=== PATIENT | female | born 1945 | race Caucasian/White ===

== ENCOUNTER 2016-06-25 11:58 | Emergency (ER) | payer MEDICARE ==
[2016-06-25] MEDS ORDERED: HYDROcodone/APAP 5-325MG 1 EACH TAB PO STA (12:34)
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
[2016-06-25 14:19] VITALS: BP 145/70; PULSE 82; RESP 20; TEMP 98.2
== END 2016-06-25 14:10 | disposition home or self-care (01) ==
LOC: EC 11:58
DX: M54.5 Low back pain (principal); G89.29 Other chronic pain; J44.9 Chronic obstructive pulmonary disease, unspecified; I10 Essential (primary) hypertension; G40.909 Epilepsy, unspecified, not intractable, without status epilepticus; E78.5 Hyperlipidemia, unspecified; I25.10 Atherosclerotic heart disease of native coronary artery without angina pectoris; Z79.899 Other long term (current) drug therapy; F41.9 Anxiety disorder, unspecified; F32.9 Major depressive disorder, single episode, unspecified
CPT/HCPCS: 99283

== ENCOUNTER 2017-09-02 15:23 | Inpatient (IN) | payer MEDICARE ==
[2017-09-02] MEDS ORDERED: IPRATROPIUM 0.5 MG/2.5 ML NEBU INHALATION STA (16:12)
[2017-09-02] MEDS ORDERED: RX INFO: IV CONTRAST WAS GIVEN 1 EACH MISC MISCELLANE PRN (16:13)
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
[2017-09-02] MEDS ORDERED: ALBUTEROL NEBULIZED 2.5 MG/3 ML INHALATION STA (16:32)
[2017-09-02 16:35] LABS: Basophils % (A) 0 %; Eosinophils # (A) 0.1 k/uL (0-0.7); Eosinophils % (A) 1 %; HCT 33.2 % (34.0-46.0); HGB 10.7 gm/dL (11.4-16.0); Hypochromasia Slight; Lymphocytes # (A) 0.9 k/uL (1.0-4.8); Lymphocytes % (A) 9 %; MCH 29.8 pg (25.0-35.0); MCHC 32.1 g/dL (31.0-37.0); MCV 92.9 fL (80.0-100.0); Mean Platelet Volume 8.5; Monocytes # (A) 0.5 k/uL (0-1.0); Monocytes % (A) 5 %; Neutrophils # (A) 8.1 k/uL (1.3-7.7); Neutrophils % (A) 82 %; Platelet Count 152 k/uL (150-450); RBC 3.58 m/uL (3.80-5.40); RDW 14.1 % (11.5-15.5); WBC 9.9 k/uL (3.8-10.6)
--- NOTE | 2017-09-02 16:41 | XR ---
EXAMINATION TYPE: XR chest 1V portable DATE OF EXAM: 09/02/2017 COMPARISON: 02/15/2016 HISTORY: Pain TECHNIQUE: Single frontal view of the chest is obtained. FINDINGS: Postsurgical changes are seen. Elevated hemidiaphragm and volume loss compatible with the history of previous surgery. Right basilar infiltrate seen. Left lung clear. Arthropathy of the shoul ders. IMPRESSION: Elevated right hemidiaphragm with right basilar atelectasis or infiltrate.
[2017-09-02 16:47] LABS: Partial Thromboplastin Time 24.6 sec (22.0-30.0); Prothrombin Time 9.8 sec (9.0-12.0)
[2017-09-02 16:52] LABS: Albumin 3.6 g/dL (3.5-5.0); Calcium 8.7 mg/dL (8.4-10.2); Magnesium 1.9 mg/dL (1.6-2.3); Potassium 4.2 mmol/L (3.5-5.1); Total Bilirubin 0.3 mg/dL (0.2-1.3); Total Protein 6.2 g/dL (6.3-8.2)
[2017-09-02 17:07] LABS: Creatine Kinase MB 1.8 ng/mL (0.0-2.4); Troponin I 0.02 ng/mL (0.000-0.034)
[2017-09-02] MEDS ORDERED: LORazepam 2 MG/ML INJ IV STA (18:50)
--- NOTE | 2017-09-02 20:20 | NM ---
EXAMINATION TYPE: NM pul vent and perfuse DATE OF EXAM: 09/02/2017 COMPARISON: Chest radiograph of the same date. HISTORY: Patient's arms are at the patient's side during acquisition. Chest radiograph the same date notes right basilar airspace disease. Shortness of breath. Patient also has underlying COPD. TECHNIQUE: Utilizing inhalation of 69.6 mCi Tc 99m DTPA aerosol and intravenous injection of 5.4 mCi of Tc 99m MAA, ventilation and perfusion images are acquired post injection in multiple projections. FINDINGS: Lateral defects on ventilation and perfusion are subsequent to the location of the patient's arms. Ri ght-sided ventilation defect is larger than perfusion defect at the right lung base corresponding to the known airspace disease. Right hemidiaphragm elevation is again noted. Oblique images are grossly suboptimal due to patient's arms positioning. Left upper lobe matched defect is seen without radiogra phic defect at this time. IMPRESSION: Low probability for pulmonary embolus. Triple matched defect in the right lung base represents the pa tient's known airspace disease, possibly pneumonia. Left apical matched defect could represent additi onal site of early airspace disease not yet seen radiographically. Exam is slightly suboptimal as the patient's arms are located at her side.
[2017-09-02] MEDS ORDERED: cefTRIAXone IN SWFI 1,000 MG/10 ML SYRINGE IVP STA (21:06)
[2017-09-02] MEDS ORDERED: AZITHROMYCIN 500 MG in SODIUM CHLORIDE 0.9% 250 ML IVPB STA (21:06)
[2017-09-02] MEDS ORDERED: IPRATROPIUM-ALBUTEROL 3 ML NEB INHALATION PRN (21:07)
[2017-09-02] MEDS ORDERED: IBUPROFEN 600 MG TAB PO PRN (22:18)
[2017-09-02] MEDS ORDERED: ACETAMINOPHEN TAB 325 MG TAB PO PRN (22:19)
[2017-09-02] MEDS: GABAPENTIN 100 MG CAP PO SCH (22:51)
[2017-09-02] MEDS: HYDROcodone/APAP 10-325MG 1 EACH TAB PO PRN (23:56)
[2017-09-02] MEDS: methylPREDNISolone SOD SUCCI 125 MG/2 ML VIAL IV SCH (23:57)
[2017-09-03] MEDS: HYDROcodone/APAP 10-325MG 1 EACH TAB PO PRN ×4 (05:47→22:02)
[2017-09-03] MEDS: LEVOTHYROXINE 125 MCG TAB PO SCH (05:48)
[2017-09-03] MEDS: methylPREDNISolone SOD SUCCI 125 MG/2 ML VIAL IV SCH ×2 (05:48→11:34)
[2017-09-03 07:06] LABS: Glucose,Whole Blood 193 mg/dL (75-99)
[2017-09-03] MEDS: IPRATROPIUM-ALBUTEROL 3 ML NEB INHALATION SCH ×4 (07:38→20:54)
[2017-09-03] MEDS: INSULIN ASPART 100 UNIT/ML 1 ML 10 ML VIAL SQ SCH ×4 (08:06→22:02)
[2017-09-03] MEDS: amLODIPine 5 MG TAB PO SCH (08:07)
[2017-09-03] MEDS: ASPIRIN 81 MG PO SCH (08:08)
[2017-09-03] MEDS: GABAPENTIN 100 MG CAP PO SCH ×3 (08:08→22:01)
[2017-09-03] MEDS ORDERED: AZITHROMYCIN 500 MG in SODIUM CHLORIDE 0.9% 250 ML IVPB SCH (09:00)
[2017-09-03] MEDS ORDERED: FUROSEMIDE 20 MG TAB PO SCH (09:00)
[2017-09-03] MEDS: cefTRIAXone IN SWFI 1,000 MG/10 ML SYRINGE IVP SCH (09:11)
[2017-09-03] MEDS: SODIUM CHLORIDE 0.9% 1,000 ML IV SCH ×2 (12:29→22:08)
[2017-09-03 12:40] LABS: Glucose,Whole Blood 235 mg/dL (75-99)
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
[2017-09-03 17:38] LABS: Glucose,Whole Blood 250 mg/dL (75-99)
[2017-09-03 17:39] LABS: Hemoglobin A1C 5.4 % (4.0-6.0)
[2017-09-03] MEDS ORDERED: ATORVASTATIN 10 MG TAB PO SCH (21:00)
[2017-09-03] MEDS ORDERED: PATIENT'S OWN (Mirabegron [Myrbetriq] 25 MG) PO SCH (21:00)
[2017-09-03 21:27] LABS: Glucose,Whole Blood 243 mg/dL (75-99)
[2017-09-04] MEDS: HYDROcodone/APAP 10-325MG 1 EACH TAB PO PRN ×2 (03:05→13:43)
[2017-09-04 06:26] VITALS: BP 139/79; RESP 20; TEMP 97.1
[2017-09-04] MEDS: LEVOTHYROXINE 125 MCG TAB PO SCH (06:34)
[2017-09-04 07:21] LABS: Glucose,Whole Blood 203 mg/dL (75-99)
[2017-09-04] MEDS ORDERED: PANTOPRAZOLE 40 MG TABLET PO SCH (07:30)
[2017-09-04] MEDS: cefTRIAXone IN SWFI 1,000 MG/10 ML SYRINGE IVP SCH (07:43)
[2017-09-04] MEDS: IPRATROPIUM-ALBUTEROL 3 ML NEB INHALATION SCH ×2 (07:44→11:42)
[2017-09-04] MEDS: SODIUM CHLORIDE 0.9% 1,000 ML IV SCH (07:44)
[2017-09-04] MEDS: INSULIN ASPART 100 UNIT/ML 1 ML 10 ML VIAL SQ SCH ×2 (07:44→13:00)
[2017-09-04] MEDS: amLODIPine 5 MG TAB PO SCH (07:45)
[2017-09-04] MEDS: GABAPENTIN 100 MG CAP PO SCH (07:45)
[2017-09-04] MEDS: ASPIRIN 81 MG PO SCH (07:45)
[2017-09-04] MEDS ORDERED: LORATADINE 10 MG TAB PO SCH (09:00)
[2017-09-04] MEDS ORDERED: AZITHROMYCIN 500 MG TAB PO SCH (09:00)
[2017-09-04] MEDS ORDERED: predniSONE 20 MG TAB PO SCH (09:00)
[2017-09-04] MEDS ORDERED: DULoxetine HCL 60 MG CAPSULE.DR PO SCH (09:00)
[2017-09-04 09:03] LABS: HCT 32.3 % (34.0-46.0); HGB 10.7 gm/dL (11.4-16.0); MCHC 33.2 g/dL (31.0-37.0); MCV 90.4 fL (80.0-100.0); Mean Platelet Volume 7.5; Platelet Count 212 k/uL (150-450); RBC 3.58 m/uL (3.80-5.40); RDW 13.7 % (11.5-15.5); WBC 11.9 k/uL (3.8-10.6)
[2017-09-04 09:19] LABS: Potassium 4.3 mmol/L (3.5-5.1)
[2017-09-04 12:52] VITALS: PULSE 96
[2017-09-04 12:59] LABS: Glucose,Whole Blood 160 mg/dL (75-99)
--- NOTE | 2017-09-04 13:52 | P.DS ---
Providers Date of admission: 09/02/17 21:07 Attending physician: Dora Villanueva [facility] Course: 71-year-old female was admitted secondary to mild pneumonia and possible COPD exacerbation patient is clinically doing well and there is being discharged in stable condition to home patient is not requiring any oxygen. Patient's creatinine returned to her baseline. Patient's Lasix will be discontinued. Assessment and Plan Plan: -Shortness of breath: Secondary to pneumonia, right sided diaphragmatic elevation along with possibility of mild to COPD exacerbation if at all she has any. -Community acquired pneumonia: -Acute renal failure: Unsure about the chronic kidney disease acute renal failure is secondary to prerenal azotemia, improved with IV fluids and this can you of diuretic therapy -Coronary disease -Hyperlipidemia -Hypertension -Hypothyroidism -Chronic low back pain and multiple back surgeries in the past PHYSICAL EXAMINATION: GENERAL: The patient is alert and oriented x3, not in any acute distress. Well developed, well nourished. HEENT: Pupils are round and equally reacting to light. EOMI. No scleral icterus. No conjunctival pallor. Normocephalic, atraumatic. No pharyngeal erythema. No thyromegaly. CARDIOVASCULAR: S1 and S2 present. No murmurs, rubs, or gallops. PULMONARY: Chest is clear to auscultation, no wheezing or crackles. ABDOMEN: Soft, nontender, nondistended, normoactive bowel sounds. No palpable organomegaly. MUSCULOSKELETAL: No joint swelling or deformity. EXTREMITIES: No cyanosis, clubbing, or pedal edema. NEUROLOGICAL: Gross neurological examination did not reveal any focal deficits. SKIN: No rashes. Patient Condition at Discharge: Stable Plan - Discharge Summary Discharge Rx Participant: Yes New Discharge Prescriptions: New Albuterol Inhaler [Ventolin Hfa Inhaler] 1 - 2 puff INHALATION Q6HR PRN #1 inhaler PRN Reason: Shortness Of Breath Or Wheezing Budesonide-Formot 160-4.5 Mcg [Symbicort 160-4.5 Mcg Inhaler] 2 puff INHALATION BID #1 inhaler Cefuroxime Axetil [Ceftin] 500 mg PO BID #14 tab predniSONE 10 mg PO DAILY #30 tab Continue Simvastatin [Zocor] 20 mg PO HS Mirabegron [Myrbetriq] 25 mg PO HS fentaNYL 25MCG/HR PATCH [Duragesic 25MCG/HR] 1 patch TRANSDERM Q72H #10 patch Ipratropium [place] 0.06%Nasal [Atrovent Nasal 0.06%] 2 spray NASAL QID PRN PRN Reason: COUGH/WHEEZING HYDROcodone/APAP 10-325MG [[place] 10-325] 1 tab PO Q6H PRN PRN Reason: Pain DULoxetine HCL [Cymbalta] 60 mg PO DAILY Fexofenadine HCl [Mary Allergy] 180 mg PO DAILY Aspirin EC [Ecotrin Low Dose] 81 mg PO DAILY Levothyroxine Sodium [Synthroid] 125 mcg PO DAILY amLODIPine [Norvasc] 5 mg PO DAILY Gabapentin [Neurontin] 100 mg PO TID Esomeprazole Magnesium [NexIUM 24Hr] 20 mg PO DAILY Discontinued Furosemide [Lasix] 20 mg PO DAILY Discharge Medication List Mirabegron [Myrbetriq] 25 mg PO HS 10/03/15 [History] Simvastatin [Zocor] 20 mg PO HS 10/03/15 [History] fentaNYL 25MCG/HR PATCH [Duragesic 25MCG/HR] 1 patch TRANSDERM Q72H #10 patch [Rx] DULoxetine HCL [Cymbalta] 60 mg PO DAILY 06/25/16 [History] Fexofenadine HCl [Mary Allergy] 180 mg PO DAILY 06/25/16 [History] HYDROcodone/APAP 10-325MG [[place] 10-325] 1 tab PO Q6H PRN 06/25/16 [History] Ipratropium [place] 0.06%Nasal [Atrovent Nasal 0.06%] 2 spray NASAL QID PRN [History] Aspirin EC [Ecotrin Low Dose] 81 mg PO DAILY 09/02/17 [History] Esomeprazole Magnesium [NexIUM 24Hr] 20 mg PO DAILY 09/02/17 [History] Gabapentin [Neurontin] 100 mg PO TID 09/02/17 [History] Levothyroxine Sodium [Synthroid] 125 mcg PO DAILY 09/02/17 [History] amLODIPine [Norvasc] 5 mg PO DAILY 09/02/17 [History] Albuterol Inhaler [Ventolin Hfa Inhaler] 1 - 2 puff INHALATION Q6HR PRN #1 inhaler 09/04/17 [Rx] Budesonide-Formot 160-4.5 Mcg [Symbicort 160-4.5 Mcg Inhaler] 2 puff INHALATION BID #1 inhaler 09/04/17 [Rx] Cefuroxime Axetil [Ceftin] 500 mg PO BID #14 tab 09/04/17 [Rx] predniSONE 10 mg PO DAILY #30 tab 09/04/17 [Rx] Follow up Appointment(s)/Referral(s): Baudilio Roger MD [Primary Care Provider] - 3 Days Discharge Disposition: HOME SELF-CARE
== END 2017-09-04 14:56 | disposition home or self-care (01) | DRG 194 ==
LOC: EC 15:23 → 4MS4W 21:07
PROVIDERS: ADMIT Hospitalist; ATTEND Hospitalist
DX: J18.9 Pneumonia, unspecified organism (principal); J44.0 Chronic obstructive pulmonary disease with (acute) lower respiratory infection; N17.9 Acute kidney failure, unspecified; I50.9 Heart failure, unspecified; I11.0 Hypertensive heart disease with heart failure; J98.6 Disorders of diaphragm; G40.909 Epilepsy, unspecified, not intractable, without status epilepticus; E78.5 Hyperlipidemia, unspecified; E03.9 Hypothyroidism, unspecified; G89.29 Other chronic pain; M54.5 Low back pain; I25.10 Atherosclerotic heart disease of native coronary artery without angina pectoris; G43.909 Migraine, unspecified, not intractable, without status migrainosus; F32.9 Major depressive disorder, single episode, unspecified; F41.9 Anxiety disorder, unspecified; Z77.22 Contact with and (suspected) exposure to environmental tobacco smoke (acute) (chronic); Z86.14 Personal history of Methicillin resistant Staphylococcus aureus infection; Z90.710 Acquired absence of both cervix and uterus; Z90.49 Acquired absence of other specified parts of digestive tract; Z98.1 Arthrodesis status; Z90.2 Acquired absence of lung [part of]; Z79.82 Long term (current) use of aspirin; Z79.890 Hormone replacement therapy; Z79.891 Long term (current) use of opiate analgesic; Z79.899 Other long term (current) drug therapy
CPT/HCPCS: 36415; 71045; 78582; 80048; 80053; 82550; 82553; 83036; 83605; 83735; 83880; 84484; 85025; 85027; 85610; 85730; 87040; 87502; 93005; 94640; 94760; 96365; 96366; 96375; 99285

== ENCOUNTER 2018-04-28 16:23 | Observation (INO) | payer MEDICARE ==
[2018-04-28] MEDS ORDERED: SODIUM CHLORIDE 0.9% 1,000 ML IV STA (17:32)
[2018-04-28] MEDS ORDERED: IPRATROPIUM-ALBUTEROL 3 ML NEB INHALATION STA (17:32)
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
[2018-04-28 18:29] LABS: Albumin 3.9 g/dL (3.5-5.0); Calcium 9.3 mg/dL (8.4-10.2); Magnesium 1.8 mg/dL (1.6-2.3); Potassium 3.6 mmol/L (3.5-5.1); Total Bilirubin 0.3 mg/dL (0.2-1.3); Total Protein 6.7 g/dL (6.3-8.2)
[2018-04-28 18:33] LABS: Basophils % (A) 0 %; Creatine Kinase 113 U/L (30-135); Eosinophils # (A) 0.2 k/uL (0-0.7); Eosinophils % (A) 3 %; HCT 34.6 % (34.0-46.0); HGB 10.8 gm/dL (11.4-16.0); Hypochromasia Slight; Lymphocytes # (A) 1.4 k/uL (1.0-4.8); Lymphocytes % (A) 15 %; MCH 29.4 pg (25.0-35.0); MCHC 31.1 g/dL (31.0-37.0); MCV 94.5 fL (80.0-100.0); Mean Platelet Volume 7.1; Monocytes # (A) 0.5 k/uL (0-1.0); Monocytes % (A) 5 %; Neutrophils # (A) 7.2 k/uL (1.3-7.7); Neutrophils % (A) 76 %; Platelet Count 192 k/uL (150-450); RBC 3.66 m/uL (3.80-5.40); RDW 15.8 % (11.5-15.5); WBC 9.5 k/uL (3.8-10.6)
[2018-04-28 18:37] LABS: INR 0.9 (<1.2); Prothrombin Time 9.5 sec (9.0-12.0)
[2018-04-28 18:40] LABS: Partial Thromboplastin Time 16.8 sec (22.0-30.0)
[2018-04-28 18:46] LABS: Creatine Kinase MB 2.4 ng/mL (0.0-2.4); Troponin I <0.012 ng/mL (0.000-0.034)
--- NOTE | 2018-04-28 19:56 | XR ---
EXAMINATION TYPE: XR chest 2V DATE OF EXAM: 04/28/2018 COMPARISON: 09/02/2017 HISTORY: Difficulty breathing TECHNIQUE: Frontal and lateral views of the chest are obtained. FINDINGS: There is elevated right diaphragm. There is some interstitial infiltrate and atelectasis i n the right lung. Left lung is clear. There is no heart failure. There is multilevel thoracic spine f usion surgery. IMPRESSION: Chronic elevated right diaphragm with right lower lobe atelectasis. No change. No heart failure. Normal heart.
[2018-04-28] MEDS ORDERED: SODIUM CHLORIDE 0.9% 1,000 ML IV SCH (21:45)
[2018-04-28] MEDS ORDERED: HYDROcodone/APAP 10-325MG 1 EACH TAB PO ONE (21:53)
[2018-04-28] MEDS: IPRATROPIUM-ALBUTEROL 3 ML NEB INHALATION SCH (22:54)
[2018-04-29] MEDS ORDERED: MELATONIN 3 MG TABLET PO PRN
[2018-04-29] MEDS: methylPREDNISolone SOD SUCCI 125 MG/2 ML VIAL IV SCH ×3 (00:41→11:11)
[2018-04-29] MEDS: GABAPENTIN 100 MG CAP PO SCH ×2 (00:43→08:13)
[2018-04-29] MEDS: HEPARIN SODIUM,PORCINE 5,000 UNIT/ML 1 ML VIAL SQ SCH ×2 (00:45→08:13)
[2018-04-29] MEDS ORDERED: NALOXONE 0.4 MG/ML 1 ML VIAL IV PRN (02:00)
[2018-04-29] MEDS: HYDROcodone/APAP 10-325MG 1 EACH TAB PO PRN ×2 (02:24→08:13)
[2018-04-29] MEDS: IPRATROPIUM-ALBUTEROL 3 ML NEB INHALATION SCH ×3 (04:52→12:04)
[2018-04-29 06:28] VITALS: TEMP 98.2
[2018-04-29] MEDS ORDERED: LEVOTHYROXINE 125 MCG TAB PO SCH (06:30)
[2018-04-29 06:34] VITALS: BP 164/84
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
[2018-04-29 08:24] VITALS: RESP 18
[2018-04-29] MEDS ORDERED: PANTOPRAZOLE 40 MG TABLET PO SCH (09:00)
[2018-04-29] MEDS ORDERED: ASPIRIN 81 MG PO SCH (09:00)
[2018-04-29] MEDS ORDERED: DULoxetine HCL 60 MG CAPSULE.DR PO SCH (09:00)
[2018-04-29] MEDS ORDERED: FUROSEMIDE 20 MG TAB PO SCH (09:00)
[2018-04-29] MEDS ORDERED: amLODIPine 5 MG TAB PO SCH (09:00)
[2018-04-29] MEDS ORDERED: LORATADINE 10 MG TAB PO SCH (09:00)
[2018-04-29 09:12] VITALS: PULSE 100
--- NOTE | 2018-04-29 11:24 | ECHOF ---
Referral Reason:exertional dyspnea, leg swelling MEASUREMENTS -------- HEIGHT: 152.4 cm WEIGHT: 113.4 kg BP: IVSd: 1.0 cm (0.6 - 1.1) LVIDd: 3.4 cm (3.9 - 5.3) LVPWd: 1.4 cm (0.6 - 1.1) IVSs: 1.7 cm LVIDs: 1.1 cm LVPWs: 2.2 cm Ao Diam: 2.8 cm (2.0 - 3.7) AV Cusp: 1.6 cm (1.5 - 2.6) LA Diam: 2.7 cm (2.7 - 3.8) MV E Bharath: 1.89 m/s MV DecT: 174 ms MV A Bharath: 0.60 m/s MV E/A Ratio: 3.15 RAP: 5.00 mmHg RVSP: 16.55 mmHg FINDINGS -------- Sinus rhythm. This was a technically difficult study with suboptimal views. The left ventricular size is normal. There is mild concentric left ventricular hypertrophy. Overa ll left ventricular systolic function is normal with, an EF between 55 - 60 %. The right ventricle is normal in size and function. The left atrium is normal in size. The right atrium is normal in size. Lumason used The aortic valve was not well visualized. Mild mitral regurgitation is present. Trace tricuspid regurgitation present. The right ventricular systolic pressure, as measured by Dopp ler, is 16.55mmHg. The pulmonic valve was not well visualized. The aortic root size is normal. CONCLUSIONS -------- 1. Sinus rhythm. 2. This was a technically difficult study with suboptimal views. 3. The left ventricular size is normal. 4. There is mild concentric left ventricular hypertrophy. 5. Overall left ventricular systolic function is normal with, an EF between 55 - 60 %. 6. The right ventricle is normal in size and function. 7. The left atrium is normal in size. 8. The right atrium is normal in size. 9. Lumason used 10. The aortic valve was not well visualized. 11. Mild mitral regurgitation is present. 12. Trace tricuspid regurgitation present. 13. The right ventricular systolic pressure, as measured by Doppler, is 16.55mmHg. 14. The pulmonic valve was not well visualized. 15. The aortic root size is normal. LAMP STACK DEVELOPER: Lela Young RDCS
--- NOTE | 2018-04-29 13:00 | CONS ---
CONSULTATION This is a 72-year-old female with a history of "COPD" and history of prior right lower lobectomy for unknown reasons. The patient states that she comes into the hospital with complaints of shortness of breath. It has been going on for many weeks and even months. The patient states that when she is doing nothing sitting, lying, she does not really have shortness of breath. She states that most of the shortness of breath is on exertion. The patient was told once that she had COPD, although she has never smoked cigarettes. She denies a diagnosis of asthma. She has had multiple back surgeries for scoliosis. Apparently, maybe during one of those surgeries, the phrenic nerve was damaged because she has a very elevated right hemidiaphragm. We did order a sniff test to check the function of the diaphragm. The patient does use inhalers. She takes Symbicort and she has got an albuterol inhaler. She really does not come to the doctor. She is pretty much immobile or very inactive and therefore she ends up seeing the visiting physician. She sees one of the physicians at the [facility]. She believes it might be Dr. Roger. Anyway, we are asked to see her for shortness of breath. I told her that she would need a stiff test and when she is feeling well she needs to stop into the office so that we can do pulmonary function test to give her a proper diagnosis and recommend proper medications. She is anxious to go home. CURRENT MEDICATIONS: Her current medications include Myrbetriq, Zocor, Cymbalta, Mary, [place], Atrovent nasal spray, aspirin, Nexium, gabapentin, levothyroxine, amlodipine, and Lasix. She is also on Symbicort and albuterol. Other medications include a fentanyl patch. ALLERGIES: No allergies. PAST MEDICAL HISTORY: Past medical history includes CAD, heart failure, COPD/asthma, hyperlipidemia, hypertension, seizure disorder, and hypothyroidism. She had history of multiple chronic back issues and problems with multiple back surgeries. Some of the hardware in her back actually was infected with methicillin-resistant Staph aureus. SURGICAL HISTORY: Other surgical history includes appendectomy, multiple back procedures, , hysterectomy, and tonsillectomy. SOCIAL HISTORY: Significant that she is a lifelong nonsmoker. Denies any illicit drug use or alcohol use. FAMILY HISTORY: No significant family history had been mentioned. REVIEW OF SYSTEMS: CONSTITUTIONAL: Negative. NEUROLOGIC: Negative. HEENT: Negative. CARDIOVASCULAR: Negative. PULMONARY: Shortness of breath particularly on exertion. Minimal cough. Minimal phlegm production. GI/: Negative. RHEUMATOLOGIC: Negative. HEMATOLOGIC: Negative. ENDOCRINOLOGIC: Negative. DERMATOLOGIC: Negative. PHYSICAL EXAMINATION: Current vital signs are reviewed. Temperature is 98.2, heart rate 96, respiratory rate 22, blood pressure 129/77, mean 94, room air saturation 92%. Appears in no acute distress. HEENT examination is grossly unremarkable. Mucous membranes are moist. No oral lesions. NECK: Supple. Full range of motion. No adenopathy or thyromegaly. Cardiovascular examination reveals regular rhythm and rate. Heart sounds are distant. Heart rate 84. It is regular. Lungs reveal a few scattered mild rhonchi. No wheezes. No crackles. Breath sounds equal bilaterally. Abdomen is obese. Bowel sounds are heard. Extremities are intact. No cyanosis, clubbing, or edema. Skin without rash. Neurologic examination is nonfocal. The patient had a chest x-ray. The chest x-ray shows some right basilar atelectasis and a chronically elevated right hemidiaphragm. Laboratory data includes a white count 9.5, hemoglobin 10.8, hematocrit 34.6, platelet count 192,000. PT/INR normal. PTT 16.8. Sodium, potassium normal. Chloride 113, CO2 of 20. BUN and creatinine were 25 and 1.31. Her troponins were negative x3. Her influenza studies were negative. Her liver function tests were normal. She had an EKG, which showed basically normal sinus rhythm. An echocardiogram was ordered and showed good heart function with an ejection fraction between 55% to 60%. The rest of the echocardiogram was not too remarkable. Medications are reviewed. ASSESSMENT: 1. Shortness of breath, which may be multifactorial in part related to restrictive lung disease from the patient's obesity, underlying intrinsic pulmonary disease such as asthma, although not officially diagnosed and possibly complicated by the patient's previous right lower lobectomy for unknown reasons and chronically elevated right hemidiaphragm, which may or may not work. 2. Hyperlipidemia. 3. Coronary artery disease. 4. History of heart failure. 5. Hypertension. 6. Seizure disorder. 7. Hypothyroidism. 8. Migraine cephalgia. 9. Chronic back problems. 10.Previous right lower lobectomy for unclear reasons. 11.Chronically elevated right hemidiaphragm. 12.Previous methicillin-resistant Staphylococcus aureus infection with infected hardware in the patient's back. PLAN: The patient could be discharged from my perspective. The patient could go home on a short course of antibiotics and a Medrol Dosepak. The patient should get a sniff test before discharge. She should see me in the office for complete pulmonary function test where we can better identify what her lung dysfunction is. Additional recommendations and suggestions are forthcoming. MMODL / IJN: [id number] /
--- NOTE | 2018-04-29 13:13 | P.PN ---
Subjective Progress Note Date: 04/29/18 Principal diagnosis: shortness of breath patient seen and examined. No acute events overnight. Patient reports improvement in her breathing. States she gets winded with exertion. No chest pain or palpitations. Saw Dr. Peña of this morning, scheduled for sniff test. Objective - Vital Signs Vital signs: Vital Signs Temp 98.2 F 04/29/18 06:27 Pulse 100 04/29/18 09:12 Resp 18 04/29/18 08:00 BP 164/84 04/29/18 06:33 Pulse Ox 95 04/29/18 09:02 Intake & Output 04/28/18 04/29/18 04/29/18 18:59 06:59 18:59 Weight 113.398 kg Other: Voiding Method Toilet # Voids 2 - Exam General: [non toxic], [no distress], [appears at stated age] Derm: [warm], [dry] Head: [atraumatic], [normocephalic], [symmetric] Eyes: [EOMI], [no lid lag], [anicteric sclera] Mouth: [no lip lesion], [mucus membranes moist] Cardiovascular: [S1S2 reg], [no murmur], [positive posterior tibial pulse bilateral], Lungs: [decreased breath sounds bilateral], [no rhonchi, no rales] , [no accessory muscle use] Abdominal: [soft], [ nontender to palpation], [no guarding], [no appreciable organomegaly] Ext: [no gross muscle atrophy], [1+ edema], [no contractures] Neuro: [no focal neuro deficits] Psych: [Alert], [oriented], [appropriate affect] - Labs CBC & Chem 7: 04/28/18 18:00 04/28/18 18:00 Labs: Abnormal Lab Results - Last 24 Hours (Table) 04/28/18 04/28/18 04/28/18 Range/Units 18:00 18:00 18:00 RBC 3.66 L (3.80-5.40) m/uL Hgb 10.8 L (11.4-16.0) gm/dL RDW 15.8 H (11.5-15.5) % APTT 16.8 L (22.0-30.0) sec Chloride 113 H (98-107) mmol/L Carbon Dioxide 20 L (22-30) mmol/L BUN 25 H (7-17) mg/dL Creatinine 1.31 H (0.52-1.04) mg/dL Glucose 117 H (74-99) mg/dL Assessment and Plan Assessment: Assessment 1. Exertional dyspnea 2. Acute kidney injury 3. Anemia 4. Hypothyroidism 5. Hypertension 6. Chronic lower back pain 7. DVT and GI prophylaxis Plan 1. History of secondhand smoking. Chest x-ray showed elevated right diaphragm. Influenza negative. Echocardiogram shows EF of 55-60% with mild LVH, less likely heart failure (BNP is within normal limits). Continue DuoNeb treatments scheduled and Solu-Medrol 60 g IV 4 times a day. We'll follow pulmonology recommendations. Oxygen per nasal cannula to maintain an oxygen saturation greater than 92%. 2. Baseline creatinine greater than 1, around 1.2 during previous admissions likely on CKD. Continue normal saline at 20 mL an hour. Encourage by mouth hydration. Avoid nephrotoxins. 3. Chronic in nature. Follow-up FOBT due to NSAID use. Daily CBC. 4. Resume Synthroid. 5. Resume Amlodipine. Monitor vitals. 6. Resume Cymbalta, fentanyl patch, gabapentin, [place]. 7. Protonix due to IV steroid use. Heparin subcutaneously 3 times a day for DVT prophylaxis.
--- NOTE | 2018-04-29 13:30 | FL ---
EXAMINATION TYPE: FL sniff test without CXR DATE OF EXAM: 04/29/2018 COMPARISON: Chest x-ray April 28, 2018 and older x-rays. HISTORY: History of partial right-sided pneumonectomy years ago with abnormal x-ray, difficulty breat bud, and hypoxia. TECHNIQUE: Fluoroscopic assisted sniff test. A total of 14 seconds of fluoroscopic time was utilized. 23 spot images are saved.. FINDINGS: Elevated right hemidiaphragm is redemonstrated. Extensive surgical change throughout the mi d to thoracic spine is again seen. Dynamic inspiration expiration fluoroscopic images show satisfacto ry motion to the left hemidiaphragm. There is absent motion to the right hemidiaphragm. 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
[2018-04-29] MEDS ORDERED: ATORVASTATIN 10 MG TAB PO SCH (21:00)
[2018-04-29] MEDS ORDERED: NON-FORMULARY DRUG (Mirabegron [Myrbetriq] 25 MG) PO SCH (21:00)
== END 2018-04-29 15:18 | disposition home or self-care (01) ==
LOC: EC 16:23 → SUPCPDRO 16:23 → 4MS4W 21:43
PROVIDERS: ADMIT Family Medicine; ATTEND Family Medicine
DX: J44.1 Chronic obstructive pulmonary disease with (acute) exacerbation (principal); D64.9 Anemia, unspecified; E03.9 Hypothyroidism, unspecified; N17.9 Acute kidney failure, unspecified; E66.9 Obesity, unspecified; Z68.24 Body mass index [BMI] 24.0-24.9, adult; E78.5 Hyperlipidemia, unspecified; F32.9 Major depressive disorder, single episode, unspecified; F41.9 Anxiety disorder, unspecified; G40.909 Epilepsy, unspecified, not intractable, without status epilepticus; G43.909 Migraine, unspecified, not intractable, without status migrainosus; G89.29 Other chronic pain; I13.0 Hypertensive heart and chronic kidney disease with heart failure and stage 1 through stage 4 chronic kidney disease, or unspecified chronic kidney disease; I25.10 Atherosclerotic heart disease of native coronary artery without angina pectoris; I50.9 Heart failure, unspecified; M41.9 Scoliosis, unspecified; N18.9 Chronic kidney disease, unspecified; Z79.1 Long term (current) use of non-steroidal anti-inflammatories (NSAID); Z79.890 Hormone replacement therapy; Z79.899 Other long term (current) drug therapy; Z86.14 Personal history of Methicillin resistant Staphylococcus aureus infection; Z90.2 Acquired absence of lung [part of]; Z90.710 Acquired absence of both cervix and uterus; Z99.81 Dependence on supplemental oxygen; Z90.49 Acquired absence of other specified parts of digestive tract
CPT/HCPCS: 96372; 96374; 96375; 99285; 36415; 94640 ×2; 94760; 93005; 83880; 80053; 82550; 82553; 83735; 84484 ×2; 85025; 85610; 85730; 87040; 87502; 76000; 71046; G0378 ×2; C8929; J1644; J2930; Q9950; 93306

== ENCOUNTER 2018-08-05 13:08 | Inpatient (IN) | payer MEDICARE ==
[2018-08-05] MEDS ORDERED: IPRATROPIUM-ALBUTEROL 3 ML NEB INHALATION STA (13:43)
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
[2018-08-05 14:47] LABS: Anisocytosis Slight; Basophils % (A) 0 %; Eosinophils # (A) 0.4 k/uL (0-0.7); Eosinophils % (A) 2 %; HCT 31.7 % (34.0-46.0); HGB 10.1 gm/dL (11.4-16.0); Hypochromasia Moderate; Lymphocytes % (A) 6 %; MCH 29.3 pg (25.0-35.0); MCV 91.8 fL (80.0-100.0); Mean Platelet Volume 9.2; Monocytes # (A) 0.5 k/uL (0-1.0); Monocytes % (A) 3 %; Neutrophils # (A) 14.1 k/uL (1.3-7.7); Neutrophils % (A) 88 %; Platelet Count 253 k/uL (150-450); RBC 3.46 m/uL (3.80-5.40); RDW 16.1 % (11.5-15.5); WBC 16.1 k/uL (3.8-10.6)
[2018-08-05] MEDS: FUROSEMIDE 10 MG/ML 4 ML VIAL IV STA ×2 (14:55→16:05)
[2018-08-05 15:00] LABS: Albumin 3.6 g/dL (3.5-5.0); Calcium 8.7 mg/dL (8.4-10.2); Magnesium 1.9 mg/dL (1.6-2.3); Potassium 4.1 mmol/L (3.5-5.1); Total Bilirubin 0.4 mg/dL (0.2-1.3)
[2018-08-05 15:02] LABS: INR 0.9 (<1.2); Prothrombin Time 9.7 sec (9.0-12.0)
[2018-08-05 15:18] LABS: Partial Thromboplastin Time 18.3 sec (22.0-30.0)
[2018-08-05] MEDS ORDERED: methylPREDNISolone SOD SUCCI 125 MG/2 ML VIAL IV STA (15:32)
--- NOTE | 2018-08-05 15:53 | XR ---
EXAMINATION TYPE: XR chest 2V DATE OF EXAM: 08/05/2018 COMPARISON: 07/23/2018 TECHNIQUE: PA and lateral views submitted. HISTORY: Difficulty breathing FINDINGS: Postsurgical change involving the vertebral column. There is persistent elevation the right hemidiaph ragm with subsegmental infiltrate. No pneumothorax. Heart size stable. Arthropathy of the shoulders. IMPRESSION: Persistent right hemidiaphragm elevation the right perihilar and lower lobe atelectasis o r infiltrate.
[2018-08-05] MEDS ORDERED: LEVOFLOXACIN 750MG-D5W PMX 750 MG in DEXTROSE/WATER 1 150ML.BAG IVPB STA (15:59)
[2018-08-05] MEDS ORDERED: IPRATROPIUM-ALBUTEROL 3 ML NEB INHALATION PRN (16:16)
[2018-08-05] MEDS ORDERED: ACETAMINOPHEN TAB 325 MG TAB PO PRN (16:44)
[2018-08-05] MEDS ORDERED: HYDROmorphone 0.5 MG/0.5 ML SYRINGE IVP STA (16:44)
[2018-08-05] MEDS ORDERED: NALOXONE 0.4 MG/ML 1 ML VIAL IV PRN (16:44)
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
[2018-08-05 20:33] VITALS: BMI 45.7
[2018-08-05] MEDS: HYDROcodone/APAP 5-325MG 1 EACH TAB PO PRN (20:45)
[2018-08-05] MEDS: IPRATROPIUM-ALBUTEROL 3 ML NEB INHALATION SCH ×2 (20:45→22:55)
[2018-08-05] MEDS: METOPROLOL TARTRATE 50 MG TAB PO SCH (21:02)
[2018-08-05] MEDS: TOPIRAMATE 100 MG TAB PO SCH (21:03)
[2018-08-05] MEDS: GABAPENTIN 400 MG CAP PO SCH (21:03)
[2018-08-05] MEDS: guaiFENesin 600 MG TABLET.ER PO SCH (21:03)
[2018-08-05] MEDS: ATORVASTATIN 40 MG TAB PO SCH (21:03)
[2018-08-05] MEDS: MYBETRIQ 50MG PO SCH (21:05)
[2018-08-05] MEDS: SODIUM CHLORIDE 0.9% 1,000 ML IV SCH (22:20)
[2018-08-06] MEDS ORDERED: HYDROmorphone 0.5 MG/0.5 ML SYRINGE IVP STA (00:02)
[2018-08-06] MEDS: methylPREDNISolone SOD SUCCI 125 MG/2 ML VIAL IV SCH ×3 (00:09→12:29)
[2018-08-06 02:37] LABS: Appearance,Urine Clear (Clear); Bacteria,Urine Occasional /hpf; Bilirubin,Urine Negative (Negative); Blood,Urine Negative (Negative); Color,Urine Yellow; Glucose,Urine (UA) Negative (Negative); Ketones,Urine Negative (Negative); Leukocyte Esterase,Urine Negative (Negative); Nitrite,Urine Negative (Negative); PH, Urine 5.5 (5.0-8.0); Protein,Urine 1+ (Negative); RBC,Urine <1 /hpf (0-5); Specific Gravity,Urine 1.017 (1.001-1.035); Urobilinogen,Urine <2.0 mg/dL (<2.0); WBC,Urine 2 /hpf (0-5)
[2018-08-06] MEDS: IPRATROPIUM-ALBUTEROL 3 ML NEB INHALATION SCH ×6 (03:28→23:41)
[2018-08-06] MEDS: HYDROcodone/APAP 5-325MG 1 EACH TAB PO PRN ×5 (03:43→23:48)
[2018-08-06] MEDS: LEVOTHYROXINE 75 MCG TAB PO SCH (05:59)
[2018-08-06] MEDS: GABAPENTIN 400 MG CAP PO SCH ×3 (08:52→20:25)
[2018-08-06] MEDS: guaiFENesin 600 MG TABLET.ER PO SCH ×2 (08:52→20:26)
[2018-08-06] MEDS: LOSARTAN 50 MG TAB PO SCH (08:53)
[2018-08-06] MEDS: DULoxetine HCL 60 MG CAPSULE.DR PO SCH (08:53)
[2018-08-06] MEDS: amLODIPine 10 MG TAB PO SCH (08:53)
[2018-08-06] MEDS: ASPIRIN 81 MG PO SCH (08:53)
[2018-08-06] MEDS: FUROSEMIDE 20 MG TAB PO SCH (08:53)
[2018-08-06] MEDS: METOPROLOL TARTRATE 50 MG TAB PO SCH ×2 (08:53→20:26)
[2018-08-06] MEDS: TOPIRAMATE 100 MG TAB PO SCH ×3 (08:53→20:26)
[2018-08-06 11:59] LABS: Basophils % (A) 0 %; Eosinophils # (A) 0.1 k/uL (0-0.7); Eosinophils % (A) 0 %; HCT 29.7 % (34.0-46.0); HGB 9.7 gm/dL (11.4-16.0); Hypochromasia Slight; Lymphocytes # (A) 0.5 k/uL (1.0-4.8); Lymphocytes % (A) 4 %; MCHC 32.7 g/dL (31.0-37.0); MCV 91.9 fL (80.0-100.0); Mean Platelet Volume 7.5; Monocytes # (A) 0.2 k/uL (0-1.0); Monocytes % (A) 2 %; Neutrophils # (A) 11.1 k/uL (1.3-7.7); Neutrophils % (A) 94 %; Platelet Count 262 k/uL (150-450); RBC 3.24 m/uL (3.80-5.40); RDW 15.8 % (11.5-15.5); WBC 11.8 k/uL (3.8-10.6)
[2018-08-06 12:10] LABS: Albumin 3.7 g/dL (3.5-5.0); Calcium 9.3 mg/dL (8.4-10.2); Potassium 3.8 mmol/L (3.5-5.1); Total Bilirubin 0.3 mg/dL (0.2-1.3); Total Protein 6.2 g/dL (6.3-8.2)
[2018-08-06 12:23] LABS: Glucose,Whole Blood 218 mg/dL (75-99)
[2018-08-06] MEDS: INSULIN ASPART (NovoLOG) 100 UNIT/ML VIAL SQ SCH ×3 (12:29→20:26)
[2018-08-06] MEDS: SODIUM CHLORIDE 0.9% 1,000 ML IV SCH (14:35)
--- NOTE | 2018-08-06 15:34 | P.PN ---
Subjective Progress Note Date: 08/06/18 Principal diagnosis: COPD exacerbation Patient was seen and examined. No acute events overnight. Patient reports slight improvement in her breathing but continues to complain of dyspnea on exertion. Patient is requesting stronger medication for her chronic lower back pain. She denies any bladder or bowel incontinence, no saddle anesthesia. She denies any chest pain or palpitations. No nausea or vomiting. No fever or chills. Saturating 90s on 2 L nasal cannula. Objective - Vital Signs Vital signs: Vital Signs Temp 97.9 F 08/06/18 04:59 Pulse 80 08/06/18 11:39 Resp 18 08/06/18 04:59 BP 115/69 08/06/18 04:59 Pulse Ox 98 08/06/18 04:59 Intake & Output 08/05/18 08/06/18 08/06/18 18:59 06:59 18:59 Weight 113.398 kg Other: Voiding Method Toilet # Voids 2 # Bowel Movements 0 - Exam General: [non toxic], [no distress], [appears at stated age] Derm: [warm], [dry] Head: [atraumatic], [normocephalic], [symmetric] Eyes: [EOMI], [no lid lag], [anicteric sclera] Mouth: [no lip lesion], [mucus membranes moist] Cardiovascular: [S1S2 reg], [no murmur], [positive DP pulse bilateral] Lungs: [Decreased breath sounds bilateral with and expiratory wheezing], [no rhonchi, no rales] , [no accessory muscle use] Abdominal: [soft], [ nontender to palpation], [no guarding], [no appreciable organomegaly] Ext: [no gross muscle atrophy], [no edema], [no contractures] Neuro: [no focal neuro deficits] Psych: [Alert], [oriented], [appropriate affect] - Labs CBC & Chem 7: 08/06/18 11:28 08/06/18 11:28 Labs: Abnormal Lab Results - Last 24 Hours (Table) 08/06/18 08/06/18 08/06/18 Range/Units 01:47 11:28 11:28 WBC 11.8 H (3.8-10.6) k/uL RBC 3.24 L (3.80-5.40) m/uL Hgb 9.7 L (11.4-16.0) gm/dL Hct 29.7 L (34.0-46.0) % RDW 15.8 H (11.5-15.5) % Neutrophils # 11.1 H (1.3-7.7) k/uL Lymphocytes # 0.5 L (1.0-4.8) k/uL Chloride 113 H (98-107) mmol/L Carbon Dioxide 17 L (22-30) mmol/L BUN 31 H (7-17) mg/dL Creatinine 1.31 H (0.52-1.04) mg/dL Glucose 222 H (74-99) mg/dL POC Glucose (mg/dL) (75-99) mg/dL AST 11 L (14-36) U/L Total Protein 6.2 L (6.3-8.2) g/dL Urine Protein 1+ H (Negative) Urine Bacteria Occasional H (None) /hpf 08/06/18 Range/Units 12:19 WBC (3.8-10.6) k/uL RBC (3.80-5.40) m/uL Hgb (11.4-16.0) gm/dL Hct (34.0-46.0) % RDW (11.5-15.5) % Neutrophils # (1.3-7.7) k/uL Lymphocytes # (1.0-4.8) k/uL Chloride (98-107) mmol/L Carbon Dioxide (22-30) mmol/L BUN (7-17) mg/dL Creatinine (0.52-1.04) mg/dL Glucose (74-99) mg/dL POC Glucose (mg/dL) 218 H (75-99) mg/dL AST (14-36) U/L Total Protein (6.3-8.2) g/dL Urine Protein (Negative) Urine Bacteria (None) /hpf Assessment and Plan Assessment: Assessment and Plan 1. COPD exacerbation 2. Community acquired pneumonia 3. History of CHF 4. Anemia 5. Hyperchloremic metabolic acidosis 6. Acute kidney injury 1. Likely secondary to pneumonia. Chest x-ray shows persistent right hemidiaphragm elevation and right and lower lobe atelectasis or infiltrate. Start DuoNeb 4 times a day scheduled and as needed for shortness of breath and wheezing. Continues on Solu-Medrol 60 mg IV every 6 hours. Start Symbicort. Follow influenza screen. Follow pulmonology consultation. 2. Patient has a leukocytosis of 16.1-11.8. Chest x-ray showing concerns for pneumonia. Lactic acid negative. Continue levofloxacin IV. Start Robitussin. O2 per nasal cannula to maintain an O2 saturation greater than 92%. Follow pulmonology consultation. 3. Most recent echocardiogram from July 2018 shows EF 60-65% with moderate concentric LVH. Continue ARB. Continue beta umair. Continue Lasix. 4. Hemoglobin 10.1-9.7, MCV 91.8. Unknown etiology but stable. Daily CBC. 5. Chloride 116-113, bicarbonate 13-17, improved greatly. Likely secondary to Lasix use. Hydrate with normal saline at 50 mL per hour. Repeat BMP in the AM. 6. BUN 34, creatinine 1.55. Likely secondary to dehydration. Continue normal saline. Daily BMP. Avoid nephrotoxins. Patient admitted for COPD exacerbation likely secondary to pneumonia/acute bronchitis. Patient is pending clinical improvement. Likely DC in 1-2 days.
--- NOTE | 2018-08-06 15:38 | CONS ---
CONSULTATION PULMONARY CRITICAL CARE CONSULTATION: DATE OF SERVICE: 08/06/2018 REASON FOR CONSULTATION: Shortness of breath. This is a 72-year-old female who apparently presented to the emergency room on August 05 with complaints of shortness of breath. She also noticed some swelling to her legs. The patient does have a history of both CHF and COPD as well as a nonfunctioning right hemidiaphragm. The patient is on oxygen 23/11. I have seen this patient before in the hospital and evaluated her before and she was supposed to come to the office for further evaluation there, but has never made it. She denies any chest pain or chest discomfort. She denies any fever or chills. She was coughing but not producing any phlegm. She denies any other complaints. She is feeling a bit better today. She is wearing some O2 at 2 L. . HOME MEDICATIONS: Include Cymbalta, [place], aspirin, Lasix, Symbicort, vitamin B12, vitamin D2, Flonase, Neurontin, Synthroid, Cozaar, Lopressor, Myrbetriq, Zofran, potassium chloride, Crestor, Topamax, vitamin B, and amlodipine. Other medications include fentanyl patch, albuterol inhaler, Ceftin, and Mucinex. ALLERGIES: DOXYCYCLINE. PAST MEDICAL HISTORY: Positive for asthma/COPD. She has actually never been evaluated in the office for either and that is why we want her in there for pulmonary function testing. She is a lifelong nonsmoker, but apparently was exposed to smoke for many years. 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 SURGICAL HISTORY: Includes among other things appendectomy, multiple back surgeries, , hysterectomy, tonsillectomy, apparently a right lower lobe lung resection for unclear reasons, cervical fusion, sinus surgery x2, colonoscopy and abdominoplasty. SOCIAL HISTORY: Significant that she is a lifelong nonsmoker. Denies any alcohol or illicit drug use. She is concerned she might have COPD from the standpoint that she was around a lot of smoke when she was young. She has never been to the office for PFTs. FAMILY HISTORY: Apparently positive for COPD. REVIEW OF SYSTEMS: CONSTITUTIONAL: Negative. NEUROLOGIC: Negative. HEENT: Negative. CARDIOVASCULAR: Negative. PULMONARY: Shortness of breath, nonproductive cough, wheezing. GI: Negative. : Negative. RHEUMATOLOGIC: Negative. IMMUNOLOGIC: Negative. DERMATOLOGIC: Negative. PHYSICAL EXAMINATION: Current vital signs are reviewed. Her temperature is 97.9, heart rate 80, respiratory rate 18, blood pressure 115/69 mean 84 and her saturations are 98% on 2 L. She appears in no acute distress. When we first entered the room, she was lying on her left side. It did not appear to be any distress. No audible wheezing. No use of accessory muscles. No conversational dyspnea. HEENT examination is grossly unremarkable. Mucous membranes are moist. Neck is supple. Full range of motion. No adenopathy, thyromegaly or neck vein distention. Cardiovascular examination reveals regular rhythm and rate. Heart sounds are distant. Heart rate in mid 80s. S1, S2 normal. Lungs reveal mostly clear breath sounds. A few scattered rhonchi. No wheezes or crackles. Breath sounds are slightly diminished on the right side. Abdomen is soft, bowel sounds heard. Extremities are intact. No cyanosis, clubbing, or edema. Skin without rash. Neurologic examination is brief but nonfocal. LAB: Data reviewed. White count 11.8, hemoglobin 9.7, hematocrit 29.7, platelet count 262,000. Sodium 142, potassium 3.8, chloride 113, CO2 is 17, anion gap is 12, BUN and creatinine were 31 and 1.31. Glucose 222. AST is 11. Urine is negative. A chest x-ray from August 05 shows elevated right diaphragm with some minimal right perihilar and right lower lobe atelectasis or infiltrate. ASSESSMENT: 1. Mild asthma exacerbation complicated by tracheobronchitis and/or possible minimal right lower lobe infiltrate/pneumonia. 2. 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 3. History of congestive heart failure. 4. Obesity. 5. Hypothyroidism. 6. Hypertension. 7. Hyperlipidemia. 8. Osteoarthritis. 9. History of pneumonia. 10.History of seizure disorder. 11.Multiple other medical problems as delineated. PLAN: The patient seems to be relatively stable. Will review her medications to make sure she is on appropriate medications. We will make sure she is on short-acting beta agonist, a long-acting beta agonist, inhaled corticosteroids. Additional recommendations and suggestions are forthcoming. Will continue to follow. Post discharge, the patient will follow up in the office for PFTs. No additional recommendations are made. Likely discharge within 24-48 hours if she remains stable. MMODL / HOLLYN: [id number] /
[2018-08-06] MEDS: HYDROmorphone 0.5 MG/0.5 ML SYRINGE IVP PRN ×2 (16:20→20:26)
[2018-08-06 17:28] LABS: Glucose,Whole Blood 186 mg/dL (75-99)
[2018-08-06] MEDS: methylPREDNISolone SOD SUCCI 40 MG/ML 1 ML VIAL IV SCH ×2 (17:43→23:37)
[2018-08-06] MEDS: MYBETRIQ 50MG PO SCH (20:15)
[2018-08-06] MEDS: ATORVASTATIN 40 MG TAB PO SCH (20:25)
[2018-08-06 20:29] LABS: Glucose,Whole Blood 261 mg/dL (75-99)
[2018-08-06] MEDS: SYMBICORT 160-4.5 MCG INHALER INHALATION SCH (20:46)
[2018-08-07] MEDS: HYDROmorphone 0.5 MG/0.5 ML SYRINGE IVP PRN ×4 (01:26→20:37)
[2018-08-07] MEDS: IPRATROPIUM-ALBUTEROL 3 ML NEB INHALATION SCH ×5 (04:14→19:47)
[2018-08-07] MEDS: methylPREDNISolone SOD SUCCI 40 MG/ML 1 ML VIAL IV SCH ×3 (05:06→17:08)
[2018-08-07] MEDS: LEVOTHYROXINE 75 MCG TAB PO SCH (05:07)
[2018-08-07] MEDS: HYDROcodone/APAP 5-325MG 1 EACH TAB PO PRN ×3 (05:15→17:04)
[2018-08-07 07:16] LABS: Glucose,Whole Blood 168 mg/dL (75-99)
[2018-08-07] MEDS: INSULIN ASPART (NovoLOG) 100 UNIT/ML VIAL SQ SCH ×4 (07:54→20:38)
[2018-08-07] MEDS: guaiFENesin 600 MG TABLET.ER PO SCH ×2 (07:54→20:38)
[2018-08-07] MEDS: GABAPENTIN 400 MG CAP PO SCH ×3 (07:55→20:38)
[2018-08-07] MEDS: amLODIPine 10 MG TAB PO SCH (07:55)
[2018-08-07] MEDS: ASPIRIN 81 MG PO SCH (07:56)
[2018-08-07] MEDS: METOPROLOL TARTRATE 50 MG TAB PO SCH ×2 (07:56→20:38)
[2018-08-07] MEDS: LOSARTAN 50 MG TAB PO SCH (07:56)
[2018-08-07] MEDS: TOPIRAMATE 100 MG TAB PO SCH ×3 (07:56→20:38)
[2018-08-07] MEDS: DULoxetine HCL 60 MG CAPSULE.DR PO SCH (07:56)
[2018-08-07] MEDS: FUROSEMIDE 20 MG TAB PO SCH (07:56)
[2018-08-07] MEDS: SYMBICORT 160-4.5 MCG INHALER INHALATION SCH ×2 (08:25→19:47)
[2018-08-07] MEDS ORDERED: LEVOFLOXACIN 750MG-D5W PMX 750 MG in DEXTROSE/WATER 1 150ML.BAG IVPB SCH (09:00)
[2018-08-07] MEDS ORDERED: IPRATROPIUM-ALBUTEROL 3 ML NEB INHALATION PRN (11:11)
[2018-08-07 11:26] LABS: Glucose,Whole Blood 175 mg/dL (75-99)
--- NOTE | 2018-08-07 11:40 | P.PN ---
Subjective Progress Note Date: 08/07/18 Principal diagnosis: Shortness of breath, mild exacerbation of chronic bronchial asthma, but given by tracheobronchitis and possible minimal right lower lobe infiltrate/pneumonia On 08/07/2017 patient seen in follow-up. Patient is awake and alert, she is breathing easier, less oxygen is 97% on 2 L of oxygen, no fever or chills, respirations are nonlabored, patient does have some exertional dyspnea, but overall she is improving. Urine and blood cultures show no growth so far. No labs today, no chest x-ray. Antibiotic coverage in the form of Levaquin IV steroids at 40 mg every 6 hours, nebulized bronchodilators. Patient is receiving oral Lasix Objective - Vital Signs Vital signs: Vital Signs Temp 97.6 F 08/07/18 05:00 Pulse 90 08/07/18 08:37 Resp 20 08/07/18 05:00 BP 143/79 08/07/18 05:00 Pulse Ox 97 08/07/18 08:25 Intake & Output 08/06/18 08/07/18 08/07/18 18:59 06:59 18:59 Intake Total 800 Balance 800 Intake: Oral 800 Other: Voiding Method Toilet # Voids 1 2 # Bowel Movements 0 - Exam GENERAL EXAM: Alert, 72-year-old white female comfortable in no apparent distress. HEAD: Normocephalic/atraumatic. EYES: Normal reaction of pupils, equal size. Conjunctiva pink, sclera white. NOSE: Clear with pink turbinates. THROAT: No erythema or exudates. NECK: No masses, no JVD, no thyroid enlargement, no adenopathy. CHEST: No chest wall deformity. Symmetrical expansion. LUNGS: Equal air entry with scattered rhonchi, and a few wheezes CVS: Regular rate and rhythm, normal S1 and S2, no gallops, no murmurs, no rubs ABDOMEN: Soft, nontender. No hepatosplenomegaly, normal bowel sounds, no guarding or rigidity. EXTREMITIES: No clubbing, no edema, no cyanosis, 2+ pulses and upper and lower extremities. MUSCULOSKELETAL: Muscle strength and tone normal. SPINE: No scoliosis or deformity SKIN: No rashes CENTRAL NERVOUS SYSTEM: Alert and oriented -3. No focal deficits, tone is normal in all 4 extremities. PSYCHIATRIC: Alert and oriented -3. Appropriate affect. Intact judgment and i nsight. - Labs CBC & Chem 7: 08/06/18 11:28 08/06/18 11:28 Labs: Abnormal Lab Results - Last 24 Hours (Table) 08/06/18 08/06/18 08/06/18 Range/Units 11:28 11:28 12:19 WBC 11.8 H (3.8-10.6) k/uL RBC 3.24 L (3.80-5.40) m/uL Hgb 9.7 L (11.4-16.0) gm/dL Hct 29.7 L (34.0-46.0) % RDW 15.8 H (11.5-15.5) % Neutrophils # 11.1 H (1.3-7.7) k/uL Lymphocytes # 0.5 L (1.0-4.8) k/uL Chloride 113 H (98-107) mmol/L Carbon Dioxide 17 L (22-30) mmol/L BUN 31 H (7-17) mg/dL Creatinine 1.31 H (0.52-1.04) mg/dL Glucose 222 H (74-99) mg/dL POC Glucose (mg/dL) 218 H (75-99) mg/dL AST 11 L (14-36) U/L Total Protein 6.2 L (6.3-8.2) g/dL 08/06/18 08/06/18 08/07/18 Range/Units 17:25 20:16 07:14 WBC (3.8-10.6) k/uL RBC (3.80-5.40) m/uL Hgb (11.4-16.0) gm/dL Hct (34.0-46.0) % RDW (11.5-15.5) % Neutrophils # (1.3-7.7) k/uL Lymphocytes # (1.0-4.8) k/uL Chloride (98-107) mmol/L Carbon Dioxide (22-30) mmol/L BUN (7-17) mg/dL Creatinine (0.52-1.04) mg/dL Glucose (74-99) mg/dL POC Glucose (mg/dL) 186 H 261 H 168 H (75-99) mg/dL AST (14-36) U/L Total Protein (6.3-8.2) g/dL 08/07/18 Range/Units 11:24 WBC (3.8-10.6) k/uL RBC (3.80-5.40) m/uL Hgb (11.4-16.0) gm/dL Hct (34.0-46.0) % RDW (11.5-15.5) % Neutrophils # (1.3-7.7) k/uL Lymphocytes # (1.0-4.8) k/uL Chloride (98-107) mmol/L Carbon Dioxide (22-30) mmol/L BUN (7-17) mg/dL Creatinine (0.52-1.04) mg/dL Glucose (74-99) mg/dL POC Glucose (mg/dL) 175 H (75-99) mg/dL AST (14-36) U/L Total Protein (6.3-8.2) g/dL Microbiology - Last 24 Hours (Table) 08/05/18 16:33 Blood Culture - Preliminary Blood No Growth after 24 hours 08/06/18 01:47 Urine Culture - Preliminary Urine,Voided Assessment and Plan Plan: Assessment: #1. Mild exacerbation of chronic bronchial asthma, comfortable getting by tracheobronchitis and possible minimal right lower lobe infiltrate/pneumonia #2. 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 History of congestive heart failure, unspecified #4. Obesity #5. Hypothyroidism #6. Hypertension, hyperlipidemia #7. Osteoarthritis #8. Previous episode of pneumonia #9. History of seizure disorder Plan: Continue current medical treatment, patient is improving, breathing easier, no fever or chills, past signs are stable, continue IV steroids, current antibiotics, nebulized bronchodilators, will need another 24 hours of inpatient treatment, continue to follow I performed a history & physical examination of the patient and discussed their management with my nurse practitioner, Bridget Heard. I reviewed the nurse practitioner's note and agree with the documented findings and plan of care. Lung sounds are positive for scattered rhonchi and a few wheezes The findings and the impression was discussed with the patient. I attest to the documentation by the nurse practitioner. Time with Patient: Less than 30
--- NOTE | 2018-08-07 12:55 | P.PN ---
Subjective Progress Note Date: 08/07/18 Principal diagnosis: shortness of breath, lower back. Patient was seen and examined. No acute events overnight. Patient reports significant improvement in her breathing. She continues to complain of a wet cough. Patient reports chronic lower back pain, well controlled with current IV Dilaudid. She denies any chest pain, palpitations. No nausea or vomiting. No fever or chills. Seen by Dr. Peña, recommends 1 more day. Objective - Vital Signs Vital signs: Vital Signs Temp 97.6 F 08/07/18 05:00 Pulse 90 08/07/18 11:48 Resp 20 08/07/18 05:00 BP 143/79 08/07/18 05:00 Pulse Ox 97 08/07/18 08:25 Intake & Output 08/06/18 08/07/18 08/07/18 18:59 06:59 18:59 Intake Total 800 Balance 800 Intake: Oral 800 Other: Voiding Method Toilet # Voids 1 2 # Bowel Movements 0 - Exam General: [non toxic], [no distress], [appears at stated age] Derm: [warm], [dry] Head: [atraumatic], [normocephalic], [symmetric] Eyes: [EOMI], [no lid lag], [anicteric sclera] Mouth: [no lip lesion], [mucus membranes moist] Cardiovascular: [S1S2 reg], [no murmur], [positive DP pulse bilateral] Lungs: [Decreased breath sounds bilateral with and expiratory wheezing], [no rhonchi, no rales] , [no accessory muscle use] Abdominal: [soft], [ nontender to palpation], [no guarding], [no appreciable organomegaly] Ext: [no gross muscle atrophy], [no edema], [no contractures] Neuro: [no focal neuro deficits] Psych: [Alert], [oriented], [appropriate affect] - Labs CBC & Chem 7: 08/06/18 11:28 08/06/18 11:28 Labs: Abnormal Lab Results - Last 24 Hours (Table) 08/06/18 08/06/18 08/07/18 Range/Units 17:25 20:16 07:14 POC Glucose (mg/dL) 186 H 261 H 168 H (75-99) mg/dL 08/07/18 Range/Units 11:24 POC Glucose (mg/dL) 175 H (75-99) mg/dL Microbiology - Last 24 Hours (Table) 08/05/18 16:33 Blood Culture - Preliminary Blood No Growth after 24 hours 08/06/18 01:47 Urine Culture - Preliminary Urine,Voided Assessment and Plan Assessment: Assessment and Plan 1. COPD exacerbation 2. Community acquired pneumonia 3. History of CHF 4. Anemia 5. Hyperchloremic metabolic acidosis 6. Acute kidney injury 1. Likely secondary to pneumonia. Chest x-ray shows persistent right hemidiaphragm elevation and right and lower lobe atelectasis or infiltrate. Start DuoNeb 4 times a day scheduled and as needed for shortness of breath and wheezing. Continues on Solu-Medrol 60 mg IV every 6 hours. Start Symbicort. Follow influenza screen. Follow pulmonology consultation. 2. Patient has a leukocytosis of 16.1-11.8. Chest x-ray showing concerns for pneumonia. Lactic acid negative. Continue levofloxacin IV. Start Robitussin. O2 per nasal cannula to maintain an O2 saturation greater than 92%. Follow pulmonology consultation. 3. Most recent echocardiogram from July 2018 shows EF 60-65% with moderate concentric LVH. Continue ARB. Continue beta umair. Continue Lasix. 4. Hemoglobin 10.1-9.7, MCV 91.8. Unknown etiology but stable. Daily CBC. 5. Chloride 116-113, bicarbonate 13-17, improved greatly. Likely secondary to Lasix use. Hydrate with normal saline at 50 mL per hour. Repeat BMP in the AM. 6. BUN 34-31, creatinine 1.55-1.31. Likely secondary to dehydration. Continue normal saline. Daily BMP. Avoid nephrotoxins. Patient admitted for COPD exacerbation likely secondary to pneumonia/acute bronchitis. Patient is pending clinical improvement. Likely DC tomorrow as per Pulmonology.
[2018-08-07 17:01] LABS: Glucose,Whole Blood 174 mg/dL (75-99)
[2018-08-07 20:22] LABS: Glucose,Whole Blood 267 mg/dL (75-99)
[2018-08-07] MEDS: MYBETRIQ 50MG PO SCH (20:38)
[2018-08-07] MEDS: ATORVASTATIN 40 MG TAB PO SCH (20:38)
[2018-08-08] MEDS: methylPREDNISolone SOD SUCCI 40 MG/ML 1 ML VIAL IV SCH ×3 (00:19→12:40)
[2018-08-08] MEDS: HYDROmorphone 0.5 MG/0.5 ML SYRINGE IVP PRN ×2 (00:40→07:38)
[2018-08-08] MEDS: LEVOTHYROXINE 75 MCG TAB PO SCH (05:00)
[2018-08-08] MEDS: HYDROcodone/APAP 5-325MG 1 EACH TAB PO PRN ×2 (05:00→11:10)
[2018-08-08 05:29] VITALS: BP 111/72; RESP 20; TEMP 97.8
[2018-08-08] MEDS: IPRATROPIUM-ALBUTEROL 3 ML NEB INHALATION SCH ×2 (06:59→10:58)
[2018-08-08] MEDS: SYMBICORT 160-4.5 MCG INHALER INHALATION SCH (06:59)
[2018-08-08 07:11] LABS: Glucose,Whole Blood 176 mg/dL (75-99)
[2018-08-08 07:12] VITALS: PULSE 84
[2018-08-08] MEDS: LOSARTAN 50 MG TAB PO SCH (07:38)
[2018-08-08] MEDS: TOPIRAMATE 100 MG TAB PO SCH (07:38)
[2018-08-08] MEDS: amLODIPine 10 MG TAB PO SCH (07:39)
[2018-08-08] MEDS: ASPIRIN 81 MG PO SCH (07:39)
[2018-08-08] MEDS: DULoxetine HCL 60 MG CAPSULE.DR PO SCH (07:39)
[2018-08-08] MEDS: METOPROLOL TARTRATE 50 MG TAB PO SCH (07:39)
[2018-08-08] MEDS: guaiFENesin 600 MG TABLET.ER PO SCH (07:39)
[2018-08-08] MEDS: GABAPENTIN 400 MG CAP PO SCH (07:39)
[2018-08-08] MEDS: FUROSEMIDE 20 MG TAB PO SCH (07:40)
[2018-08-08] MEDS: INSULIN ASPART (NovoLOG) 100 UNIT/ML VIAL SQ SCH ×2 (07:40→12:41)
[2018-08-08] MEDS ORDERED: FLUCONAZOLE 100 MG TAB PO ONE (09:32)
[2018-08-08 11:33] LABS: Glucose,Whole Blood 138 mg/dL (75-99)
--- NOTE | 2018-08-08 14:48 | P.PN ---
Subjective Progress Note Date: 08/08/18 Principal diagnosis: Shortness of breath, mild exacerbation of chronic bronchial asthma, but given by tracheobronchitis and possible minimal right lower lobe infiltrate/pneumonia On 08/07/2017 patient seen in follow-up. Patient is awake and alert, she is breathing easier, less oxygen is 97% on 2 L of oxygen, no fever or chills, respirations are nonlabored, patient does have some exertional dyspnea, but overall she is improving. Urine and blood cultures show no growth so far. No labs today, no chest x-ray. Antibiotic coverage in the form of Levaquin IV steroids at 40 mg every 6 hours, nebulized bronchodilators. Patient is receiving oral Lasix On 08/08/2018 patient seen in follow-up. She is doing well, no acute complaints, lung sounds are clear on today's exam, she still has a congested cough, but no worsening dyspnea, she is going home today, she already has home O2 in place, no fever or chills, she is on 2 L of oxygen pulse ox is 96%. No complaints of chest pain. Objective - Vital Signs Vital signs: Vital Signs Temp 97.8 F 08/08/18 05:05 Pulse 84 08/08/18 11:07 Resp 20 08/08/18 05:05 BP 111/72 08/08/18 05:05 Pulse Ox 96 08/08/18 06:59 Intake & Output 08/07/18 08/08/18 08/08/18 18:59 06:59 18:59 Intake Total 750 Balance 750 Intake: Oral 750 Other: # Voids 2 3 1 # Bowel Movements 1 - Exam GENERAL EXAM: Alert, 72-year-old white female comfortable in no apparent distress. HEAD: Normocephalic/atraumatic. EYES: Normal reaction of pupils, equal size. Conjunctiva pink, sclera white. NOSE: Clear with pink turbinates. THROAT: No erythema or exudates. NECK: No masses, no JVD, no thyroid enlargement, no adenopathy. CHEST: No chest wall deformity. Symmetrical expansion. LUNGS: Equal air entry with scattered rhonchi, and a few wheezes CVS: Regular rate and rhythm, normal S1 and S2, no gallops, no murmurs, no rubs ABDOMEN: Soft, nontender. No hepatosplenomegaly, normal bowel sounds, no guarding or rigidity. EXTREMITIES: No clubbing, no edema, no cyanosis, 2+ pulses and upper and lower extremities. MUSCULOSKELETAL: Muscle strength and tone normal. SPINE: No scoliosis or deformity SKIN: No rashes CENTRAL NERVOUS SYSTEM: Alert and oriented -3. No focal deficits, tone is normal in all 4 extremities. PSYCHIATRIC: Alert and oriented -3. Appropriate affect. Intact judgment and insight. - Labs CBC & Chem 7: 08/06/18 11:28 08/06/18 11:28 Labs: Abnormal Lab Results - Last 24 Hours (Table) 08/07/18 08/07/18 08/08/18 Range/Units 16:59 20:21 07:07 POC Glucose (mg/dL) 174 H 267 H 176 H (75-99) mg/dL 08/08/18 Range/Units 11:31 POC Glucose (mg/dL) 138 H (75-99) mg/dL Microbiology - Last 24 Hours (Table) 08/05/18 16:33 Blood Culture - Preliminary Blood No Growth after 48 hours 08/06/18 01:47 Urine Culture - Preliminary Urine,Voided Gram Neg Bacilli Assessment and Plan Plan: Assessment: #1. Mild exacerbation of chronic bronchial asthma, comfortable getting by tracheobronchitis and possible minimal right lower lobe infiltrate/pneumonia #2. 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 History of congestive heart failure, unspecified #4. Obesity #5. Hypothyroidism #6. Hypertension, hyperlipidemia #7. Osteoarthritis #8. Previous episode of pneumonia #9. History of seizure disorder Plan: Patient is doing well, no worsening dyspnea, no worsening chest congestion, no fever or chills, urine culture is positive for gram-negative bacilli, patient clinically is stable, no urinary complaints, patient is ambulating about the room, tolerating activity well, pulmonary perspective patient is stable for discharge home today oral course of antibiotics, prednisone taper, she'll need to be seen in the outpatient basis for follow-up by Dr. Dr. Peña in 7-10 days. I performed a history & physical examination of the patient and discussed their management with my nurse practitioner, Bridget Heard. I reviewed the nurse practitioner's note and agree with the documented findings and plan of care. Lung sounds are positive for scattered rhonchi and a few wheezes The findings and the impression was discussed with the patient. I attest to the documentation by the nurse practitioner. Time with Patient: Less than 30
== END 2018-08-08 12:40 | disposition home health service (06) | DRG 190 ==
LOC: EC 13:08 → 4MS4W 16:16
PROVIDERS: ADMIT Hospitalist; ATTEND Hospitalist
DX: J44.1 Chronic obstructive pulmonary disease with (acute) exacerbation (principal); J18.9 Pneumonia, unspecified organism; J45.901 Unspecified asthma with (acute) exacerbation; J96.11 Chronic respiratory failure with hypoxia; N17.9 Acute kidney failure, unspecified; J98.11 Atelectasis; Z68.42 Body mass index [BMI] 45.0-49.9, adult; E87.2 Acidosis; J44.0 Chronic obstructive pulmonary disease with (acute) lower respiratory infection; J98.6 Disorders of diaphragm; M19.90 Unspecified osteoarthritis, unspecified site; T50.1X5A Adverse effect of loop [high-ceiling] diuretics, initial encounter; Z79.51 Long term (current) use of inhaled steroids; D64.9 Anemia, unspecified; E03.9 Hypothyroidism, unspecified; E66.9 Obesity, unspecified; E78.5 Hyperlipidemia, unspecified; E86.0 Dehydration; F32.9 Major depressive disorder, single episode, unspecified; F41.9 Anxiety disorder, unspecified; G40.909 Epilepsy, unspecified, not intractable, without status epilepticus; G89.29 Other chronic pain; I11.0 Hypertensive heart disease with heart failure; I44.0 Atrioventricular block, first degree; I50.9 Heart failure, unspecified; Z79.82 Long term (current) use of aspirin; Z79.890 Hormone replacement therapy; Z79.899 Other long term (current) drug therapy; Z82.5 Family history of asthma and other chronic lower respiratory diseases; Z87.01 Personal history of pneumonia (recurrent); Z90.710 Acquired absence of both cervix and uterus; Z99.81 Dependence on supplemental oxygen; Z87.440 Personal history of urinary (tract) infections; I49.1 Atrial premature depolarization; M54.9 Dorsalgia, unspecified; Z86.14 Personal history of Methicillin resistant Staphylococcus aureus infection; Z79.891 Long term (current) use of opiate analgesic; Z88.1 Allergy status to other antibiotic agents; Z98.1 Arthrodesis status; Z90.2 Acquired absence of lung [part of]; Z77.22 Contact with and (suspected) exposure to environmental tobacco smoke (acute) (chronic); J32.9 Chronic sinusitis, unspecified; G43.901 Migraine, unspecified, not intractable, with status migrainosus
CPT/HCPCS: 36415; 71046; 80053; 81001; 83605; 83735; 83880; 84484; 85025; 85610; 85730; 87040; 87077; 87086; 87186; 87502; 93005; 94640; 94760; 96365; 96375; 99285

== ENCOUNTER 2018-08-20 21:22 | Inpatient (IN) | payer MEDICARE ==
[2018-08-20 22:55] LABS: Basophils % (A) 0 %; Eosinophils # (A) 0.2 k/uL (0-0.7); Eosinophils % (A) 1 %; HGB 9.2 gm/dL (11.4-16.0); Hypochromasia Slight; Lymphocytes # (A) 1.7 k/uL (1.0-4.8); Lymphocytes % (A) 13 %; MCH 29.1 pg (25.0-35.0); MCHC 30.7 g/dL (31.0-37.0); MCV 94.8 fL (80.0-100.0); Mean Platelet Volume 7.5; Monocytes # (A) 0.5 k/uL (0-1.0); Monocytes % (A) 4 %; Neutrophils # (A) 10.8 k/uL (1.3-7.7); Neutrophils % (A) 81 %; Platelet Count 196 k/uL (150-450); RBC 3.17 m/uL (3.80-5.40); RDW 15.6 % (11.5-15.5); WBC 13.3 k/uL (3.8-10.6)
[2018-08-20 22:59] LABS: Albumin 3.7 g/dL (3.5-5.0); Calcium 8.6 mg/dL (8.4-10.2); Magnesium 1.7 mg/dL (1.6-2.3); Potassium 4.3 mmol/L (3.5-5.1); Total Bilirubin 0.3 mg/dL (0.2-1.3)
--- NOTE | 2018-08-20 23:00 | XR ---
EXAM: XR Chest, 2 Views CLINICAL HISTORY: ITS.REASON XR Reason: Chest Pain TECHNIQUE: Frontal and lateral views of the chest. COMPARISON: 08/05/18 chest x-ray IMPRESSION: Unchanged heart size. Unchanged thoracic spinal hardware. Unchanged elevated right hemidiaphragm. No consolidation or pleural fusion.
[2018-08-20 23:06] LABS: INR 0.9 (<1.2); Prothrombin Time 9.8 sec (9.0-12.0)
[2018-08-20] MEDS ORDERED: IPRATROPIUM-ALBUTEROL 3 ML NEB INHALATION STA (23:49)
[2018-08-21 01:10] LABS: Appearance,Urine Clear (Clear); Bacteria,Urine Many /hpf; Bilirubin,Urine Negative (Negative); Blood,Urine Negative (Negative); Color,Urine Yellow; Glucose,Urine (UA) Negative (Negative); Ketones,Urine Negative (Negative); Leukocyte Esterase,Urine Moderate (Negative); Nitrite,Urine Negative (Negative); PH, Urine 5.5 (5.0-8.0); Protein,Urine Trace (Negative); RBC,Urine 1 /hpf (0-5); Renal Epithelial Cells,Urine <1 /hpf (0); Specific Gravity,Urine 1.015 (1.001-1.035); Squamous Epithelial Cell,Urine 4 /hpf (0-4); Urobilinogen,Urine <2.0 mg/dL (<2.0); WBC,Urine 42 /hpf (0-5)
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
[2018-08-21] MEDS: IPRATROPIUM-ALBUTEROL 3 ML NEB INHALATION PRN ×3 (07:27→19:07)
[2018-08-21] MEDS ORDERED: predniSONE 20 MG TAB PO SCH (09:00)
[2018-08-21] MEDS ORDERED: ALBUTEROL INHALER 60 PUFF/8 GM INHALER INHALATION PRN (10:05)
[2018-08-21] MEDS ORDERED: CYANOCOBALAMIN-FA-PYRIDOXINE 1 EACH TAB PO SCH (10:15)
[2018-08-21] MEDS ORDERED: FUROSEMIDE 20 MG TAB PO SCH (10:15)
[2018-08-21] MEDS ORDERED: LOSARTAN 50 MG TAB PO SCH (10:15)
[2018-08-21] MEDS: LEVOFLOXACIN 500 MG TAB PO SCH (10:46)
[2018-08-21] MEDS: POTASSIUM CHLORIDE ER 20 MEQ TAB.ER PO SCH (10:46)
[2018-08-21] MEDS: ASPIRIN 81 MG PO SCH (10:46)
[2018-08-21] MEDS: CYANOCOBALAMIN 500 MCG TAB PO SCH (10:46)
[2018-08-21] MEDS: guaiFENesin 600 MG TABLET.ER PO SCH ×2 (10:46→22:06)
[2018-08-21] MEDS: HYDROcodone/APAP 10-325MG 1 EACH TAB PO PRN ×2 (10:46→22:08)
[2018-08-21] MEDS: GABAPENTIN 400 MG CAP PO SCH ×3 (10:47→23:21)
[2018-08-21] MEDS: METOPROLOL TARTRATE 50 MG TAB PO SCH ×2 (10:47→22:07)
[2018-08-21] MEDS: TOPIRAMATE 100 MG TAB PO SCH ×3 (10:47→22:07)
[2018-08-21] MEDS: LEVOTHYROXINE 75 MCG TAB PO SCH (10:47)
[2018-08-21] MEDS: DULoxetine HCL 60 MG CAPSULE.DR PO SCH (10:47)
[2018-08-21] MEDS: amLODIPine 10 MG TAB PO SCH (10:47)
[2018-08-21] MEDS: SYMBICORT 160-4.5 MCG INHALER INHALATION SCH ×2 (10:48→19:08)
[2018-08-21] MEDS: BUDESONIDE 1 MG/2 ML NEBU INHALATION SCH (20:53)
[2018-08-21] MEDS: ALBUTEROL NEBULIZED 2.5 MG/3 ML INHALATION SCH ×2 (20:53→22:43)
[2018-08-21] MEDS ORDERED: MYRBETRIQ (Mirabegron) 50 MG PO SCH (21:00)
[2018-08-21] MEDS ORDERED: ATORVASTATIN 40 MG TAB PO SCH (21:00)
[2018-08-21] MEDS: LACTATED RINGERS 1,000 ML IV SCH (22:06)
[2018-08-21] MEDS: methylPREDNISolone SOD SUCCI 40 MG/ML 1 ML VIAL IV SCH (23:21)
[2018-08-22] MEDS: ALBUTEROL NEBULIZED 2.5 MG/3 ML INHALATION SCH ×4 (03:35→16:53)
--- NOTE | 2018-08-22 04:02 | HP ---
HISTORY AND PHYSICAL DATE OF ADMISSION: 08/21/2018 DATE OF SERVICE: 08/21/2018. PRESENTING COMPLAINT: Short of breath. HISTORY OF PRESENTING COMPLAINT: This is a pleasant 72-year-old patient who follows with visiting physician Dr. Roger. Chronic stable medical conditions include hyperlipidemia, hypertension, primary osteoarthritis, chronic kidney disease, seizure disorder, hypothyroid, phrenic nerve damage with back surgery, right-sided [place] diaphragm paralysis, partial right lower lobe resection on home oxygen. Chronic back pain. T8-T9 compression fractures, MRSA osteomyelitis in 2006. The patient started off yesterday with increasing shortness of breath, minimal cough. No sputum production. No fever. No chills. The patient does wear 2 L oxygen at home. Appetite has been fair. The patient also got some edema. Admitted for the same. Did feel better with breathing treatment. Normally uses a cane to get about. REVIEW OF SYSTEMS: CONSTITUTIONAL: Tired. HEENT None. RESPIRATORY as above. CARDIOVASCULAR as above. GASTROINTESTINAL none. GENITOURINARY: None. MUSCULOSKELETAL: Arthritic pain in many joints. DERMATOLOGICAL: None. HEMATOLOGICAL: None. LYMPHATICS: none. PSYCHIATRY none. NEUROLOGICAL none. PAST MEDICAL HISTORY: Of asthma, congestive heart failure from diastolic dysfunction, EF 60 to 65%, hyperlipidemia, hypertension, osteoarthritis, chronic kidney disease, seizure disorder, hypothyroid, phrenic nerve damage with back surgery resulting in right-sided hemidiaphragm paralysis, partial right lower lobe resection, T8, T9 compression fraction, osteomyelitis in 2006, migraines, colitis. PAST SURGICAL HISTORY: Appendectomy, back surgery, , hysterectomy, tonsillectomy, multiple back surgery, cervical fusion, sinus surgery x2, abdominoplasty. PSYCH HISTORY: Anxiety and depression. SOCIAL HISTORY: Lives alone, use a cane, uses oxygen about 2 L. daughter helps her out. No smoking. No alcohol. FAMILY HISTORY: COPD. HOME MEDICATIONS: 1. Crestor 20 mg q.h.s. 2. Myrbetriq 50 mg q.h.s. 3. Prednisone 10 mg a day. 4. Mucinex 1200 mg q.12 hours. 5. Norvasc 10 mg daily. 6. Vitamin B complex 1 capsule p.o. daily. 7. Topamax 100 mg t.i.d. 8. Potassium chloride 20 mEq daily. 9. Lopressor 50 mg b.i.d. 10.Cozaar 50 mg p.o. daily. 11.Synthroid 150 mcg a day. 12.Levaquin 500 mg a day. 13.[place] 10 one tablet q.6 p.r.n. 14.Neurontin 400 mg t.i.d. 15.Lasix 20 mg p.o. daily. 16.Vitamin D2 95266 units on Wednesday. 17.Cymbalta 60 mg p.o. daily. 18.Vitamin B12 1000 mcg a day. 19.Symbicort 160/4.5 two puffs b.i.d. 20.Aspirin 81 mg a day. 21.Ventolin HFA 1-2 puffs q.6h p.r.n. ALLERGIES: DOXYCYCLINE AND MORPHINE. PHYSICAL EXAMINATION: VITAL SIGNS: Vital signs on presentation: Temperature 98.7, pulse 84, respiration 24, blood pressure 113/44, pulse ox 98% on 3 L. GENERAL APPEARANCE: Well built, BMI 45%, sitting up, short of breath with wheezing. EYES: Pupils equal. Conjunctivae normal. HEENT: External appearance of nose and ears normal. Oral cavity normal. NECK: JVD not raised. Mass not palpable. RESPIRATORY: Effort increased. LUNGS: Diminished breath sounds on the right side, prolonged expiration and wheezing. CARDIOVASCULAR: First and second sounds normal. Some edema. ABDOMEN: Soft, nontender. Liver and spleen not palpable. LYMPHATICS: No lymph nodes palpable in the neck and axilla. PSYCHIATRY: Alert and oriented x3. Mood and affect slightly anxious. NEUROLOGICAL: Pupils equal. Cranial nerves grossly intact. Power and sensation grossly intact. INVESTIGATIONS: Chest x-ray film, personally reviewed by me shows decreased loss of vision on the right side inferiorly. No obvious infiltrate. White count 13.3, hemoglobin 9.2, potassium 4.3, BUN 65, creatinine 2.2. Patient's BUN and creatinine was 24/1.22 on 07/24/18. ProBNP 283. ASSESSMENT: 1. Acute exacerbation of moderate persistent asthma. 2. Chronic hypoxic respiratory failure from asthma. 3. Morbid obesity BMI 45. 4. Hyperlipidemia. 5. Essential hypertension. 6. Primary osteoarthritis. 7. Acute renal failure probably prerenal. 8. Hypothyroid. 9. Chronic right-sided phrenic nerve palsy. 10.History of right lower lobe resection. 11.Chronic congestive heart failure from diastolic dysfunction. EF 60-65 percent. No acute exacerbation. PLAN: Home medications will be resumed. Will hold off patient's Cozaar and Lasix currently. Will gently hydrate the patient. The patient will be put on inhaled steroids, bronchodilators. Short burst of IV steroids. Expect the patient to turn around in 24 hours. Care was discussed with the patient. Questions were answered. Copy to visiting physician Dr. Roger. CAL / HOLLYN: [id number] /
[2018-08-22] MEDS: HYDROcodone/APAP 10-325MG 1 EACH TAB PO PRN (05:42)
[2018-08-22] MEDS: LEVOTHYROXINE 75 MCG TAB PO SCH (05:42)
[2018-08-22] MEDS: methylPREDNISolone SOD SUCCI 40 MG/ML 1 ML VIAL IV SCH ×2 (05:43→15:23)
[2018-08-22] MEDS: BUDESONIDE 1 MG/2 ML NEBU INHALATION SCH (06:57)
[2018-08-22 07:29] LABS: Calcium 9.4 mg/dL (8.4-10.2); Potassium 4.5 mmol/L (3.5-5.1)
[2018-08-22] MEDS: METOPROLOL TARTRATE 50 MG TAB PO SCH (08:49)
[2018-08-22] MEDS: LEVOFLOXACIN 500 MG TAB PO SCH (08:49)
[2018-08-22] MEDS: amLODIPine 10 MG TAB PO SCH (08:49)
[2018-08-22] MEDS: DULoxetine HCL 60 MG CAPSULE.DR PO SCH (08:49)
[2018-08-22] MEDS: ASPIRIN 81 MG PO SCH (08:49)
[2018-08-22] MEDS: CYANOCOBALAMIN 500 MCG TAB PO SCH (08:49)
[2018-08-22] MEDS: TOPIRAMATE 100 MG TAB PO SCH ×2 (08:49→17:46)
[2018-08-22] MEDS: GABAPENTIN 400 MG CAP PO SCH ×2 (08:49→17:46)
[2018-08-22] MEDS: guaiFENesin 600 MG TABLET.ER PO SCH (08:49)
[2018-08-22] MEDS: POTASSIUM CHLORIDE ER 20 MEQ TAB.ER PO SCH (08:49)
[2018-08-22] MEDS: LACTATED RINGERS 1,000 ML IV SCH (08:50)
[2018-08-22 16:30] VITALS: BP 145/92; RESP 19; TEMP 98
[2018-08-22 17:01] VITALS: PULSE 84
--- NOTE | 2018-08-23 05:11 | DS ---
DISCHARGE SUMMARY DATE OF ADMISSION: 08/21/2018 DATE OF DISCHARGE: 08/22/2018 FINAL DIAGNOSES: 1. Acute exacerbation of moderate persistent asthma. 2. Chronic hypoxic respiratory failure from asthma. 3. Morbid obesity, body mass index 45. 4. Hyperlipidemia. 5. Essential hypertension. 6. Primary osteoarthritis. 7. Acute renal failure prerenal, POA. 8. Hypothyroid. 9. Chronic right-sided phrenic nerve palsy. 10.History of right lower lobe resection. 11.Chronic congestive heart failure from diastolic dysfunction, ejection fraction 60% to 65%. No acute exacerbation. 12.Chronic lower extremity venous insufficiency. HOSPITAL COURSE: This patient presented with shortness of breath, found to have asthma exacerbation. Also was found to be in acute renal failure. Creatinine did come down 2.2 down to 1.40. Given a burst of steroids and breathing treatments with which she felt much better. Care was discussed with the patient. On examination, temperature 98, pulse 89, respiration 19, blood pressure 145/92, pulse ox 99% on 2 L. LUNGS: Improved air entry. INVESTIGATIONS: BUN 45, creatinine 1.40. DISCHARGE MEDICATIONS: 1. Cymbalta 60 mg a day. 2. [place] 10 one tablet q.6 p.r.n. 3. Aspirin 81 mg a day. 4. Symbicort 160/4.5 two puffs b.i.d. 5. Vitamin B12, 1000 mcg a day. 6. Vitamin D2, 50,000 units on Wednesday. 7. Neurontin 400 mg t.i.d. 8. Synthroid 150 mcg a day. 9. Cozaar 50 mg a day. 10.Lopressor 50 mg b.i.d. 11.Myrbetriq 50 mg q.h.s. 12.Crestor 20 mg q.h.s. 13.Topamax 100 mg p.o. t.i.d. 14.Vitamin B complex 1 capsule p.o. daily. 15.Norvasc 10 mg a day. 16.Ventolin HFA 1 or 2 puffs q.6 p.r.n. 17.Mucinex 1200 mg p.o. q.12. 18.Prednisone taper. 19.Ventolin 2.5 nebulizer t.i.d. Follow up with Visiting Physicians in 2 days. BMP to be drawn in 3 days. MMODL / IJN: [id number] /
[2018-08-23] MEDS ORDERED: LEVOFLOXACIN 250 MG TAB PO SCH (09:00)
[2018-08-24] MEDS ORDERED: ERGOCALCIFEROL 50,000 UNIT CAP PO SCH (09:00)
== END 2018-08-22 19:28 | disposition home or self-care (01) | DRG 202 ==
LOC: EC 21:22 → 1SOBS 08-21 01:41 → OBSVTOIN 08-22 14:49
PROVIDERS: ADMIT Hospitalist; ATTEND Hospitalist
DX: J45.41 Moderate persistent asthma with (acute) exacerbation (principal); I13.0 Hypertensive heart and chronic kidney disease with heart failure and stage 1 through stage 4 chronic kidney disease, or unspecified chronic kidney disease; I50.32 Chronic diastolic (congestive) heart failure; J44.1 Chronic obstructive pulmonary disease with (acute) exacerbation; J96.11 Chronic respiratory failure with hypoxia; N17.9 Acute kidney failure, unspecified; Z68.42 Body mass index [BMI] 45.0-49.9, adult; E66.01 Morbid (severe) obesity due to excess calories; J98.6 Disorders of diaphragm; D64.9 Anemia, unspecified; G40.909 Epilepsy, unspecified, not intractable, without status epilepticus; E03.9 Hypothyroidism, unspecified; E78.5 Hyperlipidemia, unspecified; G58.8 Other specified mononeuropathies; G89.29 Other chronic pain; I87.2 Venous insufficiency (chronic) (peripheral); M19.91 Primary osteoarthritis, unspecified site; N18.9 Chronic kidney disease, unspecified; F32.9 Major depressive disorder, single episode, unspecified; F41.9 Anxiety disorder, unspecified; G43.909 Migraine, unspecified, not intractable, without status migrainosus; M54.9 Dorsalgia, unspecified; I49.3 Ventricular premature depolarization; Z99.81 Dependence on supplemental oxygen; Z90.710 Acquired absence of both cervix and uterus; Z90.2 Acquired absence of lung [part of]; Z79.51 Long term (current) use of inhaled steroids; Z79.82 Long term (current) use of aspirin; Z79.890 Hormone replacement therapy; Z79.899 Other long term (current) drug therapy; Z88.1 Allergy status to other antibiotic agents; Z88.5 Allergy status to narcotic agent; Z87.01 Personal history of pneumonia (recurrent); Z86.14 Personal history of Methicillin resistant Staphylococcus aureus infection; Z90.49 Acquired absence of other specified parts of digestive tract; Z82.5 Family history of asthma and other chronic lower respiratory diseases
CPT/HCPCS: 36415; 71046; 80048; 80053; 81001; 83735; 83880; 84484; 85025; 85610; 85730; 93005; 94640; 94760; 99285

== ENCOUNTER 2018-09-09 09:30 | Inpatient (IN) | payer MEDICARE ==
[2018-09-09] MEDS ORDERED: methylPREDNISolone SOD SUCCI 125 MG/2 ML VIAL IV STA (09:38)
[2018-09-09] MEDS ORDERED: ALBUTEROL NEBULIZED 2.5 MG/3 ML INHALATION STA (09:38)
[2018-09-09] MEDS ORDERED: IPRATROPIUM 0.5 MG/2.5 ML NEBU INHALATION STA (09:38)
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
[2018-09-09 10:11] LABS: Albumin 3.5 g/dL (3.5-5.0); Calcium 8.8 mg/dL (8.4-10.2); Magnesium 1.6 mg/dL (1.6-2.3); Potassium 4.1 mmol/L (3.5-5.1); Total Bilirubin 0.4 mg/dL (0.2-1.3); Total Protein 5.7 g/dL (6.3-8.2)
[2018-09-09 10:15] LABS: INR 0.9 (<1.2); Prothrombin Time 9.5 sec (9.0-12.0)
[2018-09-09 10:24] LABS: Partial Thromboplastin Time 18.4 sec (22.0-30.0)
[2018-09-09 10:25] LABS: Basophils % (A) 0 %; Eosinophils # (A) 0.1 k/uL (0-0.7); Eosinophils % (A) 1 %; HCT 32.5 % (34.0-46.0); HGB 9.9 gm/dL (11.4-16.0); Hypochromasia Moderate; Lymphocytes # (A) 0.8 k/uL (1.0-4.8); Lymphocytes % (A) 7 %; MCH 29.1 pg (25.0-35.0); MCHC 30.4 g/dL (31.0-37.0); MCV 95.9 fL (80.0-100.0); Monocytes # (A) 0.4 k/uL (0-1.0); Monocytes % (A) 4 %; Neutrophils # (A) 10.6 k/uL (1.3-7.7); Neutrophils % (A) 88 %; Platelet Count 231 k/uL (150-450); RBC 3.39 m/uL (3.80-5.40); RDW 15.2 % (11.5-15.5)
--- NOTE | 2018-09-09 10:36 | XR ---
EXAMINATION TYPE: XR chest 2V DATE OF EXAM: 09/09/2018 COMPARISON: 08/20/2018 HISTORY: Shortness of breath TECHNIQUE: Frontal and lateral views of the chest are obtained. FINDINGS: Scattered senescent parenchymal changes noted. Hyperinflation compatible with COPD. Chronic elevation right hemidiaphragm with right basilar parenchymal scar or atelectasis. Increased p atchy density left lower lobe may reflect developing infiltrate. Correlate clinically. Heart size is stable. Mediastinal structures are stable and grossly unremarkable. No evidence for hilar prominence. Degenerative changes dorsal spine. IMPRESSION: 1. Chronic elevation right hemidiaphragm with right basilar parenchymal scar or atelectasis. Increase d patchy density left lower lobe may reflect developing infiltrate. Correlate clinically.
[2018-09-09] MEDS ORDERED: SODIUM CHLORIDE 0.9% 1,000 ML IV ONE (11:21)
[2018-09-09] MEDS ORDERED: cefTRIAXone IN SWFI 1,000 MG/10 ML SYRINGE IVP STA (11:22)
[2018-09-09] MEDS ORDERED: AZITHROMYCIN 500 MG in SODIUM CHLORIDE 0.9% 250 ML IVPB STA (11:22)
[2018-09-09] MEDS: SODIUM CHLORIDE 0.9% 1,000 ML IV SCH ×2 (11:34→23:54)
[2018-09-09] MEDS ORDERED: IPRATROPIUM-ALBUTEROL 3 ML NEB INHALATION PRN (12:00)
[2018-09-09] MEDS: IPRATROPIUM-ALBUTEROL 3 ML NEB INHALATION SCH ×3 (12:23→19:51)
[2018-09-09] MEDS: methylPREDNISolone SOD SUCCI 125 MG/2 ML VIAL IV SCH ×2 (16:07→23:47)
[2018-09-09] MEDS: HYDROcodone/APAP 10-325MG 1 EACH TAB PO PRN ×2 (18:17→23:51)
[2018-09-09] MEDS: SYMBICORT 160-4.5 MCG INHALER INHALATION SCH (19:51)
[2018-09-09] MEDS: guaiFENesin 600 MG TABLET.ER PO SCH (22:15)
[2018-09-09] MEDS: GABAPENTIN 400 MG CAP PO SCH (22:15)
[2018-09-09] MEDS: ATORVASTATIN 40 MG TAB PO SCH (22:15)
[2018-09-09] MEDS: TOPIRAMATE 100 MG TAB PO SCH (22:16)
[2018-09-09] MEDS: METOPROLOL TARTRATE 50 MG TAB PO SCH (22:20)
[2018-09-09] MEDS: NON-FORMULARY DRUG (Mirabegron [Myrbetriq] 50 MG) PO SCH (22:20)
[2018-09-10] MEDS: methylPREDNISolone SOD SUCCI 125 MG/2 ML VIAL IV SCH ×3 (05:22→17:49)
[2018-09-10] MEDS: LEVOTHYROXINE 75 MCG TAB PO SCH (05:23)
--- NOTE | 2018-09-10 08:10 | HP ---
HISTORY AND PHYSICAL DATE OF ADMISSION: September 09, 2018 DATE OF SURGERY: September 09, 2018 PRESENTING COMPLAINT: Wheezing. HISTORY OF PRESENTING COMPLAINT: This is a very pleasant 72-year-old patient who follows with visiting physician Dr. Roger. Chronic stable medical conditions include hyperlipidemia, hypertension, primary osteoarthritis, chronic kidney disease, seizure disorder, hypothyroid, phrenic damage with back surgery, right-sided hemidiaphragm paralysis, partial right lower lobe resection on home oxygen, chronic back pain from T8-T9 compression fractures, MRSA osteomyelitis in 2006. The patient started off with increasingly short of breath, cough, wheezing for 1 day, rather congested in the chest, not able to bring up much phlegm. No fever and chills. Appetite is maintained. Having significant bronchospasm, being admitted for the same. REVIEW OF SYSTEMS: CONSTITUTIONAL: Tired. HEENT: None. RESPIRATORY as above. CARDIOVASCULAR: None. GASTROINTESTINAL: None. GENITOURINARY: None. MUSCULOSKELETAL: Arthritic pain in the joints. DERMATOLOGICAL, HEMATOLOGIC, LYMPHATIC: none. PSYCHIATRY none. NEUROLOGICAL: . PAST MEDICAL HISTORY: Of asthma, congestive heart failure from diastolic dysfunction, EF 60-65 percent, hyperlipidemia, hypertension, osteoarthritis, chronic kidney disease, seizure disorder, hypothyroid, phrenic nerve damage with back surgery resulting in right-sided hemidiaphragm paralysis, partial right lower lobe resection, T8-T9 compression fracture, osteomyelitis in 2006, migraines, colitis. PAST SURGICAL HISTORY: Appendectomy, back surgery, , hysterectomy, tonsillectomy, multiple back surgeries, cervical fusion, sinus surgery x2, abdominoplasty. PSYCH HISTORY: Anxiety, depression. SOCIAL HISTORY: Lives alone. Uses a cane. Uses oxygen about 2 L. Daughter helps out. No smoking. No alcohol. FAMILY HISTORY: COPD. HOME MEDICATIONS: 1. Mucinex 1200 mg p.o. q.12. 2. Norvasc 10 mg p.o. daily. 3. Vitamin B complex 1 capsule p.o. daily. 4. Topamax 100 mg p.o. t.i.d. 5. Crestor 20 mg q.h.s. 6. Myrbetriq 50 mg q.h.s. 7. Lopressor 50 mg b.i.d. 8. Cozaar 50 mg p.o. daily. 9. Synthroid 150 mcg p.o. daily. 10.[place] 10 one tablet q.6 p.r.n. 11.Neurontin 400 mg p.o. t.i.d. 12.Vitamin D2 50,000 units on Wednesday. 13.Cymbalta 60 mg p.o. daily. 14.Vitamin B12 1000 mcg p.o. daily. 15.Symbicort 160/4.5, 2 puffs b.i.d. 16.Aspirin 81 mg p.o. daily. 17.Ventolin 2.5 nebulizer t.i.d. 18.Ventolin 1-2 puffs q.6 p.r.n. ALLERGIES: DOXYCYCLINE AND MORPHINE. PHYSICAL EXAMINATION: VITAL SIGNS: Vital signs on presentation: Temperature 98.7, pulse 106, respiration 24, blood pressure 89/46. Pulse ox 86 percent on 2 L. GENERAL APPEARANCE: Well built, BMI 47.2. Sitting up, short of breath. EYES: Pupils equal. Conjunctivae normal. HEENT: External appearance of nose and ears normal. Oral cavity normal. NECK: JVD not raised. Mass not palpable. RESPIRATORY: Effort increased. LUNGS: Diminished breath sounds. Prolonged expiration and wheezing. CARDIOVASCULAR: First and second sounds normal. No edema. ABDOMEN: Soft, nontender. Liver and spleen not palpable. LYMPHATICS: No lymph nodes palpable in the neck and axilla. PSYCHIATRY: Alert and oriented times three. Mood and affect normal. NEUROLOGICAL: Pupils equal. Cranial nerves grossly intact. Power and sensation grossly intact. INVESTIGATIONS: White count 12, hemoglobin 9.9, potassium 4.1, BUN 44, creatinine 1.63. BUN and creatinine was 45/1.40 on August 22. EKG tracing personally reviewed by me shows normal sinus tachycardia. Chest x-ray film personally reviewed by me shows hardware in the spine, elevated right diaphragm, questionable infiltrate. ASSESSMENT: 1. Acute exacerbation of moderate persistent asthma probably from viral pneumonitis. 2. Chronic hypoxic respiratory failure from asthma. 3. Morbid obesity BMI more than 40. 4. Hyperlipidemia. 5. Essential hypertension. 6. Primary osteoarthritis. 7. Hypothyroid. 8. Chronic right-sided phrenic palsy. 9. History of right lower lobe resection. 10.Chronic congestive heart failure from diastolic dysfunction EF 60-65 percent. 11.Chronic kidney disease stage 3 probably from nephrosclerosis. PLAN: Patient is started on nebulized bronchodilators, IV Solu-Medrol. We will also add Mucinex. We will also add Omnicef to rule out for any bacterial component. Care was discussed with the patient. Questions were answered. Copy to visiting physician Dr. Roger. CAL / ZEE: [id number] /
[2018-09-10] MEDS: NON-FORMULARY DRUG (Vitamin B Complex [Vitamin B Complex] 1 CAP) PO SCH (08:13)
[2018-09-10] MEDS: amLODIPine 10 MG TAB PO SCH (08:14)
[2018-09-10] MEDS: HYDROcodone/APAP 10-325MG 1 EACH TAB PO PRN ×2 (08:14→22:28)
[2018-09-10] MEDS: ASPIRIN 81 MG PO SCH (08:14)
[2018-09-10] MEDS: GABAPENTIN 400 MG CAP PO SCH ×3 (08:14→22:25)
[2018-09-10] MEDS: LOSARTAN 50 MG TAB PO SCH (08:14)
[2018-09-10] MEDS: guaiFENesin 600 MG TABLET.ER PO SCH ×2 (08:14→22:25)
[2018-09-10] MEDS: DULoxetine HCL 60 MG CAPSULE.DR PO SCH (08:14)
[2018-09-10] MEDS: CYANOCOBALAMIN 500 MCG TAB PO SCH (08:14)
[2018-09-10] MEDS: TOPIRAMATE 100 MG TAB PO SCH ×3 (08:14→22:25)
[2018-09-10] MEDS: METOPROLOL TARTRATE 50 MG TAB PO SCH ×2 (08:14→22:25)
[2018-09-10] MEDS: IPRATROPIUM-ALBUTEROL 3 ML NEB INHALATION SCH ×4 (08:37→19:25)
[2018-09-10] MEDS: SYMBICORT 160-4.5 MCG INHALER INHALATION SCH ×2 (08:37→19:25)
[2018-09-10] MEDS: SODIUM CHLORIDE 0.9% 1,000 ML IV SCH (15:16)
[2018-09-10 16:25] LABS: Glucose,Whole Blood 256 mg/dL (75-99)
[2018-09-10] MEDS: AZITHROMYCIN 500 MG in SODIUM CHLORIDE 0.9% 250 ML IVPB SCH (17:55)
--- NOTE | 2018-09-10 20:31 | PN ---
PROGRESS NOTE DATE OF SERVICE: 09/10/2018 This 72-year-old woman, being followed by Dr. Roger in the outpatient setting presented with acute asthma exacerbation. The patient is extremely short of breath at this time. The most recent chest x-ray which was personally reviewed by me showed chronic elevation of the right hemidiaphragm and right bibasilar atelectasis and patchy density of the left lower lobe. The patient is being closely monitored. PAST MEDICAL HISTORY: Reviewed. REVIEW OF SYSTEMS: CARDIOVASCULAR: No angina or palpitations. RESPIRATIONS: As mentioned earlier. GI no nausea or vomiting. no dysuria. NERVOUS SYSTEM: No numbness or weakness. CURRENT MEDICATIONS: Reviewed and include: 1. Rodanthe 10 mg q.6h p.r.n. 2. DuoNeb q.i.d. and p.r.n. 3. Norvasc 10 mg daily. 4. Lipitor 40 mg. 5. Symbicort b.i.d. 6. Vitamin B12 1000 b.i.d. 7. Cymbalta 60 mg. 8. Neurontin 400 mg t.i.d. 9. Mucinex. 10.Synthroid 150 mg p.o. q.h.s. 11.Cozaar 50 mg q.h.s. 12.Solu-Medrol 60 IV q.6h. 13.Lopressor 50 mg. 14.Myrbetriq 50 mg q.h.s. 15.Vitamin B complex. 16.Topamax 100 mg p.o. b.i.d. PHYSICAL EXAMINATION: Patient is alert, oriented times three. Pulse 98. Blood pressure 120/68. Respiration 18. Temperature 98.3, pulse ox 91 percent on 2 L. HEENT: Conjunctivae normal. NECK: No jugular venous distention. CARDIOVASCULAR: S1, S2 muffled. RESPIRATORY: Breath sounds diminished in the bases. Bilateral scattered rhonchi and crackles. Expiratory wheezing also present. ABDOMEN: Soft, nontender. LEGS: No edema, no swelling. CENTRAL NERVOUS SYSTEM: No focal deficits. LAB STUDIES: WBC 12, hemoglobin is 9.9, sodium 130, potassium 4.1, creatinine is 1.63, UA noted and influenza noted. ASSESSMENT: 1. Bronchial asthma acute exacerbation with acute purulent tracheobronchitis. Possibly left lower pneumonia gram-negative. 2. Chronic hypoxic respiratory failure. 3. Possible viral pneumonia. 4. Morbid obesity with BMI of 40. 5. Hyperlipidemia. 6. Hypertension. 7. Degenerative joint disease. 8. Hypothyroidism. 9. Chronic right-sided phrenic palsy and diaphragmatic elevation. 10.Right lower lobe resection. 11.History of congestive heart failure with chronic diastolic dysfunction, ejection fraction 60-65 percent. 12.Chronic kidney stage 3 possible nephrosclerosis. RECOMMENDATIONS AND DISCUSSION: Recommend to continue current medications, management and symptomatic treatment. Repeat labs. Continue the bronchodilators. I would also recommend consultation with Pulmonary and continue to monitor. Guarded prognosis because of multiple complex medical issues. A copy of dictation being forwarded to Dr. Roger who is the primary physician. MMODL / IJN: [id number] /
[2018-09-10] MEDS: NON-FORMULARY DRUG (Mirabegron [Myrbetriq] 50 MG) PO SCH (22:25)
[2018-09-10] MEDS: ATORVASTATIN 40 MG TAB PO SCH (22:25)
[2018-09-10] MEDS: HEPARIN SODIUM,PORCINE 5,000 UNIT/ML 1 ML VIAL SQ SCH (22:25)
[2018-09-11] MEDS: methylPREDNISolone SOD SUCCI 125 MG/2 ML VIAL IV SCH ×2 (00:39→05:50)
[2018-09-11 03:08] LABS: Glucose,Whole Blood 163 mg/dL (75-99)
[2018-09-11] MEDS: LEVOTHYROXINE 75 MCG TAB PO SCH (05:50)
[2018-09-11 07:23] LABS: Basophils % (A) 0 %; Eosinophils # (A) 0.1 k/uL (0-0.7); Eosinophils % (A) 0 %; HCT 31.2 % (34.0-46.0); HGB 9.1 gm/dL (11.4-16.0); Hypochromasia Marked; Lymphocytes # (A) 0.5 k/uL (1.0-4.8); Lymphocytes % (A) 2 %; MCHC 29.2 g/dL (31.0-37.0); MCV 95.9 fL (80.0-100.0); Mean Platelet Volume 7.4; Monocytes # (A) 0.6 k/uL (0-1.0); Monocytes % (A) 3 %; Neutrophils # (A) 20.8 k/uL (1.3-7.7); Neutrophils % (A) 94 %; Platelet Count 234 k/uL (150-450); RBC 3.25 m/uL (3.80-5.40); RDW 15.4 % (11.5-15.5); WBC 22.1 k/uL (3.8-10.6)
[2018-09-11] MEDS: amLODIPine 10 MG TAB PO SCH (07:54)
[2018-09-11] MEDS: PANTOPRAZOLE 40 MG TABLET PO SCH (07:54)
[2018-09-11] MEDS: ASPIRIN 81 MG PO SCH (07:54)
[2018-09-11] MEDS: CYANOCOBALAMIN 500 MCG TAB PO SCH (07:55)
[2018-09-11] MEDS: DULoxetine HCL 60 MG CAPSULE.DR PO SCH (07:56)
[2018-09-11] MEDS: guaiFENesin 600 MG TABLET.ER PO SCH ×2 (07:56→21:35)
[2018-09-11] MEDS: METOPROLOL TARTRATE 50 MG TAB PO SCH ×2 (07:57→21:35)
[2018-09-11] MEDS: HEPARIN SODIUM,PORCINE 5,000 UNIT/ML 1 ML VIAL SQ SCH ×2 (07:57→21:35)
[2018-09-11] MEDS: TOPIRAMATE 100 MG TAB PO SCH ×3 (07:58→21:35)
[2018-09-11] MEDS: LOSARTAN 50 MG TAB PO SCH (07:58)
[2018-09-11] MEDS: GABAPENTIN 400 MG CAP PO SCH ×3 (08:02→21:36)
[2018-09-11] MEDS: NON-FORMULARY DRUG (Vitamin B Complex [Vitamin B Complex] 1 CAP) PO SCH (08:02)
[2018-09-11] MEDS: IPRATROPIUM-ALBUTEROL 3 ML NEB INHALATION SCH ×4 (08:18→20:56)
[2018-09-11] MEDS: SYMBICORT 160-4.5 MCG INHALER INHALATION SCH ×2 (08:18→20:56)
[2018-09-11 08:24] LABS: Calcium 9.8 mg/dL (8.4-10.2); Potassium 4.6 mmol/L (3.5-5.1)
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
[2018-09-11] MEDS: AZITHROMYCIN 500 MG in SODIUM CHLORIDE 0.9% 250 ML IVPB SCH (11:07)
[2018-09-11 11:39] LABS: Glucose,Whole Blood 228 mg/dL (75-99)
[2018-09-11 12:18] LABS: Appearance,Urine Clear (Clear); Bilirubin,Urine Negative (Negative); Blood,Urine Negative (Negative); Color,Urine Light Yellow; Glucose,Urine (UA) Negative (Negative); Ketones,Urine Negative (Negative); Leukocyte Esterase,Urine Negative (Negative); Nitrite,Urine Negative (Negative); PH, Urine 5.5 (5.0-8.0); Protein,Urine Trace (Negative); Specific Gravity,Urine 1.018 (1.001-1.035); Urobilinogen,Urine <2.0 mg/dL (<2.0)
[2018-09-11] MEDS: INSULIN ASPART (NovoLOG) 100 UNIT/ML VIAL SQ SCH ×3 (13:05→21:35)
[2018-09-11] MEDS: methylPREDNISolone SOD SUCCI 40 MG/ML 1 ML VIAL IV SCH ×2 (15:42→22:59)
[2018-09-11] MEDS: HYDROcodone/APAP 10-325MG 1 EACH TAB PO PRN ×2 (16:48→22:58)
[2018-09-11 17:00] LABS: Glucose,Whole Blood 137 mg/dL (75-99)
[2018-09-11 20:43] LABS: Glucose,Whole Blood 240 mg/dL (75-99)
[2018-09-11] MEDS: ATORVASTATIN 40 MG TAB PO SCH (21:35)
[2018-09-11] MEDS: NON-FORMULARY DRUG (Mirabegron [Myrbetriq] 50 MG) PO SCH (21:36)
--- NOTE | 2018-09-11 21:54 | PN ---
PROGRESS NOTE DATE OF SERVICE: 09/11/2018 This 72-year-old woman who was followed by Dr. Roger in the outpatient setting was admitted with bronchial asthma acute exacerbation as well as possibly left lower pneumonia possibly gram-negative. Patient being closely monitored at this time. The patient was also seen by Dr. Varner. The patient has been having shortness of breath. The patient also had change in mental status, possible acute on chronic metabolic encephalopathy, WBC elevated at 22.1. The cultures are negative so far. PAST MEDICAL HISTORY: Reviewed. REVIEW OF SYSTEMS: CARDIOVASCULAR SYSTEM: No angina or palpitations. RESPIRATORY: As mentioned earlier. GI no nausea or vomiting. no dysuria. CENTRAL NERVOUS SYSTEM: No numbness or weakness. CURRENT MEDICATIONS: Reviewed and include: 1. [place] 10 mg q.6h p.r.n. 2. DuoNeb q.i.d. and p.r.n. 3. Norvasc 10 mg. 4. Aspirin 81 mg p.o. daily. 5. Lipitor 40 mg daily. 6. Zithromax 500 mg. 7. Symbicort 160/4.5 2 puffs b.i.d. 8. Rocephin 1 g daily. 9. Vitamin B12 1000 mcg daily. 10.Cymbalta 60 mg daily. 11.Vitamin D2. 12.Neurontin. 13.Mucinex. 14.Heparin. 15.Synthroid. 16.Cozaar. 17.Solu-Medrol. 18.Lopressor. 19.Vitamin B complex. 20.Protonix. 21.Topamax. PHYSICAL EXAM: Patient is alert, oriented x3, pulse 93, blood pressure 134/71, respiration 20, temperature 98 degrees, pulse ox 94% on room air. HEENT: Conjunctivae normal. Oral mucosa moist. NECK is no jugular venous distention. No carotid bruit. No lymph node enlargement. CARDIOVASCULAR: S1, S2 muffled. RESPIRATORY: Breath sounds diminished in the bases. Bilateral scattered rhonchi and crackles. Expiratory wheezing. ABDOMEN: Soft. Nontender. LEGS: No edema. No swelling. CENTRAL NERVOUS SYSTEM: No focal deficits. LAB STUDIES: WBC ntd hemoglobin 9.9, glucose noted. ASSESSMENT: 1. Bronchial asthma acute exacerbation with possible acute left lower lobe pneumonia possibly gram-negative. 2. Chronic hypoxic respiratory failure. 3. Change in mental status metabolic encephalopathy, acute on chronic. 4. Possible viral pneumonia. 5. Morbid obesity. BMI of 40. 6. Hypertension. 7. Hyperlipidemia. 8. History of degenerative joint disease. 9. Hypothyroidism. 10.Chronic right sided phrenic palsy and diaphragmatic elevation. 11.Remote lower lobe history of right lower lobe resection. 12.History of congestive heart failure with chronic diastolic dysfunction ejection fraction 60 to 65% with no acute component. 13.Chronic kidney stage 3, possibly nephrosclerosis. RECOMMENDATIONS AND DISCUSSION: In this 72-year-old woman who presented with multiple complex medical issues, we will monitor the patient closely, continue the current medications. Continue symptomatic treatment. The patient started on broad-spectrum IV antibiotics. The patient is also on IV steroids as well. Otherwise, we will continue to monitor. The bronchodilator optimized. Guarded prognosis because of multiple complex medical issues. Further recommendations to follow. See orders for details. Dr. Varner's input appreciated. CAL / HOLLYN: [id number] / MTDD
[2018-09-12] MEDS: HYDROcodone/APAP 10-325MG 1 EACH TAB PO PRN ×3 (06:12→19:42)
[2018-09-12] MEDS: LEVOTHYROXINE 75 MCG TAB PO SCH (06:12)
[2018-09-12 06:45] LABS: Glucose,Whole Blood 161 mg/dL (75-99)
[2018-09-12] MEDS: INSULIN ASPART (NovoLOG) 100 UNIT/ML VIAL SQ SCH ×4 (07:41→21:03)
[2018-09-12] MEDS: PANTOPRAZOLE 40 MG TABLET PO SCH (07:41)
[2018-09-12] MEDS: methylPREDNISolone SOD SUCCI 40 MG/ML 1 ML VIAL IV SCH ×2 (07:42→21:03)
--- NOTE | 2018-09-12 08:16 | XR ---
EXAMINATION TYPE: XR chest 2V DATE OF EXAM: 09/12/2018 COMPARISON: 09/09/2018 TECHNIQUE: PA and lateral views submitted. HISTORY: Shortness of breath FINDINGS: Postsurgical changes are noted there is elevation the right hemidiaphragm with bilateral areas of pat sunil tiny right pleural effusion suspected. No pneumothorax. Heart size stable. IMPRESSION: 1. Bilateral areas of patchy infiltrate with small right effusion and elevated hemidiaphragm are stab le.
[2018-09-12] MEDS: IPRATROPIUM-ALBUTEROL 3 ML NEB INHALATION SCH ×4 (08:35→20:33)
[2018-09-12] MEDS: SYMBICORT 160-4.5 MCG INHALER INHALATION SCH ×2 (08:35→20:33)
[2018-09-12] MEDS: amLODIPine 10 MG TAB PO SCH (09:29)
[2018-09-12] MEDS: GABAPENTIN 400 MG CAP PO SCH ×3 (09:29→21:03)
[2018-09-12] MEDS: METOPROLOL TARTRATE 50 MG TAB PO SCH ×2 (09:29→21:03)
[2018-09-12] MEDS: ASPIRIN 81 MG PO SCH (09:29)
[2018-09-12] MEDS: AZITHROMYCIN 500 MG TAB PO SCH (09:29)
[2018-09-12] MEDS: DULoxetine HCL 60 MG CAPSULE.DR PO SCH (09:29)
[2018-09-12] MEDS: guaiFENesin 600 MG TABLET.ER PO SCH ×2 (09:29→21:03)
[2018-09-12] MEDS: CYANOCOBALAMIN 500 MCG TAB PO SCH (09:29)
[2018-09-12] MEDS: LOSARTAN 50 MG TAB PO SCH (09:30)
[2018-09-12] MEDS: HEPARIN SODIUM,PORCINE 5,000 UNIT/ML 1 ML VIAL SQ SCH ×2 (09:30→21:03)
[2018-09-12] MEDS: TOPIRAMATE 100 MG TAB PO SCH ×3 (09:30→21:04)
[2018-09-12] MEDS: NON-FORMULARY DRUG (Vitamin B Complex [Vitamin B Complex] 1 CAP) PO SCH (09:33)
[2018-09-12 11:05] LABS: Calcium 9.8 mg/dL (8.4-10.2); Potassium 4.6 mmol/L (3.5-5.1)
[2018-09-12 11:14] LABS: Glucose,Whole Blood 153 mg/dL (75-99)
--- NOTE | 2018-09-12 11:45 | P.PN ---
Subjective Progress Note Date: 09/12/18 Principal diagnosis: Dyspnea, likely related to acute left lower lobe pneumonia with sepsis, CAP This is a 72-year-old white female patient of Dr. Roger, with past medical history of hypertention, hypothyroidism, hyperlipidemia, chronic congestive heart failure, chronic kidney disease stage III, morbid obesity, seizure disorder, previous episodes of urinary tract infections, chronic bronchial asthma, chronic right sided hemidiaphragm paralysis, chronic hypercapnic respiratory failure, previous history of MRSA infections, patient is a never smoker. We saw the patient in consultation In August for acute exacerbation of chronic bronchial asthma with tracheobronchitis, and the possibility of minimal right lower lobe infiltrate/pneumonia. Patient also had a urinary tract in fection, with the urine cultures positive for E. coli. She was adequately treated with antibiotics, breathing treatments, she clinically improved, and was discharged home in stable condition on 08/22/2018, and patient was supposed to follow-up in the office with Dr. Peña,but has not been seen in follow-up yet. On 09/09/2018 patient presents to the hospital per EMS, for evaluation of increased cough, dyspnea, phlegm production, fever. Patient resides by herself, she is on home oxygen at 2 L around the clock. Denied any chest pain, no hemoptysis, no nausea vomiting or diarrhea. Denied any urinary complaints. Chest x-ray was completed in the emergency department and showed chronic elevat ion of the right hemidiaphragm with right basilar parenchymal scarring or atelectasis, and increased patchy density at the left lower lobe that could reflect developing infiltrate. Afebrile, but confused, tachycardic, EKG showed sinus tachycardia with PVCs, left atrial enlargement. Patient is confused, lab work showed mild leukocytosis on admission, with a white blood cell count of 12.0, hemoglobin of 9.9, electrolytes are within normal limits, BUN of 44 creatinine is 1.63, troponin was negative 1, proBNP is within normal limits at 109, influenza screen was negative. Patient was started on empiric antibiotics in the form of Rocephin and Zithromax for possibility of left lower lobe pneumo irineo with sepsis, and were consulted for the same. On 09/12/2018 patient seen in follow-up on medical surgical floor. She is more awake, and less confused on today's exam, still dyspneic with exertion, but no acute distress, congestive cough, not bringing up much sputum, she remains on oxygen at 2 L, with pulse ox of 97%, she is afebrile. Lung sounds are positive for some scattered crackles, no wheezes, urianalysis came back negative for infection. She is on a combination of Rocephin and Zithromax for community acquired pneumonia. Follow-up chest x-ray has been reviewed with Dr. Peña, mikey wed bilateral areas of patchy infiltrate with small right pleural effusion and elevated hemidiaphragm, may be slightly improved at the left base. Clinically patient is improved, afebrile, blood cultures are negative thus far. Objective - Vital Signs Vital signs: Vital Signs Temp 97.6 F 09/12/18 07:34 Pulse 88 09/12/18 08:49 Resp 15 09/12/18 00:13 BP 133/75 09/12/18 07:34 Pulse Ox 97 09/12/18 07:34 Intake & Output 09/11/18 09/12/18 09/12/18 18:59 06:59 18:59 Intake Total 540 Output Total 600 Balance -60 Intake: Oral 540 Output: Urine 600 Other: Voiding Method Toilet # Voids 2 2 - Exam GENERAL EXAM: Alert, confused, 72-year-old white female patient on 2 L of oxygen with a pulse ox of 94%, oriented to person and place, disoriented to time, comfortable in no apparent distress. HEAD: Normocephalic/atraumatic. EYES: Normal reaction of pupils, equal size. Conjunctiva pink, sclera white. NOSE: Clear with pink turbinates. THROAT: No erythema or exudates. NECK: No masses, no JVD, no thyroid enlargement, no adenopathy. CHEST: No chest wall deformity. Symmetrical expansion. LUNGS: Equal air entry coarse expiratory crackles at the left lower base, diminished breath sounds over right lower base CVS: Regular rate and rhythm, normal S1 and S2, no gallops, no murmurs, no rubs ABDOMEN: Soft, nontender. No hepatosplenomegaly, normal bowel sounds, no guarding or rigidity. EXTREMITIES: No clubbing, no edema, no cyanosis, 2+ pulses and upper and lower extremities. MUSCULOSKELETAL: Muscle strength and tone normal. SPINE: No scoliosis or deformity SKIN: No rashes CENTRAL NERVOUS SYSTEM: Alert and oriented -2. No focal deficits, tone is normal in all 4 extremities. PSYCHIATRIC: Alert and oriented -2. Appropriate affect. Intact judgment and insight. - Labs CBC & Chem 7: 09/11/18 06:49 09/12/18 07:12 Labs: Abnormal Lab Results - Last 24 Hours (Table) 09/11/18 09/11/18 09/11/18 Range/Units 10:39 11:38 16:58 Chloride (98-107) mmol/L BUN (7-17) mg/dL Creatinine (0.52-1.04) mg/dL Glucose (74-99) mg/dL POC Glucose (mg/dL) 228 H 137 H (75-99) mg/dL Urine Protein Trace H (Negative) 09/11/18 09/12/18 09/12/18 Range/Units 20:39 06:43 07:12 Chloride 110 H (98-107) mmol/L BUN 41 H (7-17) mg/dL Creatinine 1.20 H (0.52-1.04) mg/dL Glucose 126 H (74-99) mg/dL POC Glucose (mg/dL) 240 H 161 H (75-99) mg/dL Urine Protein (Negative) 09/12/18 Range/Units 11:13 Chloride (98-107) mmol/L BUN (7-17) mg/dL Creatinine (0.52-1.04) mg/dL Glucose (74-99) mg/dL POC Glucose (mg/dL) 153 H (75-99) mg/dL Urine Protein (Negative) Microbiology - Last 24 Hours (Table) 09/09/18 09:42 Blood Culture - Preliminary Blood No Growth after 48 hours Assessment and Plan Plan: Assessment: #1. Dyspnea, related to acute left lower lobe pneumonia with sepsis, community acquired, chest x-ray was obtained and showed chronic elevation of the right hemidiaphragm, and an increasing density at the left lower lobe suspicious for pneumonic infiltrate #2. Altered mental status, likely related to sepsis, improved #3. Acute kidney injury related to the above #4. Chronic kidney disease stage III #5. Chronic bronchial asthma, moderate persistent #6. History of urinary tract infections with E. coli and enterococcus faecalis #7. Chronic paralysis of the right hemidiaphragm from previous spinal surgery and history of chronic hypoxemic respiratory failure #8. History of congestive heart failure with diastolic dysfunction, and mild pulmonary hypertension #9. Morbid obesity #10. Hypothyroidism #11. Hypertension, hyperlipidemia #12. Osteoarthritis #13. Previous episode of pneumonia #14. History of seizure disorder Plan: We'll continue with current antibiotics, will try to collect the sputum culture, clinically patient is improving, no fever or chills overnight, her mentation is improving, renal profile is relatively stable. We'll decrease the IV Solu- Medrol to 40 mg every 12 hours. Continue to follow I performed a history & physical examination of the patient and discussed their management with my nurse practitioner, Bridget Heard. I reviewed the nurse practitioner's note and agree with the documented findings and plan of care. Lung sounds are positive for left lower lobe coarse inspiratory crackles, diminished breath sounds over right base. The findings and the impression was discussed with the patient. I attest to the documentation by the nurse practitioner. Time with Patient: Less than 30
[2018-09-12 11:58] LABS: Basophils % (A) 0 %; Eosinophils # (A) 0.1 k/uL (0-0.7); Eosinophils % (A) 1 %; HCT 29.7 % (34.0-46.0); HGB 9.1 gm/dL (11.4-16.0); Hypochromasia Slight; Lymphocytes # (A) 0.7 k/uL (1.0-4.8); Lymphocytes % (A) 4 %; MCHC 30.6 g/dL (31.0-37.0); MCV 94.7 fL (80.0-100.0); Mean Platelet Volume 9.7; Monocytes # (A) 0.6 k/uL (0-1.0); Monocytes % (A) 4 %; Neutrophils # (A) 16.5 k/uL (1.3-7.7); Neutrophils % (A) 92 %; Platelet Count 231 k/uL (150-450); RBC 3.14 m/uL (3.80-5.40); RDW 15.6 % (11.5-15.5)
[2018-09-12 16:52] LABS: Glucose,Whole Blood 250 mg/dL (75-99)
[2018-09-12 20:15] LABS: Glucose,Whole Blood 231 mg/dL (75-99)
[2018-09-12] MEDS: ATORVASTATIN 40 MG TAB PO SCH (21:03)
--- NOTE | 2018-09-12 22:11 | PN ---
PROGRESS NOTE DATE OF SERVICE: 09/12/2018. This 72-year-old woman is admitted with bronchial asthma acute exacerbation and as well as possible pneumonia is being closely monitored at this time. The most recent chest x- ray which was personally reviewed by me today showed bilateral patchy infiltrate. The patient also seen by the filler mixer, Dr. Peña today and Dr. Peña recommended to continue the antibiotics. No chest pain. No palpitations. No fever. EXAM: Alert and oriented times three. Pulse 68, blood pressure 134/53, respirations 18, temperature 97.3, pulse ox 98% on room air. HEENT: Conjunctivae normal. NECK: No jugular venous distention. CARDIOVASCULAR: S1, S2 muffled. RESPIRATORY SYSTEM: Breath sounds diminished at the bases. Bilateral scattered rhonchi and crackles. ABDOMEN is soft, nontender. LEGS: No edema. No swelling. CENTRAL NERVOUS SYSTEM: No focal deficits. LAB STUDIES: WBC 18, hemoglobin 9.1, sodium 142, potassium 4.6. ASSESSMENT: 1. Bronchial asthma acute exacerbation with possible acute left lower pneumonia possibly gram-negative. 2. Chronic hypoxic respiratory failure. 3. Change in mental status acute metabolic encephalopathy, acute on chronic. 4. Possible viral pneumonia. 5. Morbid obesity. BMI of 40. 6. Hypertension. 7. Hyperlipidemia. 8. History of degenerative joint disease. 9. Hypothyroidism. 10.History of chronic right-sided phrenic nerve palsy and diaphragmatic elevation. 11.Remote history of right lower lobe dissection. 12.History of congestive heart failure with chronic diastolic dysfunction ejection fraction 60 to 65% with no acute component. 13.Chronic kidney disease stage 3, possibly nephrosclerosis. RECOMMENDATIONS AND DISCUSSION: Recommend to continue the current medications, management and symptomatic treatment. Continue with antibiotics. Continue the rest of the medications. Prognosis guarded. Further recommendations to follow. Closely follow with Pulmonary. Further recommendations to follow. MMODL / IJN: [id number] /
[2018-09-13] MEDS: NON-FORMULARY DRUG (Mirabegron [Myrbetriq] 50 MG) PO SCH ×2 (00:07→20:33)
[2018-09-13] MEDS: HYDROcodone/APAP 10-325MG 1 EACH TAB PO PRN ×4 (02:00→19:25)
[2018-09-13] MEDS: LEVOTHYROXINE 75 MCG TAB PO SCH (05:13)
[2018-09-13] MEDS: PANTOPRAZOLE 40 MG TABLET PO SCH (07:21)
[2018-09-13 07:48] LABS: Basophils % (A) 0 %; Eosinophils % (A) 0 %; HCT 30.8 % (34.0-46.0); HGB 9.4 gm/dL (11.4-16.0); Hypochromasia Moderate; Lymphocytes % (A) 7 %; MCH 29.3 pg (25.0-35.0); MCHC 30.5 g/dL (31.0-37.0); MCV 95.9 fL (80.0-100.0); Mean Platelet Volume 7.9; Monocytes # (A) 0.5 k/uL (0-1.0); Monocytes % (A) 4 %; Neutrophils # (A) 12.7 k/uL (1.3-7.7); Neutrophils % (A) 89 %; Platelet Count 230 k/uL (150-450); RBC 3.22 m/uL (3.80-5.40); RDW 15.4 % (11.5-15.5); WBC 14.3 k/uL (3.8-10.6)
[2018-09-13 07:51] LABS: Glucose,Whole Blood 140 mg/dL (75-99)
[2018-09-13 07:56] LABS: Calcium 9.3 mg/dL (8.4-10.2); Potassium 4.9 mmol/L (3.5-5.1)
[2018-09-13] MEDS: HEPARIN SODIUM,PORCINE 5,000 UNIT/ML 1 ML VIAL SQ SCH ×2 (08:28→20:28)
[2018-09-13] MEDS: LOSARTAN 50 MG TAB PO SCH (08:28)
[2018-09-13] MEDS: methylPREDNISolone SOD SUCCI 40 MG/ML 1 ML VIAL IV SCH ×2 (08:28→20:29)
[2018-09-13] MEDS: GABAPENTIN 400 MG CAP PO SCH ×3 (08:28→20:29)
[2018-09-13] MEDS: METOPROLOL TARTRATE 50 MG TAB PO SCH ×2 (08:28→20:29)
[2018-09-13] MEDS: TOPIRAMATE 100 MG TAB PO SCH ×3 (08:28→20:29)
[2018-09-13] MEDS: ASPIRIN 81 MG PO SCH (08:28)
[2018-09-13] MEDS: CYANOCOBALAMIN 500 MCG TAB PO SCH (08:28)
[2018-09-13] MEDS: amLODIPine 10 MG TAB PO SCH (08:29)
[2018-09-13] MEDS: guaiFENesin 600 MG TABLET.ER PO SCH ×2 (08:29→20:28)
[2018-09-13] MEDS: INSULIN ASPART (NovoLOG) 100 UNIT/ML VIAL SQ SCH ×4 (08:29→20:29)
[2018-09-13] MEDS: AZITHROMYCIN 500 MG TAB PO SCH (08:29)
[2018-09-13] MEDS: DULoxetine HCL 60 MG CAPSULE.DR PO SCH ×2 (08:29→08:52)
[2018-09-13] MEDS: NON-FORMULARY DRUG (Vitamin B Complex [Vitamin B Complex] 1 CAP) PO SCH (08:30)
[2018-09-13] MEDS: IPRATROPIUM-ALBUTEROL 3 ML NEB INHALATION SCH ×4 (08:33→19:31)
[2018-09-13] MEDS: SYMBICORT 160-4.5 MCG INHALER INHALATION SCH (08:33)
--- NOTE | 2018-09-13 11:22 | P.PN ---
Subjective Progress Note Date: 09/13/18 Principal diagnosis: Dyspnea, likely related to acute left lower lobe pneumonia with sepsis, CAP This is a 72-year-old white female patient of Dr. Roger, with past medical history of hypertention, hypothyroidism, hyperlipidemia, chronic congestive heart failure, chronic kidney disease stage III, morbid obesity, seizure disorder, previous episodes of urinary tract infections, chronic bronchial asthma, chronic right sided hemidiaphragm paralysis, chronic hypercapnic respiratory failure, previous history of MRSA infections, patient is a never smoker. We saw the patient in consultation In August for acute exacerbation of chronic bronchial asthma with tracheobronchitis, and the possibility of minimal right lower lobe infiltrate/pneumonia. Patient also had a urinary tract in fection, with the urine cultures positive for E. coli. She was adequately treated with antibiotics, breathing treatments, she clinically improved, and was discharged home in stable condition on 08/22/2018, and patient was supposed to follow-up in the office with Dr. Peña,but has not been seen in follow-up yet. On 09/09/2018 patient presents to the hospital per EMS, for evaluation of increased cough, dyspnea, phlegm production, fever. Patient resides by herself, she is on home oxygen at 2 L around the clock. Denied any chest pain, no hemoptysis, no nausea vomiting or diarrhea. Denied any urinary complaints. Chest x-ray was completed in the emergency department and showed chronic elevat ion of the right hemidiaphragm with right basilar parenchymal scarring or atelectasis, and increased patchy density at the left lower lobe that could reflect developing infiltrate. Afebrile, but confused, tachycardic, EKG showed sinus tachycardia with PVCs, left atrial enlargement. Patient is confused, lab work showed mild leukocytosis on admission, with a white blood cell count of 12.0, hemoglobin of 9.9, electrolytes are within normal limits, BUN of 44 creatinine is 1.63, troponin was negative 1, proBNP is within normal limits at 109, influenza screen was negative. Patient was started on empiric antibiotics in the form of Rocephin and Zithromax for possibility of left lower lobe pneumo irineo with sepsis, and were consulted for the same. On 09/12/2018 patient seen in follow-up on medical surgical floor. She is more awake, and less confused on today's exam, still dyspneic with exertion, but no acute distress, congestive cough, not bringing up much sputum, she remains on oxygen at 2 L, with pulse ox of 97%, she is afebrile. Lung sounds are positive for some scattered crackles, no wheezes, urianalysis came back negative for infection. She is on a combination of Rocephin and Zithromax for community acquired pneumonia. Follow-up chest x-ray has been reviewed with Dr. Peña, mikey wed bilateral areas of patchy infiltrate with small right pleural effusion and elevated hemidiaphragm, may be slightly improved at the left base. Clinically patient is improved, afebrile, blood cultures are negative thus far. On 09/13/2018 patient seen in follow-up medical surgical floor. She is awake and alert, in no acute distress. She is on 2 L of oxygen with pulse ox of 97%, she sounding better on today's exam, she is afebrile, hemodynamically stable, no new chest x-rays today. No signs of delirium, patient denies any chest pain, lung sounds positive for some scattered crackles, a few wheezes, patient continues on IV Solu-Medrol at 40 mg every 12 hours. She is on antibiotics with Rocephin and Zithromax for community-acquired pneumonia. Clinically she is improving, increase activity as tolerated. She has occasional cough, and is bringing up some phlegm. Events overnight. We'll continue to follow, today's lab work has been noted. Objective - Vital Signs Vital signs: Vital Signs Temp 97.7 F 09/13/18 07:19 Pulse 92 09/13/18 08:49 Resp 17 09/13/18 08:30 BP 148/81 09/13/18 07:19 Pulse Ox 97 09/13/18 07:19 Intake & Output 09/12/18 09/13/18 09/13/18 18:59 06:59 18:59 Intake Total 50 600 Output Total 600 Balance -550 600 Intake: Intake, IV Titration 50 Amount cefTRIAXone 1 gm In 50 Sodium Chloride 0.9% 50 ml @ 100 mls/hr IVPB Q24HR [facility] Rx#:[id number] Oral 600 Output: Urine 600 Other: Voiding Method Toilet Toilet Toilet # Voids 2 2 - Exam GENERAL EXAM: Alert, confused, 72-year-old white female patient on 2 L of oxygen with a pulse ox of 94%, oriented to person and place, disoriented to time, comfortable in no apparent distress. HEAD: Normocephalic/atraumatic. EYES: Normal reaction of pupils, equal size. Conjunctiva pink, sclera white. NOSE: Clear with pink turbinates. THROAT: No erythema or exudates. NECK: No masses, no JVD, no thyroid enlargement, no adenopathy. CHEST: No chest wall deformity. Symmetrical expansion. LUNGS: Equal air entry coarse expiratory crackles at the left lower base, diminished breath sounds over right lower base CVS: Regular rate and rhythm, normal S1 and S2, no gallops, no murmurs, no rubs ABDOMEN: Soft, nontender. No hepatosplenomegaly, normal bowel sounds, no guarding or rigidity. EXTREMITIES: No clubbing, no edema, no cyanosis, 2+ pulses and upper and lower extremities. MUSCULOSKELETAL: Muscle strength and tone normal. SPINE: No scoliosis or deformity SKIN: No rashes CENTRAL NERVOUS SYSTEM: Alert and oriented -2. No focal deficits, tone is normal in all 4 extremities. PSYCHIATRIC: Alert and oriented -2. Appropriate affect. Intact judgment and insight. - Labs CBC & Chem 7: 09/13/18 07:08 09/13/18 07:08 Labs: Abnormal Lab Results - Last 24 Hours (Table) 09/12/18 09/12/18 09/12/18 Range/Units 07:12 16:51 20:14 WBC 18.0 H (3.8-10.6) k/uL RBC 3.14 L (3.80-5.40) m/uL Hgb 9.1 L (11.4-16.0) gm/dL Hct 29.7 L (34.0-46.0) % MCHC 30.6 L (31.0-37.0) g/dL RDW 15.6 H (11.5-15.5) % Neutrophils # 16.5 H (1.3-7.7) k/uL Lymphocytes # 0.7 L (1.0-4.8) k/uL Chloride (98-107) mmol/L BUN (7-17) mg/dL Creatinine (0.52-1.04) mg/dL Glucose (74-99) mg/dL POC Glucose (mg/dL) 250 H 231 H (75-99) mg/dL 09/13/18 09/13/18 09/13/18 Range/Units 07:08 07:08 07:49 WBC 14.3 H (3.8-10.6) k/uL RBC 3.22 L (3.80-5.40) m/uL Hgb 9.4 L (11.4-16.0) gm/dL Hct 30.8 L (34.0-46.0) % MCHC 30.5 L (31.0-37.0) g/dL RDW (11.5-15.5) % Neutrophils # 12.7 H (1.3-7.7) k/uL Lymphocytes # (1.0-4.8) k/uL Chloride 109 H (98-107) mmol/L BUN 45 H (7-17) mg/dL Creatinine 1.16 H (0.52-1.04) mg/dL Glucose 140 H (74-99) mg/dL POC Glucose (mg/dL) 140 H (75-99) mg/dL Microbiology - Last 24 Hours (Table) 09/09/18 09:42 Blood Culture - Preliminary Blood No Growth after 72 hours Assessment and Plan Plan: Assessment: #1. Dyspnea, related to acute left lower lobe pneumonia with sepsis, community acquired, chest x-ray was obtained and showed chronic elevation of the right hemidiaphragm, and an increasing density at the left lower lobe suspicious for pneumonic infiltrate #2. Altered mental status, likely related to sepsis, improved #3. Acute kidney injury related to the above #4. Chronic kidney disease stage III #5. Chronic bronchial asthma, moderate persistent #6. History of urinary tract infections with E. coli and enterococcus faecalis #7. Chronic paralysis of the right hemidiaphragm from previous spinal surgery and history of chronic hypoxemic respiratory failure #8. History of congestive heart failure with diastolic dysfunction, and mild pulmonary hypertension #9. Morbid obesity #10. Hypothyroidism #11. Hypertension, hyperlipidemia #12. Osteoarthritis #13. Previous episode of pneumonia #14. History of seizure disorder Plan: Continue current antibiotics, continue the breathing treatments, steroids. Culture data remains negative thus far, no fever or chills, no altered mentation, profile is improving, we'll continue to follow. Possible discharge in the next 24 hours provided she remains stable. I performed a history & physical examination of the patient and discussed their management with my nurse practitioner, Bridget Heard. I reviewed the nurse practitioner's note and agree with the documented findings and plan of care. Lung sounds are positive for left lower lobe coarse inspiratory crackles, diminished breath sounds over right base. The findings and the impression was discussed with the patient. I attest to the documentation by the nurse practitioner. Time with Patient: Less than 30
[2018-09-13 11:31] LABS: Glucose,Whole Blood 136 mg/dL (75-99)
[2018-09-13 17:07] LABS: Glucose,Whole Blood 174 mg/dL (75-99)
[2018-09-13] MEDS ORDERED: MAG HYDROX/AL HYDROX/SIMETH 30 ML CUP PO PRN (18:21)
[2018-09-13] MEDS: BUDESONIDE 1 MG/2 ML NEBU INHALATION SCH (19:31)
[2018-09-13] MEDS: FORMOTEROL FUMARATE 20 MCG/2 ML NEBU INHALATION SCH (19:31)
[2018-09-13 19:38] LABS: Glucose,Whole Blood 191 mg/dL (75-99)
[2018-09-13] MEDS: ATORVASTATIN 40 MG TAB PO SCH (20:28)
[2018-09-14] MEDS ORDERED: HYDROcodone/APAP 10-325MG 1 EACH TAB ONE (03:20)
[2018-09-14] MEDS: LEVOTHYROXINE 75 MCG TAB PO SCH (05:26)
[2018-09-14 07:15] LABS: Glucose,Whole Blood 160 mg/dL (75-99)
[2018-09-14 07:47] VITALS: RESP 17
[2018-09-14] MEDS: CYANOCOBALAMIN 500 MCG TAB PO SCH (07:47)
[2018-09-14] MEDS: ASPIRIN 81 MG PO SCH (07:47)
[2018-09-14] MEDS: DULoxetine HCL 60 MG CAPSULE.DR PO SCH (07:47)
[2018-09-14] MEDS: GABAPENTIN 400 MG CAP PO SCH (07:47)
[2018-09-14] MEDS: amLODIPine 10 MG TAB PO SCH (07:48)
[2018-09-14] MEDS: PANTOPRAZOLE 40 MG TABLET PO SCH (07:48)
[2018-09-14] MEDS: TOPIRAMATE 100 MG TAB PO SCH (07:48)
[2018-09-14] MEDS: guaiFENesin 600 MG TABLET.ER PO SCH (07:48)
[2018-09-14] MEDS: LOSARTAN 50 MG TAB PO SCH (07:48)
[2018-09-14] MEDS: METOPROLOL TARTRATE 50 MG TAB PO SCH (07:48)
[2018-09-14] MEDS: methylPREDNISolone SOD SUCCI 40 MG/ML 1 ML VIAL IV SCH (07:49)
[2018-09-14] MEDS: AZITHROMYCIN 500 MG TAB PO SCH (07:49)
[2018-09-14] MEDS: HEPARIN SODIUM,PORCINE 5,000 UNIT/ML 1 ML VIAL SQ SCH (07:50)
[2018-09-14] MEDS: NON-FORMULARY DRUG (Vitamin B Complex [Vitamin B Complex] 1 CAP) PO SCH (07:50)
[2018-09-14] MEDS: INSULIN ASPART (NovoLOG) 100 UNIT/ML VIAL SQ SCH ×2 (07:51→12:24)
[2018-09-14] MEDS: BUDESONIDE 1 MG/2 ML NEBU INHALATION SCH (08:28)
[2018-09-14] MEDS: FORMOTEROL FUMARATE 20 MCG/2 ML NEBU INHALATION SCH (08:28)
[2018-09-14] MEDS: IPRATROPIUM-ALBUTEROL 3 ML NEB INHALATION SCH ×2 (08:29→11:59)
[2018-09-14] MEDS ORDERED: ERGOCALCIFEROL 50,000 UNIT CAP PO SCH (09:00)
[2018-09-14 09:13] LABS: Calcium 9.4 mg/dL (8.4-10.2)
[2018-09-14 09:29] LABS: Potassium 4.7 mmol/L (3.5-5.1)
[2018-09-14 09:37] LABS: Basophils % (A) 0 %; Eosinophils # (A) 0.1 k/uL (0-0.7); Eosinophils % (A) 1 %; HCT 30.9 % (34.0-46.0); HGB 9.9 gm/dL (11.4-16.0); Hypochromasia Slight; Lymphocytes # (A) 1.4 k/uL (1.0-4.8); Lymphocytes % (A) 11 %; MCH 29.6 pg (25.0-35.0); MCHC 32.1 g/dL (31.0-37.0); MCV 92.3 fL (80.0-100.0); Mean Platelet Volume 9.4; Monocytes # (A) 0.6 k/uL (0-1.0); Monocytes % (A) 4 %; Neutrophils # (A) 10.7 k/uL (1.3-7.7); Neutrophils % (A) 83 %; Platelet Count 222 k/uL (150-450); RBC 3.35 m/uL (3.80-5.40); RDW 15.3 % (11.5-15.5); WBC 12.9 k/uL (3.8-10.6)
[2018-09-14] MEDS: HYDROcodone/APAP 10-325MG 1 EACH TAB PO PRN (11:11)
[2018-09-14 11:42] LABS: Glucose,Whole Blood 112 mg/dL (75-99)
--- NOTE | 2018-09-14 14:34 | P.PN ---
Subjective Progress Note Date: 09/14/18 Principal diagnosis: Dyspnea, likely related to acute left lower lobe pneumonia with sepsis, CAP This is a 72-year-old white female patient of Dr. Roger, with past medical history of hypertention, hypothyroidism, hyperlipidemia, chronic congestive heart failure, chronic kidney disease stage III, morbid obesity, seizure disorder, previous episodes of urinary tract infections, chronic bronchial asthma, chronic right sided hemidiaphragm paralysis, chronic hypercapnic respiratory failure, previous history of MRSA infections, patient is a never smoker. We saw the patient in consultation In August for acute exacerbation of chronic bronchial asthma with tracheobronchitis, and the possibility of minimal right lower lobe infiltrate/pneumonia. Patient also had a urinary tract in fection, with the urine cultures positive for E. coli. She was adequately treated with antibiotics, breathing treatments, she clinically improved, and was discharged home in stable condition on 08/22/2018, and patient was supposed to follow-up in the office with Dr. Peña,but has not been seen in follow-up yet. On 09/09/2018 patient presents to the hospital per EMS, for evaluation of increased cough, dyspnea, phlegm production, fever. Patient resides by herself, she is on home oxygen at 2 L around the clock. Denied any chest pain, no hemoptysis, no nausea vomiting or diarrhea. Denied any urinary complaints. Chest x-ray was completed in the emergency department and showed chronic elevat ion of the right hemidiaphragm with right basilar parenchymal scarring or atelectasis, and increased patchy density at the left lower lobe that could reflect developing infiltrate. Afebrile, but confused, tachycardic, EKG showed sinus tachycardia with PVCs, left atrial enlargement. Patient is confused, lab work showed mild leukocytosis on admission, with a white blood cell count of 12.0, hemoglobin of 9.9, electrolytes are within normal limits, BUN of 44 creatinine is 1.63, troponin was negative 1, proBNP is within normal limits at 109, influenza screen was negative. Patient was started on empiric antibiotics in the form of Rocephin and Zithromax for possibility of left lower lobe pneumo irineo with sepsis, and were consulted for the same. On 09/12/2018 patient seen in follow-up on medical surgical floor. She is more awake, and less confused on today's exam, still dyspneic with exertion, but no acute distress, congestive cough, not bringing up much sputum, she remains on oxygen at 2 L, with pulse ox of 97%, she is afebrile. Lung sounds are positive for some scattered crackles, no wheezes, urianalysis came back negative for infection. She is on a combination of Rocephin and Zithromax for community acquired pneumonia. Follow-up chest x-ray has been reviewed with Dr. Peañ, mikey wed bilateral areas of patchy infiltrate with small right pleural effusion and elevated hemidiaphragm, may be slightly improved at the left base. Clinically patient is improved, afebrile, blood cultures are negative thus far. On 09/13/2018 patient seen in follow-up medical surgical floor. She is awake and alert, in no acute distress. She is on 2 L of oxygen with pulse ox of 97%, she sounding better on today's exam, she is afebrile, hemodynamically stable, no new chest x-rays today. No signs of delirium, patient denies any chest pain, lung sounds positive for some scattered crackles, a few wheezes, patient continues on IV Solu-Medrol at 40 mg every 12 hours. She is on antibiotics with Rocephin and Zithromax for community-acquired pneumonia. Clinically she is improving, increase activity as tolerated. She has occasional cough, and is bringing up some phlegm. Events overnight. We'll continue to follow, today's lab work has been noted. On 09/14/2018 patient seen in follow-up on medical surgical floor. She sit up on his bed, in no acute distress, she is on 2 L of oxygen, with a pulse ox of 98%, this is her home dose oxygen, she is afebrile, she is awake and alert and oriented 3, no evidence of confusion or delirium, lung sounds reveal a few scattered rhonchi, good air entry bilaterally, no wheezing, blood and sputum cultures are negative thus far, today's lab work has been reviewed, and shows that white count continues to down trend, down to 12.9, hemoglobin is 9.9, s odium is 144, potassium is 4.7, chloride is 110, renal profile is stable, BUN of 47, creatinine is 1.16. Ration has been treated with IV Rocephin and azithromycin, IV steroids, and nebulized adequate evidence, she is improving, and the she is being discharged home today Objective - Vital Signs Vital signs: Vital Signs Temp 98.8 F 09/14/18 07:00 Pulse 96 09/14/18 12:12 Resp 17 09/14/18 07:40 BP 175/96 09/14/18 07:00 Pulse Ox 98 09/14/18 07:00 Intake & Output 09/13/18 09/14/18 09/14/18 18:59 06:59 18:59 Intake Total 910 Output Total 600 Balance 310 Intake: Intake, IV Titration 50 Amount cefTRIAXone 1 gm In 50 Sodium Chloride 0.9% 50 ml @ 100 mls/hr IVPB Q24HR [facility] Rx#:[id number] Oral 860 Output: Urine 600 Other: Voiding Method Toilet Toilet Toilet # Voids 2 - Exam GENERAL EXAM: Alert, confused, 72-year-old white female patient on 2 L of oxygen with a pulse ox of 94%, oriented to person and place, disoriented to time, comfortable in no apparent distress. HEAD: Normocephalic/atraumatic. EYES: Normal reaction of pupils, equal size. Conjunctiva pink, sclera white. NOSE: Clear with pink turbinates. THROAT: No erythema or exudates. NECK: No masses, no JVD, no thyroid enlargement, no adenopathy. CHEST: No chest wall deformity. Symmetrical expansion. LUNGS: Equal air entry a few coarse rhonchi diminished breath sounds over right lower base CVS: Regular rate and rhythm, normal S1 and S2, no gallops, no murmurs, no rubs ABDOMEN: Soft, nontender. No hepatosplenomegaly, normal bowel sounds, no guarding or rigidity. EXTREMITIES: No clubbing, no edema, no cyanosis, 2+ pulses and upper and lower extremities. MUSCULOSKELETAL: Muscle strength and tone normal. SPINE: No scoliosis or deformity SKIN: No rashes CENTRAL NERVOUS SYSTEM: Alert and oriented -2. No focal deficits, tone is normal in all 4 extremities. PSYCHIATRIC: Alert and oriented -2. Appropriate affect. Intact judgment and insight. - Labs CBC & Chem 7: 09/14/18 07:33 09/14/18 07:33 Labs: Abnormal Lab Results - Last 24 Hours (Table) 09/13/18 09/13/18 09/14/18 Range/Units 17:06 19:36 07:13 WBC (3.8-10.6) k/uL RBC (3.80-5.40) m/uL Hgb (11.4-16.0) gm/dL Hct (34.0-46.0) % Neutrophils # (1.3-7.7) k/uL Chloride (98-107) mmol/L BUN (7-17) mg/dL Creatinine (0.52-1.04) mg/dL Glucose (74-99) mg/dL POC Glucose (mg/dL) 174 H 191 H 160 H (75-99) mg/dL 09/14/18 09/14/18 09/14/18 Range/Units 07:33 07:33 11:40 WBC 12.9 H (3.8-10.6) k/uL RBC 3.35 L (3.80-5.40) m/uL Hgb 9.9 L (11.4-16.0) gm/dL Hct 30.9 L (34.0-46.0) % Neutrophils # 10.7 H (1.3-7.7) k/uL Chloride 110 H (98-107) mmol/L BUN 47 H (7-17) mg/dL Creatinine 1.16 H (0.52-1.04) mg/dL Glucose 134 H (74-99) mg/dL POC Glucose (mg/dL) 112 H (75-99) mg/dL Microbiology - Last 24 Hours (Table) 09/09/18 09:42 Blood Culture - Preliminary Blood No Growth after 120 hours 09/13/18 15:25 Gram Stain - Preliminary Sputum Sputum Culture - Preliminary Assessment and Plan Plan: Assessment: #1. Dyspnea, related to acute left lower lobe pneumonia with sepsis, community acquired, chest x-ray was obtained and showed chronic elevation of the right hemidiaphragm, and an increasing density at the left lower lobe suspicious for pneumonic infiltrate #2. Altered mental status, likely related to sepsis, improved #3. Acute kidney injury related to the above #4. Chronic kidney disease stage III #5. Chronic bronchial asthma, moderate persistent #6. History of urinary tract infections with E. coli and enterococcus faecalis #7. Chronic paralysis of the right hemidiaphragm from previous spinal surgery and history of chronic hypoxemic respiratory failure #8. History of congestive heart failure with diastolic dysfunction, and mild pulmonary hypertension #9. Morbid obesity #10. Hypothyroidism #11. Hypertension, hyperlipidemia #12. Osteoarthritis #13. Previous episode of pneumonia #14. History of seizure disorder Plan: She is doing well, vital signs are stable, no acute events overnight, no altered mentation, no fever or chills, from pulmonary perspective patient is stable for discharge home today, she thinks she has a upcoming appointment with Dr. Dr. Peña in the office on September 19, and we instructed patient to keep that appointment. I performed a history & physical examination of the patient and discussed their management with my nurse practitioner, Bridget Heard. I reviewed the nurse practitioner's note and agree with the documented findings and plan of care. Lung sounds are positive for left lower lobe coarse inspiratory crackles, diminished breath sounds over right base. The findings and the impression was discussed with the patient. I attest to the documentation by the nurse pr actitioner. Time with Patient: Less than 30
[2018-09-14 14:46] VITALS: BP 131/75; PULSE 86; TEMP 97.7
--- NOTE | 2018-09-14 18:08 | PN ---
PROGRESS NOTE DATE OF SERVICE: 09/13/2018 This 72-year-old woman who was admitted with bronchial asthma, acute exacerbation, also had possible pneumonia. The patient is on broad-spectrum antibiotics and steroids. The patient is being closely monitored. No chest pain. No palpitations. No fever. On exam, alert and oriented x3. The pulse is 84, blood pressure 113/73, respiration 18, temperature 97.8, pulse ox 99% on 2 L. HEENT: Conjunctivae normal. Oral mucosa moist. NECK: No jugular venous distention. No carotid bruit. No lymph node enlargement. CARDIOVASCULAR SYSTEM: S1, S2 muffled. RESPIRATORY SYSTEM: Breath sounds diminished at the bases. Scattered rhonchi and crackles. Expiratory wheezing also present. ABDOMEN: Soft, non-tender. LEGS: No edema. No swelling. NERVOUS SYSTEM: No focal deficit. LABS: WBC 14.3, hemoglobin 9.1. Creatinine is 1.16. ASSESSMENT: 1. Bronchial asthma, acute exacerbation, with possible acute left lower lobe pneumonia, possibly gram-negative. 2. Chronic hypoxic respiratory failure. 3. Change in mental status, acute metabolic encephalopathy, acute on chronic. 4. Possible viral pneumonia. 5. Morbid obesity; body mass index of 40. 6. Hypertension. 7. Hyperlipidemia. 8. History of degenerative joint disease. 9. History of hypothyroidism. 10.History of chronic right-sided phrenic nerve palsy and diaphragmatic elevation. 11.Remote history of right lower lobe resection. 12.History of congestive heart failure with chronic diastolic dysfunction, ejection fraction 60% to 65%, with no acute component. 13.Chronic kidney disease, stage III, possibly nephrosclerosis. RECOMMENDATIONS AND DISCUSSION: I recommend to continue current medications, continue with the monitoring, symptomatic treatment. Continue with steroids. Continue with the bronchodilators. Per Dr. Peña's recommendation, we will keep the patient for another 24 hours before deciding on discharge. Prognosis guarded. Further recommendations to follow. MMODL / IJN: [id number] /
--- NOTE | 2018-09-15 07:27 | DS ---
DISCHARGE SUMMARY DATE OF SERVICE: 09/14/2018 FINAL DIAGNOSES: 1. Bronchial asthma acute exacerbation with possible acute left lower lobe pneumonia possibly gram-negative. 2. Chronic hypoxic respiratory failure. 3. Change in mental status metabolic encephalopathy, acute on chronic. 4. Possible viral pneumonia. 5. Body mass index of 40 with morbid obesity. 6. Hypertension. 7. Hyperlipidemia. 8. History of degenerative joint disease. 9. Hypothyroidism. 10.History of chronic right-sided phrenic palsy and diaphragmatic elevation. 11.Remote history of right lower lobe resection. 12.History of congestive heart failure with chronic diastolic dysfunction, 60% - 65% with no acute component. 13.Chronic kidney disease stage III, possibly nephrosclerosis. DISCHARGE DISPOSITION: The patient will be discharged in a stable condition with guarded prognosis. Total time taken 35 minutes. HISTORY OF PRESENT ILLNESS: This is a 72-year-old woman with a past medical history of multiple medical problems with symptoms of bronchial asthma acute exacerbation. Patient treated with bronchodilators, steroids in conjunction with pulmonary, Dr. Varner and Dr. Peña. Patient improved significantly. Patient also pneumonia, patient on antibiotics also. On exam, overall, the patient is significantly improved and the patient will be discharged in stable condition with guarded prognosis. Vitals are stable. CARDIOVASCULAR: S1, S2 muffled. RESPIRATORY: Normal with a few scattered rhonchi and expiratory wheezing. ABDOMEN: Soft. NERVOUS SYSTEM: No focal deficits. DISCHARGE ADVICE: Diet is cardiac. Activity limited until followup. Follow up with Dr. Roger in 2 to 3 days. Follow up with Dr. Peña as recommended. MEDICATIONS:: 1. Cozaar 50 mg p.o. daily. 2. Crestor 20 mg q.h.s. 3. Cymbalta 60 mg p.o. daily. 4. Ecotrin 81 mg p.o. daily. 5. Lopressor 50 mg p.o. b.i.d. 6. Myrbetriq 50 mg q.h.s. 7. Neurontin 400 mg p.o. t.i.d. 8. [place] 10 mg q.6 p.r.n. 9. Norvasc 10 mg p.o. daily. 10.Symbicort 160/4.5 two puffs b.i.d. 11.Synthroid 150 mcg p.o. daily. 12.Topamax 100 mg p.o. t.i.d. 13.Vitamin B complex 1 p.o. daily. 14.Vitamin B12 one thousand mcg p.o. daily. 15.Vitamin D2 fifty thousand p.o. Wednesday. 16.Ceftin 500 mg p.o. b.i.d. for 3 days. 17.DuoNeb q.i.d. and p.r.n. 18.Mucinex 1200 mg p.o. b.i.d. 19.Prednisone taper 40 mg daily for 3 days, 30 for 3 days, 20 for 3 days and 10 for 3 days. 20.Protonix 40 mg daily. 21.Albuterol p.r.n. 22.Zithromax 500 mg p.o. daily for 5 days. Once again, the patient will be discharged in a stable condition with guarded prognosis. MMNOMAN / ZEE: [id number] /
== END 2018-09-14 15:21 | disposition home or self-care (01) | DRG 871 ==
LOC: EC 09:30 → 4SSUR 12:00
PROVIDERS: ADMIT Hospitalist; ATTEND Hospitalist
DX: A41.9 Sepsis, unspecified organism (principal); J15.6 Pneumonia due to other Gram-negative bacteria; G93.41 Metabolic encephalopathy; J45.41 Moderate persistent asthma with (acute) exacerbation; J44.1 Chronic obstructive pulmonary disease with (acute) exacerbation; J96.11 Chronic respiratory failure with hypoxia; I50.32 Chronic diastolic (congestive) heart failure; I13.0 Hypertensive heart and chronic kidney disease with heart failure and stage 1 through stage 4 chronic kidney disease, or unspecified chronic kidney disease; N39.0 Urinary tract infection, site not specified; N17.9 Acute kidney failure, unspecified; Z68.41 Body mass index [BMI] 40.0-44.9, adult; N18.3 Chronic kidney disease, stage 3 (moderate); G40.909 Epilepsy, unspecified, not intractable, without status epilepticus; E78.5 Hyperlipidemia, unspecified; N28.9 Disorder of kidney and ureter, unspecified; M19.90 Unspecified osteoarthritis, unspecified site; F41.9 Anxiety disorder, unspecified; F32.9 Major depressive disorder, single episode, unspecified; E66.01 Morbid (severe) obesity due to excess calories; E03.9 Hypothyroidism, unspecified; G83.9 Paralytic syndrome, unspecified; I27.20 Pulmonary hypertension, unspecified; G89.29 Other chronic pain; B95.62 Methicillin resistant Staphylococcus aureus infection as the cause of diseases classified elsewhere; M54.9 Dorsalgia, unspecified; M19.91 Primary osteoarthritis, unspecified site; B96.20 Unspecified Escherichia coli [E. coli] as the cause of diseases classified elsewhere; Z60.2 Problems related to living alone; Z86.14 Personal history of Methicillin resistant Staphylococcus aureus infection; Z99.81 Dependence on supplemental oxygen; Z90.710 Acquired absence of both cervix and uterus; Z87.440 Personal history of urinary (tract) infections; Z87.01 Personal history of pneumonia (recurrent); Z79.899 Other long term (current) drug therapy; Z79.82 Long term (current) use of aspirin; Z79.51 Long term (current) use of inhaled steroids; Z79.890 Hormone replacement therapy; Z99.89 Dependence on other enabling machines and devices; Z90.89 Acquired absence of other organs; Z90.49 Acquired absence of other specified parts of digestive tract; Z83.6 Family history of other diseases of the respiratory system; Z88.5 Allergy status to narcotic agent; Z88.2 Allergy status to sulfonamides; Z88.1 Allergy status to other antibiotic agents; Z88.0 Allergy status to penicillin; Z98.891 History of uterine scar from previous surgery; Z90.2 Acquired absence of lung [part of]; Z87.39 Personal history of other diseases of the musculoskeletal system and connective tissue
CPT/HCPCS: 36415; 71046; 80048; 80053; 81003; 83605; 83735; 83880; 84484; 85025; 85610; 85730; 87040; 87070; 87205; 87502; 93005; 94640; 94760; 96365; 96375; 99285

== ENCOUNTER 2018-09-30 11:04 | Inpatient (IN) | payer MEDICARE ==
[2018-09-30] MEDS ORDERED: IPRATROPIUM-ALBUTEROL 3 ML NEB INHALATION STA (11:21)
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
[2018-09-30 12:20] LABS: Basophils % (A) 0 %; Eosinophils # (A) 0.1 k/uL (0-0.7); Eosinophils % (A) 2 %; HCT 27.5 % (34.0-46.0); HGB 8.4 gm/dL (11.4-16.0); Hypochromasia Slight; Lymphocytes # (A) 0.6 k/uL (1.0-4.8); Lymphocytes % (A) 10 %; MCH 28.8 pg (25.0-35.0); MCHC 30.5 g/dL (31.0-37.0); MCV 94.3 fL (80.0-100.0); Mean Platelet Volume 7.1; Monocytes # (A) 0.3 k/uL (0-1.0); Monocytes % (A) 6 %; Neutrophils # (A) 4.6 k/uL (1.3-7.7); Neutrophils % (A) 80 %; Platelet Count 170 k/uL (150-450); RBC 2.92 m/uL (3.80-5.40); WBC 5.7 k/uL (3.8-10.6)
--- NOTE | 2018-09-30 12:26 | XR ---
EXAMINATION TYPE: XR chest 2V DATE OF EXAM: 09/30/2018 COMPARISON: Prior chest x-ray 09/19/2018 HISTORY: Difficulty breathing TECHNIQUE: Frontal and lateral views of the chest are obtained. FINDINGS: There is persistent elevation of right hemidiaphragm, postop changes again noted in the sp ine. No evident pneumothorax. Heart size is likely stable. There are overlying cardiac leads. Patient is rotated. Patchy basilar density is noted. Postop changes noted in the cervical spine. IMPRESSION: Findings are similar to prior exam. Suspect some basilar atelectasis. Chronic elevation of the right hemidiaphragm due to hemidiaphragm paralysis.
[2018-09-30 12:28] LABS: Albumin 3.3 g/dL (3.5-5.0); Calcium 8.3 mg/dL (8.4-10.2); Potassium 4.6 mmol/L (3.5-5.1); Total Bilirubin 0.5 mg/dL (0.2-1.3); Total Protein 5.4 g/dL (6.3-8.2)
[2018-09-30 12:40] LABS: INR 0.9 (<1.2); Prothrombin Time 9.6 sec (9.0-12.0)
[2018-09-30 12:47] LABS: Partial Thromboplastin Time 20.3 sec (22.0-30.0)
[2018-09-30] MEDS ORDERED: IPRATROPIUM-ALBUTEROL 3 ML NEB INHALATION PRN (14:11)
[2018-09-30] MEDS ORDERED: methylPREDNISolone SOD SUCCI 125 MG/2 ML VIAL IV STA (14:11)
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
[2018-09-30 17:21] LABS: Glucose,Whole Blood 189 mg/dL (75-99)
[2018-09-30] MEDS: HYDROcodone/APAP 10-325MG 1 EACH TAB PO PRN (17:42)
[2018-09-30] MEDS: INSULIN ASPART (NovoLOG) 100 UNIT/ML VIAL SQ SCH ×2 (17:42→20:59)
[2018-09-30] MEDS: methylPREDNISolone SOD SUCCI 125 MG/2 ML VIAL IV SCH ×2 (20:04→23:33)
[2018-09-30] MEDS: METOPROLOL TARTRATE 50 MG TAB PO SCH (20:04)
[2018-09-30] MEDS: guaiFENesin 600 MG TABLET.ER PO SCH (20:04)
[2018-09-30] MEDS: ATORVASTATIN 40 MG TAB PO SCH (20:04)
[2018-09-30] MEDS: MYRBETRIQ (Mirabegron) 50 MG PO SCH (20:06)
[2018-09-30] MEDS: SYMBICORT 160-4.5 MCG INHALER INHALATION SCH (20:28)
[2018-09-30] MEDS: IPRATROPIUM-ALBUTEROL 3 ML NEB INHALATION SCH (20:28)
[2018-09-30 20:51] LABS: Glucose,Whole Blood 204 mg/dL (75-99)
[2018-09-30] MEDS: GABAPENTIN 400 MG CAP PO SCH (21:00)
[2018-09-30] MEDS: TOPIRAMATE 100 MG TAB PO SCH (21:00)
[2018-10-01] MEDS: HYDROcodone/APAP 10-325MG 1 EACH TAB PO PRN ×2 (01:03→13:52)
[2018-10-01] MEDS: methylPREDNISolone SOD SUCCI 125 MG/2 ML VIAL IV SCH ×2 (05:43→11:04)
[2018-10-01] MEDS: LEVOTHYROXINE 75 MCG TAB PO SCH (05:47)
[2018-10-01 07:41] LABS: Glucose,Whole Blood 178 mg/dL (75-99)
[2018-10-01] MEDS: VITAMIN B COMPLEX PO SCH (07:48)
[2018-10-01] MEDS: amLODIPine 10 MG TAB PO SCH (07:49)
[2018-10-01] MEDS: PANTOPRAZOLE 40 MG TABLET PO SCH (07:49)
[2018-10-01] MEDS: CYANOCOBALAMIN 500 MCG TAB PO SCH (07:49)
[2018-10-01] MEDS: DULoxetine HCL 60 MG CAPSULE.DR PO SCH (07:49)
[2018-10-01] MEDS: AZITHROMYCIN 500 MG TAB PO SCH (07:49)
[2018-10-01] MEDS: ASPIRIN 81 MG PO SCH (07:49)
[2018-10-01] MEDS: TOPIRAMATE 100 MG TAB PO SCH ×3 (07:50→20:46)
[2018-10-01] MEDS: LOSARTAN 50 MG TAB PO SCH (07:50)
[2018-10-01] MEDS: GABAPENTIN 400 MG CAP PO SCH ×3 (07:50→20:47)
[2018-10-01] MEDS: guaiFENesin 600 MG TABLET.ER PO SCH ×2 (07:50→20:47)
[2018-10-01] MEDS: METOPROLOL TARTRATE 50 MG TAB PO SCH ×2 (07:50→20:47)
[2018-10-01] MEDS: INSULIN ASPART (NovoLOG) 100 UNIT/ML VIAL SQ SCH ×4 (07:50→20:47)
[2018-10-01] MEDS: SYMBICORT 160-4.5 MCG INHALER INHALATION SCH ×2 (09:00→20:26)
[2018-10-01] MEDS ORDERED: FUROSEMIDE 20 MG TAB PO SCH (09:00)
[2018-10-01] MEDS: IPRATROPIUM-ALBUTEROL 3 ML NEB INHALATION SCH ×5 (09:00→20:26)
--- NOTE | 2018-10-01 12:35 | P.PN ---
Subjective Progress Note Date: 10/01/18 Principal diagnosis: Acute exacerbation of moderate persistent bronchial asthma and periventricular bronchitis. This is a very pleasant 72-year-old female patient who follows with Dr. Ojeda as her primary care physician. She has a history of hypertension, hypothyroidism, hyperlipidemia, chronic congestive heart failure, chronic kidney disease stage III, morbid obesity, seizure disorder, frequent urinary tract infections, previous MRSA infections. She has a has a history of chronic hypercapnic respiratory failure, chronic moderate persistent bronchial asthma, chronic right-sided hemidiaphragm paralysis, previous right lower lobe resection, previous pain medication overdose requiring ventilatory support and follows with Dr. Peña in our office for the same. She was just discharged from here 09/14/2018 following a episode of acute left lower lobe pneumonia with seps is. She was seen in follow-up in the office last week and was doing quite well. This morning however she developed increasing shortness of breath, loose nonproductive cough, generalized fatigue and malaise. She presented to the ER for the same. Chest x-ray shows persistent elevation the right hemidiaphragm, patchy basilar density/atelectasis. Similar to previous exam on 09/19/2018. White count 5.7. Hemoglobin 8.4. Creatinine 1.68. ProBNP 202. She is seen in consultation on the regular medical floor. Awake and alert in no acute distress. Maintaining O2 saturations up to 100% on 2 L/m per nasal cannula. Currently afebrile. Hemodynamically stable. She's been initiated on DuoNeb i nhalations, IV Solu-Medrol, azithromycin. Reevaluated today on 10/01/2018, patient is feeling slightly better, but she continues to have significant amount of productive cough, wheezing, and shortness of breath. Labs on admission were unremarkable except for hemoglobin of 8.4. BUN is 48 and creatinine 1.68. Remains on antibiotics, bronchodilators, and steroids. She remains also on diuretics. However the Lasix dose was cut down to 20 mg daily instead of twice a day. Objective - Vital Signs Vital signs: Vital Signs Temp 97.7 F 10/01/18 05:15 Pulse 92 10/01/18 11:55 Resp 22 10/01/18 05:15 BP 155/80 10/01/18 05:15 Pulse Ox 94 L 10/01/18 05:15 Intake & Output 09/30/18 10/01/18 10/01/18 18:59 06:59 18:59 Intake Total 800 Balance 800 Weight 113.398 kg Intake: Oral 800 Other: Voiding Method Bedside Commode # Voids 3 2 # Bowel Movements 1 - Exam GENERAL EXAM: Obese. Alert, comfortable in no apparent distress. On 2 L nasal cannula. HEENT: PERRLA, EOMI, neck, no JVD, no stridor. CHEST: No chest wall deformity. LUNGS: Diminished breath sound bilaterally crackles or rhonchi and wheezes noted more so on forced expiratory maneuver. CVS: S1 and S2 normal with no audible murmur, regular rhythm. ABDOMEN: No hepatosplenomegaly, normal bowel sounds, no guarding or rigidity. SPINE: No scoliosis or deformity SKIN: No rashes CENTRAL NERVOUS SYSTEM: No focal deficits, tone is normal in all 4 extremities. EXTREMITIES: There is 1-2+ peripheral edema. No clubbing, no cyanosis. Peripheral pulses are intact. - Labs CBC & Chem 7: 09/30/18 12:04 09/30/18 12:04 Labs: Abnormal Lab Results - Last 24 Hours (Table) 09/30/18 09/30/18 09/30/18 Range/Units 12:04 12:04 17:18 RBC 2.92 L (3.80-5.40) m/uL Hgb 8.4 L D (11.4-16.0) gm/dL Hct 27.5 L (34.0-46.0) % MCHC 30.5 L (31.0-37.0) g/dL RDW 16.0 H (11.5-15.5) % Lymphocytes # 0.6 L (1.0-4.8) k/uL APTT 20.3 L (22.0-30.0) sec POC Glucose (mg/dL) 189 H (75-99) mg/dL 09/30/18 10/01/18 Range/Units 20:47 07:29 RBC (3.80-5.40) m/uL Hgb (11.4-16.0) gm/dL Hct (34.0-46.0) % MCHC (31.0-37.0) g/dL RDW (11.5-15.5) % Lymphocytes # (1.0-4.8) k/uL APTT (22.0-30.0) sec POC Glucose (mg/dL) 204 H 178 H (75-99) mg/dL Assessment and Plan Assessment: #1 Acute exacerbation of moderate persistent chronic bronchial asthma complicated by tracheobronchitis. No clear evidence of pneumonia. #2 Recent admission for an acute left lower lobe pneumonia with sepsis. #3 Chronic elevation of right hemidiaphragm with chronic hypoxemic respiratory failure secondary to previous spinal surgery. #4 Acute on chronic kidney disease, stage III. Current creatinine 1.68. #5 Chronic diastolic congestive heart failure with chronic lower extremity edema. #6 Morbid obesity. #7 Hypothyroidism. #8 Hypertension. #9 Hyperlipidemia. #10 History of seizure disorder. #11 Previous history of overdose with pain medication requiring mechanical ventilatory support. #12 Osteoarthritis. #13 History of anxiety/depression. Plan: Continue present course of bronchodilators, antibiotics, steroids, not quite ready for any discharge planning, will continue to follow. Prognosis is relatively guarded. Time with Patient: Less than 30
[2018-10-01 12:43] LABS: Glucose,Whole Blood 176 mg/dL (75-99)
[2018-10-01] MEDS ORDERED: SODIUM CHLORIDE 0.9% 1,000 ML IV SCH (13:00)
--- NOTE | 2018-10-01 14:07 | HP ---
HISTORY AND PHYSICAL DATE OF ADMISSION: 09/30/2018. DATE OF SERVICE: 10/01/2018. PRESENTING COMPLAINT: Short of breath. HISTORY OF PRESENTING COMPLAINT: This is a pleasant 72-year-old patient, follows with Dr. Roger from [facility]. 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 The patient presented with increasing short of breath yesterday morning with some wheezing, cough, green sputum. Did not have any obvious fevers or chills. Appetite has been okay. The patient had a couple episodes of vomiting. No abdominal pain. Was therefore admitted to the ER. REVIEW OF SYSTEMS: CONSTITUTIONAL: Tired. HEENT: None. RESPIRATORY: As above. CARDIOVASCULAR: None. GASTROINTESTINAL: None. GENITOURINARY: None. MUSCULOSKELETAL: Pain in the joints. DERMATOLOGICAL, HEMATOLOGIC, LYMPHATIC: None. PSYCHIATRY: None. NEUROLOGICAL: None. PAST MEDICAL HISTORY: Asthma, congestive heart failure, diastolic dysfunction, EF 60 to 65 percent, hyperlipidemia, hypertension, osteoarthritis, chronic kidney disease, seizure disorder, hypothyroid, phrenic nerve damage with back surgery resulting in right-sided diaphragm paralysis, partial right lower lobe resection, T8-T9 compression fracture, osteomyelitis 2007, migraines, colitis. PAST SURGICAL HISTORY: Appendectomy, back surgery, , hysterectomy, tonsillectomy, multiple back surgeries, cervical fusion, sinus surgery x2, abdominoplasty. PSYCH HISTORY: History of anxiety and depression. SOCIAL HISTORY: Lives by herself. Uses a cane. Home oxygen 2 L. Daughter helps out. No smoking. No alcohol. FAMILY HISTORY: COPD. HOME MEDICATIONS: 1. Mucinex 1200 mg p.o. every 12 hours. 2. Norvasc 10 mg p.o. daily. 3. Vitamin B complex 1 capsule p.o. daily. 4. Topamax 100 mg p.o. t.i.d. 5. Crestor 20 mg at bedtime. 6. Protonix 40 mg with breakfast. 7. Myrbetriq 50 mg at bedtime. 8. Lopressor 50 mg b.i.d. 9. Cozaar 50 mg p.o. daily. 10.Synthroid 150 mcg p.o. daily. 11.DuoNeb q.i.d. 12.[place] 10 one tablet every 6 p.r.n. 13.Neurontin 400 mg p.o. t.i.d. 14.Vitamin D2, 50,000 units. 15.Cymbalta 60 mg p.o. daily. 16.Vitamin B12, 1000 mcg p.o. daily. 17.Symbicort 160/4.5, two puffs b.i.d. 18.Aspirin 81 mg p.o. daily. 19.Ventolin HFA 1 or 2 puffs every 6 p.r.n. ALLERGIES: DOXYCYCLINE, MORPHINE. PHYSICAL EXAMINATION: Vital signs on presentation, temperature 99.9, pulse 107, respirations 24, blood pressure 120/41, pulse 97% on 3 L. GENERAL APPEARANCE: Well built. BMI 45%. Lying in bed, tired-appearing. EYES: Pupils equal. Conjunctivae normal. HEENT: External appearance of nose and ears normal. Oral cavity normal. NECK: JVD not raised. Mass not palpable. RESPIRATORY: Effort increased. LUNGS: Decreased breath sounds. Prolonged expiration. Mild wheezing. CARDIOVASCULAR: 1st and 2nd heart sounds. No edema. ABDOMEN: Soft, nontender. Liver and spleen not palpable. LYMPHATIC: No lymph nodes palpable in the neck or axilla. PSYCHIATRY: Alert and oriented x3. Mood and affect normal. NEUROLOGICAL: Pupils equal. Cranial nerves grossly intact. Power and sensation grossly intact. INVESTIGATIONS: White count 5.7, hemoglobin 8.4. Hemoglobin was 9.9 on 09/14/2018. Potassium 4.6, BUN 48, creatinine 1.68. BUN and creatinine 47 and 1.16 on 09/14/2018. EKG tracing personally reviewed by me shows sinus tachycardia. Chest x-ray film personally reviewed by me shows right diaphragm elevated, questionable left basal infiltrate. ASSESSMENT: 1. Acute exacerbation of moderate persistent asthma, possibly from left lower lobe pneumonia/tracheobronchitis. 2. Chronic hypoxic respiratory failure from mass, on 2 L oxygen at home. 3. Morbid obesity, BMI more than 40. 4. Hyperlipidemia. 5. Essential hypertension. 6. Primary osteoarthritis. 7. Hypothyroidism. 8. Chronic right diaphragm paralysis. 9. History of right lower lobe lung resection. 10.Chronic congestive heart failure from diastolic dysfunction. EF 60 to 65 percent. 11.Chronic kidney disease stage III, from nephrosclerosis. 12.Acute renal failure, likely prerenal from vomiting. PLAN: Patient is started on bronchodilators and IV Solu-Medrol. Home medications resumed. Also put on Zithromax. Care was discussed with the patient. Patient will hold off the Lasix for 24 hours. Pulmonary was consulted. Care was discussed with the patient. CAL / IJN: [id number] /
[2018-10-01] MEDS: methylPREDNISolone SOD SUCCI 40 MG/ML 1 ML VIAL IV SCH ×2 (15:57→23:32)
[2018-10-01 17:14] LABS: Glucose,Whole Blood 187 mg/dL (75-99)
[2018-10-01 20:44] LABS: Glucose,Whole Blood 199 mg/dL (75-99)
[2018-10-01] MEDS: MYRBETRIQ (Mirabegron) 50 MG PO SCH (20:47)
[2018-10-01] MEDS: ATORVASTATIN 40 MG TAB PO SCH (20:47)
[2018-10-02] MEDS: HYDROcodone/APAP 10-325MG 1 EACH TAB PO PRN ×2 (03:32→13:28)
[2018-10-02] MEDS: LEVOTHYROXINE 75 MCG TAB PO SCH (05:59)
[2018-10-02] MEDS: CYANOCOBALAMIN 500 MCG TAB PO SCH (07:07)
[2018-10-02] MEDS: guaiFENesin 600 MG TABLET.ER PO SCH (07:07)
[2018-10-02] MEDS: AZITHROMYCIN 500 MG TAB PO SCH (07:07)
[2018-10-02] MEDS: TOPIRAMATE 100 MG TAB PO SCH (07:08)
[2018-10-02] MEDS: LOSARTAN 50 MG TAB PO SCH (07:08)
[2018-10-02] MEDS: methylPREDNISolone SOD SUCCI 40 MG/ML 1 ML VIAL IV SCH (07:08)
[2018-10-02] MEDS: GABAPENTIN 400 MG CAP PO SCH (07:08)
[2018-10-02] MEDS: PANTOPRAZOLE 40 MG TABLET PO SCH (07:08)
[2018-10-02] MEDS: amLODIPine 10 MG TAB PO SCH (07:08)
[2018-10-02] MEDS: INSULIN ASPART (NovoLOG) 100 UNIT/ML VIAL SQ SCH ×2 (07:08→11:48)
[2018-10-02] MEDS: METOPROLOL TARTRATE 50 MG TAB PO SCH (07:08)
[2018-10-02] MEDS: ASPIRIN 81 MG PO SCH (07:08)
[2018-10-02] MEDS: DULoxetine HCL 60 MG CAPSULE.DR PO SCH (07:08)
[2018-10-02] MEDS: VITAMIN B COMPLEX PO SCH (07:09)
[2018-10-02 07:37] LABS: Glucose,Whole Blood 167 mg/dL (75-99)
[2018-10-02] MEDS: SYMBICORT 160-4.5 MCG INHALER INHALATION SCH (08:33)
[2018-10-02] MEDS: IPRATROPIUM-ALBUTEROL 3 ML NEB INHALATION SCH ×2 (08:33→11:50)
[2018-10-02] MEDS ORDERED: FUROSEMIDE 20 MG TAB PO SCH (09:00)
--- NOTE | 2018-10-02 09:58 | P.PN ---
Subjective Progress Note Date: 10/02/18 Principal diagnosis: Acute exacerbation of moderate persistent bronchial asthma and purulent tracheobronchitis This is a very pleasant 72-year-old female patient who follows with Dr. Ojeda as her primary care physician. She has a history of hypertension, hypothyroidism, hyperlipidemia, chronic congestive heart failure, chronic kidney disease stage III, morbid obesity, seizure disorder, frequent urinary tract infections, previous MRSA infections. She has a has a history of chronic hypercapnic respiratory failure, chronic moderate persistent bronchial asthma, chronic right-sided hemidiaphragm paralysis, previous right lower lobe resection, previous pain medication overdose requiring ventilatory support and follows with Dr. Peña in our office for the same. She was just discharged from here 09/14/2018 following a episode of acute left lower lobe pneumonia with sepsis. She was seen in follow-up in the office last week and was doing quite well. This morning however she developed increasing shortness of breath, loose nonproductive cough, generalized fatigue and malaise. She presented to the ER for the same. Chest x-ray shows persistent elevation the right hemidiaphragm, patchy basilar density/atelectasis. Similar to previous exam on 09/19/2018. White count 5.7. Hemoglobin 8.4. Creatinine 1.68. ProBNP 202. She is seen in consultation on the regular medical floor. Awake and alert in no acute distress. Maintaining O2 saturations up to 100% on 2 L/m per nasal cannula. Currently afebrile. Hemodynamically stable. She's been initiated on DuoNeb in halations, IV Solu-Medrol, azithromycin. Reevaluated today on 10/01/2018, patient is feeling slightly better, but she continues to have significant amount of productive cough, wheezing, and shortness of breath. Labs on admission were unremarkable except for hemoglobin of 8.4. BUN is 48 and creatinine 1.68. Remains on antibiotics, bronchodilators, and steroids. She remains also on diuretics. However the Lasix dose was cut down to 20 mg daily instead of twice a day. Reevaluated today on 10/02/2018, patient is feeling much per her today, breathing a lot easier, asking to be discharged home. On physical examination clearly less wheezing noted. Hence I will clear the patient to be discharged home today by her primary admitting physician. In the meantime she can switch to oral prednisone, oral antibiotics, patient is to remain on her usual bronchodilators, and I believe she already has an appointment with us in the office sometime in the next week Objective - Vital Signs Vital signs: Vital Signs Temp 97.8 F 10/02/18 05:16 Pulse 92 10/02/18 05:16 Resp 18 10/02/18 05:16 BP 119/71 10/02/18 05:16 Pulse Ox 96 10/02/18 05:16 Intake & Output 10/01/18 10/02/18 10/02/18 18:59 06:59 18:59 Other: Voiding Method Bedside Commode Bedside Commode # Voids 2 0 # Bowel Movements 2 1 - Exam GENERAL EXAM: Obese. Alert, comfortable in no apparent distress. On 2 L nasal cannula. HEENT: PERRLA, EOMI, neck, no JVD, no stridor. CHEST: No chest wall deformity. LUNGS: Diminished breath sound bilaterally crackles minimal wheezing on forced expiratory maneuver only. CVS: S1 and S2 normal with no audible murmur, regular rhythm. ABDOMEN: No hepatosplenomegaly, normal bowel sounds, no guarding or rigidity. SPINE: No scoliosis or deformity SKIN: No rashes CENTRAL NERVOUS SYSTEM: No focal deficits, tone is normal in all 4 extremities. EXTREMITIES: There is 1-2+ peripheral edema. No clubbing, no cyanosis. Peripheral pulses are intact. - Labs CBC & Chem 7: 09/30/18 12:04 09/30/18 12:04 Labs: Abnormal Lab Results - Last 24 Hours (Table) 10/01/18 10/01/18 10/01/18 Range/Units 12:26 17:09 20:42 POC Glucose (mg/dL) 176 H 187 H 199 H (75-99) mg/dL 10/02/18 Range/Units 06:43 POC Glucose (mg/dL) 167 H (75-99) mg/dL Assessment and Plan Assessment: #1 Acute exacerbation of moderate persistent chronic bronchial asthma complicated by tracheobronchitis. No clear evidence of pneumonia. #2 Recent admission for an acute left lower lobe pneumonia with sepsis. #3 Chronic elevation of right hemidiaphragm with chronic hypoxemic respiratory failure secondary to previous spinal surgery. #4 Acute on chronic kidney disease, stage III. Current creatinine 1.68. #5 Chronic diastolic congestive heart failure with chronic lower extremity edema. #6 Morbid obesity. #7 Hypothyroidism. #8 Hypertension. #9 Hyperlipidemia. #10 History of seizure disorder. #11 Previous history of overdose with pain medication requiring mechanical ventilatory support. #12 Osteoarthritis. #13 History of anxiety/depression. Plan: Continue present meds, switch patient to oral prednisone burst and taper over the next 2 weeks, oral antibiotics, resume bronchodilators at home including albuterol with Atrovent updrafts and Symbicort, cleared for discharge home today if cleared by the admitting physician. Follow-up on outpatient basis. Time with Patient: Less than 30
[2018-10-02] MEDS ORDERED: predniSONE 20 MG TAB PO SCH (10:15)
[2018-10-02 11:51] LABS: Glucose,Whole Blood 137 mg/dL (75-99)
[2018-10-02 12:21] LABS: Potassium 4.2 mmol/L (3.5-5.1)
[2018-10-02 13:58] VITALS: BP 148/84; PULSE 98; RESP 20; TEMP 97.7
--- NOTE | 2018-10-03 05:18 | DS ---
DISCHARGE SUMMARY DATE OF ADMISSION: 10/01/2018 DATE OF DISCHARGE: 10/02/2018 FINAL DIAGNOSES: 1. Acute exacerbation of moderate persistent asthma, possibly from left lower lobe pneumonia/tracheobronchitis. 2. Chronic hypoxic respiratory failure from asthma on 2 L oxygen at home. 3. Morbid obesity, body mass index more than 40. 4. Hyperlipidemia. 5. Essential hypertension. 6. Primary osteoarthritis. 7. Hypothyroidism. 8. Chronic right diaphragm paralysis. 9. History of right lower lobe lung resection. 10.Chronic congestive heart failure from diastolic dysfunction, ejection fraction 60% to 65%. 11.Chronic kidney disease, stage 3 from nephrosclerosis. 12.Acute renal failure, prerenal from vomiting. HOSPITAL COURSE: This patient presented with acute asthma exacerbation. Treated with bronchodilators, steroids to which she responded well. Doing much better by the time of discharge. ON EXAMINATION: LUNGS: Improved air entry. BUN 37, creatinine 1.23. CONSULTATION: Dr. Varner. DISCHARGE MEDICATIONS: 1. Cymbalta 60 mg a day. 2. [place] 10 one tablet q.6 p.r.n. 3. Aspirin 81 mg a day. 4. Symbicort 160/4.5 two puffs b.i.d. 5. Vitamin B12 1000 mcg a day. 6. Drisdol 50,000 units on Wednesday. 7. Neurontin 400 mg t.i.d. 8. Synthroid 150 mcg a day. 9. Cozaar 50 mg a day. 10.Lopressor 50 mg b.i.d. 11.Myrbetriq 50 mg q.h.s. 12.Crestor 20 mg q.h.s. 13.Topamax 100 mg p.o. t.i.d. 14.Vitamin B complex 1 capsule p.o. daily. 15.Norvasc 10 mg p.o. daily. 16.Ventolin HFA 1 to 2 puffs q.6 p.r.n. 17.Mucinex 1200 mg q.12. 18.DuoNeb q.i.d. 19.Protonix 40 mg with breakfast. 20.Zithromax 500 mg p.o. daily 4 tablets. 21.Prednisone taper. Follow up with Dr. Roger in 3 days. MMODL / IJN: [id number] /
[2018-10-05] MEDS ORDERED: ERGOCALCIFEROL 50,000 UNIT CAP PO SCH (09:00)
== END 2018-10-02 15:09 | disposition home or self-care (01) | DRG 202 ==
LOC: EC 11:04 → 4MS4W 14:11 → OBSVTOIN 10-01 17:41
PROVIDERS: ADMIT Hospitalist; ATTEND Hospitalist
DX: J45.41 Moderate persistent asthma with (acute) exacerbation (principal); J18.9 Pneumonia, unspecified organism; J96.11 Chronic respiratory failure with hypoxia; J96.12 Chronic respiratory failure with hypercapnia; I50.32 Chronic diastolic (congestive) heart failure; I13.0 Hypertensive heart and chronic kidney disease with heart failure and stage 1 through stage 4 chronic kidney disease, or unspecified chronic kidney disease; J44.0 Chronic obstructive pulmonary disease with (acute) lower respiratory infection; Z68.42 Body mass index [BMI] 45.0-49.9, adult; M48.54XA Collapsed vertebra, not elsewhere classified, thoracic region, initial encounter for fracture; N17.9 Acute kidney failure, unspecified; Z87.01 Personal history of pneumonia (recurrent); Z86.14 Personal history of Methicillin resistant Staphylococcus aureus infection; E03.9 Hypothyroidism, unspecified; E66.01 Morbid (severe) obesity due to excess calories; E78.5 Hyperlipidemia, unspecified; G40.909 Epilepsy, unspecified, not intractable, without status epilepticus; G89.29 Other chronic pain; J98.6 Disorders of diaphragm; M19.90 Unspecified osteoarthritis, unspecified site; N18.3 Chronic kidney disease, stage 3 (moderate); Z79.51 Long term (current) use of inhaled steroids; Z79.82 Long term (current) use of aspirin; Z79.890 Hormone replacement therapy; Z79.899 Other long term (current) drug therapy; Z82.5 Family history of asthma and other chronic lower respiratory diseases; Z87.440 Personal history of urinary (tract) infections; Z90.2 Acquired absence of lung [part of]; Z90.710 Acquired absence of both cervix and uterus; Z99.81 Dependence on supplemental oxygen; Z60.2 Problems related to living alone; F41.9 Anxiety disorder, unspecified; F32.9 Major depressive disorder, single episode, unspecified
CPT/HCPCS: 36415; 71046; 80048; 80053; 83880; 84484; 85025; 85610; 85730; 93005; 94640; 94760; 96374; 99285

== ENCOUNTER 2018-10-29 19:09 | Inpatient (IN) | payer MEDICARE ==
[2018-10-29] MEDS ORDERED: IPRATROPIUM-ALBUTEROL 3 ML NEB INHALATION STA (19:41)
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
--- NOTE | 2018-10-29 21:08 | XR ---
EXAMINATION TYPE: XR chest 2V DATE OF EXAM: 10/29/2018 COMPARISON: 09/30/2018 HISTORY: Fundus of breath TECHNIQUE: Frontal and lateral views of the chest are obtained. FINDINGS: No surgical change of the thoracic spine is again seen. Chronic right hemidiaphragm elevat ion is noted. There is a new right basilar opacity in comparison to the prior. New left perihilar opa city as well as left basilar opacity. Cardiomediastinal silhouette is mildly enlarged. Cervical fusio n device is partially visualized. No sizable pleural effusion or pneumothorax. IMPRESSION: Multifocal patchy opacities suspicious for multifocal pneumonia. Chronic right hemidiaphragm elevatio n is also seen.
[2018-10-29 22:04] LABS: Anisocytosis Slight; Basophils % (A) 0 %; Eosinophils # (A) 0.3 k/uL (0-0.7); Eosinophils % (A) 3 %; HCT 26.8 % (34.0-46.0); HGB 8.2 gm/dL (11.4-16.0); Hypochromasia Moderate; Lymphocytes % (A) 10 %; MCH 28.3 pg (25.0-35.0); MCHC 30.5 g/dL (31.0-37.0); MCV 92.7 fL (80.0-100.0); Mean Platelet Volume 7.1; Monocytes # (A) 0.5 k/uL (0-1.0); Monocytes % (A) 5 %; Neutrophils # (A) 8.5 k/uL (1.3-7.7); Neutrophils % (A) 81 %; Platelet Count 202 k/uL (150-450); Poikilocytosis Slight; RBC 2.89 m/uL (3.80-5.40); RDW 16.1 % (11.5-15.5); WBC 10.4 k/uL (3.8-10.6)
[2018-10-29] MEDS ORDERED: PIPERACILLIN-TAZOBACTAM 3.375 GM in SODIUM CHLORIDE 0.9% 100 ML IVPB STA (22:09)
[2018-10-29] MEDS ORDERED: PNEUMONIA PROTOCOL UTILIZED 1 EACH MISC PO PRN (22:09)
[2018-10-29] MEDS ORDERED: LEVOFLOXACIN 750MG-D5W PMX 750 MG in DEXTROSE/WATER 1 150ML.BAG IVPB STA (22:09)
[2018-10-29] MEDS ORDERED: ALBUTEROL NEBULIZED 2.5 MG/3 ML INHALATION PRN (22:09)
[2018-10-29 22:17] LABS: Albumin 3.5 g/dL (3.5-5.0); Calcium 9.1 mg/dL (8.4-10.2); Potassium 3.6 mmol/L (3.5-5.1); Total Bilirubin 0.3 mg/dL (0.2-1.3); Total Protein 5.8 g/dL (6.3-8.2)
[2018-10-29 22:18] LABS: INR 0.9 (<1.2); Partial Thromboplastin Time 23.3 sec (22.0-30.0); Prothrombin Time 9.8 sec (9.0-12.0)
[2018-10-29 22:48] LABS: Appearance,Urine Clear (Clear); Bacteria,Urine Occasional /hpf; Bilirubin,Urine Negative (Negative); Blood,Urine Negative (Negative); Color,Urine Light Yellow; Glucose,Urine (UA) Negative (Negative); Ketones,Urine Negative (Negative); Leukocyte Esterase,Urine Moderate (Negative); Mucus,Urine Rare /hpf; Nitrite,Urine Positive (Negative); PH, Urine 5.5 (5.0-8.0); Protein,Urine Trace (Negative); RBC,Urine 1 /hpf (0-5); Specific Gravity,Urine 1.009 (1.001-1.035); Squamous Epithelial Cell,Urine 1 /hpf (0-4); Urobilinogen,Urine <2.0 mg/dL (<2.0); WBC,Urine 16 /hpf (0-5)
[2018-10-30] MEDS: PIPERACILLIN-TAZOBACTAM 3.375 GM in SODIUM CHLORIDE 0.9% 100 ML IVPB SCH ×4 (00:51→23:27)
[2018-10-30] MEDS: SODIUM CHLORIDE 0.9% 1,000 ML IV SCH ×2 (01:12→20:45)
[2018-10-30] MEDS: HYDROcodone/APAP 10-325MG 1 EACH TAB PO PRN ×4 (02:03→19:57)
[2018-10-30] MEDS: LEVOTHYROXINE 75 MCG TAB PO SCH (06:31)
[2018-10-30] MEDS: PANTOPRAZOLE 40 MG TABLET PO SCH (07:50)
[2018-10-30] MEDS ORDERED: SYMBICORT 160-4.5 MCG INHALER INHALATION SCH (08:00)
[2018-10-30] MEDS: ASPIRIN 81 MG PO SCH (08:03)
[2018-10-30] MEDS: CYANOCOBALAMIN 500 MCG TAB PO SCH (08:03)
[2018-10-30] MEDS: FOLIC ACID-VIT B COMPLEX-VIT C 1 CAP PO SCH (08:03)
[2018-10-30] MEDS: amLODIPine 10 MG TAB PO SCH (08:03)
[2018-10-30] MEDS: GABAPENTIN 400 MG CAP PO SCH ×3 (08:03→20:45)
[2018-10-30] MEDS: LOSARTAN 50 MG TAB PO SCH (08:03)
[2018-10-30] MEDS: DULoxetine HCL 60 MG CAPSULE.DR PO SCH (08:03)
[2018-10-30] MEDS: TOPIRAMATE 100 MG TAB PO SCH ×3 (08:03→20:45)
[2018-10-30] MEDS: METOPROLOL TARTRATE 50 MG TAB PO SCH ×2 (08:03→20:44)
[2018-10-30] MEDS: IPRATROPIUM-ALBUTEROL 3 ML NEB INHALATION SCH ×4 (08:15→19:41)
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
[2018-10-30] MEDS: FORMOTEROL FUMARATE 20 MCG/2 ML NEBU INHALATION SCH (19:41)
[2018-10-30] MEDS: BUDESONIDE 1 MG/2 ML NEBU INHALATION SCH (19:41)
[2018-10-30] MEDS: ATORVASTATIN 40 MG TAB PO SCH (20:44)
[2018-10-30] MEDS: NON-FORMULARY DRUG (Mirabegron [Myrbetriq] 50 MG) PO SCH (20:45)
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
[2018-10-31] MEDS: HYDROcodone/APAP 10-325MG 1 EACH TAB PO PRN ×4 (01:36→19:01)
[2018-10-31] MEDS: IPRATROPIUM-ALBUTEROL 3 ML NEB INHALATION SCH ×5 (03:30→19:44)
[2018-10-31] MEDS: LEVOTHYROXINE 75 MCG TAB PO SCH (05:51)
[2018-10-31] MEDS: FORMOTEROL FUMARATE 20 MCG/2 ML NEBU INHALATION SCH ×2 (08:21→19:44)
[2018-10-31] MEDS: BUDESONIDE 1 MG/2 ML NEBU INHALATION SCH ×2 (08:21→19:44)
[2018-10-31] MEDS ORDERED: ENOXAPARIN 40 MG/0.4 ML SYRINGE SQ SCH (09:00)
[2018-10-31] MEDS ORDERED: LEVOFLOXACIN 750MG-D5W PMX 750 MG in DEXTROSE/WATER 1 150ML.BAG IVPB SCH (09:00)
[2018-10-31] MEDS: PIPERACILLIN-TAZOBACTAM 3.375 GM in SODIUM CHLORIDE 0.9% 100 ML IVPB SCH ×2 (10:05→17:59)
[2018-10-31] MEDS: CYANOCOBALAMIN 500 MCG TAB PO SCH (11:06)
[2018-10-31] MEDS: predniSONE 10 MG TAB PO SCH (11:06)
[2018-10-31] MEDS: LOSARTAN 50 MG TAB PO SCH (11:06)
[2018-10-31] MEDS: PANTOPRAZOLE 40 MG TABLET PO SCH (11:06)
[2018-10-31] MEDS: METOPROLOL TARTRATE 50 MG TAB PO SCH ×2 (11:06→20:59)
[2018-10-31] MEDS: GABAPENTIN 400 MG CAP PO SCH ×3 (11:06→20:59)
[2018-10-31] MEDS: FOLIC ACID-VIT B COMPLEX-VIT C 1 CAP PO SCH (11:06)
[2018-10-31] MEDS: amLODIPine 10 MG TAB PO SCH (11:06)
[2018-10-31] MEDS: TOPIRAMATE 100 MG TAB PO SCH ×3 (11:06→21:05)
[2018-10-31] MEDS: ASPIRIN 81 MG PO SCH (11:07)
[2018-10-31] MEDS: DULoxetine HCL 60 MG CAPSULE.DR PO SCH (11:07)
[2018-10-31] MEDS ORDERED: FUROSEMIDE 10 MG/ML 4 ML VIAL IV STA (14:49)
--- NOTE | 2018-10-31 15:32 | CDI ---
Documentation Clarification Form Date: 10/31/2018 3:19:24 PM From: Michell Ledesma RN CCDS Admit Date: 10/29/2018 10:12:00 PM Patient Name: Paola Heard Visit Number: [id number] Discharge Date: ATTENTION: The Clinical Documentation Specialists (CDI) and [facility] Coding Staff appreciate your assistance in clarifying documentation. Please respond to the clarification below the line at the bottom and electronically sign. The CDI & [facility] Coding staff will review the response and follow-up if needed. Please note: Queries are made part of the Legal Health Record. If you have any questions, please contact the author of this message via ITS. Dr. Dora Villanueva Chronic congestive heart failure from gastric dysfunction EF 60-65% with no acute exacerbation. Is documented in your H & P Report. History/Risk Factors: 72 year old female presents to ED for shortness of breath. Medical history of CHF; home oxygen 2L; HTN; OA; chronic back pain. Clinical Indicators: VS/Pulse OX: 128/68 69 99.0 94% 4L BNP: 580 Chest X Ray: Multifocal patchy opacities suspicious for multifocal pneumonia. Chronic right angelita diaphragm elevation is also seen. Treatment: Cozaar; Lopressor; Lasix In your professional opinion, can you please clarify the acuity and type of CHF if known? Chronic Diastolic Heart Failure Unable to Determine Other, please specify (Last Revision: August 2017) Chronic Diastolic Heart Failure MTDD
--- NOTE | 2018-10-31 16:53 | P.PN ---
Subjective Progress Note Date: 10/31/18 Principal diagnosis: Shortness of breath, bilateral pneumonia On 10/31 patient is seen in follow-up on medical surgical floor. She is resting in bed, in no acute distress, she states her breathing is slowly improving, no acute distress, she remains on supplemental oxygen currently at 2 L, with pulse ox of 94%, she is afebrile, hemodynamically stable. Lung sounds reveal diminished breath sounds, patient does have a congested productive cough. Patient occasionally brings up a small amount of thick posey colored phlegm. Cultures showed no growth, no fever or chills, she remains on antibiotic coverage in the form of Zosyn and Levaquin, nebulized bronchodilators, and oral prednisone. We'll obtain follow-up chest x-ray tomorrow, follow up labs. No complaints of chest pain. Today. Objective - Vital Signs Vital signs: Vital Signs Temp 98.1 F 10/31/18 15:00 Pulse 77 10/31/18 16:06 Resp 16 10/31/18 16:06 BP 110/74 10/31/18 15:00 Pulse Ox 94 L 10/31/18 15:58 Intake & Output 10/30/18 10/31/18 10/31/18 18:59 06:59 18:59 Intake Total 1446 340 Balance 1446 340 Weight 123.5 kg Intake: Intake, IV Titration 100 240 Amount Piperacillin-Tazobactam 3 100 .375 gm In Sodium Chloride 0.9% 100 ml @ 25 mls/hr IVPB Q8HR [facility] Rx# :[id number] Sodium Chloride 0.9% 1, 240 000 ml @ 20 mls/hr IV . Q24H [facility] Rx#:[id number] Oral 1346 100 Other: Voiding Method Toilet # Voids 3 1 1 - Exam GENERAL EXAM: Alert, pleasant and 73-year-old obese white female, in 2 L of oxygen with pulse ox of 94%, comfortable in no apparent distress. HEAD: Normocephalic/atraumatic. EYES: Normal reaction of pupils, equal size. Conjunctiva pink, sclera white. NOSE: Clear with pink turbinates. THROAT: No erythema or exudates. NECK: No masses, no JVD, no thyroid enlargement, no adenopathy. CHEST: No chest wall deformity. Symmetrical expansion. LUNGS: Equal air entry with diminished breath sounds bilaterally, patient has a congested productive cough, with production of small amount of posey-colored thick sputum CVS: Regular rate and rhythm, normal S1 and S2, no gallops, no murmurs, no rubs ABDOMEN: Soft, nontender. No hepatosplenomegaly, normal bowel sounds, no guarding or rigidity. EXTREMITIES: No clubbing, 1+ lower extremity edema, mild edema in upper ext remities. no cyanosis, 2+ pulses and upper and lower extremities. MUSCULOSKELETAL: Muscle strength and tone normal. SPINE: No scoliosis or deformity SKIN: No rashes CENTRAL NERVOUS SYSTEM: Alert and oriented -3. No focal deficits, tone is normal in all 4 extremities. PSYCHIATRIC: Alert and oriented -3. Appropriate affect. Intact judgment and insight. - Labs CBC & Chem 7: 10/29/18 21:45 10/29/18 21:45 Labs: Microbiology - Last 24 Hours (Table) 10/29/18 22:48 Blood Culture - Preliminary Blood No Growth after 24 hours Assessment and Plan Plan: Assessment: #1. Acute exacerbation of moderate persistent chronic bronchial asthma complicated by bilateral pneumonia #2. Dyspnea related to the above #3. Chronic kidney disease stage III #4. 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 History of congestive heart failure with diastolic dysfunction and mild pulmonary hypertension #6. Morbid obesity #7. Hypothyroidism #8. Hypertension, hyperlipidemia #9. Osteoarthritis #10. Previous episode of pneumonia #11. History of seizure disorder #12. Previous history of MRSA infection and history of frequent urinary tract infections #13. Urinanalysis suggestive of acute urinary tract infection Plan: Continue with current antibiotic coverage, patient is on, initially Levaquin and Zosyn no fever or chills, send sputum for culture, patient to sit up in the tal ir, deep breathing and coughing, we'll give the patient a dose of IV Lasix 40 mg once now. Obtain a follow-up chest x-ray tomorrow. Continue to follow I performed a history & physical examination of the patient and discussed their management with my nurse practitioner, Bridget Heard. I reviewed the nurse practitioner's note and agree with the documented findings and plan of care. Lung sounds are positive for diminished throughout the lung davila. The findings and the impression was discussed with the patient. I attest to the documentation by the nurse practitioner. Time with Patient: Less than 30
--- NOTE | 2018-10-31 18:05 | PN ---
PROGRESS NOTE DATE OF SERVICE: 10/31/2018. This 73-year-old woman who was admitted with COPD acute exacerbation, possible pneumonia, consider gram-negative organism. Patient is complaining of severe pain. Patient being closely monitored. Patient is on steroids and IV antibiotics. PAST MEDICAL HISTORY: Reviewed. REVIEW OF SYSTEMS: CARDIOVASCULAR: No angina or palpitations. RESPIRATORY: As mentioned earlier. GI no nausea or vomiting. no dysuria. CENTRAL NERVOUS SYSTEM: No numbness or weakness. CURRENT MEDICATIONS: Reviewed and include: 1. [place] 10 mg q.6h p.r.n. 2. Norvasc 10 mg daily. 3. Aspirin 81 mg daily. 4. Lipitor 40 mg q.h.s. 5. Pulmicort 1 mg b.i.d. 6. Vitamin B12 1000 mcg. 7. Cymbalta 60 mg daily. 8. Lovenox 30 mg subcu daily. 9. Vitamin D2 50,000 Wednesday. 10.Perforomist b.i.d. 11.Neurontin 400 mg p.o. t.i.d. 12.Levaquin 750 mg p.o. q48 hours. 13.Synthroid 150 mcg p.o. daily. 14.Cozaar 50 mg p.o. daily. 15.Lopressor 50 mg p.o. b.i.d. 16.Nephrocaps 1 p.o. daily. 17.Myrbetriq 50 mg p.o. q.h.s. 18.Protonix 40 mg daily. 19.Zosyn 3.375 IV q.8h. 20.Prednisone 30 mg daily. 21.Topamax 100 mg p.o. t.i.d. PHYSICAL EXAM: Patient is alert, oriented x3. Pulse 84, blood pressure 130/74, respirations 18, temperature 97.8, pulse ox 94% on 2 L. HEENT: Conjunctivae normal. Oral mucosa moist. NECK is no jugular venous distention. No carotid bruit. No lymph node enlargement. CARDIOVASCULAR: S1, S2 muffled. RESPIRATIONS: Breath sounds diminished in the bases. A few scattered rhonchi and crackles. Expiratory wheezing also present. ABDOMEN: Soft, obese, nontender. LEGS no edema. No swelling. NERVOUS SYSTEM: Higher functions as mentioned earlier. Moves all four extremities. No focal deficits. LYMPHATICS: No lymph nodes palpable in the neck, axillae or groin. SKIN: No ulcer, rash or bleeding. JOINTS: No active arthropathy. LABORATORY DATA: Labs reviewed. Chest x-ray showed multifocal patchy areas. LABS: WBC 10.2, hemoglobin is 8.2, creatinine is 1.58. UA noted. ASSESSMENT: 1. Acute multifocal pneumonia, possibly gram-negative. 2. Acute exacerbation of chronic persistent bronchial asthma. 3. Chronic hypoxic respiratory failure on 2 L oxygen. 4. Morbid obesity. 5. Hyperlipidemia. 6. Hypertension. 7. Degenerative joint disease. 8. Possible urinary tract infection. 9. Chronic kidney stage III. 10.History of history of MRSA. 11.History of anxiety/depression. 12.Obesity with body mass of 49.8. RECOMMENDATIONS AND DISCUSSION: In this 73-year-old woman who presented with multiple complex medical issues, we will monitor the patient closely, continue the current medications, management and symptomatic treatment. Otherwise, at this time, I recommend continue with IV steroids, broad-spectrum IV antibiotics. DVT prophylaxis. Resume the home medications. Protonix. Prognosis guarded because of multiple complex medical issues. Further recommendations to follow. MMODL / IJN: [id number] /
[2018-10-31] MEDS: NON-FORMULARY DRUG (Mirabegron [Myrbetriq] 50 MG) PO SCH (20:58)
[2018-10-31] MEDS: ATORVASTATIN 40 MG TAB PO SCH (20:59)
[2018-10-31] MEDS: SODIUM CHLORIDE 0.9% 1,000 ML IV SCH (21:08)
[2018-11-01] MEDS: PIPERACILLIN-TAZOBACTAM 3.375 GM in SODIUM CHLORIDE 0.9% 100 ML IVPB SCH ×4 (00:07→23:08)
[2018-11-01] MEDS: HYDROcodone/APAP 10-325MG 1 EACH TAB PO PRN ×4 (00:53→23:38)
[2018-11-01] MEDS: IPRATROPIUM-ALBUTEROL 3 ML NEB INHALATION SCH ×5 (02:08→20:34)
[2018-11-01] MEDS ORDERED: IPRATROPIUM-ALBUTEROL 3 ML NEB INHALATION PRN (02:19)
[2018-11-01] MEDS: LEVOTHYROXINE 75 MCG TAB PO SCH (05:22)
[2018-11-01] MEDS: BUDESONIDE 1 MG/2 ML NEBU INHALATION SCH ×2 (07:55→20:34)
[2018-11-01] MEDS: FORMOTEROL FUMARATE 20 MCG/2 ML NEBU INHALATION SCH ×2 (07:55→20:34)
--- NOTE | 2018-11-01 08:37 | XR ---
EXAMINATION TYPE: XR chest 2V DATE OF EXAM: 11/01/2018 COMPARISON: Prior chest x-ray 10/29/2018 HISTORY: Pneumonia TECHNIQUE: Frontal and lateral views of the chest are obtained. FINDINGS: There is persistent elevation of the right hemidiaphragm. Extensive postop change again no denise to the thoracic spine. Postop changes noted to the cervical spine. No pneumothorax. Perihilar inc reased density is present. Heart size is likely stable. IMPRESSION: Perihilar airspace disease suspected, correlate for pneumonia, congestive heart failure. Chronic elevation of the right hemidiaphragm.
[2018-11-01] MEDS: ASPIRIN 81 MG PO SCH (09:16)
[2018-11-01] MEDS: CYANOCOBALAMIN 500 MCG TAB PO SCH (09:17)
[2018-11-01] MEDS: TOPIRAMATE 100 MG TAB PO SCH ×3 (09:17→20:20)
[2018-11-01] MEDS: METOPROLOL TARTRATE 50 MG TAB PO SCH ×2 (09:17→20:19)
[2018-11-01] MEDS: amLODIPine 10 MG TAB PO SCH (09:17)
[2018-11-01] MEDS: GABAPENTIN 400 MG CAP PO SCH ×3 (09:18→20:20)
[2018-11-01] MEDS: DULoxetine HCL 60 MG CAPSULE.DR PO SCH (09:18)
[2018-11-01] MEDS: predniSONE 10 MG TAB PO SCH (09:18)
[2018-11-01] MEDS: ENOXAPARIN 30 MG/0.3 ML SYRINGE SQ SCH (09:19)
[2018-11-01] MEDS: LOSARTAN 50 MG TAB PO SCH (09:19)
[2018-11-01] MEDS: FOLIC ACID-VIT B COMPLEX-VIT C 1 CAP PO SCH (09:19)
[2018-11-01] MEDS: PANTOPRAZOLE 40 MG TABLET PO SCH (09:24)
[2018-11-01] MEDS ORDERED: FUROSEMIDE 10 MG/ML 4 ML VIAL IV STA (11:29)
[2018-11-01 12:12] LABS: Anisocytosis Slight; HGB 7.8 gm/dL (11.4-16.0); Hypochromasia Marked; MCH 29.6 pg (25.0-35.0); MCHC 31.1 g/dL (31.0-37.0); Mean Platelet Volume 7.5; Platelet Count 227 k/uL (150-450); Poikilocytosis Slight; RBC 2.63 m/uL (3.80-5.40); RDW 16.4 % (11.5-15.5); WBC 9.1 k/uL (3.8-10.6)
[2018-11-01 12:26] LABS: Potassium 3.3 mmol/L (3.5-5.1)
[2018-11-01] MEDS ORDERED: Magnesium Replacement Protocol 1 EACH MISC MISCELLANE PRN (12:56)
[2018-11-01] MEDS ORDERED: Potassium Replacement Protocol 1 EACH MISC MISCELLANE PRN (12:56)
--- NOTE | 2018-11-01 13:41 | P.PN ---
Subjective Progress Note Date: 11/01/18 Principal diagnosis: Shortness of breath, bilateral pneumonia The patient is seen today 11/01/2018 in follow-up on the regular medical floor. She is currently sitting up in a chair at the bedside. Awake and alert in no acute distress. She is currently maintaining O2 saturations in the 90s on 3 L/m per nasal cannula. She's afebrile. Hemodynamically stable. Blood culture r eveals no growth. White count 9.1. Hemoglobin 7.8. Creatinine 1.57. She remains on DuoNeb inhalations, Pulmicort and Perforomist inhalations, Zosyn and Levaquin. Chest x-ray really perihilar airspace disease suspicious for pneumonia and/or congestive heart failure. Right hemidiaphragm elevation noted. She is given another dose of Lasix 40 mg IVP 1. Objective - Vital Signs Vital signs: Vital Signs Temp 97.6 F 11/01/18 07:00 Pulse 74 11/01/18 11:48 Resp 20 11/01/18 07:00 BP 99/56 11/01/18 07:00 Pulse Ox 96 11/01/18 07:00 Intake & Output 10/31/18 11/01/18 11/01/18 18:59 06:59 18:59 Intake Total 240 684 Balance 240 684 Weight 123 kg Intake: Intake, IV Titration 240 Amount Sodium Chloride 0.9% 1, 240 000 ml @ 20 mls/hr IV . Q24H [facility] Rx#:[id number] Oral 684 Other: Voiding Method Toilet # Voids 1 2 - Exam GENERAL EXAM: Alert, pleasant and 73-year-old obese female, in 3 L of oxygen with pulse ox of 96%, comfortable in no apparent distress. HEAD: Normocephalic/atraumatic. EYES: Normal reaction of pupils, equal size. Conjunctiva pink, sclera white. NOSE: Clear with pink turbinates. THROAT: No erythema or exudates. NECK: No masses, no JVD, no thyroid enlargement, no adenopathy. CHEST: No chest wall deformity. Symmetrical expansion. LUNGS: Equal air entry with diminished breath sounds bilaterally, patient has a congested productive cough, with production of small amount of posey-colored thick sputum CVS: Regular rate and rhythm, normal S1 and S2, no gallops, no murmurs, no rubs ABDOMEN: Soft, nontender. No hepatosplenomegaly, normal bowel sounds, no guarding or rigidity. EXTREMITIES: No clubbing, 1+ lower extremity edema, mild edema in upper extremities. no cyanosis, 2+ pulses and upper and lower extremities. MUSCULOSKELETAL: Muscle strength and tone normal. SPINE: No scoliosis or deformity SKIN: No rashes CENTRAL NERVOUS SYSTEM: No focal deficits, tone is normal in all 4 extremities. PSYCHIATRIC: Alert and oriented -3. Appropriate affect. Intact judgment and insight. - Labs CBC & Chem 7: 11/01/18 11:57 11/01/18 11:57 Labs: Abnormal Lab Results - Last 24 Hours (Table) 11/01/18 11/01/18 Range/Units 11:57 11:57 RBC 2.63 L (3.80-5.40) m/uL Hgb 7.8 L (11.4-16.0) gm/dL Hct 25.0 L (34.0-46.0) % RDW 16.4 H (11.5-15.5) % Potassium 3.3 L (3.5-5.1) mmol/L Chloride 111 H (98-107) mmol/L BUN 24 H (7-17) mg/dL Creatinine 1.57 H (0.52-1.04) mg/dL Glucose 117 H (74-99) mg/dL Microbiology - Last 24 Hours (Table) 10/29/18 22:48 Blood Culture - Preliminary Blood No Growth after 48 hours Assessment and Plan Assessment: Assessment: #1. Acute exacerbation of moderate persistent chronic bronchial asthma complicated by bilateral pneumonia #2. Dyspnea related to the above #3. Chronic kidney disease stage III #4. 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 History of congestive heart failure with diastolic dysfunction and mild pulmonary hypertension #6. Morbid obesity #7. Hypothyroidism #8. Hypertension, hyperlipidemia #9. Osteoarthritis #10. Previous episode of pneumonia #11. History of seizure disorder #12. Previous history of MRSA infection and history of frequent urinary tract infections #13. Urinanalysis suggestive of acute urinary tract infection Plan: The patient was seen and evaluated by Dr. Vanegas. Chest x-ray and labs reviewed. We'll give her an additional Lasix 40 mg IVP 1 now. Continue her current medications. Increase her activity as tolerated. We'll continue to follow. I, the cosigning physician, performed a history & physical examination of the patient. Lungs sounds faint end expiratory wheeze, crackles in posterior bases Maintaining good O2 saturations in the 90s on 3 L/m per nasal cannula. I discussed the assessment and plan of care with my nurse practitioner, Renetta Sauceda. I attest to the above note as dictated by her.
--- NOTE | 2018-11-01 18:27 | PN ---
PROGRESS NOTE DATE OF SERVICE: 11/01/2018 This 73-year-old woman who was admitted with bronchial asthma, acute exacerbation, also had acute purulent tracheobronchitis and possibly multifocal pneumonia. The patient is also being followed by Pulmonary at this time. The most recent chest x-ray, which was personally reviewed by me, showed significant bilateral lesions, hardware in the spine as well as significant lesions in the lower lobe with elevation of the right hemidiaphragm as well. The patient also has a history of CHF. Past medical history reviewed. REVIEW OF SYSTEMS: CARDIOVASCULAR SYSTEM: No angina, palpitations. RESPIRATORY SYSTEM: As mentioned earlier. GI: No nausea, vomiting. : No dysuria or retention. NERVOUS SYSTEM: No numbness, weakness. CURRENT MEDICATIONS: Reviewed. They include: 1. Thorndike 10 mg q.6 p.r.n. 2. DuoNeb q.i.d. and p.r.n. 3. Norvasc 5 mg p.o. daily. 4. Aspirin 81 mg daily. 5. Lipitor 40 mg at bedtime. 6. Pulmicort 1 mg b.i.d. 7. Vitamin B12 1000 mg p.o. daily. 8. Cymbalta 60 mg p.o. daily. 9. Lovenox 30 mg daily. 10.Vitamin D2 50,000 daily. 11.Perforomist 20 mcg b.i.d. 12.Lasix 40 mg p.o. daily. 13.Neurontin 400 mg p.o. t.i.d. 14.Levaquin 750 mg q.48 hours. 15.Synthroid 150 mcg p.o. daily. 16.Cozaar 50 mg p.o. daily. 17.Lopressor 50 mg p.o. b.i.d. 18.Replacement protocols. 19.Nephrocaps 1 p.o. daily. 20.Myrbetriq 50 mg at bedtime. 21.Protonix 40 mg with breakfast. 22.Zosyn 3.375 IV q.8. 23.Prednisone 30 mg daily. 24.Topamax 100 mg p.o. t.i.d. PHYSICAL EXAMINATION: Patient is alert and oriented x3. Pulse 84, blood pressure 104/66, respirations 16, temperature 98.2, pulse ox 97% on 2 L. HEENT: Conjunctivae normal. Oral mucosa moist. NECK: No jugular venous distention. No carotid bruit. No lymph node enlargement. CARDIOVASCULAR SYSTEM: S1, S2 muffled. RESPIRATORY SYSTEM: Breath sounds diminished at the bases. Bilateral scattered rhonchi and crackles. Breathing efforts are markedly increased. ABDOMEN: Soft, obese, non-tender. LEGS: Bilateral leg edema. NERVOUS SYSTEM: Diffusely weak. LABS: WBC 9.1, hemoglobin 7.5, sodium 142, potassium 3.3, creatinine 1.57. ASSESSMENT: 1. Acute bronchial asthma, acute exacerbation, with acute multifocal bilateral pneumonia, possibly gram-negative. 2. Chronic persistent bronchial asthma history. 3. Chronic hypoxic respiratory failure, on home oxygen at 2 L nasal cannula. 4. Morbid obesity. 5. Hyperlipidemia. 6. Hypertension. 7. History of degenerative joint disease. 8. History of possible urinary tract infection, present on admission. 9. Chronic kidney disease, stage III. 10.History of methicillin-resistant Staphylococcus aeruginosa. 11.History of anxiety, depression. 12.Obesity with body mass index of 49.8. 13.Hypokalemia. RECOMMENDATIONS AND DISCUSSION: I recommend to continue current medications, continue with the monitoring, symptomatic treatment. Otherwise at this time I recommend potassium supplementation. Monitor hemoglobin closely. Guarded prognosis because of multiple complex medical issues. Repeat labs. Further recommendations to follow. MMODL / IJN: [id number] /
[2018-11-01] MEDS: ATORVASTATIN 40 MG TAB PO SCH (20:20)
[2018-11-01] MEDS: POTASSIUM CHLORIDE ER 20 MEQ TAB.ER PO SCH ×3 (20:20→23:50)
[2018-11-01] MEDS: NON-FORMULARY DRUG (Mirabegron [Myrbetriq] 50 MG) PO SCH (20:20)
[2018-11-01] MEDS: SODIUM CHLORIDE 0.9% 1,000 ML IV SCH (21:39)
[2018-11-01 23:39] LABS: Magnesium 1.9 mg/dL (1.6-2.3); Potassium 3.5 mmol/L (3.5-5.1)
[2018-11-02] MEDS: POTASSIUM CHLORIDE ER 20 MEQ TAB.ER PO SCH (00:55)
[2018-11-02] MEDS: LEVOTHYROXINE 75 MCG TAB PO SCH (05:41)
[2018-11-02] MEDS: HYDROcodone/APAP 10-325MG 1 EACH TAB PO PRN ×3 (05:42→19:22)
[2018-11-02] MEDS ORDERED: POTASSIUM CHLORIDE ER 20 MEQ TAB.ER PO SCH ×2 (06:00→15:00)
[2018-11-02] MEDS: FORMOTEROL FUMARATE 20 MCG/2 ML NEBU INHALATION SCH ×2 (07:27→19:33)
[2018-11-02] MEDS: IPRATROPIUM-ALBUTEROL 3 ML NEB INHALATION SCH ×4 (07:27→19:33)
[2018-11-02] MEDS: BUDESONIDE 1 MG/2 ML NEBU INHALATION SCH ×2 (07:27→19:33)
--- NOTE | 2018-11-02 08:42 | XR ---
EXAMINATION TYPE: XR chest 2V DATE OF EXAM: 11/02/2018 COMPARISON: 11/01/2018 TECHNIQUE: PA and lateral views submitted. HISTORY: Shortness of breath FINDINGS: There is an persistent elevated right hemidiaphragm with bilateral perihilar infiltrate and interstit ial changes. No pneumothorax. Postsurgical changes are seen. Arthropathy of the shoulders. IMPRESSION: 1. Bilateral infiltrate stable in appearance.
[2018-11-02] MEDS ORDERED: ERGOCALCIFEROL 50,000 UNIT CAP PO SCH (09:00)
[2018-11-02] MEDS: CYANOCOBALAMIN 500 MCG TAB PO SCH (09:16)
[2018-11-02] MEDS: DULoxetine HCL 60 MG CAPSULE.DR PO SCH (09:16)
[2018-11-02] MEDS: LOSARTAN 50 MG TAB PO SCH (09:16)
[2018-11-02] MEDS: PANTOPRAZOLE 40 MG TABLET PO SCH (09:17)
[2018-11-02] MEDS: ASPIRIN 81 MG PO SCH (09:17)
[2018-11-02] MEDS: amLODIPine 10 MG TAB PO SCH (09:17)
[2018-11-02] MEDS: TOPIRAMATE 100 MG TAB PO SCH ×3 (09:17→20:01)
[2018-11-02] MEDS: FUROSEMIDE 40 MG TAB PO SCH (09:17)
[2018-11-02] MEDS: METOPROLOL TARTRATE 50 MG TAB PO SCH ×2 (09:17→20:01)
[2018-11-02] MEDS: GABAPENTIN 400 MG CAP PO SCH ×3 (09:17→20:01)
[2018-11-02] MEDS: predniSONE 10 MG TAB PO SCH (09:17)
[2018-11-02] MEDS: FOLIC ACID-VIT B COMPLEX-VIT C 1 CAP PO SCH (09:21)
[2018-11-02] MEDS: ENOXAPARIN 30 MG/0.3 ML SYRINGE SQ SCH (09:21)
[2018-11-02] MEDS: LEVOFLOXACIN 750 MG TAB PO SCH (09:21)
[2018-11-02] MEDS: PIPERACILLIN-TAZOBACTAM 3.375 GM in SODIUM CHLORIDE 0.9% 100 ML IVPB SCH ×3 (09:22→23:05)
[2018-11-02] MEDS ORDERED: FUROSEMIDE 10 MG/ML 4 ML VIAL IV STA (13:37)
--- NOTE | 2018-11-02 14:42 | P.PN ---
Subjective Progress Note Date: 11/02/18 Principal diagnosis: Shortness of breath, bilateral pneumonia On 10/31 patient is seen in follow-up on medical surgical floor. She is resting in bed, in no acute distress, she states her breathing is slowly improving, no acute distress, she remains on supplemental oxygen currently at 2 L, with pulse ox of 94%, she is afebrile, hemodynamically stable. Lung sounds reveal diminished breath sounds, patient does have a congested productive cough. Patient occasionally brings up a small amount of thick posey colored phlegm. Cultures showed no growth, no fever or chills, she remains on antibiotic coverage in the form of Zosyn and Levaquin, nebulized bronchodilators, and oral prednisone. We'll obtain follow-up chest x-ray tomorrow, follow up labs. No complaints of chest pain. On 11/02/2018 patient seen in follow-up on medical surgical floor. She is awake and alert, more awake on today's exam then she had been on previous exams. She is sitting up in the recliner, she states so far this is the best she has felt since admission. Room air pulse ox is 96%, patient is afebrile, she states she still gets short of breath with exertion, and there is still some lower ex tremity edema. Yesterday we gave the patient a dose of IV Lasix, her weight is down by 0.2 kilos in the last 24 hours, her maintenance dose of Lasix has been restarted, and today's chest x-ray has been reviewed, showing bilateral infiltrate which is stable in appearance and interstitial changes. Objective - Vital Signs Vital signs: Vital Signs Temp 98.8 F 11/02/18 07:11 Pulse 84 11/02/18 11:11 Resp 18 11/02/18 07:37 BP 112/72 11/02/18 07:11 Pulse Ox 98 11/02/18 07:27 Intake & Output 11/01/18 11/02/18 11/02/18 18:59 06:59 18:59 Intake Total 906 540 380 Balance 906 540 380 Weight 122.8 kg Intake: Oral 906 540 380 Other: Voiding Method Toilet # Voids 2 2 1 - Exam GENERAL EXAM: Alert, pleasant and 73-year-old obese white female, in 2 L of oxygen with pulse ox of 94%, comfortable in no apparent distress. HEAD: Normocephalic/atraumatic. EYES: Normal reaction of pupils, equal size. Conjunctiva pink, sclera white. NOSE: Clear with pink turbinates. THROAT: No erythema or exudates. NECK: No masses, no JVD, no thyroid enlargement, no adenopathy. CHEST: No chest wall deformity. Symmetrical expansion. LUNGS: Equal air entry with diminished breath sounds bilaterally, patient has a congested productive cough, with production of small amount of posey-colored thick sputum CVS: Regular rate and rhythm, normal S1 and S2, no gallops, no murmurs, no rubs ABDOMEN: Soft, nontender. No hepatosplenomegaly, normal bowel sounds, no gu arding or rigidity. EXTREMITIES: No clubbing, 1+ lower extremity edema, mild edema in upper extremit ies. no cyanosis, 2+ pulses and upper and lower extremities. MUSCULOSKELETAL: Muscle strength and tone normal. SPINE: No scoliosis or deformity SKIN: No rashes CENTRAL NERVOUS SYSTEM: Alert and oriented -3. No focal deficits, tone is normal in all 4 extremities. PSYCHIATRIC: Alert and oriented -3. Appropriate affect. Intact judgment and insight. - Labs CBC & Chem 7: 11/01/18 11:57 11/02/18 07:00 Labs: Microbiology - Last 24 Hours (Table) 11/01/18 16:20 Gram Stain - Preliminary Sputum Sputum Culture - Preliminary 10/29/18 22:48 Blood Culture - Preliminary Blood No Growth after 72 hours Assessment and Plan Plan: Assessment: #1. Acute exacerbation of moderate persistent chronic bronchial asthma complicated by bilateral pneumonia #2. Dyspnea related to the above #3. Chronic kidney disease stage III #4. 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 History of congestive heart failure with diastolic dysfunction and mild pulmonary hypertension #6. Morbid obesity #7. Hypothyroidism #8. Hypertension, hyperlipidemia #9. Osteoarthritis #10. Previous episode of pneumonia #11. History of seizure disorder #12. Previous history of MRSA infection and history of frequent urinary tract infections #13. Urinanalysis suggestive of acute urinary tract infection Plan: We'll give the patient additional dose of IV Lasix today, continue with maintenance oral dose. Continue with current antibiotics, today's chest x-ray still shows bilateral infiltrates, and interstitial changes. Still has residual lower extremity edema. Daily weights, accurate intake and output. We'll continue to follow. I performed a history & physical examination of the patient and discussed their management with my nurse practitioner, Bridget Heard. I reviewed the nurse elroy silva's note and agree with the documented findings and plan of care. Lung sounds are positive for diminished throughout the lung davila. The findings and the impression was discussed with the patient. I attest to the documentation by the nurse practitioner. Time with Patient: Less than 30
[2018-11-02] MEDS: NON-FORMULARY DRUG (Mirabegron [Myrbetriq] 50 MG) PO SCH (19:58)
[2018-11-02] MEDS: ATORVASTATIN 40 MG TAB PO SCH (20:01)
[2018-11-02] MEDS: SODIUM CHLORIDE 0.9% 1,000 ML IV SCH (23:05)
[2018-11-03] MEDS: HYDROcodone/APAP 10-325MG 1 EACH TAB PO PRN ×4 (03:34→23:02)
[2018-11-03] MEDS: LEVOTHYROXINE 75 MCG TAB PO SCH (05:40)
--- NOTE | 2018-11-03 07:45 | PN ---
PROGRESS NOTE DATE OF SERVICE: 11/02/2018 This 73-year-old woman who was admitted with acute bronchial asthma, acute exacerbation, also had multifocal bilateral pneumonia. The patient is feeling slightly better. No chest pain. No palpitations. No fever. The most recent chest x-ray which was reviewed personally by me showed significant bilateral pneumonia, elevated right hemidiaphragm also. Dr. Vanegas is following the patient closely. The patient is being closely monitored. No chest pain. No palpitations. No fever. EXAM: Alert and oriented times three. Pulse is 84. Blood pressure 105/64, respiration 18, temperature 97.2, pulse ox 94 percent on 2 L. HEENT: Conjunctivae normal. NECK: No JVD. CARDIAC: S1, S2 muffled. RESPIRATORY: Breath sounds diminished at the bases. Bilateral scattered rhonchi and crackles. ABDOMEN is soft, nontender. LEGS are no edema, no swelling. CENTRAL NERVOUS SYSTEM: No focal deficits. LAB STUDIES: WBC 9.2, hemoglobin 7.2, potassium 3.3 and 3.5 and 6. ASSESSMENT: 1. Bronchial asthma, acute exacerbation with acute multifocal bilateral pneumonia possibly gram-negative. 2. Chronic persistent bronchial asthma history. 3. History of chronic hypoxic respiratory failure on home oxygen at 2 L. 4. Morbid obesity. 5. Hyperlipidemia. 6. Chronically elevated right hemidiaphragm and diaphragmatic paralysis, possibly. 7. Hypertension. 8. History of degenerative joint disease. 9. History of possible urinary tract infection, present on admission. 10.History of chronic kidney stage III. 11.History of MRSA. 12.History of anxiety, depression. 13.Obesity with body mass index of 49.8. 14.Hypokalemia. RECOMMENDATIONS AND DISCUSSION: Recommend to continue current medications. Continue to monitor. Symptomatic treatment. Otherwise, repeat labs. Continue the bronchodilators, steroids, antibiotics, incentive spirometry. Closely follow with pulmonary. Guarded prognosis. Further recommendations to follow. MMODL / IJN: [id number] /
[2018-11-03] MEDS: FORMOTEROL FUMARATE 20 MCG/2 ML NEBU INHALATION SCH ×2 (08:39→20:06)
[2018-11-03] MEDS: BUDESONIDE 1 MG/2 ML NEBU INHALATION SCH ×2 (08:39→20:06)
[2018-11-03] MEDS: IPRATROPIUM-ALBUTEROL 3 ML NEB INHALATION SCH ×4 (08:39→20:06)
[2018-11-03] MEDS: ENOXAPARIN 30 MG/0.3 ML SYRINGE SQ SCH (10:28)
[2018-11-03] MEDS: LOSARTAN 50 MG TAB PO SCH (10:29)
[2018-11-03] MEDS: FUROSEMIDE 40 MG TAB PO SCH (10:30)
[2018-11-03] MEDS: ASPIRIN 81 MG PO SCH (10:30)
[2018-11-03] MEDS: METOPROLOL TARTRATE 50 MG TAB PO SCH ×2 (10:30→20:22)
[2018-11-03] MEDS: TOPIRAMATE 100 MG TAB PO SCH ×3 (10:30→20:22)
[2018-11-03] MEDS: amLODIPine 10 MG TAB PO SCH (10:30)
[2018-11-03] MEDS: CYANOCOBALAMIN 500 MCG TAB PO SCH (10:30)
[2018-11-03] MEDS: DULoxetine HCL 60 MG CAPSULE.DR PO SCH (10:30)
[2018-11-03] MEDS: PANTOPRAZOLE 40 MG TABLET PO SCH (10:30)
[2018-11-03] MEDS: predniSONE 10 MG TAB PO SCH (10:31)
[2018-11-03] MEDS: FOLIC ACID-VIT B COMPLEX-VIT C 1 CAP PO SCH (10:31)
[2018-11-03] MEDS: GABAPENTIN 400 MG CAP PO SCH ×3 (11:12→20:22)
[2018-11-03] MEDS: PIPERACILLIN-TAZOBACTAM 3.375 GM in SODIUM CHLORIDE 0.9% 100 ML IVPB SCH ×3 (11:12→23:02)
--- NOTE | 2018-11-03 12:11 | XR ---
EXAMINATION TYPE: XR chest 2V DATE OF EXAM: 11/03/2018 COMPARISON: 11/02/2018 TECHNIQUE: PA and lateral views submitted. HISTORY: Shortness of breath FINDINGS: There is an persistent elevated right hemidiaphragm with bilateral perihilar infiltrate and interstit ial changes. No pneumothorax. Postsurgical changes are seen. Arthropathy of the shoulders. IMPRESSION: 1. Bilateral infiltrate stable in appearance.
--- NOTE | 2018-11-03 18:31 | PN ---
PROGRESS NOTE DATE OF SERVICE: 11/03/2018 This 73-year-old woman who was admitted with bronchial asthma, acute exacerbation, also had bilateral pneumonia. The most recent chest x-ray which was reviewed by me showed significant opacities still, but much improved from previously. No chest pain. No palpitations. No fever. EXAM: Alert and oriented times three. Pulse is 97. Blood pressure 123/60. Respirations 20. Temperature is 97.8, pulse ox 94% on 2 L. HEENT is conjunctivae normal. RESPIRATION: Breath sounds diminished at the bases. Bilateral scattered rhonchi and crackles. ABDOMEN is soft, obese, nontender. LEGS: No edema. No swelling. NERVOUS SYSTEM: No focal deficit. LAB STUDIES: WBC 9.2, hemoglobin 7.8, sodium 140, potassium 3.3. Creatinine 1.57. ASSESSMENT: 1. Bronchial asthma, acute exacerbation, with acute multifocal bilateral pneumonia possibly gram-negative. 2. Chronic persistent bronchial asthma history. 3. History of chronic hypoxic respiratory failure on home oxygen at 2 L. 4. Morbid obesity. 5. Hyperlipidemia. 6. Chronically elevated right hemidiaphragm with diaphragmatic paralysis, possibly. 7. Hypertension. 8. History of degenerative joint disease. 9. History of possible urinary tract infection, acute, present on admission. 10.History of chronic kidney stage 3. 11.History of MRSA. 12.History of anxiety, depression. 13.Obesity with body mass index of 49.8. 14.Hypokalemia. RECOMMENDATIONS AND DISCUSSION: Continue current medications. Continue with monitoring. Symptomatic treatment. The patient is on broad-spectrum IV antibiotics. I would closely follow with Pulmonary and steroids have been tapered. Incentive spirometry. Guarded prognosis because of multiple complex medical issues. See orders for details. MMODL / IJN: [id number] /
[2018-11-03] MEDS: ATORVASTATIN 40 MG TAB PO SCH (20:22)
[2018-11-03] MEDS: NON-FORMULARY DRUG (Mirabegron [Myrbetriq] 50 MG) PO SCH (20:24)
--- NOTE | 2018-11-03 20:37 | PN ---
PROGRESS NOTE DATE OF SERVICE: 11/03/2018 This is a very pleasant 73-year-old female patient who was admitted October 29, 2018 with complaints of increasing shortness of breath, cough and congestion. She is being treated for bilateral pneumonia and mild asthma exacerbation. She is seen today in followup on the regular medical floor. Awake and alert, in no acute distress. Resting comfortably in bed. Maintaining good O2 saturations in the upper 90s on 2 L/minute per nasal cannula. She is afebrile. Hemodynamically stable. Blood cultures reveal no growth. Sputum culture revealed Johanne. She has been maintained on DuoNeb inhalations, Pulmicort and Perforomist inhalations, prednisone taper. She remains on antibiotics in the form of Zosyn and Levaquin. PHYSICAL EXAM: She is alert and oriented, in no acute distress. Vital signs revealed blood pressure 113/69, heart rate 77, respirations 16, temperature is 98.1. She is 98% O2 saturation on 2 L nasal cannula. HEAD: Normocephalic sclerae anicteric. NECK: Supple. Trachea midline. Lungs have crackles in the bilateral posterior bases, diminished. HEART is regular S1, S2. ABDOMEN: Soft, nontender. Bowel sounds are present. EXTREMITIES: There is trace peripheral edema. No clubbing. No cyanosis. Peripheral pulses are intact. INVESTIGATIONS: Chest x-ray reveals stable bilateral infiltrates. Medications are reviewed. IMPRESSION: 1. Acute exacerbation of moderate persistent chronic bronchial asthma complicated by bilateral pneumonia. 2. Dyspnea secondary to above. 3. Chronic kidney disease stage 3. 4. Chronic paralysis of the right hemidiaphragm, from previous spinal surgery. 5. Acute on chronic hypoxemic respiratory failure secondary to above. 6. History of congestive heart failure, diastolic dysfunction and mild pulmonary hypertension. 7. Morbid obesity. 8. Hypothyroidism. 9. Hypertension. 10.Hyperlipidemia. 11.Osteoarthritis. 12.Previous histories of pneumonia. 13.History of seizures. 14.Previous history of MRSA infection and a history of frequent urinary tract infections. PLAN: The patient was seen and evaluated by Dr. Vanegas. Chest x-ray reviewed. She is improved today compared to yesterday. Not quite back to her baseline. We will continue with the current treatment plan. Increase her activity as tolerated. Will continue to follow. The cosigning physician performed a history and physical examination on the patient. Lung sounds with bilateral crackles, diminished. Maintaining O2 saturations in the 90s on 2 L/minute per nasal cannula. I discussed the assessment and plan of care with my nurse practitioner, Renetta Sauceda, I attest to the above note as dictated by her. MMNOMAN / IJN: [id number] /
[2018-11-03] MEDS: SODIUM CHLORIDE 0.9% 1,000 ML IV SCH (21:52)
[2018-11-04] MEDS: HYDROcodone/APAP 10-325MG 1 EACH TAB PO PRN ×2 (05:47→12:15)
[2018-11-04] MEDS: LEVOTHYROXINE 75 MCG TAB PO SCH (05:47)
[2018-11-04] MEDS: FORMOTEROL FUMARATE 20 MCG/2 ML NEBU INHALATION SCH (07:38)
[2018-11-04] MEDS: BUDESONIDE 1 MG/2 ML NEBU INHALATION SCH (07:38)
[2018-11-04] MEDS: IPRATROPIUM-ALBUTEROL 3 ML NEB INHALATION SCH ×2 (07:38→11:08)
[2018-11-04 07:41] VITALS: BP 147/79; RESP 15; TEMP 98.2
[2018-11-04] MEDS: PIPERACILLIN-TAZOBACTAM 3.375 GM in SODIUM CHLORIDE 0.9% 100 ML IVPB SCH (08:34)
[2018-11-04] MEDS: ENOXAPARIN 30 MG/0.3 ML SYRINGE SQ SCH (08:34)
[2018-11-04] MEDS: FOLIC ACID-VIT B COMPLEX-VIT C 1 CAP PO SCH (08:34)
[2018-11-04] MEDS: LEVOFLOXACIN 750 MG TAB PO SCH (08:34)
[2018-11-04] MEDS: FUROSEMIDE 40 MG TAB PO SCH (08:35)
[2018-11-04] MEDS: TOPIRAMATE 100 MG TAB PO SCH (08:35)
[2018-11-04] MEDS: ASPIRIN 81 MG PO SCH (08:35)
[2018-11-04] MEDS: PANTOPRAZOLE 40 MG TABLET PO SCH (08:35)
[2018-11-04] MEDS: GABAPENTIN 400 MG CAP PO SCH (08:35)
[2018-11-04] MEDS: DULoxetine HCL 60 MG CAPSULE.DR PO SCH (08:35)
[2018-11-04] MEDS: CYANOCOBALAMIN 500 MCG TAB PO SCH (08:35)
[2018-11-04] MEDS: predniSONE 10 MG TAB PO SCH (08:35)
[2018-11-04] MEDS: amLODIPine 10 MG TAB PO SCH (08:35)
[2018-11-04] MEDS: LOSARTAN 50 MG TAB PO SCH (08:35)
[2018-11-04] MEDS: METOPROLOL TARTRATE 50 MG TAB PO SCH (08:35)
[2018-11-04 09:12] VITALS: BMI 49.5
[2018-11-04 11:20] VITALS: PULSE 80
--- NOTE | 2018-11-04 15:30 | P.PN ---
Subjective Progress Note Date: 11/04/18 Principal diagnosis: Shortness of breath, bilateral pneumonia On 10/31 patient is seen in follow-up on medical surgical floor. She is resting in bed, in no acute distress, she states her breathing is slowly improving, no acute distress, she remains on supplemental oxygen currently at 2 L, with pulse ox of 94%, she is afebrile, hemodynamically stable. Lung sounds reveal diminished breath sounds, patient does have a congested productive cough. Patient occasionally brings up a small amount of thick posey colored phlegm. Cultures showed no growth, no fever or chills, she remains on antibiotic coverage in the form of Zosyn and Levaquin, nebulized bronchodilators, and oral prednisone. We'll obtain follow-up chest x-ray tomorrow, follow up labs. No complaints of chest pain. On 11/02/2018 patient seen in follow-up on medical surgical floor. She is awake and alert, more awake on today's exam then she had been on previous exams. She is sitting up in the recliner, she states so far this is the best she has felt since admission. Room air pulse ox is 96%, patient is afebrile, she states she still gets short of breath with exertion, and there is still some lower ex tremity edema. Yesterday we gave the patient a dose of IV Lasix, her weight is down by 0.2 kilos in the last 24 hours, her maintenance dose of Lasix has been restarted, and today's chest x-ray has been reviewed, showing bilateral infiltrate which is stable in appearance and interstitial changes. On 11/04/2018 patient seen in follow-up on medical surgical floor. Awake and alert, in acute distress, sitting up in the recliner, she has been ambulating in the room with a walker, tolerating activity well, she states she is breathing easier, no acute complaints, no complaints of chest pain, pulse ox on 2 L of oxygen 96%, afebrile, lung sounds reveal diminished breath sounds at the bases, no rhonchi, no wheezing, blood and sputum cultures are negative, new labs today, no fever or chills. No cough or congestion. Pulmonary perspective patient is stable for discharge home today. Objective - Vital Signs Vital signs: Vital Signs Temp 98.2 F 11/04/18 07:19 Pulse 80 11/04/18 11:19 Resp 15 11/04/18 07:19 BP 147/79 11/04/18 07:19 Pulse Ox 96 11/04/18 07:19 Intake & Output 11/03/18 11/04/18 11/04/18 18:59 06:59 18:59 Intake Total 458 780 500 Balance 458 780 500 Weight 122.8 kg Intake: Oral 458 780 500 Other: Voiding Method Toilet # Voids 3 2 3 - Exam GENERAL EXAM: Alert, pleasant and 73-year-old obese white female, in 2 L of oxygen with pulse ox of 94%, comfortable in no apparent distress. HEAD: Normocephalic/atraumatic. EYES: Normal reaction of pupils, equal size. Conjunctiva pink, sclera white. NOSE: Clear with pink turbinates. THROAT: No erythema or exudates. NECK: No masses, no JVD, no thyroid enlargement, no adenopathy. CHEST: No chest wall deformity. Symmetrical expansion. LUNGS: Equal air entry with diminished breath sounds bilaterally, occasional cough, no phlegm production CVS: Regular rate and rhythm, normal S1 and S2, no gallops, no murmurs, no rubs ABDOMEN: Soft, nontender. No hepatosplenomegaly, normal bowel sounds, no guarding or rigidity. EXTREMITIES: No clubbing, 1+ lower extremity edema, mild edema in upper extremities. no cyanosis, 2+ pulses and upper and lower extremities. MUSCULOSKELETAL: Muscle strength and tone normal. SPINE: No scoliosis or deformity SKIN: No rashes CENTRAL NERVOUS SYSTEM: Alert and oriented -3. No focal deficits, tone is normal in all 4 extremities. PSYCHIATRIC: Alert and oriented -3. Appropriate affect. Intact judgment and insight. - Labs CBC & Chem 7: 11/01/18 11:57 11/02/18 18:27 Labs: Microbiology - Last 24 Hours (Table) 10/29/18 22:48 Blood Culture - Preliminary Blood No Growth after 120 hours 11/01/18 16:20 Gram Stain - Final Sputum Sputum Culture - Final Johanne albicans Assessment and Plan Plan: Assessment: #1. Acute exacerbation of moderate persistent chronic bronchial asthma complicated by bilateral pneumonia #2. Dyspnea related to the above #3. Chronic kidney disease stage III #4. 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 History of congestive heart failure with diastolic dysfunction and mild pulmonary hypertension #6. Morbid obesity #7. Hypothyroidism #8. Hypertension, hyperlipidemia #9. Osteoarthritis #10. Previous episode of pneumonia #11. History of seizure disorder #12. Previous history of MRSA infection and history of frequent urinary tract infections #13. Urinanalysis suggestive of acute urinary tract infection Plan: Patient is doing well, no fever or chills, by signs are stable, she is tolerating ambulation, no worsening shortness of breath or congestion. Negative sputum and blood cultures. Patient has been diuresed, improving lower extremity edema. From pulmonary perspective she stable for discharge home today I performed a history & physical examination of the patient and discussed their management with my nurse practitioner, Bridget Haerd. I reviewed the nurse practitioner's note and agree with the documented findings and plan of care. Lung sounds are positive for diminished throughout the lung davila. The findings and the impression was discussed with the patient. I attest to the documentation by the nurse practitioner. Time with Patient: Less than 30
--- NOTE | 2018-11-05 08:33 | DS ---
DISCHARGE SUMMARY DATE OF SERVICE: 11/04/2018. FINAL DIAGNOSES: 1. Bronchial asthma, acute exacerbation, acute multifocal bilateral pneumonia possibly gram-negative. 2. Chronic persistent bronchial asthma history. 3. History of chronic hypoxic respiratory failure on home oxygen at 2 L. 4. Morbid obesity. 5. Hyperlipidemia. 6. Chronically elevated right hemidiaphragm with diaphragmatic palsy possibly. 7. Hypertension. 8. History of degenerative joint disease. 9. History of possible urinary tract infection, acute, present on admission. 10.History of chronic kidney stage III. 11.History of MRSA. 12.History of anxiety, depression. 13.Obesity, body mass index of 49.8. 14.Hypokalemia. DISCHARGE DISPOSITION: The patient will be discharged in stable condition with guarded prognosis. HISTORY OF PRESENT ILLNESS: This 73-year-old woman with past medical history of multiple medical problems as mentioned earlier, was admitted with bronchial asthma, acute exacerbation, also had pneumonia. Patient treated with antibiotics, bronchodilators and the rest of medications. Patient improved significantly. Dr. Vanegas saw the patient. The cultures showed sputum showed only Johanne albicans. Recommend close outpatient follow up. On exam, vitals are stable. Cardiovascular system: S1, S2. Respirations: Few scattered rhonchi. Abdomen is much improved. The abdomen is soft. Nervous System: No focal deficits. DISCHARGE ADVICE AND MEDICATIONS: 1. Discharge diet is cardiac diet. 2. Activity limited until followup. 3. Follow up with Dr. Roger in 2-3 days. 4. Follow up with Dr. Vanegas as recommended. DISCHARGE MEDICATIONS: 1. Cozaar 50 mg p.o. daily. 2. Crestor 20 mg q.h.s. 3. Cymbalta 60 mg p.o. daily. 4. Ecotrin 81 mg p.o. daily. 5. Lopressor 50 mg p.o. b.i.d. 6. Myrbetriq 50 mg q.h.s. 7. Neurontin 400 mg t.i.d. 8. [place] 10 mg q.6h p.r.n. 9. Norvasc 10 mg p.o. daily. 10.Symbicort 160/4.5 two puffs b.i.d. 11.Synthroid 150 mcg p.o. daily. 12.Topamax 100 mg p.o. t.i.d. 13.Vitamin B complex 1 p.o. daily. 14.Vitamin B12 1000 mcg p.o. daily. 15.Vitamin D2 50,000 p.o. Wednesday. 16.Augmentin 875 mg 1 tablet p.o. b.i.d. 17.DuoNeb q.i.d. and p.r.n. 18.Lasix 20 mg p.o. daily. 19.Prednisone taper 40 mg daily for 3 days, 30 for 3 days, 20 for 3 days, 10 for 3 days, then stop. 20.Protonix 40 mg daily. 21.Ventolin p.r.n. Once again the patient being discharged in a stable condition with guarded prognosis. MMODL / IJN: [id number] /
== END 2018-11-04 15:16 | disposition home health service (06) | DRG 177 ==
LOC: EC 19:09 → 4SSUR 22:12
PROVIDERS: ADMIT Hospitalist; ATTEND Hospitalist
DX: J15.6 Pneumonia due to other Gram-negative bacteria (principal); J96.21 Acute and chronic respiratory failure with hypoxia; I13.0 Hypertensive heart and chronic kidney disease with heart failure and stage 1 through stage 4 chronic kidney disease, or unspecified chronic kidney disease; I50.32 Chronic diastolic (congestive) heart failure; J44.0 Chronic obstructive pulmonary disease with (acute) lower respiratory infection; J44.1 Chronic obstructive pulmonary disease with (acute) exacerbation; J45.41 Moderate persistent asthma with (acute) exacerbation; M48.54XA Collapsed vertebra, not elsewhere classified, thoracic region, initial encounter for fracture; Z68.42 Body mass index [BMI] 45.0-49.9, adult; D64.9 Anemia, unspecified; E03.9 Hypothyroidism, unspecified; E66.01 Morbid (severe) obesity due to excess calories; E78.5 Hyperlipidemia, unspecified; E87.6 Hypokalemia; F32.9 Major depressive disorder, single episode, unspecified; F41.9 Anxiety disorder, unspecified; G40.909 Epilepsy, unspecified, not intractable, without status epilepticus; G89.29 Other chronic pain; I27.20 Pulmonary hypertension, unspecified; J98.6 Disorders of diaphragm; M19.90 Unspecified osteoarthritis, unspecified site; N18.3 Chronic kidney disease, stage 3 (moderate); Z79.51 Long term (current) use of inhaled steroids; Z79.52 Long term (current) use of systemic steroids; Z79.82 Long term (current) use of aspirin; Z79.890 Hormone replacement therapy; Z79.899 Other long term (current) drug therapy; Z82.5 Family history of asthma and other chronic lower respiratory diseases; Z86.14 Personal history of Methicillin resistant Staphylococcus aureus infection; Z87.01 Personal history of pneumonia (recurrent); Z87.440 Personal history of urinary (tract) infections; Z99.81 Dependence on supplemental oxygen; Z90.49 Acquired absence of other specified parts of digestive tract; Z90.710 Acquired absence of both cervix and uterus; Z90.2 Acquired absence of lung [part of]; Z60.2 Problems related to living alone; Z88.1 Allergy status to other antibiotic agents; Z88.5 Allergy status to narcotic agent; Z98.1 Arthrodesis status
CPT/HCPCS: 36415; 71046; 80048; 80053; 81001; 83735; 83880; 84132; 84484; 85025; 85027; 85610; 85730; 87040; 87070; 87205; 93005; 94640; 94760; 96365; 99285

== ENCOUNTER 2019-01-21 17:52 | Emergency (ER) | payer MEDICARE ==
[2019-01-21] MEDS ORDERED: IPRATROPIUM-ALBUTEROL 3 ML NEB INHALATION STA ×2 (18:16→19:23)
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
[2019-01-21 18:45] LABS: Anisocytosis Slight; Basophils # (A) 0.1 k/uL (0-0.2); Basophils % (A) 1 %; Eosinophils # (A) 0.3 k/uL (0-0.7); Eosinophils % (A) 4 %; HCT 28.1 % (34.0-46.0); HGB 8.9 gm/dL (11.4-16.0); Hypochromasia Slight; Lymphocytes # (A) 1.2 k/uL (1.0-4.8); Lymphocytes % (A) 17 %; MCH 28.9 pg (25.0-35.0); MCHC 31.8 g/dL (31.0-37.0); MCV 90.8 fL (80.0-100.0); Mean Platelet Volume 7.4; Monocytes # (A) 0.4 k/uL (0-1.0); Monocytes % (A) 5 %; Neutrophils % (A) 71 %; Platelet Count 223 k/uL (150-450); RBC 3.09 m/uL (3.80-5.40); RDW 17.5 % (11.5-15.5); WBC 7.1 k/uL (3.8-10.6)
[2019-01-21 18:53] LABS: Albumin 3.7 g/dL (3.5-5.0); Potassium 4.8 mmol/L (3.5-5.1); Total Bilirubin 0.2 mg/dL (0.2-1.3); Total Protein 6.2 g/dL (6.3-8.2)
[2019-01-21 19:04] LABS: INR 0.9 (<1.2); Prothrombin Time 9.7 sec (9.0-12.0)
--- NOTE | 2019-01-21 19:16 | XR ---
EXAMINATION TYPE: XR chest 2V DATE OF EXAM: 01/21/2019 COMPARISON: 11/03/2018 HISTORY: Short of breath TECHNIQUE: Frontal and lateral views of the chest are obtained. FINDINGS: There is elevated right diaphragm. There is atelectasis at the right lung base. There is n o heart failure. There is coarsening of interstitial markings. There is multilevel posterior thoracic spine surgery. IMPRESSION: Chronic atelectasis right lung base. Interstitial pulmonary infiltrates. No overt heart failure. No significant change compared to old exam.
[2019-01-21] MEDS ORDERED: methylPREDNISolone SOD SUCCI 125 MG/2 ML VIAL IV STA (19:23)
[2019-01-21] MEDS ORDERED: AZITHROMYCIN 500 MG in SODIUM CHLORIDE 0.9% 250 ML IVPB STA (19:23)
[2019-01-21 21:42] VITALS: BP 124/59; PULSE 76; RESP 19; TEMP 98.3
== END 2019-01-21 22:22 | disposition home or self-care (01) ==
LOC: EC 17:52
DX: J44.1 Chronic obstructive pulmonary disease with (acute) exacerbation (principal); J44.0 Chronic obstructive pulmonary disease with (acute) lower respiratory infection; J20.9 Acute bronchitis, unspecified; I11.0 Hypertensive heart disease with heart failure; I50.9 Heart failure, unspecified; E78.5 Hyperlipidemia, unspecified; E03.9 Hypothyroidism, unspecified; F41.9 Anxiety disorder, unspecified; F32.9 Major depressive disorder, single episode, unspecified; Z79.82 Long term (current) use of aspirin; Z79.890 Hormone replacement therapy; Z79.51 Long term (current) use of inhaled steroids; Z79.899 Other long term (current) drug therapy; Z88.1 Allergy status to other antibiotic agents; Z88.5 Allergy status to narcotic agent; Z98.1 Arthrodesis status
CPT/HCPCS: 36415; 94640 ×2; 93005; 83880; 80053; 83735; 84484; 85025; 85610; 85730; 71046; 99285; 96365; 96375; J2930; J0456

== ENCOUNTER 2019-02-17 21:17 | Inpatient (IN) | payer MEDICARE ==
[2019-02-17] MEDS ORDERED: FUROSEMIDE 10 MG/ML 4 ML VIAL IV STA (21:41)
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
--- NOTE | 2019-02-17 22:03 | XR ---
EXAMINATION TYPE: XR chest 2V DATE OF EXAM: 02/17/2019 COMPARISON: 01/21/2019 HISTORY: Difficulty breathing TECHNIQUE: Frontal and lateral views of the chest are obtained. FINDINGS: There is elevated right diaphragm. There is some airspace infiltrate and atelectasis right lower lobe. Left lung is fairly clear. There is no heart failure. There is multilevel thoracic spine fusion surgery. IMPRESSION: Consolidation and atelectasis right lung base is increased compared to last exam. Chroni c elevated right diaphragm. No heart failure.
[2019-02-17 22:44] LABS: Basophils % (A) 0 %; Eosinophils # (A) 0.1 k/uL (0-0.7); Eosinophils % (A) 1 %; HCT 29.2 % (34.0-46.0); HGB 9.3 gm/dL (11.4-16.0); Hypochromasia Slight; Lymphocytes # (A) 0.8 k/uL (1.0-4.8); Lymphocytes % (A) 9 %; MCH 28.4 pg (25.0-35.0); MCHC 31.9 g/dL (31.0-37.0); Mean Platelet Volume 6.4; Monocytes # (A) 0.4 k/uL (0-1.0); Monocytes % (A) 5 %; Neutrophils # (A) 7.2 k/uL (1.3-7.7); Neutrophils % (A) 82 %; Platelet Count 247 k/uL (150-450); RBC 3.28 m/uL (3.80-5.40); RDW 15.8 % (11.5-15.5); WBC 8.7 k/uL (3.8-10.6)
[2019-02-17] MEDS ORDERED: NITROGLYCERIN SL TABS 0.4 MG TAB SUBLINGUAL STA (22:48)
[2019-02-17] MEDS ORDERED: NITROGLYCERIN OINT 1 INCH/GM PACKET TOPICAL STA (22:49)
[2019-02-17 22:57] LABS: Albumin 3.8 g/dL (3.5-5.0); Calcium 7.9 mg/dL (8.4-10.2); Potassium 4.3 mmol/L (3.5-5.1); Total Bilirubin 0.4 mg/dL (0.2-1.3); Total Protein 6.6 g/dL (6.3-8.2)
[2019-02-17 23:01] LABS: INR 0.9 (<1.2); Partial Thromboplastin Time 24.3 sec (22.0-30.0); Prothrombin Time 9.8 sec (9.0-12.0)
[2019-02-17 23:04] LABS: D-Dimer 0.89 mg/L FEU (<0.60)
[2019-02-18 00:42] LABS: Appearance,Urine Cloudy (Clear); Bacteria,Urine Moderate /hpf; Bilirubin,Urine Negative (Negative); Blood,Urine Small (Negative); Color,Urine Light Yellow; Glucose,Urine (UA) Negative (Negative); Ketones,Urine Negative (Negative); Leukocyte Esterase,Urine Large (Negative); Mucus,Urine Rare /hpf; Nitrite,Urine Negative (Negative); PH, Urine 5.5 (5.0-8.0); Protein,Urine Trace (Negative); RBC,Urine 2 /hpf (0-5); Specific Gravity,Urine 1.011 (1.001-1.035); Squamous Epithelial Cell,Urine 1 /hpf (0-4); Urobilinogen,Urine <2.0 mg/dL (<2.0); WBC,Urine 116 /hpf (0-5)
[2019-02-18] MEDS ORDERED: ALBUTEROL NEBULIZED 2.5 MG/3 ML INHALATION PRN (02:08)
[2019-02-18] MEDS: HYDROcodone/APAP 10-325MG 1 EACH TAB PO PRN ×4 (03:02→21:41)
[2019-02-18] MEDS: LEVOTHYROXINE 75 MCG TAB PO SCH (06:18)
[2019-02-18] MEDS: PANTOPRAZOLE 40 MG TABLET PO SCH (06:18)
[2019-02-18] MEDS ORDERED: NITROGLYCERIN OINT 1 INCH/GM PACKET TOPICAL SCH (09:00)
[2019-02-18] MEDS ORDERED: LOSARTAN 50 MG TAB PO SCH (09:00)
[2019-02-18] MEDS ORDERED: HEPARIN SODIUM,PORCINE 5,000 UNIT/ML 1 ML VIAL SQ SCH (09:00)
[2019-02-18] MEDS: IPRATROPIUM-ALBUTEROL 3 ML NEB INHALATION SCH ×5 (09:08→23:06)
[2019-02-18] MEDS: BUDESONIDE 0.5 MG/2 ML NEBU INHALATION SCH ×2 (09:08→19:29)
[2019-02-18] MEDS: FERROUS SULFATE 325 MG TAB PO SCH (09:11)
[2019-02-18] MEDS: ASPIRIN 81 MG PO SCH (09:11)
[2019-02-18] MEDS: METOPROLOL TARTRATE 50 MG TAB PO SCH ×2 (09:12→19:54)
[2019-02-18] MEDS: DULoxetine HCL 60 MG CAPSULE.DR PO SCH (09:12)
[2019-02-18] MEDS: amLODIPine 10 MG TAB PO SCH (09:12)
[2019-02-18] MEDS: GABAPENTIN 400 MG CAP PO SCH ×3 (09:13→21:41)
[2019-02-18] MEDS: FUROSEMIDE 20 MG TAB PO SCH (09:13)
--- NOTE | 2019-02-18 11:12 | NM ---
EXAMINATION TYPE: NM pul vent and perfuse DATE OF EXAM: 02/18/2019 COMPARISON: Chest radiograph from yesterday HISTORY: Cough and dyspnea: Breathing TECHNIQUE: Utilizing inhalation of 66 mCi Tc 99m DTPA aerosol and intravenous injection of 5.2 mCi o f Tc 99m MAA, ventilation and perfusion images are acquired post injection in multiple projections. FINDINGS: There are no VQ mismatches. IMPRESSION: THIS EXAMINATION IS LOW PROBABILITY FOR PULMONARY EMBOLUS.
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
[2019-02-18] MEDS: ENOXAPARIN 40 MG/0.4 ML SYRINGE SQ SCH (15:20)
[2019-02-18] MEDS: methylPREDNISolone SOD SUCCI 40 MG/ML 1 ML VIAL IV SCH ×2 (15:20→23:43)
[2019-02-18] MEDS: hydrALAZINE HCL 25 MG TAB PO SCH ×2 (15:20→21:41)
[2019-02-18] MEDS: CEFEPIME 2 GM in SODIUM CHLORIDE 0.9% 100 ML IVPB SCH (15:21)
[2019-02-18 16:38] LABS: Glucose,Whole Blood 131 mg/dL (75-99)
[2019-02-18] MEDS: INSULIN ASPART (NovoLOG) 100 UNIT/ML VIAL SQ SCH (17:07)
[2019-02-18] MEDS: MONTELUKAST 10 MG TAB PO SCH (19:55)
[2019-02-18] MEDS: ATORVASTATIN 40 MG TAB PO SCH (19:55)
[2019-02-19] MEDS: IPRATROPIUM-ALBUTEROL 3 ML NEB INHALATION SCH ×6 (02:55→22:59)
[2019-02-19] MEDS: HYDROcodone/APAP 10-325MG 1 EACH TAB PO PRN ×4 (02:56→20:43)
[2019-02-19 06:34] LABS: Glucose,Whole Blood 173 mg/dL (75-99)
[2019-02-19] MEDS: LEVOTHYROXINE 75 MCG TAB PO SCH (06:53)
[2019-02-19] MEDS: PANTOPRAZOLE 40 MG TABLET PO SCH (06:53)
[2019-02-19] MEDS: INSULIN ASPART (NovoLOG) 100 UNIT/ML VIAL SQ SCH ×3 (06:53→17:02)
[2019-02-19] MEDS: BUDESONIDE 0.5 MG/2 ML NEBU INHALATION SCH ×2 (08:07→19:08)
[2019-02-19] MEDS: ENOXAPARIN 40 MG/0.4 ML SYRINGE SQ SCH (08:51)
[2019-02-19] MEDS: METOPROLOL TARTRATE 50 MG TAB PO SCH ×2 (08:52→20:43)
[2019-02-19] MEDS: methylPREDNISolone SOD SUCCI 40 MG/ML 1 ML VIAL IV SCH ×2 (08:52→15:36)
[2019-02-19] MEDS: FUROSEMIDE 20 MG TAB PO SCH (08:52)
[2019-02-19] MEDS: amLODIPine 10 MG TAB PO SCH (08:52)
[2019-02-19] MEDS: hydrALAZINE HCL 25 MG TAB PO SCH ×3 (08:52→20:43)
[2019-02-19] MEDS: FERROUS SULFATE 325 MG TAB PO SCH (08:54)
[2019-02-19] MEDS: DULoxetine HCL 60 MG CAPSULE.DR PO SCH (08:54)
[2019-02-19] MEDS: ASPIRIN 81 MG PO SCH (08:54)
[2019-02-19] MEDS: GABAPENTIN 400 MG CAP PO SCH ×3 (08:54→20:42)
--- NOTE | 2019-02-19 09:00 | ECHOF ---
Referral Reason:Heart Failure MEASUREMENTS -------- HEIGHT: 157.5 cm WEIGHT: 122.5 kg BP: 115/59 IVSd: 1.4 cm (0.6 - 1.1) LVIDd: 3.3 cm (3.9 - 5.3) LVPWd: 1.3 cm (0.6 - 1.1) IVSs: 1.6 cm LVIDs: 2.5 cm LVPWs: 1.8 cm LA Diam: 3.4 cm (2.7 - 3.8) RVIDd: 3.8 cm (< 3.3) LAESV Index (A-L): 29.02 ml/m Ao Diam: 3.1 cm (2.0 - 3.7) AV Cusp: 2.2 cm (1.5 - 2.6) EPSS: 0.8 cm MV E Bharath: 1.05 m/s MV DecT: 285 ms MV A Bharath: 1.52 m/s MV E/A Ratio: 0.69 AV maxP.05 mmHg AV meanP.11 mmHg RAP: 15.00 mmHg RVSP: 60.59 mmHg MV EF SLOPE: 78.75 mm/s (70 - 150) MV EXCURSION: 15.49 mm (> 18.000) TAPSE: 20.30 mm FINDINGS -------- Sinus rhythm. This was a technically adequate study. The left ventricular size is normal. There is moderate concentric left ventricular hypertrophy. O verall left ventricular systolic function is normal with, an EF between 60 - 65 %. The right ventricle is mild to moderately enlarged. Normal LA size by volume 22+/-6 ml/m2. The right atrium is normal in size. Interatrial and interventricular septum intact. The aortic valve is trileaflet and appears structurally normal. Peak/mean gradient across the Aorti c Valve is 16.05mmHg / 9.11mmHg. The mitral valve is normal. Mild tricuspid regurgitation present. There is severe pulmonary hypertension. The right ventricul ar systolic pressure, as measured by Doppler, is 60.59mmHg. The pulmonic valve was not well visualized. The aortic root size is normal. The inferior vena cava is dilated with poor inspiratory collapse which is consistent with estimated r ight atrial pressure of 15 mmHg. CONCLUSIONS -------- 1. Sinus rhythm. 2. This was a technically adequate study. 3. The left ventricular size is normal. 4. There is moderate concentric left ventricular hypertrophy. 5. Overall left ventricular systolic function is normal with, an EF between 60 - 65 %. 6. The right ventricle is mild to moderately enlarged. 7. Normal LA size by volume 22+/-6 ml/m2. 8. The right atrium is normal in size. 9. Interatrial and interventricular septum intact. 10. The aortic valve is trileaflet and appears structurally normal. 11. Peak/mean gradient across the Aortic Valve is 16.05mmHg / 9.11mmHg. 12. The mitral valve is normal. 13. Mild tricuspid regurgitation present. 14. There is severe pulmonary hypertension. 15. The right ventricular systolic pressure, as measured by Doppler, is 60.59mmHg. 16. The pulmonic valve was not well visualized. 17. The aortic root size is normal. 18. The inferior vena cava is dilated with poor inspiratory collapse which is consistent with estimat ed right atrial pressure of 15 mmHg. [employer] LOCKSTITCH: Maria Guadalupe Cortés RDCS
[2019-02-19 11:32] LABS: Glucose,Whole Blood 156 mg/dL (75-99)
[2019-02-19 13:02] VITALS: BMI 49.1
--- NOTE | 2019-02-19 15:05 | P.PN ---
Subjective This is Licha Johnson PA-C dictating a consult on this patient The patient was interviewed and examined by me as well as by Dr. Galeana Case discussed with Dr. Galeana and he agrees with the plan of care IMPRESSION / ASSESSMENT: Acute hypoxic respiratory failure secondary to combination of COPD/asthma exacerbation, pneumonia, and CHF Acute on chronic diastolic heart failure, echo showed moderate concentric LVH, EF 60-65%, symptoms improved with lasix History of COPD and asthma Hypertension Dyslipidemia Severe pulmonary hypertension, RV SP 60 on recent echo Acute kidney injury, no new labs today PLAN: continue low dose lasix Repeat BMP HPI Patient is a 73-year-old female with a past medical history significant for hypertension, dyslipidemia, COPD, asthma, and heart failure who presented with complaints of worsening shortness of breath. She is being treated for pneumonia. She is also being treated with nebulizers and Lasix. Echo showed moderate concentric LVH with EF 60-65%. Patient seen and examined lying comfortably in bed. States her breathing is improved significantly. Denies any shortness of breath on exertion. She has been up walking around and using the bathroom. No dizziness. No chest pain. EXAMINATION: Temperature 98.2F, pulse 79, respirations 18, blood pressure 120/71, oxygen saturation 93% on 2 L nasal cannula Patient seen and examined resting comfortably in bed, in no acute distress Lungs mildly diminished at the bases Heart is regular, systolic murmur noted No elevated JVD appreciated Mild lower extremity edema bilaterally REVIEW OF LABS, ECG & MEDICAL DATA No new labs today Objective - Vital Signs Vital signs: Vital Signs Temp 98.5 F 02/19/19 11:22 Pulse 80 02/19/19 12:09 Resp 18 02/19/19 11:22 BP 147/61 02/19/19 11:22 Pulse Ox 93 L 02/19/19 11:22 Intake & Output 02/18/19 02/19/19 02/19/19 18:59 06:59 18:59 Intake Total 444 924 Output Total 1999 530 400 Balance -2091 -995 134 Weight 121.8 kg 121.8 kg Intake: Oral 444 924 Output: Urine 1999 530 400 Other: Voiding Method Bedside Commode Bedside Commode Bedside Commode # Voids 3 2 - Labs CBC & Chem 7: 02/17/19 22:36 02/17/19 22:36 Labs: Abnormal Lab Results - Last 24 Hours (Table) 02/18/19 02/19/19 02/19/19 Range/Units 16:37 06:32 11:30 POC Glucose (mg/dL) 131 H 173 H 156 H (75-99) mg/dL Microbiology - Last 24 Hours (Table) 02/18/19 02:31 Blood Culture - Preliminary Blood No Growth after 24 hours
[2019-02-19] MEDS: CEFEPIME 2 GM in SODIUM CHLORIDE 0.9% 100 ML IVPB SCH (15:35)
[2019-02-19 16:19] LABS: Calcium 9.5 mg/dL (8.4-10.2); Potassium 4.3 mmol/L (3.5-5.1)
[2019-02-19 16:31] LABS: Glucose,Whole Blood 170 mg/dL (75-99)
[2019-02-19] MEDS: BACLOFEN 10 MG TAB PO SCH ×2 (17:02→20:42)
[2019-02-19] MEDS: MONTELUKAST 10 MG TAB PO SCH (20:43)
[2019-02-19] MEDS: ATORVASTATIN 40 MG TAB PO SCH (20:43)
[2019-02-19 21:05] LABS: Glucose,Whole Blood 214 mg/dL (75-99)
--- NOTE | 2019-02-19 22:31 | P.PN ---
Progress Note - Text Progress Note Date: 02/19/19 Chief Complaint: Short of breath History of presenting complaint: This is a pleasant 72-year-old patient of Dr. Roger from visiting physicians. Chronic stable medical conditions include hyperlipidemia, hypertension, primary osteoarthritis, chronic kidney disease, seizure disorder, hypothyroidism, phrenic nerve damage with back surgery, causing right-sided hemidiaphragm paralysis, partial right lower lobe resection. Patient on home oxygen 2 L, chronic back pain from T8-T9 compression fracture, MRSA osteomyelitis in 2006. Patient started of with 2 days of worsening shortness of breath cough with thick yellow-brown sputum. No wheezing. Decreased appetite and rundown. No obvious fever and chills. Short of breath at rest. Admitted for the same. Not able to speak in full sentences. Admitted with pneumonia, acute kidney injury, acute asthma exacerbation, and acute hypoxic respiratory failure. Today-feeling a bit better. A bit less short of breath. Decreased sputum. Resting in bed. Breathing is also improving. Review of systems: Was done for constitutional, cardiovascular, GI, pulmonary. relevant finding as above Active Medications Hydrocodone Bitart/Acetaminophen ([place] 10) 1 each PO Q6H PRN PRN Reason: Pain Last Admin: 02/19/19 20:43 Dose: 1 each Documented by: Albuterol Sulfate (Ventolin Nebulized) 2.5 mg INHALATION RT-Q4H PRN PRN Reason: Shortness Of Breath Last Admin: 02/18/19 11:32 Dose: 2.5 mg Documented by: Albuterol/Ipratropium (Duoneb 0.5 Mg-3 Mg/3 Ml Soln) 3 ml INHALATION RT-Q4H [facility] Last Admin: 02/19/19 19:08 Dose: 3 ml Documented by: Amlodipine Besylate (Norvasc) 10 mg PO DAILY [facility] Last Admin: 02/19/19 08:52 Dose: 10 mg Documented by: Aspirin (Aspirin) 81 mg PO DAILY [facility] Last Admin: 02/19/19 08:54 Dose: 81 mg Documented by: Atorvastatin Calcium (Lipitor) 40 mg PO HS [facility] Last Admin: 02/19/19 20:43 Dose: 40 mg Documented by: Baclofen (Lioresal) 5 mg PO TID [facility] Last Admin: 02/19/19 20:42 Dose: 5 mg Documented by: Budesonide (Pulmicort) 0.5 mg INHALATION RT-BID [facility] Last Admin: 02/19/19 19:08 Dose: 0.5 mg Documented by: Duloxetine HCl (Cymbalta) 60 mg PO DAILY [facility] Last Admin: 02/19/19 08:54 Dose: 60 mg Documented by: Enoxaparin Sodium (Lovenox) 40 mg SQ DAILY [facility] Last Admin: 02/19/19 08:51 Dose: 40 mg Documented by: Ferrous Sulfate (Feosol) 325 mg PO DAILY [facility] Last Admin: 02/19/19 08:54 Dose: 325 mg Documented by: Furosemide (Lasix) 20 mg PO DAILY [facility] Last Admin: 02/19/19 08:52 Dose: 20 mg Documented by: Gabapentin (Neurontin) 400 mg PO TID [facility] Last Admin: 02/19/19 20:42 Dose: 400 mg Documented by: Hydralazine HCl (Apresoline) 25 mg PO TID [facility] Last Admin: 02/19/19 20:43 Dose: 25 mg Documented by: Cefepime HCl 2 gm/ Sodium (Chloride) 100 mls @ 200 mls/hr IVPB Q24H [facility] Last Admin: 02/19/19 15:35 Dose: 200 mls/hr Documented by: Insulin Aspart (Novolog) 0 unit SQ AC-TID [facility]; Protocol Last Admin: 02/19/19 17:02 Dose: 3 unit Documented by: Levothyroxine Sodium (Synthroid) 150 mcg PO DAILY@0630 [facility] Last Admin: 02/19/19 06:53 Dose: 150 mcg Documented by: Methylprednisolone Sodium Succinate (Solu-Medrol) 40 mg IV Q8HR [facility] Last Admin: 02/19/19 15:36 Dose: 40 mg Documented by: Metoprolol Tartrate (Lopressor) 50 mg PO BID [facility] Last Admin: 02/19/19 20:43 Dose: 50 mg Documented by: Montelukast Sodium (Singulair) 10 mg PO HS [facility] Last Admin: 02/19/19 20:43 Dose: 10 mg Documented by: Pantoprazole Sodium (Protonix) 40 mg PO AC-BRKFST [facility] Last Admin: 02/19/19 06:53 Dose: 40 mg Documented by: Sodium Chloride (Saline Flush) 10 ml IV BID [facility] Last Admin: 02/19/19 20:46 Dose: 10 ml Documented by: Physical examination: VITAL SIGNS: 98.5, 79, 18, 147/61, and 3% on 2 L GENERAL: Sitting up in bed, a bit less short of breath EYES: Pupils equal. Conjunctiva normal. HEENT: External appearance of nose and ears normal, oral cavity grossly normal. NECK: JVD unable to assess; masses not palpable. HEART: First and second heart sounds are normal; nonpitting edema. LUNGS: Respiratory rate increased, decreased breath sound prolonged expiration. ABDOMEN: Soft, nontender, liver spleen not palpable, no masses palpable. PSYCH: Alert and oriented x3; mood and affect anxious Investigations, reviewed in the clinical context. Potassium 4.3 BUN 46 creatinine 1.45 Previous testing White count 8.7 hemoglobin 9.3 pressure 4.3 BUN 63 creatinine 2.56 Bun and creatinine was 24/1.57 in October 2018 EKG tracing personally reviewed by me-sinus rhythm Chest x-ray film personally reviewed by me-elevated right diaphragm possible infiltrates Assessment: -pneumonia, suspect gram-negative orgasms -Acute exacerbation of moderate persistent asthma, slow to respond -Acute hypoxic respiratory failure from above -Chronic hypoxic respiratory failure from asthma on 2 L of oxygen at home -Moderate obesity BMI greater than 40 -Hyperlipidemia -Essential hypertension -Primary osteoarthritis -Hypothyroidism -Chronic right diaphragm paralysis, from prior surgery -History of right lower lobe lung resection -Chronic congestive heart failure from diastolic dysfunction EF 60-65% with no acute exacerbation -Chronic kidney disease stage III from nephrosclerosis -Acute kidney injury likely ATN from pneumonia, some improvement Plan: Continued to rise bronchodilators every 4 hours, IV Solu-Medrol, IV cefepime. Care was discussed with the patient. Encouraged to be out of bed. Follow.
[2019-02-20] MEDS: methylPREDNISolone SOD SUCCI 40 MG/ML 1 ML VIAL IV SCH ×3 (02:04→15:18)
[2019-02-20] MEDS: IPRATROPIUM-ALBUTEROL 3 ML NEB INHALATION SCH ×6 (02:57→19:23)
[2019-02-20] MEDS: HYDROcodone/APAP 10-325MG 1 EACH TAB PO PRN ×4 (04:04→20:27)
[2019-02-20 06:28] LABS: Glucose,Whole Blood 140 mg/dL (75-99)
[2019-02-20] MEDS: LEVOTHYROXINE 75 MCG TAB PO SCH (06:32)
[2019-02-20] MEDS: PANTOPRAZOLE 40 MG TABLET PO SCH (06:32)
[2019-02-20] MEDS: INSULIN ASPART (NovoLOG) 100 UNIT/ML VIAL SQ SCH ×4 (06:34→22:18)
[2019-02-20 06:51] LABS: Calcium 9.5 mg/dL (8.4-10.2); Potassium 4.2 mmol/L (3.5-5.1)
[2019-02-20] MEDS: BUDESONIDE 0.5 MG/2 ML NEBU INHALATION SCH ×2 (07:45→19:23)
[2019-02-20] MEDS: METOPROLOL TARTRATE 50 MG TAB PO SCH ×2 (09:45→22:17)
[2019-02-20] MEDS: ENOXAPARIN 40 MG/0.4 ML SYRINGE SQ SCH (09:45)
[2019-02-20] MEDS: FERROUS SULFATE 325 MG TAB PO SCH (09:46)
[2019-02-20] MEDS: amLODIPine 10 MG TAB PO SCH (09:46)
[2019-02-20] MEDS: GABAPENTIN 400 MG CAP PO SCH ×3 (09:46→22:18)
[2019-02-20] MEDS: DULoxetine HCL 60 MG CAPSULE.DR PO SCH (09:46)
[2019-02-20] MEDS: FUROSEMIDE 20 MG TAB PO SCH (09:46)
[2019-02-20] MEDS: ASPIRIN 81 MG PO SCH (09:46)
[2019-02-20] MEDS: hydrALAZINE HCL 25 MG TAB PO SCH ×3 (09:46→22:18)
[2019-02-20] MEDS: BACLOFEN 10 MG TAB PO SCH ×3 (09:48→22:18)
[2019-02-20 11:32] LABS: Glucose,Whole Blood 116 mg/dL (75-99)
[2019-02-20] MEDS: CEFEPIME 2 GM in SODIUM CHLORIDE 0.9% 100 ML IVPB SCH (15:17)
[2019-02-20 16:23] LABS: Glucose,Whole Blood 160 mg/dL (75-99)
--- NOTE | 2019-02-20 17:59 | P.PN ---
Subjective This is Licha Johnson PA-C dictating a consult on this patient The patient was interviewed and examined by me as well as by Dr. Galeana Case discussed with Dr. Galeana and he agrees with the plan of care IMPRESSION / ASSESSMENT: Acute hypoxic respiratory failure secondary to combination of COPD/asthma exacerbation, pneumonia, and CHF Acute on chronic diastolic heart failure, echo showed moderate concentric LVH, EF 60-65%, symptoms improved with lasix History of COPD and asthma Hypertension Dyslipidemia Severe pulmonary hypertension, RV SP 60 on recent echo Acute kidney injury, creatinine improving PLAN: continue low dose lasix Continue Current cardiac medication regimen HPI Patient is a 73-year-old female with a past medical history significant for hypertension, dyslipidemia, COPD, asthma, and heart failure who presented with complaints of worsening shortness of breath. She is being treated for pneumonia. She is also being treated with nebulizers and Lasix. Echo showed moderate concentric LVH with EF 60-65%. She has been in sinus rhythm overnight. Patient seen and examined lying in bed. States she had a bad night last night and had trouble breathing but it has improved during the day. No chest pain palpitations or dizziness. EXAMINATION: Temperature 90.8F, pulse 84, respirations 18, blood pressure 147/68, oxygen saturation 96% on 3 L nasal cannula Patient seen and examined resting comfortably in bed, in no acute distress Lungs mildly diminished at the bases with wheezing and rhonchi bilaterally Heart is regular, systolic murmur noted No elevated JVD appreciated Mild lower extremity edema bilaterally REVIEW OF LABS, ECG & MEDICAL DATA Potassium 4.2, BUN 47, creatinine of 1.16 Objective - Vital Signs Vital signs: Vital Signs Temp 98 F 02/20/19 15:15 Pulse 80 02/20/19 16:00 Resp 18 02/20/19 15:15 BP 147/68 02/20/19 15:15 Pulse Ox 96 02/20/19 15:15 Intake & Output 02/19/19 02/20/19 02/20/19 18:59 06:59 18:59 Intake Total 1368 435 Output Total 1600 1100 400 Balance -232 -1100 35 Weight 121.8 kg Intake: Oral 1368 435 Output: Urine 1600 1100 400 Other: Voiding Method Bedside Commode Bedside Commode Bedside Commode # Voids 2 3 2 - Labs CBC & Chem 7: 02/17/19 22:36 02/20/19 05:47 Labs: Abnormal Lab Results - Last 24 Hours (Table) 02/19/19 02/20/19 02/20/19 Range/Units 21:05 05:47 06:27 Chloride 110 H (98-107) mmol/L Carbon Dioxide 21 L (22-30) mmol/L BUN 47 H (7-17) mg/dL Creatinine 1.16 H (0.52-1.04) mg/dL Glucose 136 H (74-99) mg/dL POC Glucose (mg/dL) 214 H 140 H (75-99) mg/dL 02/20/19 02/20/19 Range/Units 11:32 16:21 Chloride (98-107) mmol/L Carbon Dioxide (22-30) mmol/L BUN (7-17) mg/dL Creatinine (0.52-1.04) mg/dL Glucose (74-99) mg/dL POC Glucose (mg/dL) 116 H 160 H (75-99) mg/dL Microbiology - Last 24 Hours (Table) 02/19/19 15:20 Gram Stain - Preliminary Sputum Sputum Culture - Preliminary 02/18/19 02:31 Blood Culture - Preliminary Blood No Growth after 48 hours
[2019-02-20 19:38] VITALS: RESP 20
[2019-02-20 20:42] LABS: Glucose,Whole Blood 267 mg/dL (75-99)
[2019-02-20] MEDS: ATORVASTATIN 40 MG TAB PO SCH (22:17)
[2019-02-20] MEDS: MONTELUKAST 10 MG TAB PO SCH (22:17)
--- NOTE | 2019-02-20 22:50 | P.PN ---
Progress Note - Text Progress Note Date: 02/20/19 Chief Complaint: Short of breath History of presenting complaint: This is a pleasant 72-year-old patient of Dr. Roger from visiting physicians. Chronic stable medical conditions include hyperlipidemia, hypertension, primary osteoarthritis, chronic kidney disease, seizure disorder, hypothyroidism, phrenic nerve damage with back surgery, causing right-sided hemidiaphragm paralysis, partial right lower lobe resection. Patient on home oxygen 2 L, chronic back pain from T8-T9 compression fracture, MRSA osteomyelitis in 2006. Patient started of with 2 days of worsening shortness of breath cough with thick yellow-brown sputum. No wheezing. Decreased appetite and rundown. No obvious fever and chills. Short of breath at rest. Admitted for the same. Not able to speak in full sentences. Admitted with pneumonia, acute kidney injury, acute asthma exacerbation, and acute hypoxic respiratory failure. Also had acute CHF exacerbation. Today-feeling much better. Breathing is improved. Tired Up to the bathroom. Eating all her meals..patient is got chronic back pain for which she takes [place]. Asking for more pain medications. Review of systems: Was done for constitutional, cardiovascular, GI, pulmonary. relevant finding as above Active Medications Hydrocodone Bitart/Acetaminophen ([place] 10) 1 each PO Q6H PRN PRN Reason: Pain Last Admin: 02/20/19 20:27 Dose: 1 each Documented by: Albuterol Sulfate (Ventolin Nebulized) 2.5 mg INHALATION RT-Q4H PRN PRN Reason: Shortness Of Breath Last Admin: 02/18/19 11:32 Dose: 2.5 mg Documented by: Albuterol/Ipratropium (Duoneb 0.5 Mg-3 Mg/3 Ml Soln) 3 ml INHALATION RT-Q4H [facility] Last Admin: 02/20/19 19:23 Dose: 3 ml Documented by: Amlodipine Besylate (Norvasc) 10 mg PO DAILY [facility] Last Admin: 02/20/19 09:46 Dose: 10 mg Documented by: Aspirin (Aspirin) 81 mg PO DAILY [facility] Last Admin: 02/20/19 09:46 Dose: 81 mg Documented by: Atorvastatin Calcium (Lipitor) 40 mg PO HS [facility] Last Admin: 02/20/19 22:17 Dose: 40 mg Documented by: Baclofen (Lioresal) 5 mg PO TID [facility] Last Admin: 02/20/19 22:18 Dose: 5 mg Documented by: Budesonide (Pulmicort) 0.5 mg INHALATION RT-BID [facility] Last Admin: 02/20/19 19:23 Dose: 0.5 mg Documented by: Duloxetine HCl (Cymbalta) 60 mg PO DAILY [facility] Last Admin: 02/20/19 09:46 Dose: 60 mg Documented by: Enoxaparin Sodium (Lovenox) 40 mg SQ DAILY [facility] Last Admin: 02/20/19 09:45 Dose: 40 mg Documented by: Ferrous Sulfate (Feosol) 325 mg PO DAILY [facility] Last Admin: 02/20/19 09:46 Dose: 325 mg Documented by: Furosemide (Lasix) 20 mg PO DAILY [facility] Last Admin: 02/20/19 09:46 Dose: 20 mg Documented by: Gabapentin (Neurontin) 400 mg PO TID [facility] Last Admin: 02/20/19 22:18 Dose: 400 mg Documented by: Hydralazine HCl (Apresoline) 25 mg PO TID [facility] Last Admin: 02/20/19 22:18 Dose: 25 mg Documented by: Cefepime HCl 2 gm/ Sodium (Chloride) 100 mls @ 200 mls/hr IVPB Q24H [facility] Last Admin: 02/20/19 15:17 Dose: 200 mls/hr Documented by: Insulin Aspart (Novolog) 0 unit SQ ACHS [facility]; Protocol Last Admin: 02/20/19 22:18 Dose: 8 unit Documented by: Levothyroxine Sodium (Synthroid) 150 mcg PO DAILY@0630 [facility] Last Admin: 02/20/19 06:32 Dose: 150 mcg Documented by: Methylprednisolone Sodium Succinate (Solu-Medrol) 40 mg IV Q8HR [facility] Last Admin: 02/20/19 15:18 Dose: 40 mg Documented by: Metoprolol Tartrate (Lopressor) 50 mg PO BID [facility] Last Admin: 02/20/19 22:17 Dose: 50 mg Documented by: Montelukast Sodium (Singulair) 10 mg PO HS [facility] Last Admin: 02/20/19 22:17 Dose: 10 mg Documented by: Pantoprazole Sodium (Protonix) 40 mg PO AC-BRKFST [facility] Last Admin: 02/20/19 06:32 Dose: 40 mg Documented by: Sodium Chloride (Saline Flush) 10 ml IV BID [facility] Last Admin: 02/20/19 22:17 Dose: 10 ml Documented by: Physical examination: VITAL SIGNS: 98, 84, 18, 147/68, 36% on 3 L GENERAL: Sitting upon a chair, looking better EYES: Pupils equal. Conjunctiva normal. HEENT: External appearance of nose and ears normal, oral cavity grossly normal. NECK: JVD unable to assess; masses not palpable. HEART: First and second heart sounds are normal; nonpitting edema. LUNGS: Respiratory rate increased, improved air entry ABDOMEN: Soft, nontender, liver spleen not palpable, no masses palpable. PSYCH: Alert and oriented x3; mood and affect anxious Investigations, reviewed in the clinical context. Potassium 4.2 bun 47 creatinine 1.16 Previous testing White count 8.7 hemoglobin 9.3 pressure 4.3 BUN 63 creatinine 2.56 Bun and creatinine was 24/1.57 in October 2018 EKG tracing personally reviewed by me-sinus rhythm Chest x-ray film personally reviewed by me-elevated right diaphragm possible infiltrates Assessment: -pneumonia, suspect gram-negative organism, improving -Acute exacerbation of moderate persistent asthma, doing much better -Acute hypoxic respiratory failure from above -Chronic hypoxic respiratory failure from asthma on 2 L of oxygen at home -Moderate obesity BMI greater than 40 -Hyperlipidemia -Essential hypertension -Primary osteoarthritis -Hypothyroidism -Chronic right diaphragm paralysis, from prior surgery -History of right lower lobe lung resection -Acute on Chronic congestive heart failure exacerbation from diastolic dysfunction EF 60-65% -Chronic kidney disease stage III from nephrosclerosis -Acute kidney injury likely ATN from pneumonia, some improvement Plan: Had a very lengthy talk with the patient. Explained to her that for chronic pain narcotics are not indicated. And she is already taking [place]. She had seen Dr. Tejeda in the past. Did consulted. His office informed us that there discharge the patient from the office. Elderly was then consulted. We'll cut back on steroids. Patient already on oral Lasix. hoping to be discarged toorow
[2019-02-21] MEDS: IPRATROPIUM-ALBUTEROL 3 ML NEB INHALATION SCH ×5 (00:03→15:30)
[2019-02-21 06:06] LABS: Glucose,Whole Blood 134 mg/dL (75-99)
[2019-02-21] MEDS: PANTOPRAZOLE 40 MG TABLET PO SCH (06:57)
[2019-02-21] MEDS: LEVOTHYROXINE 75 MCG TAB PO SCH (06:57)
[2019-02-21] MEDS: INSULIN ASPART (NovoLOG) 100 UNIT/ML VIAL SQ SCH ×2 (06:57→11:36)
[2019-02-21] MEDS: BUDESONIDE 0.5 MG/2 ML NEBU INHALATION SCH (07:38)
[2019-02-21] MEDS: hydrALAZINE HCL 25 MG TAB PO SCH (08:03)
[2019-02-21] MEDS: amLODIPine 10 MG TAB PO SCH (08:03)
[2019-02-21] MEDS: METOPROLOL TARTRATE 50 MG TAB PO SCH (08:03)
[2019-02-21] MEDS: BACLOFEN 10 MG TAB PO SCH (08:03)
[2019-02-21] MEDS: FERROUS SULFATE 325 MG TAB PO SCH (08:03)
[2019-02-21] MEDS: FUROSEMIDE 20 MG TAB PO SCH (08:03)
[2019-02-21] MEDS: DULoxetine HCL 60 MG CAPSULE.DR PO SCH (08:03)
[2019-02-21] MEDS: GABAPENTIN 400 MG CAP PO SCH (08:03)
[2019-02-21] MEDS: ASPIRIN 81 MG PO SCH (08:03)
[2019-02-21] MEDS: HYDROcodone/APAP 10-325MG 1 EACH TAB PO PRN (08:04)
[2019-02-21] MEDS: ENOXAPARIN 40 MG/0.4 ML SYRINGE SQ SCH (08:04)
[2019-02-21] MEDS ORDERED: predniSONE 20 MG TAB PO SCH (09:00)
[2019-02-21] MEDS ORDERED: CEFDINIR 300 MG CAP PO SCH (09:00)
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
[2019-02-21] MEDS ORDERED: HYDROcodone/APAP 10-325MG 1 EACH TAB PO PRN (11:09)
[2019-02-21 11:40] VITALS: BP 155/83; PULSE 73; TEMP 97
[2019-02-21] MEDS ORDERED: hydrALAZINE HCL 50 MG TAB PO SCH (16:00)
--- NOTE | 2019-02-21 16:06 | P.PN ---
Subjective his is Licha Johnson PA-C dictating a consult on this patient The patient was interviewed and examined by me as well as by Dr. Galeana Case discussed with Dr. Galeana and he agrees with the plan of care IMPRESSION / ASSESSMENT: Acute hypoxic respiratory failure secondary to combination of COPD/asthma exacerbation, pneumonia, and CHF Acute on chronic diastolic heart failure, echo showed moderate concentric LVH, EF 60-65%, symptoms improved with lasix History of COPD and asthma Hypertension, blood pressures have been elevated in the 150s systolic Dyslipidemia Severe pulmonary hypertension, RV SP 60 on recent echo Acute kidney injury, creatinine improving PLAN: Increase hydralazine to 50 mg 3 times a day continue low dose lasix Continue metoprolol can be discharged in next 24 hours HPI Patient is a 73-year-old female with a past medical history significant for hypertension, dyslipidemia, COPD, asthma, and heart failure who presented with complaints of worsening shortness of breath. She is being treated for pneumonia. She is also being treated with nebulizers and Lasix. Echo showed moderate concentric LVH with EF 60-65%. She has been in sinus rhythm overnight. Patient seen and examined sitting up in her chair. States she is breathing better now. Denies any dizziness or chest pain. States she feels she is ready to go home. EXAMINATION: Patient is afebrile, pulse 73, respirations 20, blood pressure 155/74, oxygen saturation 97% on 3 L nasal cannula Patient seen and examined resting comfortably in bed, in no acute distress Lungs with mild expiratory wheezing Heart is regular, systolic murmur noted No elevated JVD appreciated Mild lower extremity edema bilaterally REVIEW OF LABS, ECG & MEDICAL DATA No new labs today, BUN 47 and creatinine 1.16 yesterday Objective - Vital Signs Vital signs: Vital Signs Temp 97.0 F L 02/21/19 11:40 Pulse 73 02/21/19 11:40 Resp 20 02/21/19 11:40 BP 155/83 02/21/19 11:40 Pulse Ox 95 02/21/19 11:40 Intake & Output 02/20/19 02/21/19 02/21/19 18:59 06:59 18:59 Intake Total 435 222 462 Output Total 400 1000 400 Balance 35 -778 62 Weight 119.4 kg Intake: Oral 435 222 462 Output: Urine 400 1000 400 Other: Voiding Method Bedside Commode Bedside Commode Bedside Commode # Voids 2 1 1 - Labs CBC & Chem 7: 02/17/19 22:36 02/20/19 05:47 Labs: Abnormal Lab Results - Last 24 Hours (Table) 02/20/19 02/20/19 02/21/19 Range/Units 16:21 20:40 06:04 POC Glucose (mg/dL) 160 H 267 H 134 H (75-99) mg/dL Microbiology - Last 24 Hours (Table) 02/19/19 15:20 Gram Stain - Final Sputum Sputum Culture - Final 02/18/19 02:31 Blood Culture - Preliminary Blood No Growth after 72 hours
--- NOTE | 2019-02-26 00:57 | P.DS ---
Providers Date of admission: 02/18/19 02:07 Expected date of discharge: 02/21/19 Attending physician: Diogo Salas Consults: 02/18/19 02:05 Consult Physician Routine Consulting Provider: Ozzy Sarabia Consult Reason/Comments: CHF exacerbation Do you want consulting provider notified?: Yes 02/20/19 18:30 Consult Physician Routine Consulting Provider: Andrew Henry Consult Reason/Comments: pain management Do you want consulting provider notified?: Yes Primary care physician: Baudilio Roger [facility] Course: Chief Complaint: Short of breath Hospital course: This is a pleasant 72-year-old patient of Dr. Roger from visiting physicians. Chronic stable medical conditions include hyperlipidemia, hypertension, primary osteoarthritis, chronic kidney disease, seizure disorder, hypothyroidism, phrenic nerve damage with back surgery, causing right-sided hemidiaphragm paralysis, partial right lower lobe resection. Patient on home oxygen 2 L, ch ronic back pain from T8-T9 compression fracture, MRSA osteomyelitis in 2006. Patient started of with 2 days of worsening shortness of breath cough with thick yellow-brown sputum. No wheezing. Decreased appetite and rundown. No obvious fever and chills. Short of breath at rest. Admitted for the same. Not able to speak in full sentences. Admitted with pneumonia, acute kidney injury, acute asthma exacerbation, and acute hypoxic respiratory failure, acute CHF exacerbation. Treated with bronchodilators, steroids, IV cefepime, IV Lasix. Give much better without discharge. Starting a diet. Also saw Dr. Henry from pain management. Patient is requesting more narcotics. Did explain to her several times that for chronic pain increasing the dose of such was not indicated. Did recommend seeking help with alternate approaches for pain management. Patient is of a pain contract through her visiting physician Dr. Roger. Discussion and discharge planning more than 35 minutes Consultation: Dr. Donn Galeana from cardiology Dr. Henry from pain management Physical examination: VITAL SIGNS: 97, 73, 20, 155/83, 95% on 3 L GENERAL: Sitting upon a chair, but she improved EYES: Pupils equal. Conjunctiva normal. HEENT: External appearance of nose and ears normal, oral cavity grossly normal. NECK: JVD unable to assess; masses not palpable. HEART: First and second heart sounds are normal; nonpitting edema. LUNGS: Respiratory rate increased, improved air entry ABDOMEN: Soft, nontender, liver spleen not palpable, no masses palpable. PSYCH: Alert and oriented x3; mood and affect anxious Investigations, reviewed in the clinical context. Accu-Cheks noted Potassium 4.2 bun 47 creatinine 1.16 Previous testing White count 8.7 hemoglobin 9.3 pressure 4.3 BUN 63 creatinine 2.56 Bun and creatinine was 24/1.57 in October 2018 EKG tracing personally reviewed by me-sinus rhythm Chest x-ray film personally reviewed by me-elevated right diaphragm possible infiltrates Assessment: -pneumonia, suspect gram-negative organism, improving -Acute exacerbation of moderate persistent asthma, doing much better -Acute hypoxic respiratory failure from above -Chronic hypoxic respiratory failure from asthma on 2 L of oxygen at home -Moderate obesity BMI greater than 40 -Hyperlipidemia -Essential hypertension -Primary osteoarthritis -Hypothyroidism -Chronic right diaphragm paralysis, from prior surgery -History of right lower lobe lung resection -Acute on Chronic congestive heart failure exacerbation from diastolic dysfunction EF 60-65% -Chronic kidney disease stage III from nephrosclerosis -Acute kidney injury likely ATN from pneumonia, some improvement Plan: Disposition home Patient Condition at Discharge: Stable Plan - Discharge Summary Discharge Rx Participant: No New Discharge Prescriptions: New hydrALAZINE HCL [Apresoline] 50 mg PO TID #90 tab Baclofen [Lioresal] 5 mg PO TID PRN #20 tab PRN Reason: Spasms Cefdinir [Omnicef] 300 mg PO BID #6 cap predniSONE 10 mg PO DAILY #30 tab Continue HYDROcodone/APAP 10-325MG [[place] 10-325] 1 tab PO Q6H PRN PRN Reason: Pain DULoxetine HCL [Cymbalta] 60 mg PO DAILY Aspirin EC [Ecotrin Low Dose] 81 mg PO DAILY amLODIPine [Norvasc] 10 mg PO DAILY Cyanocobalamin (Vitamin B-12) [Vitamin B-12] 1,000 mcg PO DAILY Levothyroxine Sodium [Synthroid] 150 mcg PO DAILY Gabapentin [Neurontin] 400 mg PO TID Vitamin B Complex 1 cap PO DAILY Ergocalciferol [Vitamin D2 (DRISDOL)] 50,000 unit PO WE Metoprolol Tartrate [Lopressor] 50 mg PO BID Rosuvastatin [Crestor] 20 mg PO HS Ipratropium-Albuterol Nebulize [Duoneb 0.5 mg-3 mg/3 ml Soln] 3 ml INHALATION RT-QID #120 ampul.neb Pantoprazole [Protonix] 40 mg PO AC-BRKFST #30 tablet.dr Furosemide [Lasix] 20 mg PO DAILY #15 tab Albuterol Inhaler [Ventolin Hfa Inhaler] 1 - 2 puff INHALATION RT-QID PRN PRN Reason: Wheezing Montelukast [Singulair] 10 mg PO HS Ferrous Sulfate [Iron (65 MG Elemental)] 325 mg PO DAILY Diphenox-Atrop 2.5-0.025 mg [Lomotil] 2 tab PO QID PRN PRN Reason: Diarrhea Budesonide [Pulmicort] 0.5 mg INHALATION RT-BID Albuterol Sulfate [Proair Hfa] 1 - 2 puff INHALATION Q4H PRN #1 inhaler PRN Reason: Shortness Of Breath Albuterol Nebulized [Ventolin Nebulized] 2.5 mg INHALATION Q4H PRN #25 nebu PRN Reason: Shortness Of Breath Discontinued Losartan [Cozaar] 50 mg PO DAILY Discharge Medication List DULoxetine HCL [Cymbalta] 60 mg PO DAILY 06/25/16 [History] HYDROcodone/APAP 10-325MG [[place] 10-325] 1 tab PO Q6H PRN 06/25/16 [History] Aspirin EC [Ecotrin Low Dose] 81 mg PO DAILY 09/02/17 [History] Cyanocobalamin (Vitamin B-12) [Vitamin B-12] 1,000 mcg PO DAILY 07/22/18 [History] Ergocalciferol [Vitamin D2 (DRISDOL)] 50,000 unit PO WE 07/22/18 [History] Gabapentin [Neurontin] 400 mg PO TID 07/22/18 [History] Levothyroxine Sodium [Synthroid] 150 mcg PO DAILY 07/22/18 [History] Metoprolol Tartrate [Lopressor] 50 mg PO BID 07/22/18 [History] Rosuvastatin [Crestor] 20 mg PO HS 07/22/18 [History] Vitamin B Complex 1 cap PO DAILY 07/22/18 [History] amLODIPine [Norvasc] 10 mg PO DAILY 07/22/18 [History] Ipratropium-Albuterol Nebulize [Duoneb 0.5 mg-3 mg/3 ml Soln] 3 ml INHALATION RT-QID #120 ampul.neb 09/14/18 [Rx] Pantoprazole [Protonix] 40 mg PO AC-BRKFST #30 tablet. 09/14/18 [Rx] Furosemide [Lasix] 20 mg PO DAILY #15 tab 11/04/18 [Rx] Albuterol Inhaler [Ventolin Hfa Inhaler] 1 - 2 puff INHALATION RT-QID PRN 01/21/19 [History] Albuterol Nebulized [Ventolin Nebulized] 2.5 mg INHALATION Q4H PRN #25 nebu 01/21/19 [Rx] Albuterol Sulfate [Proair Hfa] 1 - 2 puff INHALATION Q4H PRN #1 inhaler 01/21/19 [Rx] Budesonide [Pulmicort] 0.5 mg INHALATION RT-BID 01/21/19 [History] Diphenox-Atrop 2.5-0.025 mg [Lomotil] 2 tab PO QID PRN 01/21/19 [History] Ferrous Sulfate [Iron (65 MG Elemental)] 325 mg PO DAILY 01/21/19 [History] Montelukast [Singulair] 10 mg PO HS 01/21/19 [History] Baclofen [Lioresal] 5 mg PO TID PRN #20 tab 02/21/19 [Rx] Cefdinir [Omnicef] 300 mg PO BID #6 cap 02/21/19 [Rx] hydrALAZINE HCL [Apresoline] 50 mg PO TID #90 tab 02/21/19 [Rx] predniSONE 10 mg PO DAILY #30 tab 02/21/19 [Rx] Follow up Appointment(s)/Referral(s): Justin Frey MD [STAFF PHYSICIAN] - 3 Weeks (Cardiolgist - please call for follow up appointment. ) Baudilio Roger MD [Primary Care Provider] - 1-2 days (Notified about patient being discharged, your physician will call you with a follow up appointment tomorrow. ) Patient Instructions/Handouts: Urinary Tract Infection in Women (DC), COPD (Chronic Obstructive Pulmonary Disease) (DC) Activity/Diet/Wound Care/Special Instructions: Please make follow up with primary care provider. Discharge Disposition: HOME SELF-CARE
== END 2019-02-21 15:41 | disposition home or self-care (01) | DRG 177 ==
LOC: EC 21:17 → 3SCARD 02-18 02:07
PROVIDERS: ADMIT Hospitalist; ATTEND Hospitalist
DX: J15.6 Pneumonia due to other Gram-negative bacteria (principal); J96.21 Acute and chronic respiratory failure with hypoxia; N17.0 Acute kidney failure with tubular necrosis; I50.33 Acute on chronic diastolic (congestive) heart failure; I13.0 Hypertensive heart and chronic kidney disease with heart failure and stage 1 through stage 4 chronic kidney disease, or unspecified chronic kidney disease; Z16.24 Resistance to multiple antibiotics; J45.41 Moderate persistent asthma with (acute) exacerbation; J44.0 Chronic obstructive pulmonary disease with (acute) lower respiratory infection; Z68.41 Body mass index [BMI] 40.0-44.9, adult; E78.5 Hyperlipidemia, unspecified; E03.9 Hypothyroidism, unspecified; G43.909 Migraine, unspecified, not intractable, without status migrainosus; F41.9 Anxiety disorder, unspecified; F32.9 Major depressive disorder, single episode, unspecified; Z60.2 Problems related to living alone; E66.9 Obesity, unspecified; M19.91 Primary osteoarthritis, unspecified site; J98.6 Disorders of diaphragm; I27.20 Pulmonary hypertension, unspecified; N18.3 Chronic kidney disease, stage 3 (moderate); M46.1 Sacroiliitis, not elsewhere classified; G40.909 Epilepsy, unspecified, not intractable, without status epilepticus; Z87.440 Personal history of urinary (tract) infections; Z87.19 Personal history of other diseases of the digestive system; Z90.49 Acquired absence of other specified parts of digestive tract; Z98.891 History of uterine scar from previous surgery; Z98.890 Other specified postprocedural states; Z90.89 Acquired absence of other organs; Z90.710 Acquired absence of both cervix and uterus; Z98.1 Arthrodesis status; Z90.2 Acquired absence of lung [part of]; Z79.82 Long term (current) use of aspirin; Z82.5 Family history of asthma and other chronic lower respiratory diseases; Z99.81 Dependence on supplemental oxygen; Z86.19 Personal history of other infectious and parasitic diseases; Z79.899 Other long term (current) drug therapy; Z79.890 Hormone replacement therapy; Z88.1 Allergy status to other antibiotic agents; Z88.5 Allergy status to narcotic agent; Z87.01 Personal history of pneumonia (recurrent); Z87.311 Personal history of (healed) other pathological fracture; Z91.14 Patient's other noncompliance with medication regimen
CPT/HCPCS: 36415; 71046; 78582; 80048; 80053; 81001; 83605; 83735; 83880; 84484; 85025; 85379; 85610; 85730; 87040; 87070; 87205; 93005; 93306; 94640; 94760; 96374; 99285

== ENCOUNTER 2019-03-24 18:02 | Emergency (ER) | payer MEDICARE ==
[2019-03-24] MEDS ORDERED: KETOROLAC 30 MG/ML 1 ML VIAL IVP STA (18:25)
[2019-03-24] MEDS ORDERED: OXYMETAZOLINE 0.05% NASL SPRAY 1 SPRAY BOTTLE NASAL STA (18:25)
[2019-03-24] MEDS ORDERED: SODIUM CHLORIDE 0.9% 1,000 ML IV STA (18:25)
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
--- NOTE | 2019-03-24 20:00 | XR ---
EXAMINATION: XR chest 2V DATE AND TIME: 03/24/2019 6:57 PM CLINICAL INDICATION: PHH; cough and congestion TECHNIQUE: AP and lateral views COMPARISON: 02/17/2019 and 11/03/2018 radiographs FINDINGS: The elevation of the right diaphragm is redemonstrated, which does not allow visualization of the low er half of the right lung parenchyma. However, the visualized lungs are well-expanded and clear today , consistent with interval resolution of the right lung base abnormality seen on the prior study. The pleural spaces currently appear negative. The cardiac silhouette is not enlarged; remainder of the mediastinal silhouette is unremarkable. The skeletal structures and soft tissues are negative for acute findings. Orthopedic spine hardware i s intact and appears unchanged. IMPRESSION: No definite acute radiographic process
[2019-03-24 20:23] VITALS: BP 149/69; PULSE 78; RESP 20; TEMP 98.1
== END 2019-03-24 20:22 | disposition home or self-care (01) ==
LOC: EC 18:02
DX: J00 Acute nasopharyngitis [common cold] (principal); H61.23 Impacted cerumen, bilateral; J44.9 Chronic obstructive pulmonary disease, unspecified; I11.0 Hypertensive heart disease with heart failure; I50.9 Heart failure, unspecified; E78.5 Hyperlipidemia, unspecified; E03.9 Hypothyroidism, unspecified; M19.90 Unspecified osteoarthritis, unspecified site; G40.909 Epilepsy, unspecified, not intractable, without status epilepticus; F32.9 Major depressive disorder, single episode, unspecified; F41.9 Anxiety disorder, unspecified; Z88.1 Allergy status to other antibiotic agents; Z88.5 Allergy status to narcotic agent; Z79.51 Long term (current) use of inhaled steroids; Z79.82 Long term (current) use of aspirin; Z79.890 Hormone replacement therapy; Z79.899 Other long term (current) drug therapy; Z86.14 Personal history of Methicillin resistant Staphylococcus aureus infection; Z86.69 Personal history of other diseases of the nervous system and sense organs; Z87.01 Personal history of pneumonia (recurrent); Z90.89 Acquired absence of other organs; Z90.2 Acquired absence of lung [part of]; Z98.1 Arthrodesis status; Z98.890 Other specified postprocedural states; Z53.8 Procedure and treatment not carried out for other reasons
CPT/HCPCS: 87081; 87430; 87502; 71046; 99284; 69209; 96374; J1885

== ENCOUNTER 2019-04-02 11:10 | Inpatient (IN) | payer MEDICARE ==
[2019-04-02] MEDS ORDERED: IPRATROPIUM-ALBUTEROL 3 ML NEB INHALATION STA ×3 (11:14→13:28)
[2019-04-02] MEDS ORDERED: methylPREDNISolone SOD SUCCI 125 MG/2 ML VIAL IV STA (11:14)
[2019-04-02] MEDS ORDERED: SODIUM CHLORIDE 0.9% 1,000 ML IV STA (11:14)
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
[2019-04-02 11:42] LABS: Basophils % (A) 0 %; Eosinophils # (A) 0.1 k/uL (0-0.7); Eosinophils % (A) 1 %; HCT 30.4 % (34.0-46.0); HGB 9.4 gm/dL (11.4-16.0); Hypochromasia Moderate; Lymphocytes # (A) 1.5 k/uL (1.0-4.8); Lymphocytes % (A) 16 %; MCH 28.3 pg (25.0-35.0); MCV 91.2 fL (80.0-100.0); Mean Platelet Volume 7.2; Monocytes # (A) 0.3 k/uL (0-1.0); Monocytes % (A) 3 %; Neutrophils # (A) 6.9 k/uL (1.3-7.7); Neutrophils % (A) 77 %; Platelet Count 237 k/uL (150-450); RBC 3.33 m/uL (3.80-5.40); RDW 15.8 % (11.5-15.5)
[2019-04-02 11:51] LABS: Albumin 3.9 g/dL (3.5-5.0); Calcium 9.1 mg/dL (8.4-10.2); Potassium 4.2 mmol/L (3.5-5.1); Total Bilirubin 0.5 mg/dL (0.2-1.3); Total Protein 6.4 g/dL (6.3-8.2)
[2019-04-02 12:05] LABS: INR 0.9 (<1.2); Partial Thromboplastin Time 23.3 sec (22.0-30.0); Prothrombin Time 10.1 sec (9.0-12.0)
--- NOTE | 2019-04-02 12:27 | XR ---
EXAMINATION TYPE: XR chest 2V DATE OF EXAM: 04/02/2019 COMPARISON: 03/24/2019 HISTORY: Shortness of breath TECHNIQUE: Frontal and lateral views of the chest are obtained. FINDINGS: Scattered senescent parenchymal changes noted. Right basilar strandy density with elevation right hem idiaphragm is stable. No evidence for infiltrate. No evidence for atelectasis. Heart size is stable. Mediastinal structures are stable and grossly unremarkable. No evidence for hilar prominence. Degenerative changes dorsal spine. IMPRESSION: 1. Chronic changes noted.
[2019-04-02] MEDS ORDERED: BACLOFEN 10 MG TAB PO PRN (13:36)
[2019-04-02] MEDS: HYDROcodone/APAP 10-325MG 1 EACH TAB PO PRN ×2 (15:23→19:41)
[2019-04-02] MEDS: IPRATROPIUM-ALBUTEROL 3 ML NEB INHALATION SCH ×3 (15:44→23:15)
[2019-04-02] MEDS: GABAPENTIN 400 MG CAP PO SCH ×2 (16:43→19:41)
[2019-04-02] MEDS: methylPREDNISolone SOD SUCCI 125 MG/2 ML VIAL IV SCH ×2 (16:43→23:29)
[2019-04-02] MEDS: hydrALAZINE HCL 50 MG TAB PO SCH ×2 (16:43→19:41)
[2019-04-02] MEDS: SODIUM CHLORIDE 0.9% 1,000 ML IV SCH ×2 (16:46→23:26)
[2019-04-02] MEDS: METOPROLOL TARTRATE 50 MG TAB PO SCH (19:41)
[2019-04-02] MEDS: MONTELUKAST 10 MG TAB PO SCH (19:41)
[2019-04-02] MEDS: ATORVASTATIN 40 MG TAB PO SCH (19:41)
[2019-04-02] MEDS ORDERED: CEFDINIR 300 MG CAP PO SCH (21:00)
[2019-04-02 21:14] LABS: Glucose,Whole Blood 260 mg/dL (75-99)
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
[2019-04-03] MEDS: HYDROcodone/APAP 10-325MG 1 EACH TAB PO PRN ×3 (01:58→17:07)
[2019-04-03] MEDS: IPRATROPIUM-ALBUTEROL 3 ML NEB INHALATION SCH ×5 (04:10→20:50)
[2019-04-03] MEDS: methylPREDNISolone SOD SUCCI 125 MG/2 ML VIAL IV SCH ×3 (06:04→17:08)
[2019-04-03] MEDS: LEVOTHYROXINE 75 MCG TAB PO SCH (06:04)
[2019-04-03] MEDS ORDERED: MAG HYDROX/AL HYDROX/SIMETH 30 ML CUP PO PRN (06:40)
[2019-04-03 06:49] LABS: Glucose,Whole Blood 202 mg/dL (75-99)
[2019-04-03] MEDS: ASPIRIN 81 MG PO SCH (07:43)
[2019-04-03] MEDS: amLODIPine 10 MG TAB PO SCH (07:43)
[2019-04-03] MEDS: METOPROLOL TARTRATE 50 MG TAB PO SCH ×2 (07:43→22:19)
[2019-04-03] MEDS: GABAPENTIN 400 MG CAP PO SCH ×3 (07:43→22:18)
[2019-04-03] MEDS: FERROUS SULFATE 325 MG TAB PO SCH (07:44)
[2019-04-03] MEDS: DULoxetine HCL 60 MG CAPSULE.DR PO SCH (07:44)
[2019-04-03] MEDS: hydrALAZINE HCL 50 MG TAB PO SCH ×3 (07:44→22:19)
[2019-04-03] MEDS: FUROSEMIDE 20 MG TAB PO SCH (07:44)
[2019-04-03] MEDS: PANTOPRAZOLE 40 MG TABLET PO SCH (07:44)
--- NOTE | 2019-04-03 08:23 | US ---
EXAMINATION TYPE: US venous doppler duplex LE DATE OF EXAM: 04/03/2019 7:21 AM COMPARISON: US 2011 CLINICAL HISTORY: Rule out DVT. SOB SIDE PERFORMED: Bilateral TECHNIQUE: The lower extremity deep venous system is examined utilizing real time linear array sonog [place] with graded compression, doppler sonography and color-flow sonography. VESSELS IMAGED: External Iliac Vein (EIV) Common Femoral Vein Deep Femoral Vein Greater Saphenous Vein * Femoral Vein Popliteal Vein Small Saphenous Vein * Proximal Calf Veins (* superficial vessels) Right Leg: Negative for DVT Left Leg: Negative for DVT Limited compression images distal FV, additional color imaging performed. Large patient body habitus. IMPRESSION: 1. Limited exam as discussed above demonstrates no diagnostic evidence of DVT as visualized. Distal c ommon femoral vein limited bilaterally.
[2019-04-03] MEDS: SODIUM CHLORIDE 0.9% 1,000 ML IV SCH (09:27)
[2019-04-03 11:45] LABS: Glucose,Whole Blood 201 mg/dL (75-99)
[2019-04-03 16:49] LABS: Glucose,Whole Blood 205 mg/dL (75-99)
[2019-04-03] MEDS: INSULIN ASPART (NovoLOG) 100 UNIT/ML VIAL SQ SCH ×2 (17:08→22:19)
[2019-04-03 21:22] LABS: Glucose,Whole Blood 254 mg/dL (75-99)
[2019-04-03] MEDS: MONTELUKAST 10 MG TAB PO SCH (22:19)
[2019-04-03] MEDS: ATORVASTATIN 40 MG TAB PO SCH (22:19)
[2019-04-04] MEDS: methylPREDNISolone SOD SUCCI 125 MG/2 ML VIAL IV SCH (00:09)
[2019-04-04] MEDS: HYDROcodone/APAP 10-325MG 1 EACH TAB PO PRN ×3 (00:09→12:29)
[2019-04-04] MEDS: IPRATROPIUM-ALBUTEROL 3 ML NEB INHALATION SCH ×4 (00:30→12:21)
[2019-04-04 00:32] VITALS: RESP 16
--- NOTE | 2019-04-04 00:44 | P.PN ---
Progress Note - Text Progress Note Date: 04/03/19 Chief Complaint: Short of breath History of presenting complaint: This is a pleasant 72-year-old patient of Dr. Roger from visiting physicians. Chronic stable medical conditions include hyperlipidemia, hypertension, primary osteoarthritis, chronic kidney disease, seizure disorder, hypothyroidism, phrenic nerve damage with back surgery, causing right-sided hemidiaphragm paralysis, partial right lower lobe resection. Patient on home oxygen 2 L, chronic back pain from T8-T9 compression fracture, MRSA osteomyelitis in 2006. Patient now presents with 3 days of increasing short of breath and wheezing. Very short of breath at rest. Slight cough. No sputum production. No fever no chills. Appetite is okay. Feeling weak tired rundown. No change in bowel or urine. Given IV Solu-Medrol bronchodilators in the ER with no relief. Admitted for the same. Today-wheezing a bit better. Feeling a bit better. Did tolerate her diet. Laying in bed. Review of systems: Was done for constitutional, cardiovascular, GI, pulmonary. relevant finding as above Active Medications Hydrocodone Bitart/Acetaminophen (Ramsey 10) 1 each PO Q6H PRN PRN Reason: Pain Last Admin: 04/04/19 00:09 Dose: 1 each Documented by: Al Hydroxide/Mg Hydroxide (Maalox) 30 ml PO Q4HR PRN PRN Reason: GI Upset Last Admin: 04/03/19 06:43 Dose: 30 ml Documented by: Albuterol/Ipratropium (Duoneb 0.5 Mg-3 Mg/3 Ml Soln) 3 ml INHALATION RT-Q4H [facility] Last Admin: 04/04/19 00:30 Dose: 3 ml Documented by: Amlodipine Besylate (Norvasc) 10 mg PO DAILY [facility] Last Admin: 04/03/19 07:43 Dose: 10 mg Documented by: Aspirin (Aspirin) 81 mg PO DAILY [facility] Last Admin: 04/03/19 07:43 Dose: 81 mg Documented by: Atorvastatin Calcium (Lipitor) 40 mg PO HS [facility] Last Admin: 04/03/19 22:19 Dose: 40 mg Documented by: Baclofen (Lioresal) 5 mg PO TID PRN PRN Reason: Spasms Duloxetine HCl (Cymbalta) 60 mg PO DAILY [facility] Last Admin: 04/03/19 07:44 Dose: 60 mg Documented by: Ferrous Sulfate (Feosol) 325 mg PO DAILY [facility] Last Admin: 04/03/19 07:44 Dose: 325 mg Documented by: Furosemide (Lasix) 20 mg PO DAILY [facility] Last Admin: 04/03/19 07:44 Dose: 20 mg Documented by: Gabapentin (Neurontin) 400 mg PO TID [facility] Last Admin: 04/03/19 22:18 Dose: 400 mg Documented by: Hydralazine HCl (Apresoline) 50 mg PO TID [facility] Last Admin: 04/03/19 22:19 Dose: 50 mg Documented by: Insulin Aspart (Novolog) 0 unit SQ ACHS [facility]; Protocol Last Admin: 04/03/19 22:19 Dose: 6 unit Documented by: Levothyroxine Sodium (Synthroid) 150 mcg PO 0630 [facility] Last Admin: 04/03/19 06:04 Dose: 150 mcg Documented by: Methylprednisolone Sodium Succinate (Solu-Medrol) 60 mg IV Q6HR [facility] Last Admin: 04/04/19 00:09 Dose: 60 mg Documented by: Metoprolol Tartrate (Lopressor) 50 mg PO BID [facility] Last Admin: 04/03/19 22:19 Dose: 50 mg Documented by: Montelukast Sodium (Singulair) 10 mg PO HS [facility] Last Admin: 04/03/19 22:19 Dose: 10 mg Documented by: Pantoprazole Sodium (Protonix) 40 mg PO AC-BRKFST [facility] Last Admin: 04/03/19 07:44 Dose: 40 mg Documented by: Physical examination: VITAL SIGNS: 98.3, 92, 19, 129/76, 92% on 2 L GENERAL: propped up, a bit short of breath. EYES: Pupils equal. Conjunctiva normal. HEENT: External appearance of nose and ears normal, oral cavity grossly normal. NECK: JVD unable to assess; masses not palpable. HEART: First and second heart sounds are normal; nonpitting edema. LUNGS: respiratory effort increased, decreased breath sounds prolonged expiration. ABDOMEN: Soft, nontender, liver spleen not palpable, no masses palpable. PSYCH: Alert and oriented x3; mood and affect anxious Investigations, reviewed in the clinical context. Accu-Cheks noted White count 9 hemoglobin 9.4 percussion 4.2 bun 27 creatinine 1.40 Lab work from January 2019 showed a bundle 47 creatinine 1.16 Chest x-ray film personally reviewed by me-showing some right diaphragm elevation and questionable chronic changes Assessment: -Acute exacerbation of moderate persistent asthmaslow to improve -Acute hypoxic respiratory failure from above -Chronic hypoxic respiratory failure from asthma on 2 L of oxygen at home -Moderate obesity BMI greater than 40 -Hyperlipidemia -Essential hypertension -Primary osteoarthritis -Hypothyroidism -Chronic right diaphragm paralysis, from prior surgery -History of right lower lobe lung resection -Chronic congestive heart failure from diastolic dysfunction EF 60-65% -Chronic kidney disease stage III from nephrosclerosis Plan: continue with bronchodilator steroids. Other medications to continue. Follow.
[2019-04-04 04:26] VITALS: BP 125/71; TEMP 98.2
[2019-04-04] MEDS: LEVOTHYROXINE 75 MCG TAB PO SCH (06:04)
[2019-04-04 07:11] LABS: Glucose,Whole Blood 186 mg/dL (75-99)
[2019-04-04] MEDS ORDERED: methylPREDNISolone SOD SUCCI 40 MG/ML 1 ML VIAL IV SCH (08:00)
[2019-04-04] MEDS: FERROUS SULFATE 325 MG TAB PO SCH (09:04)
[2019-04-04] MEDS: ASPIRIN 81 MG PO SCH (09:04)
[2019-04-04] MEDS: hydrALAZINE HCL 50 MG TAB PO SCH (09:04)
[2019-04-04] MEDS: METOPROLOL TARTRATE 50 MG TAB PO SCH (09:04)
[2019-04-04] MEDS: INSULIN ASPART (NovoLOG) 100 UNIT/ML VIAL SQ SCH ×2 (09:04→12:29)
[2019-04-04] MEDS: DULoxetine HCL 60 MG CAPSULE.DR PO SCH (09:04)
[2019-04-04] MEDS: amLODIPine 10 MG TAB PO SCH (09:04)
[2019-04-04] MEDS: PANTOPRAZOLE 40 MG TABLET PO SCH (09:05)
[2019-04-04] MEDS: FUROSEMIDE 20 MG TAB PO SCH (09:05)
[2019-04-04 09:10] LABS: Basophils % (A) 0 %; Eosinophils # (A) 0.1 k/uL (0-0.7); Eosinophils % (A) 0 %; HCT 29.7 % (34.0-46.0); HGB 9.1 gm/dL (11.4-16.0); Hypochromasia Marked; Lymphocytes # (A) 0.7 k/uL (1.0-4.8); Lymphocytes % (A) 4 %; MCH 28.8 pg (25.0-35.0); MCHC 30.7 g/dL (31.0-37.0); MCV 93.8 fL (80.0-100.0); Mean Platelet Volume 6.1; Monocytes # (A) 0.5 k/uL (0-1.0); Monocytes % (A) 3 %; Neutrophils # (A) 17.4 k/uL (1.3-7.7); Neutrophils % (A) 93 %; Platelet Count 266 k/uL (150-450); RBC 3.17 m/uL (3.80-5.40); RDW 15.8 % (11.5-15.5); WBC 18.7 k/uL (3.8-10.6)
[2019-04-04] MEDS: GABAPENTIN 400 MG CAP PO SCH (09:10)
[2019-04-04 09:35] LABS: Potassium 4.7 mmol/L (3.5-5.1)
[2019-04-04 11:42] LABS: Glucose,Whole Blood 167 mg/dL (75-99)
[2019-04-04 12:32] VITALS: PULSE 86
--- NOTE | 2019-04-07 14:39 | P.DS ---
Providers Date of admission: 04/03/19 12:00 Expected date of discharge: 04/04/19 Attending physician: Diogo Salas Primary care physician: Baudilio Roger [facility] Course: Chief Complaint: Short of breath Hospital course: This is a pleasant 72-year-old patient of Dr. Roger from visiting physicians. Chronic stable medical conditions include hyperlipidemia, hypertension, primary osteoarthritis, chronic kidney disease, seizure disorder, hypothyroidism, phrenic nerve damage with back surgery, causing right-sided hemidiaphragm paralysis, partial right lower lobe resection. Patient on home oxygen 2 L, chronic back pain from T8-T9 compression fracture, MRSA osteomyelitis in 2006. Patient now presents with 3 days of increasing short of breath and wheezing. Very short of breath at rest. Slight cough. No sputum production. No fever no chills. Appetite is okay. Feeling weak tired rundown. No change in bowel or urine. Given IV Solu-Medrol bronchodilators in the ER with no relief. Admitted with exacerbation of moderate persistent asthma. Treated with bronchodilator steroids. Improved. Today-Doing better. Breathing improved. Physical examination: VITAL SIGNS: 98.2, 86, 16, 125/71, 97% on 2 L GENERAL: Breathing much improved. EYES: Pupils equal. Conjunctiva normal. HEENT: External appearance of nose and ears normal, oral cavity grossly normal. NECK: JVD unable to assess; masses not palpable. HEART: First and second heart sounds are normal; nonpitting edema. LUNGS: respiratory effort normal, decreased breath sounds ABDOMEN: Soft, nontender, liver spleen not palpable, no masses palpable. PSYCH: Alert and oriented x3; mood and affect anxious Investigations, reviewed in the clinical context. White count 8.7 hemoglobin 9.1 percussion 4.7 bun 27 creatinine 1.23 White count 9 hemoglobin 9.4 percussion 4.2 bun 27 creatinine 1.40 Lab work from January 2019 showed a bundle 47 creatinine 1.16 Chest x-ray film personally reviewed by me-showing some right diaphragm elevation and questionable chronic changes Assessment: -Acute exacerbation of moderate persistent asthma -Acute hypoxic respiratory failure from above -Chronic hypoxic respiratory failure from asthma on 2 L of oxygen at home -Moderate obesity BMI greater than 40 -Hyperlipidemia -Essential hypertension -Primary osteoarthritis -Hypothyroidism -Chronic right diaphragm paralysis, from prior surgery -History of right lower lobe lung resection -Chronic congestive heart failure from diastolic dysfunction EF 60-65% -Chronic kidney disease stage III from nephrosclerosis Disposition: Home Patient Condition at Discharge: Stable Plan - Discharge Summary New Discharge Prescriptions: New Metoprolol Tartrate [Lopressor] 50 mg PO BID #60 tab predniSONE 10 mg PO DAILY #30 tab Continue HYDROcodone/APAP 10-325MG [Beckley 10-325] 1 tab PO Q6H PRN PRN Reason: Pain Aspirin EC [Ecotrin Low Dose] 81 mg PO DAILY amLODIPine [Norvasc] 10 mg PO DAILY Cyanocobalamin (Vitamin B-12) [Vitamin B-12] 1,000 mcg PO DAILY Levothyroxine Sodium [Synthroid] 150 mcg PO DAILY Gabapentin [Neurontin] 400 mg PO TID Vitamin B Complex 1 cap PO DAILY Ergocalciferol [Vitamin D2 (DRISDOL)] 50,000 unit PO WE Rosuvastatin [Crestor] 20 mg PO HS Ipratropium-Albuterol Nebulize [Duoneb 0.5 mg-3 mg/3 ml Soln] 3 ml INHALATION RT-QID #120 ampul.neb Pantoprazole [Protonix] 40 mg PO AC-BRKFST #30 tablet. Montelukast [Singulair] 10 mg PO HS Ferrous Sulfate [Iron (65 MG Elemental)] 325 mg PO DAILY Diphenox-Atrop 2.5-0.025 mg [Lomotil] 2 tab PO QID PRN PRN Reason: Diarrhea Albuterol Nebulized [Ventolin Nebulized] 2.5 mg INHALATION Q4H PRN #25 nebu PRN Reason: Shortness Of Breath hydrALAZINE HCL [Apresoline] 50 mg PO TID #90 tab Levothyroxine Sodium [Synthroid] 150 mcg PO DAILY Baclofen 5 mg PO TID PRN PRN Reason: Muscle Spasm busPIRone HCL 10 mg PO BID Sertraline HCl [Zoloft] 100 mg PO DAILY Mirabegron [Myrbetriq] 50 mg PO HS Fluticasone/Umeclidin/Vilanter [Trelegy Ellipta 100-62.5-25] 2 puff INHALATION BID Changed Furosemide [Lasix] 20 mg PO DAILY #0 Discontinued Metoprolol Tartrate [Lopressor] 50 mg PO DAILY Discharge Medication List HYDROcodone/APAP 10-325MG [Beckley 10-325] 1 tab PO Q6H PRN 06/25/16 [History] Aspirin EC [Ecotrin Low Dose] 81 mg PO DAILY 09/02/17 [History] Cyanocobalamin (Vitamin B-12) [Vitamin B-12] 1,000 mcg PO DAILY 07/22/18 [History] Ergocalciferol [Vitamin D2 (DRISDOL)] 50,000 unit PO WE 07/22/18 [History] Gabapentin [Neurontin] 400 mg PO TID 07/22/18 [History] Levothyroxine Sodium [Synthroid] 150 mcg PO DAILY 07/22/18 [History] Rosuvastatin [Crestor] 20 mg PO HS 07/22/18 [History] Vitamin B Complex 1 cap PO DAILY 07/22/18 [History] amLODIPine [Norvasc] 10 mg PO DAILY 07/22/18 [History] Ipratropium-Albuterol Nebulize [Duoneb 0.5 mg-3 mg/3 ml Soln] 3 ml INHALATION RT-QID #120 ampul.neb 09/14/18 [Rx] Pantoprazole [Protonix] 40 mg PO AC-BRKFST #30 tablet.dr 09/14/18 [Rx] Albuterol Nebulized [Ventolin Nebulized] 2.5 mg INHALATION Q4H PRN #25 nebu 01/21/19 [Rx] Diphenox-Atrop 2.5-0.025 mg [Lomotil] 2 tab PO QID PRN 01/21/19 [History] Ferrous Sulfate [Iron (65 MG Elemental)] 325 mg PO DAILY 01/21/19 [History] Montelukast [Singulair] 10 mg PO HS 01/21/19 [History] hydrALAZINE HCL [Apresoline] 50 mg PO TID #90 tab 02/21/19 [Rx] Baclofen 5 mg PO TID PRN 04/02/19 [History] Fluticasone/Umeclidin/Vilanter [Trelegy Ellipta 100-62.5-25] 2 puff INHALATION BID 04/02/19 [History] Levothyroxine Sodium [Synthroid] 150 mcg PO DAILY 04/02/19 [History] Mirabegron [Myrbetriq] 50 mg PO HS 04/02/19 [History] Sertraline HCl [Zoloft] 100 mg PO DAILY 04/02/19 [History] busPIRone HCL 10 mg PO BID 04/02/19 [History] Furosemide [Lasix] 20 mg PO DAILY #0 04/04/19 [Rx] Metoprolol Tartrate [Lopressor] 50 mg PO BID #60 tab 04/04/19 [Rx] predniSONE 10 mg PO DAILY #30 tab 04/04/19 [Rx] Follow up Appointment(s)/Referral(s): Baudilio Roger MD [Primary Care Provider] - 04/05/19 (Office will call in the morning with appointment time.) Patient Instructions/Handouts: Heart Failure (DC), COPD (Chronic Obstructive Pulmonary Disease) (DC) Activity/Diet/Wound Care/Special Instructions: [facility] is the home care agency that will be out to visit you after discharge. They can be reached at [phone]. Discharge Disposition: HOME WITH HOME HEALTH SERVICES
== END 2019-04-04 16:02 | disposition home health service (06) | DRG 202 ==
LOC: EC 11:10 → 1SOBS 13:32 → OBSVTOIN 04-03 12:00 → 4MS4W 04-03 14:37
PROVIDERS: ADMIT Hospitalist; ATTEND Hospitalist
DX: J45.41 Moderate persistent asthma with (acute) exacerbation (principal); J96.21 Acute and chronic respiratory failure with hypoxia; Z68.43 Body mass index [BMI] 50.0-59.9, adult; I13.0 Hypertensive heart and chronic kidney disease with heart failure and stage 1 through stage 4 chronic kidney disease, or unspecified chronic kidney disease; I50.32 Chronic diastolic (congestive) heart failure; J44.1 Chronic obstructive pulmonary disease with (acute) exacerbation; M48.54XA Collapsed vertebra, not elsewhere classified, thoracic region, initial encounter for fracture; Z16.24 Resistance to multiple antibiotics; E03.9 Hypothyroidism, unspecified; E66.9 Obesity, unspecified; E78.5 Hyperlipidemia, unspecified; F32.9 Major depressive disorder, single episode, unspecified; F41.9 Anxiety disorder, unspecified; G40.909 Epilepsy, unspecified, not intractable, without status epilepticus; G89.29 Other chronic pain; J98.6 Disorders of diaphragm; M19.91 Primary osteoarthritis, unspecified site; N18.3 Chronic kidney disease, stage 3 (moderate); Z79.82 Long term (current) use of aspirin; Z79.890 Hormone replacement therapy; Z79.899 Other long term (current) drug therapy; Z82.5 Family history of asthma and other chronic lower respiratory diseases; Z90.710 Acquired absence of both cervix and uterus; Z99.81 Dependence on supplemental oxygen; Z88.1 Allergy status to other antibiotic agents; Z88.5 Allergy status to narcotic agent; Z90.2 Acquired absence of lung [part of]
CPT/HCPCS: 36415; 71046; 80048; 80053; 82550; 83735; 83880; 84484; 85025; 85610; 85730; 87040; 93005; 93970; 94640; 96374; 99291

== ENCOUNTER 2019-04-20 12:35 | Inpatient (IN) | payer MEDICARE ==
[2019-04-20] MEDS ORDERED: IPRATROPIUM 0.5 MG/2.5 ML NEBU INHALATION STA (13:11)
[2019-04-20] MEDS ORDERED: methylPREDNISolone SOD SUCCI 125 MG/2 ML VIAL IV STA (13:11)
[2019-04-20] MEDS ORDERED: ALBUTEROL NEBULIZED 2.5 MG/3 ML INHALATION STA (13:11)
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
[2019-04-20 13:37] LABS: Anisocytosis Slight; Basophils % (A) 0 %; Eosinophils % (A) 0 %; HCT 28.9 % (34.0-46.0); Hypochromasia Moderate; Lymphocytes # (A) 0.7 k/uL (1.0-4.8); Lymphocytes % (A) 5 %; MCH 28.5 pg (25.0-35.0); MCHC 31.1 g/dL (31.0-37.0); MCV 91.8 fL (80.0-100.0); Mean Platelet Volume 7.6; Monocytes # (A) 0.6 k/uL (0-1.0); Monocytes % (A) 4 %; Neutrophils # (A) 13.3 k/uL (1.3-7.7); Neutrophils % (A) 90 %; Platelet Count 195 k/uL (150-450); RBC 3.15 m/uL (3.80-5.40); RDW 16.2 % (11.5-15.5); WBC 14.7 k/uL (3.8-10.6)
[2019-04-20 13:44] LABS: Albumin 3.7 g/dL (3.5-5.0); Calcium 8.8 mg/dL (8.4-10.2); Magnesium 1.9 mg/dL (1.6-2.3); Total Bilirubin 0.5 mg/dL (0.2-1.3)
[2019-04-20 13:57] LABS: INR 0.9 (<1.2); Partial Thromboplastin Time 22.3 sec (22.0-30.0); Prothrombin Time 9.9 sec (9.0-12.0)
[2019-04-20 14:07] LABS: D-Dimer 1.63 mg/L FEU (<0.60)
--- NOTE | 2019-04-20 14:29 | XR ---
EXAMINATION TYPE: XR chest 2V DATE OF EXAM: 04/20/2019 COMPARISON: Chest x-ray 04/02/2019 HISTORY: Difficulty breathing TECHNIQUE: Frontal and lateral views of the chest are obtained. FINDINGS: There is increased opacity in the right upper lobe. No evident pneumothorax or pleural eff usion. Heart is likely stable. The osseous structures are stable, postop changes are again noted in t he thoracic spine. There is persistent elevation of right hemidiaphragm. Postop changes are noted in the cervical spine. IMPRESSION: Correlate for right upper lobe pneumonia. Follow-up recommended.
[2019-04-20] MEDS ORDERED: cefTRIAXone IN SWFI 1,000 MG/10 ML SYRINGE IVP STA (14:32)
[2019-04-20] MEDS ORDERED: PNEUMONIA PROTOCOL UTILIZED 1 EACH MISC PO PRN (15:11)
[2019-04-20] MEDS ORDERED: AZITHROMYCIN 500 MG in SODIUM CHLORIDE 0.9% 250 ML IVPB STA (15:11)
[2019-04-20] MEDS ORDERED: LORazepam 2 MG/ML INJ IV STA (15:18)
[2019-04-20] MEDS ORDERED: ENOXAPARIN 120 MG/0.8 ML SYRINGE SQ SCH (16:00)
[2019-04-20] MEDS: ALBUTEROL NEBULIZED 2.5 MG/3 ML INHALATION SCH ×2 (17:47→19:20)
--- NOTE | 2019-04-20 17:47 | NM ---
EXAMINATION TYPE: NM pul vent and perfuse DATE OF EXAM: 04/20/2019 COMPARISON: NONE HISTORY: Short of breath TECHNIQUE: Utilizing inhalation of 63.4 mCi Tc 99m DTPA aerosol and intravenous injection of 5.1 mCi of Tc 99m MAA, ventilation and perfusion images are acquired post injection in multiple projections. FINDINGS: There is large matching defect involving the entire right lung base. There is elevated diaphragm on t he chest x-ray today. There are multiple matching subsegmental perfusion defects in both lungs. There is no ventilation/perfusion mismatch. There is some airspace consolidation right upper lobe on the c hest x-ray today. IMPRESSION: Matching defects. Significant decreased ventilation and perfusion of the right lung in the right uppe r lobe in area of radiographic abnormality of infiltrate. There is intermediate probability of pulmon sarthak embolism.
[2019-04-20] MEDS ORDERED: HYDROcodone/APAP 10-325MG 1 EACH TAB PO ONE (19:22)
[2019-04-20] MEDS: ATORVASTATIN 40 MG TAB PO SCH (22:38)
[2019-04-20] MEDS: hydrALAZINE HCL 50 MG TAB PO SCH (22:38)
[2019-04-20] MEDS: GABAPENTIN 400 MG CAP PO SCH (22:38)
[2019-04-20] MEDS: busPIRone HCl 10 MG TAB PO SCH (22:38)
[2019-04-20] MEDS: METOPROLOL TARTRATE 50 MG TAB PO SCH (22:38)
[2019-04-20] MEDS: MONTELUKAST 10 MG TAB PO SCH (22:38)
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
[2019-04-21] MEDS: IPRATROPIUM-ALBUTEROL 3 ML NEB INHALATION SCH ×7 (01:18→23:26)
[2019-04-21] MEDS: HYDROcodone/APAP 10-325MG 1 EACH TAB PO PRN ×4 (05:22→23:13)
[2019-04-21] MEDS: LEVOTHYROXINE 75 MCG TAB PO SCH (05:22)
[2019-04-21] MEDS: predniSONE 20 MG TAB PO SCH (07:59)
[2019-04-21] MEDS: FUROSEMIDE 20 MG TAB PO SCH (07:59)
[2019-04-21] MEDS: hydrALAZINE HCL 50 MG TAB PO SCH ×3 (07:59→22:07)
[2019-04-21] MEDS: GABAPENTIN 400 MG CAP PO SCH ×3 (07:59→22:06)
[2019-04-21] MEDS: ASPIRIN 81 MG PO SCH (08:00)
[2019-04-21] MEDS: amLODIPine 10 MG TAB PO SCH (08:00)
[2019-04-21] MEDS: SERTRALINE 100 MG TAB PO SCH (08:00)
[2019-04-21] MEDS: PANTOPRAZOLE 40 MG TABLET PO SCH (08:00)
[2019-04-21] MEDS: ENOXAPARIN 30 MG/0.3 ML SYRINGE SQ SCH (08:00)
[2019-04-21] MEDS: METOPROLOL TARTRATE 50 MG TAB PO SCH ×2 (08:00→22:06)
[2019-04-21] MEDS: CYANOCOBALAMIN 500 MCG TAB PO SCH (08:00)
[2019-04-21] MEDS: busPIRone HCl 10 MG TAB PO SCH ×2 (08:00→22:06)
[2019-04-21] MEDS: FOLIC ACID-VIT B COMPLEX-VIT C 1 CAP PO SCH (08:01)
[2019-04-21] MEDS: FERROUS SULFATE 325 MG TAB PO SCH (08:02)
[2019-04-21] MEDS: BUDESONIDE 1 MG/2 ML NEBU INHALATION SCH ×2 (09:12→20:02)
--- NOTE | 2019-04-21 09:57 | XR ---
EXAMINATION TYPE: XR chest 2V DATE OF EXAM: 04/21/2019 COMPARISON: Prior chest x-ray 04/20/2019 HISTORY: Pneumonia TECHNIQUE: Frontal and lateral views of the chest are obtained. FINDINGS: Airspace disease in the right lung is again noted. There is marked elevation of right angelita diaphragm. Postop changes are again noted. Heart size is likely stable. No evident pneumothorax. IMPRESSION: Correlate for pneumonia. Follow-up recommended.
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
[2019-04-21] MEDS: AZITHROMYCIN 500 MG TAB PO SCH (17:07)
[2019-04-21] MEDS: ATORVASTATIN 40 MG TAB PO SCH (22:07)
[2019-04-21] MEDS: MONTELUKAST 10 MG TAB PO SCH (22:07)
--- NOTE | 2019-04-22 | P.PN ---
Progress Note - Text Progress Note Date: 04/21/19 Chief Complaint: Shortness of breath History of presenting complaint: This is a pleasant 73-year-old patient of Dr. Roger from visiting physicians. Chronic stable medical conditions include hyperlipidemia, hypertension, primary osteoarthritis, chronic kidney disease, seizure disorder, hypothyroidism, phrenic nerve damage with back surgery, causing right-sided hemidiaphragm paralysis, partial right lower lobe resection. Patient on home oxygen 2 L, chronic back pain from T8-T9 compression fracture, MRSA osteomyelitis in 2006. Patient was here in the hospital in the beginning of this month with asthma exacerbation. Patient started of with last night becoming short of breath cough congested, Fever, decreased appetite, tired, rundown wheezing. Presented to the ER. Admitted with right-sided pneumonia, asthma exacerbation, acute hypoxic respiratory failure Today-sitting on bed still short of breath but a bit better. Some cough is present. Did tolerate some breakfast. Review of systems: Was done for constitutional, cardiovascular, GI, pulmonary. relevant finding as above Active Medications Hydrocodone Bitart/Acetaminophen ([place] 10) 1 each PO Q6H PRN PRN Reason: Pain Last Admin: 04/21/19 23:13 Dose: 1 each Documented by: Albuterol/Ipratropium (Duoneb 0.5 Mg-3 Mg/3 Ml Soln) 3 ml INHALATION RT-Q4H [facility] Last Admin: 04/21/19 23:26 Dose: 3 ml Documented by: Amlodipine Besylate (Norvasc) 10 mg PO DAILY [facility] Last Admin: 04/21/19 08:00 Dose: 10 mg Documented by: Aspirin (Aspirin) 81 mg PO DAILY [facility] Last Admin: 04/21/19 08:00 Dose: 81 mg Documented by: Atorvastatin Calcium (Lipitor) 40 mg PO HS [facility] Last Admin: 04/21/19 22:07 Dose: 40 mg Documented by: Azithromycin (Zithromax) 500 mg PO Q24H [facility] Last Admin: 04/21/19 17:07 Dose: 500 mg Documented by: Budesonide (Pulmicort) 1 mg INHALATION RT-BID [facility] Last Admin: 04/21/19 20:02 Dose: 1 mg Documented by: Buspirone HCl (Buspar) 10 mg PO BID [facility] Last Admin: 04/21/19 22:06 Dose: 10 mg Documented by: Cyanocobalamin (Vitamin B-12) 1,000 mcg PO DAILY [facility] Last Admin: 04/21/19 08:00 Dose: 1,000 mcg Documented by: Diphenoxylate HCl/Atropine (Lomotil) 2 each PO QID PRN PRN Reason: Diarrhea Enoxaparin Sodium (Lovenox) 30 mg SQ DAILY [facility] Last Admin: 04/21/19 08:00 Dose: 30 mg Documented by: Ferrous Sulfate (Feosol) 325 mg PO DAILY [facility] Last Admin: 04/21/19 08:02 Dose: 325 mg Documented by: Furosemide (Lasix) 20 mg PO DAILY [facility] Last Admin: 04/21/19 07:59 Dose: 20 mg Documented by: Gabapentin (Neurontin) 400 mg PO TID [facility] Last Admin: 04/21/19 22:06 Dose: 400 mg Documented by: Hydralazine HCl (Apresoline) 50 mg PO TID [facility] Last Admin: 04/21/19 22:07 Dose: 50 mg Documented by: Ceftriaxone Sodium 1 gm/ (Sodium Chloride) 50 mls @ 100 mls/hr IVPB Q24H [facility] Stop: 04/24/19 16:01 Last Admin: 04/21/19 17:07 Dose: 100 mls/hr Documented by: Levothyroxine Sodium (Synthroid) 150 mcg PO DAILY@0630 [facility] Last Admin: 04/21/19 05:22 Dose: 150 mcg Documented by: Metoprolol Tartrate (Lopressor) 50 mg PO BID [facility] Last Admin: 04/21/19 22:06 Dose: 50 mg Documented by: Miscellaneous Information (Pneumonia Protocol Utilized) 1 each PO ONCE PRN PRN Reason: Per Protocol Montelukast Sodium (Singulair) 10 mg PO [facility] Last Admin: 04/21/19 22:07 Dose: 10 mg Documented by: Multivit/Ca Carb/B Cmplx/FA/Prenat (Nephrocaps) 1 each PO DAILY [facility] Last Admin: 04/21/19 08:01 Dose: 1 each Documented by: Mirabegron [ (Myrbetriq] 50 Mg) 50 mg PO [facility] Last Admin: 04/21/19 22:07 Dose: 50 mg Documented by: Pantoprazole Sodium (Protonix) 40 mg PO AC-BRKFST [facility] Last Admin: 04/21/19 08:00 Dose: 40 mg Documented by: Prednisone () 40 mg PO DAILY [facility] Last Admin: 04/21/19 07:59 Dose: 40 mg Documented by: Sertraline HCl (Zoloft) 100 mg PO DAILY [facility] Last Admin: 04/21/19 08:00 Dose: 100 mg Documented by: Physical examination: VITAL SIGNS: 98.4, 85, 20, 136/70, 96% on 4 L GENERAL: Short of breath at rest or shade better EYES: Pupils equal. Conjunctiva normal. HEENT: External appearance of nose and ears normal, oral cavity grossly normal. NECK: JVD unable to assess; masses not palpable. HEART: First and second heart sounds are normal; nonpitting edema. LUNGS: respiratory effort increased,, decreased breath sounds prolonged expiration ABDOMEN: Soft, nontender, liver spleen not palpable, no masses palpable. PSYCH: Alert and oriented x3; mood and affect anxious NEUROLOGICAL: Cranial nerves grossly intact, bun sensation grossly intact Investigations, reviewed in the clinical context. White count is 14.7 hemoglobin 9 potassium 4 bun 40 crit 1.57 EKG tracing personally reviewed by me-normal sinus rhythm with PVC Chest x-ray film personally reviewed by me-right upper lobe infiltrate Assessment: -Right upper lobe pneumonia, suspect gram-negative organism, POA, slow to respond -Acute exacerbation of moderate persistent asthma, secondary to above, POA, slow to respond -Acute hypoxic respiratory failure from above, POA -Chronic hypoxic respiratory failure from asthma on 2 L of oxygen at home -Moderate obesity BMI greater than 40 -Hyperlipidemia -Essential hypertension -Primary osteoarthritis -Hypothyroidism -Chronic right diaphragm paralysis, from prior surgery -History of right lower lobe lung resection -Chronic congestive heart failure from diastolic dysfunction EF 60-65% -Chronic kidney disease stage III from nephrosclerosis Plan: Continue with IV ceftriaxone., Zithromax, bronchodilators, oral steroid. Care was discussed with the patient. Possibilities to be here for further 24-48 hours.
[2019-04-22] MEDS: IPRATROPIUM-ALBUTEROL 3 ML NEB INHALATION SCH ×6 (03:06→23:51)
[2019-04-22] MEDS: LEVOTHYROXINE 75 MCG TAB PO SCH (05:45)
[2019-04-22] MEDS: BUDESONIDE 1 MG/2 ML NEBU INHALATION SCH ×2 (08:19→20:30)
[2019-04-22] MEDS: FOLIC ACID-VIT B COMPLEX-VIT C 1 CAP PO SCH (09:02)
[2019-04-22] MEDS: ENOXAPARIN 30 MG/0.3 ML SYRINGE SQ SCH (09:02)
[2019-04-22] MEDS: PANTOPRAZOLE 40 MG TABLET PO SCH (09:02)
[2019-04-22] MEDS: CYANOCOBALAMIN 500 MCG TAB PO SCH (09:02)
[2019-04-22] MEDS: hydrALAZINE HCL 50 MG TAB PO SCH ×3 (09:02→21:08)
[2019-04-22] MEDS: ASPIRIN 81 MG PO SCH (09:02)
[2019-04-22] MEDS: METOPROLOL TARTRATE 50 MG TAB PO SCH ×2 (09:02→21:08)
[2019-04-22] MEDS: amLODIPine 10 MG TAB PO SCH (09:02)
[2019-04-22] MEDS: GABAPENTIN 400 MG CAP PO SCH ×3 (09:02→21:08)
[2019-04-22] MEDS: predniSONE 20 MG TAB PO SCH (09:02)
[2019-04-22] MEDS: FUROSEMIDE 20 MG TAB PO SCH (09:02)
[2019-04-22] MEDS: busPIRone HCl 10 MG TAB PO SCH ×2 (09:02→21:07)
[2019-04-22] MEDS: FERROUS SULFATE 325 MG TAB PO SCH (09:02)
[2019-04-22] MEDS: SERTRALINE 100 MG TAB PO SCH (09:02)
[2019-04-22] MEDS: HYDROcodone/APAP 10-325MG 1 EACH TAB PO PRN ×2 (09:08→17:22)
[2019-04-22] MEDS: DIPHENOX-ATROP 2.5-0.025 MG 1 EACH TAB PO PRN ×2 (09:08→21:07)
--- NOTE | 2019-04-22 13:40 | P.PN ---
Subjective Progress Note Date: 04/22/19 This 71-year-old female patient with chronic respiratory insufficiency related to a chronic right hemidiaphragmatic paralysis. The patient has chronic hypoxic and hypercapnic respiratory failure. The patient also has history of chronic bronchial asthma. Addition to various other medical problems and comorbidities including seizure disorder, hypothyroidism, chronic kidney disease, hypertension and hyperlipidemia. The patient has chronic hypoxic respiratory failure and the patient has been maintained on oxygen 2 L per minute nasal cannula. 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 She also has chronic back pain related to T8-T9 compression fracture of the spine and previous history of MRSA osteomyelitis that was treated back in 2006. The patient came into the hospital yesterday because of worsening shortness of breath. Chest x-ray was reviewed and there is a worsening infiltration of the right upper lobe area. The right hemidiaphragm is quite elevated and there are some atelectatic changes in the light lung base. A VQ scan was done in the emergency department and the patient was found to have matched defects and overload probability for pulmonary embolism was intermediate. The patient is currently admitted to the medical floor. Is a combination of Rocephin and Zithromax. The patient was also given a prednisone burst taper. 14.7 the time of admission. Hemoglobin was at 9.0. Creatinine was normal at 1.67 and the patient has chronic stage III kidney disease. Rest of the blood work and electrolytes are all within normal limits. The troponin was negative at 0.01. ProBNP level is at 799. On 04/22/2019 the patient is feeling better and she is less short of breath. No fever no chills no night sweats. She is still on oxygen 3 L. No altered mentation. He is on bronchodilators. She is on steroids. She is on antibiotics. Clinically she is improving. Note that the chest x-ray that was done yesterday showed improvement in the right upper lobe pulmonary infiltration. Objective - Vital Signs Vital signs: Vital Signs Temp 98.0 F 04/22/19 05:30 Pulse 78 04/22/19 12:03 Resp 18 04/22/19 08:00 BP 136/70 04/22/19 05:30 Pulse Ox 96 04/22/19 05:30 Intake & Output 04/21/19 04/22/19 04/22/19 18:59 06:59 18:59 Intake Total 180 Balance 180 Intake: Oral 180 Other: Voiding Method Toilet Toilet Incontinent Incontinent # Voids 5 4 # Bowel Movements 1 - Exam GENERAL EXAM: Obese. Alert, comfortable in no apparent distress. On 2 L nasal cannula. HEAD: Normocephalic. EYES: Normal reaction of pupils, equal size. NOSE: Clear with pink turbinates. THROAT: No erythema or exudates. NECK: No masses, no JVD. CHEST: No chest wall deformity. LUNGS: she was Extubated wheezes. few scattered rhonchi..the patient is diminished breath sounds in the right lung base. CVS: S1 and S2 normal with no audible murmur, regular rhythm. ABDOMEN: No hepatosplenomegaly, normal bowel sounds, no guarding or rigidity. SPINE: No scoliosis or deformity SKIN: No rashes CENTRAL NERVOUS SYSTEM: No focal deficits, tone is normal in all 4 extremities. EXTREMITIES: There is 1-2+ peripheral edema. No clubbing, no cyanosis. Peripheral pulses are intact. - Labs CBC & Chem 7: 04/20/19 12:48 04/20/19 12:48 Labs: Microbiology - Last 24 Hours (Table) 04/21/19 13:10 Gram Stain - Preliminary Sputum Sputum Culture - Preliminary Gram Neg Bacilli 04/20/19 13:35 Blood Culture - Preliminary Blood No Growth after 24 hours Assessment and Plan Plan: #1 Acute exacerbation of moderate persistent chronic bronchial asthma c omplicated by suspected right upper lobe pneumonia and the patient has moderate assistance bronchial asthma at baseline. The patient has been on Trelegy on outpatient basis #2 Recent admission for an acute left lower lobe pneumonia with sepsis. #3 Chronic elevation of right hemidiaphragm with chronic hypoxemic respiratory failure secondary to previous spinal surgery.patient has a CPAP unit that she utilizes on outpatient basis. The exact pressure setting is not known at this point in time. #4 chronic kidney disease, stage III. Current creatinine 1.5, likely related to nephrosclerosis #5 Chronic diastolic congestive heart failure with chronic lower extremity edema. #6 Morbid obesity. #7 Hypothyroidism. #8 Hypertension. #9 Hyperlipidemia. #10 History of seizure disorder. #11 Previous history of overdose with pain medication requiring mechanical ventilatory support. #12 Osteoarthritis. #13 History of anxiety/depression. #14 chronic hypoxic and hypercapnic respiratory failure admitted on oxygen at 2 L and maintain on CPAP overnight #15 history of right lower lobe resection Continue the Rocephin and Zithromax. Clinically improving Prednisone burst taper starting with 40 mg Incentive spirometer Increased mobility and deep breathing Oxygen therapy between 2 and 3 L Possible discharge in a.m.
[2019-04-22] MEDS: AZITHROMYCIN 500 MG TAB PO SCH (17:13)
[2019-04-22] MEDS: ATORVASTATIN 40 MG TAB PO SCH (21:08)
[2019-04-22] MEDS: MONTELUKAST 10 MG TAB PO SCH (21:08)
--- NOTE | 2019-04-22 22:18 | P.PN ---
Progress Note - Text Progress Note Date: 04/22/19 Chief Complaint: Shortness of breath History of presenting complaint: This is a pleasant 73-year-old patient of Dr. Roger from visiting physicians. Chronic stable medical conditions include hyperlipidemia, hypertension, primary osteoarthritis, chronic kidney disease, seizure disorder, hypothyroidism, phrenic nerve damage with back surgery, causing right-sided hemidiaphragm paralysis, partial right lower lobe resection. Patient on home oxygen 2 L, chronic back pain from T8-T9 compression fracture, MRSA osteomyelitis in 2006. Patient was here in the hospital in the beginning of this month with asthma exacerbation. Admitted with right-sided pneumonia, asthma exacerbation, acute hypoxic respiratory failure Today-breathing is improving. Less short of breath. Less cough. Appetite is improving. Feeling more rested. Review of systems: Was done for constitutional, cardiovascular, GI, pulmonary. relevant finding as above Active Medications Hydrocodone Bitart/Acetaminophen ([place] 10) 1 each PO Q6H PRN PRN Reason: Pain Last Admin: 04/22/19 17:22 Dose: 1 each Documented by: Albuterol/Ipratropium (Duoneb 0.5 Mg-3 Mg/3 Ml Soln) 3 ml INHALATION RT-Q4H [facility] Last Admin: 04/22/19 20:30 Dose: 3 ml Documented by: Amlodipine Besylate (Norvasc) 10 mg PO DAILY [facility] Last Admin: 04/22/19 09:02 Dose: 10 mg Documented by: Aspirin (Aspirin) 81 mg PO DAILY [facility] Last Admin: 04/22/19 09:02 Dose: 81 mg Documented by: Atorvastatin Calcium (Lipitor) 40 mg PO HS [facility] Last Admin: 04/22/19 21:08 Dose: 40 mg Documented by: Azithromycin (Zithromax) 500 mg PO Q24H [facility] Last Admin: 04/22/19 17:13 Dose: 500 mg Documented by: Budesonide (Pulmicort) 1 mg INHALATION RT-BID [facility] Last Admin: 04/22/19 20:30 Dose: 1 mg Documented by: Buspirone HCl (Buspar) 10 mg PO BID [facility] Last Admin: 04/22/19 21:07 Dose: 10 mg Documented by: Cyanocobalamin (Vitamin B-12) 1,000 mcg PO DAILY [facility] Last Admin: 04/22/19 09:02 Dose: 1,000 mcg Documented by: Diphenoxylate HCl/Atropine (Lomotil) 2 each PO QID PRN PRN Reason: Diarrhea Last Admin: 04/22/19 21:07 Dose: 2 each Documented by: Enoxaparin Sodium (Lovenox) 30 mg SQ DAILY [facility] Last Admin: 04/22/19 09:02 Dose: 30 mg Documented by: Ferrous Sulfate (Feosol) 325 mg PO DAILY [facility] Last Admin: 04/22/19 09:02 Dose: 325 mg Documented by: Furosemide (Lasix) 20 mg PO DAILY [facility] Last Admin: 04/22/19 09:02 Dose: 20 mg Documented by: Gabapentin (Neurontin) 400 mg PO TID [facility] Last Admin: 04/22/19 21:08 Dose: 400 mg Documented by: Hydralazine HCl (Apresoline) 50 mg PO TID [facility] Last Admin: 04/22/19 21:08 Dose: 50 mg Documented by: Ceftriaxone Sodium 1 gm/ (Sodium Chloride) 50 mls @ 100 mls/hr IVPB Q24H [facility] Stop: 04/24/19 16:01 Last Admin: 04/22/19 17:13 Dose: 100 mls/hr Documented by: Levothyroxine Sodium (Synthroid) 150 mcg PO DAILY@0630 [facility] Last Admin: 04/22/19 05:45 Dose: 150 mcg Documented by: Metoprolol Tartrate (Lopressor) 50 mg PO BID [facility] Last Admin: 04/22/19 21:08 Dose: 50 mg Documented by: Miscellaneous Information (Pneumonia Protocol Utilized) 1 each PO ONCE PRN PRN Reason: Per Protocol Montelukast Sodium (Singulair) 10 mg PO [facility] Last Admin: 04/22/19 21:08 Dose: 10 mg Documented by: Multivit/Ca Carb/B Cmplx/FA/Prenat (Nephrocaps) 1 each PO DAILY [facility] Last Admin: 04/22/19 09:02 Dose: 1 each Documented by: Mirabegron [ (Myrbetriq] 50 Mg) 50 mg PO [facility] Last Admin: 04/22/19 21:08 Dose: 50 mg Documented by: Pantoprazole Sodium (Protonix) 40 mg PO AC-BRKFST [facility] Last Admin: 04/22/19 09:02 Dose: 40 mg Documented by: Prednisone () 40 mg PO DAILY [facility] Last Admin: 04/22/19 09:02 Dose: 40 mg Documented by: Sertraline HCl (Zoloft) 100 mg PO DAILY [facility] Last Admin: 04/22/19 09:02 Dose: 100 mg Documented by: Physical examination: VITAL SIGNS: 98, 84, 20, 136/70, 96% on 3 L GENERAL: Sitting up in a recliner, breathing better EYES: Pupils equal. Conjunctiva normal. HEENT: External appearance of nose and ears normal, oral cavity grossly normal. NECK: JVD unable to assess; masses not palpable. HEART: First and second heart sounds are normal; nonpitting edema. LUNGS: respiratory effort increased,, improved air entry ABDOMEN: Soft, nontender, liver spleen not palpable, no masses palpable. PSYCH: Alert and oriented x3; mood and affect anxious NEUROLOGICAL: Cranial nerves grossly intact, bun sensation grossly intact Investigations, reviewed in the clinical context. White count is 14.7 hemoglobin 9 potassium 4 bun 40 crit 1.57 EKG tracing personally reviewed by me-normal sinus rhythm with PVC Chest x-ray film personally reviewed by me-right upper lobe infiltrate Assessment: -Right upper lobe pneumonia, suspect gram-negative organism, POA, improving -Acute exacerbation of moderate persistent asthma, secondary to above, POA, improving -Acute hypoxic respiratory failure from above, POA -Chronic hypoxic respiratory failure from asthma on 2 L of oxygen at home -Moderate obesity BMI greater than 40 -Hyperlipidemia -Essential hypertension -Primary osteoarthritis -Hypothyroidism -Chronic right diaphragm paralysis, from prior surgery -History of right lower lobe lung resection -Chronic congestive heart failure from diastolic dysfunction EF 60-65% -Chronic kidney disease stage III from nephrosclerosis Plan: Patient is doing better. Sodium oral prednisone. Another 24 hours of IV antibiotics. Should be low-dose sister oral antibiotics and go home tomorrow. Discussed with the patient. Encouraged to ambulate.
[2019-04-23] MEDS: IPRATROPIUM-ALBUTEROL 3 ML NEB INHALATION SCH ×3 (03:17→10:51)
[2019-04-23] MEDS: HYDROcodone/APAP 10-325MG 1 EACH TAB PO PRN ×2 (03:35→09:13)
[2019-04-23] MEDS: LEVOTHYROXINE 75 MCG TAB PO SCH (05:30)
[2019-04-23] MEDS: BUDESONIDE 1 MG/2 ML NEBU INHALATION SCH (07:13)
[2019-04-23 08:35] VITALS: RESP 16
[2019-04-23] MEDS: ENOXAPARIN 30 MG/0.3 ML SYRINGE SQ SCH (09:12)
[2019-04-23] MEDS: ASPIRIN 81 MG PO SCH (09:13)
[2019-04-23] MEDS: predniSONE 20 MG TAB PO SCH (09:13)
[2019-04-23] MEDS: METOPROLOL TARTRATE 50 MG TAB PO SCH (09:13)
[2019-04-23] MEDS: hydrALAZINE HCL 50 MG TAB PO SCH (09:13)
[2019-04-23] MEDS: busPIRone HCl 10 MG TAB PO SCH (09:13)
[2019-04-23] MEDS: PANTOPRAZOLE 40 MG TABLET PO SCH (09:13)
[2019-04-23] MEDS: FERROUS SULFATE 325 MG TAB PO SCH (09:13)
[2019-04-23] MEDS: amLODIPine 10 MG TAB PO SCH (09:13)
[2019-04-23] MEDS: SERTRALINE 100 MG TAB PO SCH (09:14)
[2019-04-23] MEDS: CYANOCOBALAMIN 500 MCG TAB PO SCH (09:16)
[2019-04-23] MEDS: FUROSEMIDE 20 MG TAB PO SCH (09:16)
[2019-04-23] MEDS: FOLIC ACID-VIT B COMPLEX-VIT C 1 CAP PO SCH (09:17)
[2019-04-23] MEDS: GABAPENTIN 400 MG CAP PO SCH (09:17)
--- NOTE | 2019-04-23 13:08 | P.PN ---
Subjective Progress Note Date: 04/23/19 This 71-year-old female patient with chronic respiratory insufficiency related to a chronic right hemidiaphragmatic paralysis. The patient has chronic hypoxic and hypercapnic respiratory failure. The patient also has history of chronic bronchial asthma. Addition to various other medical problems and comorbidities including seizure disorder, hypothyroidism, chronic kidney disease, hypertension and hyperlipidemia. The patient has chronic hypoxic respiratory failure and the patient has been maintained on oxygen 2 L per minute nasal cannula. 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 She also has chronic back pain related to T8-T9 compression fracture of the spine and previous history of MRSA osteomyelitis that was treated back in 2006. The patient came into the hospital yesterday because of worsening shortness of breath. Chest x-ray was reviewed and there is a worsening infiltration of the right upper lobe area. The right hemidiaphragm is quite elevated and there are some atelectatic changes in the light lung base. A VQ scan was done in the emergency department and the patient was found to have matched defects and overload probability for pulmonary embolism was intermediate. The patient is currently admitted to the medical floor. Is a combination of Rocephin and Zithromax. The patient was also given a prednisone burst taper. 14.7 the time of admission. Hemoglobin was at 9.0. Creatinine was normal at 1.67 and the patient has chronic stage III kidney disease. Rest of the blood work and electrolytes are all within normal limits. The troponin was negative at 0.01. ProBNP level is at 799. On 04/22/2019 the patient is feeling better and she is less short of breath. No fever no chills no night sweats. She is still on oxygen 3 L. No altered mentation. He is on bronchodilators. She is on steroids. She is on antibiotics. Clinically she is improving. Note that the chest x-ray that was done yesterday showed improvement in the right upper lobe pulmonary infiltration. On today's evaluation of 04/23/2019 the patient is feeling okay which she states that she's feeling better. Sputum came back positive for Enterobacter which is sensitive to quinolones including Cipro and Levaquin. The Enterobacter was also sensitive to Rocephin but resistant to cefazolin. For that reason, I'm making a recommendation to switch this patient to oral Levaquin 500 mg by mouth on a daily basis.on 3 L of oxygen by nasal cannula. No other new complaints otherwise for now. Objective - Vital Signs Vital signs: Vital Signs Temp 97.9 F 04/23/19 07:00 Pulse 72 04/23/19 11:05 Resp 16 04/23/19 08:00 BP 138/54 04/23/19 07:00 Pulse Ox 95 04/23/19 07:00 Intake & Output 04/22/19 04/23/19 04/23/19 18:59 06:59 18:59 Intake Total 940 Balance 940 Intake: Oral 940 Other: Voiding Method Toilet Incontinent # Voids 3 3 # Bowel Movements 1 - Exam GENERAL EXAM: Obese. Alert, comfortable in no apparent distress. On 2 L nasal cannula. HEAD: Normocephalic. EYES: Normal reaction of pupils, equal size. NOSE: Clear with pink turbinates. THROAT: No erythema or exudates. NECK: No masses, no JVD. CHEST: No chest wall deformity. LUNGS: she was Extubated wheezes. few scattered rhonchi..the patient is diminished breath sounds in the right lung base. CVS: S1 and S2 normal with no audible murmur, regular rhythm. ABDOMEN: No hepatosplenomegaly, normal bowel sounds, no guarding or rigidity. SPINE: No scoliosis or deformity SKIN: No rashes CENTRAL NERVOUS SYSTEM: No focal deficits, tone is normal in all 4 extremities. EXTREMITIES: There is 1-2+ peripheral edema. No clubbing, no cyanosis. Peripheral pulses are intact. - Labs CBC & Chem 7: 04/20/19 12:48 04/20/19 12:48 Labs: Microbiology - Last 24 Hours (Table) 04/21/19 13:10 Gram Stain - Final Sputum Sputum Culture - Final Enterobacter cloacae 04/20/19 13:35 Blood Culture - Preliminary Blood No Growth after 48 hours Assessment and Plan Plan: #1 Acute exacerbation of moderate persistent chronic bronchial asthma complicated by suspected right upper lobe pneumonia and the patient has moderate assistance bronchial asthma at baseline. The patient has been on Trelegy on outpatient basisthe culture that was obtained from the sputum was positive for Enterobacter which is sensitive to Rocephin and Levaquin and quinolones in general.. The patient is improving. #2 Recent admission for an acute left lower lobe pneumonia with sepsis. #3 Chronic elevation of right hemidiaphragm with chronic hypoxemic respiratory failure secondary to previous spinal surgery.patient has a CPAP unit that she utilizes on outpatient basis. The exact pressure setting is not known at this point in time. #4 chronic kidney disease, stage III. Current creatinine 1.5, likely related to nephrosclerosis #5 Chronic diastolic congestive heart failure with chronic lower extremity edema. #6 Morbid obesity. #7 Hypothyroidism. #8 Hypertension. #9 Hyperlipidemia. #10 History of seizure disorder. #11 Previous history of overdose with pain medication requiring mechanical ventilatory support. #12 Osteoarthritis. #13 History of anxiety/depression. #14 chronic hypoxic and hypercapnic respiratory failure admitted on oxygen at 2 L and maintain on CPAP overnight #15 history of right lower lobe resection Continue the Rocephin and Zithromax. consider discharging this patient home on Levaquin 500 milligrams by mouth daily. She is on Trelegy Elliptawith albuterol neb last treatment [id number] on an as-needed basis. Clinically improving Prednisone burst taper starting with 40 mg Incentive spirometer Increased mobility and deep breathing Oxygen therapy between 2 and 3 L can be released from the pulmonary standpoint.
[2019-04-23 14:37] VITALS: BP 104/61; PULSE 88; TEMP 98.1
--- NOTE | 2019-04-23 22:51 | P.DS ---
Providers Date of admission: 04/20/19 15:11 Expected date of discharge: 04/23/19 Attending physician: Diogo Salas Consults: 04/20/19 15:11 Consult Physician Routine Consulting Provider: Christoph Vanegas Consult Reason/Comments: pneumonia Do you want consulting provider notified?: Yes Primary care physician: Baudilio Roger [facility] Course: Chief Complaint: Shortness of breath Hospital course: This is a pleasant 73-year-old patient of Dr. Roger from visiting physicians. Chronic stable medical conditions include hyperlipidemia, hypertension, primary osteoarthritis, chronic kidney disease, seizure disorder, hypothyroidism, phrenic nerve damage with back surgery, causing right-sided hemidiaphragm paralysis, partial right lower lobe resection. Patient on home oxygen 2 L, chronic back pain from T8-T9 compression fracture, MRSA osteomyelitis in 2006. Patient was here in the hospital in the beginning of this month with asthma exacerbation. Admitted with right-sided pneumonia, asthma exacerbation, acute hypoxic respiratory failure. Responded well to antibiotics bronchodilator steroids. Today-feeling much better. nearly back to baseline. keen to go home..Will be discharged on Levaquin. consultation: Dr. Vanegas from pulmonary Physical examination: VITAL SIGNS:cardiac 0.1, 88, 16, 104/61, 96% on 3 L GENERAL: Sitting up in a recliner, breathing much improved EYES: Pupils equal. Conjunctiva normal. HEENT: External appearance of nose and ears normal, oral cavity grossly normal. NECK: JVD unable to assess; masses not palpable. HEART: First and second heart sounds are normal; nonpitting edema. LUNGS: respiratory effort increased,, improved air entry ABDOMEN: Soft, nontender, liver spleen not palpable, no masses palpable. PSYCH: Alert and oriented x3; mood and affect anxious NEUROLOGICAL: Cranial nerves grossly intact, bun sensation grossly intact Investigations, reviewed in the clinical context. White count is 14.7 hemoglobin 9 potassium 4 bun 40 crit 1.57 EKG tracing personally reviewed by me-normal sinus rhythm with PVC Chest x-ray film personally reviewed by me-right upper lobe infiltrate Assessment: -Right upper lobe pneumonia, from EnterobacterCloacae -Acute exacerbation of moderate persistent asthma, secondary to above, POA, improving -Acute hypoxic respiratory failure from above, POA -Chronic hypoxic respiratory failure from asthma on 2 L of oxygen at home -Moderate obesity BMI greater than 40 -Hyperlipidemia -Essential hypertension -Primary osteoarthritis -Hypothyroidism -Chronic right diaphragm paralysis, from prior surgery -History of right lower lobe lung resection -Chronic congestive heart failure from diastolic dysfunction EF 60-65% -Chronic kidney disease stage III from nephrosclerosis disposition: Home Patient Condition at Discharge: Stable Plan - Discharge Summary New Discharge Prescriptions: New Cefuroxime Axetil [Ceftin] 500 mg PO BID 3 Days #6 tab predniSONE 40 mg PO DAILY tab predniSONE 0 mg PO DIRECTED #10 tab Continue HYDROcodone/APAP 10-325MG [[place] 10-325] 1 tab PO Q6H PRN PRN Reason: Pain Aspirin EC [Ecotrin Low Dose] 81 mg PO DAILY amLODIPine [Norvasc] 10 mg PO DAILY Cyanocobalamin (Vitamin B-12) [Vitamin B-12] 1,000 mcg PO DAILY Levothyroxine Sodium [Synthroid] 150 mcg PO DAILY Gabapentin [Neurontin] 400 mg PO TID Vitamin B Complex 1 cap PO DAILY Ergocalciferol [Vitamin D2 (DRISDOL)] 50,000 unit PO WE Rosuvastatin [Crestor] 20 mg PO HS Ipratropium-Albuterol Nebulize [Duoneb 0.5 mg-3 mg/3 ml Soln] 3 ml INHALATION RT-QID #120 ampul.neb Pantoprazole [Protonix] 40 mg PO AC-BRKFST #30 tablet. Montelukast [Singulair] 10 mg PO HS Ferrous Sulfate [Iron (65 MG Elemental)] 325 mg PO DAILY Diphenox-Atrop 2.5-0.025 mg [Lomotil] 2 tab PO QID PRN PRN Reason: Diarrhea Albuterol Nebulized [Ventolin Nebulized] 2.5 mg INHALATION Q4H PRN #25 nebu PRN Reason: Shortness Of Breath hydrALAZINE HCL [Apresoline] 50 mg PO TID #90 tab busPIRone HCL 10 mg PO BID Sertraline HCl [Zoloft] 100 mg PO DAILY Mirabegron [Myrbetriq] 50 mg PO HS Fluticasone/Umeclidin/Vilanter [Trelegy Ellipta 100-62.5-25] 2 puff INHALATION RT-BID Metoprolol Tartrate [Lopressor] 50 mg PO BID #60 tab Furosemide [Lasix] 20 mg PO DAILY #0 Discharge Medication List HYDROcodone/APAP 10-325MG [[place] 10-325] 1 tab PO Q6H PRN 06/25/16 [History] Aspirin EC [Ecotrin Low Dose] 81 mg PO DAILY 09/02/17 [History] Cyanocobalamin (Vitamin B-12) [Vitamin B-12] 1,000 mcg PO DAILY 07/22/18 [History] Ergocalciferol [Vitamin D2 (DRISDOL)] 50,000 unit PO WE 07/22/18 [History] Gabapentin [Neurontin] 400 mg PO TID 07/22/18 [History] Levothyroxine Sodium [Synthroid] 150 mcg PO DAILY 07/22/18 [History] Rosuvastatin [Crestor] 20 mg PO HS 07/22/18 [History] Vitamin B Complex 1 cap PO DAILY 07/22/18 [History] amLODIPine [Norvasc] 10 mg PO DAILY 07/22/18 [History] Ipratropium-Albuterol Nebulize [Duoneb 0.5 mg-3 mg/3 ml Soln] 3 ml INHALATION RT-QID #120 ampul.neb 09/14/18 [Rx] Pantoprazole [Protonix] 40 mg PO AC-BRKFST #30 tablet.dr 09/14/18 [Rx] Albuterol Nebulized [Ventolin Nebulized] 2.5 mg INHALATION Q4H PRN #25 nebu 01/21/19 [Rx] Diphenox-Atrop 2.5-0.025 mg [Lomotil] 2 tab PO QID PRN 01/21/19 [History] Ferrous Sulfate [Iron (65 MG Elemental)] 325 mg PO DAILY 01/21/19 [History] Montelukast [Singulair] 10 mg PO HS 01/21/19 [History] hydrALAZINE HCL [Apresoline] 50 mg PO TID #90 tab 02/21/19 [Rx] Fluticasone/Umeclidin/Vilanter [Trelegy Ellipta 100-62.5-25] 2 puff INHALATION RT-BID 04/02/19 [History] Mirabegron [Myrbetriq] 50 mg PO HS 04/02/19 [History] Sertraline HCl [Zoloft] 100 mg PO DAILY 04/02/19 [History] busPIRone HCL 10 mg PO BID 04/02/19 [History] Furosemide [Lasix] 20 mg PO DAILY #0 04/04/19 [Rx] Metoprolol Tartrate [Lopressor] 50 mg PO BID #60 tab 04/04/19 [Rx] Cefuroxime Axetil [Ceftin] 500 mg PO BID 3 Days #6 tab 04/23/19 [Rx] predniSONE 0 mg PO DIRECTED #10 tab 04/23/19 [Rx] predniSONE 40 mg PO DAILY tab 04/23/19 [Rx] Follow up Appointment(s)/Referral(s): Baudilio Roger MD [Primary Care Provider] - 1-2 days Patient Instructions/Handouts: Pneumonia (GEN) Activity/Diet/Wound Care/Special Instructions: [facility] - [phone] Discharge Disposition: HOME SELF-CARE
== END 2019-04-23 15:10 | disposition home health service (06) | DRG 177 ==
LOC: EC 12:35 → 6NMEDSUR 15:11
PROVIDERS: ADMIT Hospitalist; ATTEND Hospitalist
DX: J15.6 Pneumonia due to other Gram-negative bacteria (principal); J96.21 Acute and chronic respiratory failure with hypoxia; J96.22 Acute and chronic respiratory failure with hypercapnia; I13.0 Hypertensive heart and chronic kidney disease with heart failure and stage 1 through stage 4 chronic kidney disease, or unspecified chronic kidney disease; G97.49 Accidental puncture and laceration of other nervous system organ or structure during other procedure; J45.41 Moderate persistent asthma with (acute) exacerbation; J44.0 Chronic obstructive pulmonary disease with (acute) lower respiratory infection; J44.1 Chronic obstructive pulmonary disease with (acute) exacerbation; I50.32 Chronic diastolic (congestive) heart failure; Z68.42 Body mass index [BMI] 45.0-49.9, adult; E66.01 Morbid (severe) obesity due to excess calories; N18.3 Chronic kidney disease, stage 3 (moderate); E78.5 Hyperlipidemia, unspecified; E03.9 Hypothyroidism, unspecified; I49.3 Ventricular premature depolarization; F32.9 Major depressive disorder, single episode, unspecified; F41.9 Anxiety disorder, unspecified; G89.29 Other chronic pain; M19.91 Primary osteoarthritis, unspecified site; M41.9 Scoliosis, unspecified; Z99.81 Dependence on supplemental oxygen; Z79.82 Long term (current) use of aspirin; Z79.890 Hormone replacement therapy; Z79.51 Long term (current) use of inhaled steroids; Z79.899 Other long term (current) drug therapy; Z86.14 Personal history of Methicillin resistant Staphylococcus aureus infection; Z87.01 Personal history of pneumonia (recurrent); Z90.710 Acquired absence of both cervix and uterus; Z98.891 History of uterine scar from previous surgery; Z87.311 Personal history of (healed) other pathological fracture; Z98.1 Arthrodesis status; Z90.49 Acquired absence of other specified parts of digestive tract; Z87.440 Personal history of urinary (tract) infections; Z90.2 Acquired absence of lung [part of]; Z98.890 Other specified postprocedural states; Z86.69 Personal history of other diseases of the nervous system and sense organs; Z87.39 Personal history of other diseases of the musculoskeletal system and connective tissue; Z88.1 Allergy status to other antibiotic agents; Z88.5 Allergy status to narcotic agent; Z82.5 Family history of asthma and other chronic lower respiratory diseases
CPT/HCPCS: 36415; 71046; 78582; 80053; 83605; 83735; 83880; 84484; 85025; 85379; 85610; 85730; 87040; 87070; 87077; 87186; 87205; 93005; 94640; 94760; 96365; 96372; 96375; 99285

== ENCOUNTER 2019-05-10 18:23 | Emergency (ER) | payer MEDICARE ==
[2019-05-10 18:39] VITALS: RESP 18; TEMP 99.9
[2019-05-10] MEDS ORDERED: ALBUTEROL NEBULIZED 2.5 MG/3 ML INHALATION STA (18:57)
[2019-05-10] MEDS ORDERED: methylPREDNISolone SOD SUCCI 125 MG/2 ML VIAL IV STA (18:57)
[2019-05-10] MEDS ORDERED: IPRATROPIUM 0.5 MG/2.5 ML NEBU INHALATION STA (18:57)
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
[2019-05-10 19:33] VITALS: PULSE 92
[2019-05-10 19:34] LABS: Anisocytosis Slight; Basophils # (A) 0.1 k/uL (0-0.2); Basophils % (A) 0 %; Eosinophils # (A) 0.2 k/uL (0-0.7); Eosinophils % (A) 1 %; HCT 29.9 % (34.0-46.0); HGB 9.1 gm/dL (11.4-16.0); Hypochromasia Moderate; Lymphocytes # (A) 1.7 k/uL (1.0-4.8); Lymphocytes % (A) 13 %; MCH 28.2 pg (25.0-35.0); MCHC 30.4 g/dL (31.0-37.0); MCV 92.9 fL (80.0-100.0); Mean Platelet Volume 7.3; Monocytes # (A) 0.7 k/uL (0-1.0); Monocytes % (A) 5 %; Neutrophils # (A) 10.8 k/uL (1.3-7.7); Neutrophils % (A) 79 %; Platelet Count 234 k/uL (150-450); RBC 3.22 m/uL (3.80-5.40); RDW 16.3 % (11.5-15.5); WBC 13.6 k/uL (3.8-10.6)
[2019-05-10 19:43] LABS: Calcium 9.7 mg/dL (8.4-10.2); Potassium 4.2 mmol/L (3.5-5.1); Total Bilirubin 0.4 mg/dL (0.2-1.3); Total Protein 6.4 g/dL (6.3-8.2)
[2019-05-10 19:53] LABS: INR 0.9 (<1.2); Prothrombin Time 9.7 sec (9.0-12.0)
[2019-05-10 19:55] LABS: Partial Thromboplastin Time 20.9 sec (22.0-30.0)
--- NOTE | 2019-05-10 19:56 | XR ---
EXAMINATION TYPE: XR chest 2V DATE OF EXAM: 05/10/2019 COMPARISON: 04/21/2019 HISTORY: Difficulty breathing TECHNIQUE: FINDINGS: There is elevated right diaphragm. There is previous thoracic spine fusion surgery with mul tiple screws and pins. There is moderate atelectasis at the right lung base. Left lung is clear. Ther e is no heart failure. IMPRESSION: There is significant atelectasis right lung base with elevated right diaphragm unchanged. There is some clearing of airspace infiltrate right upper lobe compared to old exam. No heart failur e.
[2019-05-10 20:49] VITALS: BP 125/63
== END 2019-05-10 21:09 | disposition home or self-care (01) ==
LOC: EC 18:23
DX: J44.1 Chronic obstructive pulmonary disease with (acute) exacerbation (principal); J98.11 Atelectasis; I11.0 Hypertensive heart disease with heart failure; I50.9 Heart failure, unspecified; E78.5 Hyperlipidemia, unspecified; M19.90 Unspecified osteoarthritis, unspecified site; G40.909 Epilepsy, unspecified, not intractable, without status epilepticus; E03.9 Hypothyroidism, unspecified; F32.9 Major depressive disorder, single episode, unspecified; F41.9 Anxiety disorder, unspecified; Z88.1 Allergy status to other antibiotic agents; Z88.5 Allergy status to narcotic agent; Z79.51 Long term (current) use of inhaled steroids; Z79.82 Long term (current) use of aspirin; Z79.890 Hormone replacement therapy; Z79.899 Other long term (current) drug therapy; Z87.01 Personal history of pneumonia (recurrent); Z86.14 Personal history of Methicillin resistant Staphylococcus aureus infection; Z99.81 Dependence on supplemental oxygen; Z82.5 Family history of asthma and other chronic lower respiratory diseases
CPT/HCPCS: 36415; 94640; 93005; 83880; 80053; 83735; 84484; 85025; 85610; 85730; 87502; 71046; 99285; 96374; J2930

== ENCOUNTER 2019-09-08 16:27 | Inpatient (IN) | payer MEDICARE ==
[2019-09-08] MEDS ORDERED: ALBUTEROL NEBULIZED 2.5 MG/3 ML INHALATION STA (17:20)
[2019-09-08] MEDS ORDERED: IPRATROPIUM 0.5 MG/2.5 ML NEBU INHALATION STA (17:20)
[2019-09-08] MEDS ORDERED: methylPREDNISolone SOD SUCCI 125 MG/2 ML VIAL IV STA (17:20)
[2019-09-08 18:00] LABS: Basophils % (A) 0 %; Eosinophils # (A) 0.2 k/uL (0-0.7); Eosinophils % (A) 2 %; HCT 32.8 % (34.0-46.0); HGB 10.1 gm/dL (11.4-16.0); Hypochromasia Marked; Lymphocytes % (A) 9 %; MCH 28.5 pg (25.0-35.0); MCHC 30.6 g/dL (31.0-37.0); Monocytes # (A) 0.4 k/uL (0-1.0); Monocytes % (A) 4 %; Neutrophils # (A) 8.8 k/uL (1.3-7.7); Neutrophils % (A) 84 %; Platelet Count 217 k/uL (150-450); RBC 3.53 m/uL (3.80-5.40); RDW 15.8 % (11.5-15.5); WBC 10.5 k/uL (3.8-10.6)
[2019-09-08 18:12] LABS: Albumin 3.6 g/dL (3.5-5.0); Calcium 8.8 mg/dL (8.4-10.2); Magnesium 2.6 mg/dL (1.6-2.3); Potassium 4.6 mmol/L (3.5-5.1); Total Bilirubin 0.4 mg/dL (0.2-1.3); Total Protein 6.1 g/dL (6.3-8.2)
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
[2019-09-08 18:29] LABS: INR 0.9 (<1.2); Prothrombin Time 9.7 sec (9.0-12.0)
[2019-09-08 18:37] LABS: Partial Thromboplastin Time 20.7 sec (22.0-30.0)
--- NOTE | 2019-09-08 18:39 | XR ---
EXAMINATION TYPE: XR chest 2V DATE OF EXAM: 09/08/2019 COMPARISON: Right chest 05/10/2019 HISTORY: Difficulty breathing TECHNIQUE: Frontal and lateral views of the chest are obtained. FINDINGS: Findings are similar to prior exam. Postop changes are again noted to the spine. There is elevated right hemidiaphragm. Probable subsegmental basilar atelectatic changes are present, no evide nt pneumothorax or pleural effusion. Heart size is obscured but likely stable. IMPRESSION: Findings are similar to prior exam. Probable basilar atelectasis or scarring. Postop tal nges.
[2019-09-08] MEDS ORDERED: HYDROcodone/APAP 10-325MG 1 EACH TAB PO ONE (19:03)
[2019-09-08] MEDS ORDERED: IPRATROPIUM-ALBUTEROL 3 ML NEB INHALATION PRN (19:52)
[2019-09-08] MEDS ORDERED: AZITHROMYCIN 500 MG in SODIUM CHLORIDE 0.9% 250 ML IVPB STA (19:54)
[2019-09-08 22:26] LABS: ABG Base Excess 4.8 mmol/L; ABG HCO3 30 mmol/L (21-25); ABG Oxygen Saturation 92.3 % (94-97); ABG PCO2 55 mmHg (35-45); ABG PH 7.35 (7.35-7.45); ABG PO2 69 mmHg (83-108); ABG TCO2 32 mmol/L (19-24); Allen Test Performed? Yes
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
[2019-09-09] MEDS: IPRATROPIUM-ALBUTEROL 3 ML NEB INHALATION SCH ×5 (00:52→18:51)
[2019-09-09] MEDS ORDERED: HYDROcodone/APAP 10-325MG 1 EACH TAB PO ONE (01:07)
[2019-09-09] MEDS: methylPREDNISolone SOD SUCCI 125 MG/2 ML VIAL IV SCH ×3 (01:25→12:54)
[2019-09-09 09:14] LABS: Anisocytosis Slight; Basophils % (A) 0 %; Eosinophils % (A) 0 %; HCT 33.4 % (34.0-46.0); Hypochromasia Marked; Lymphocytes # (A) 0.4 k/uL (1.0-4.8); Lymphocytes % (A) 3 %; MCH 28.2 pg (25.0-35.0); MCHC 29.9 g/dL (31.0-37.0); MCV 94.1 fL (80.0-100.0); Mean Platelet Volume 7.3; Monocytes # (A) 0.3 k/uL (0-1.0); Monocytes % (A) 3 %; Neutrophils # (A) 9.5 k/uL (1.3-7.7); Neutrophils % (A) 93 %; Platelet Count 167 k/uL (150-450); RBC 3.55 m/uL (3.80-5.40); RDW 16.1 % (11.5-15.5); WBC 10.2 k/uL (3.8-10.6)
[2019-09-09 09:19] LABS: Albumin 3.5 g/dL (3.5-5.0); Calcium 8.5 mg/dL (8.4-10.2); Total Bilirubin 0.7 mg/dL (0.2-1.3); Total Protein 6.4 g/dL (6.3-8.2)
[2019-09-09 09:24] LABS: Potassium 4.6 mmol/L (3.5-5.1)
[2019-09-09] MEDS: HYDROcodone/APAP 10-325MG 1 EACH TAB PO PRN ×3 (09:29→21:41)
--- NOTE | 2019-09-09 10:47 | P.PN ---
Subjective Progress Note Date: 09/09/19 Principal diagnosis: COPD exacerbation Patient seen and examined at bedside. Patient continues to have expiratory wheezing and exertional dyspnea. Patient denies chest pain. Patient is complaining about her back pain and would like her Blair restarted. The patient is a 73-year-old female with a PMH of asthma, diastolic CHF, hypertension, chronic kidney disease, seizure disorder, right sided diaphragmatic paralysis, hypertension, hyperlipidemia, and chronic hypoxic respi ratory failure on 2 L of nasal cannula oxygen at home presented to the ED with complaints of gradually worsening shortness of breath and wheezing. The patient notes that her breathing has been worsening over the past few days along with a cough productive of yellow/green phlegm. The patient denied fever, chills, chest pain, nausea, vomiting, palpitations, or diaphoresis. She reports that this is very similar to her previous episodes of asthma exacerbation. She underwent an extensive evaluation in the emergency room with an EKG showing normal sinus rhythm at [address]/T-wave changes noted. Chest x-ray was unremarkable. Laboratory evaluation showing WC count 10.5, hemoglobin 10.1, platelets 217, sodium 142, potassium 4.6, CO2 35, BUN 62, creatinine 1.6, lactic acid 0.9, troponin 0.014, with coronavirus testing negative. Objective - Vital Signs Vital signs: Vital Signs Temp 98.0 F 09/09/19 07:33 Pulse 89 09/09/19 08:35 Resp 16 09/09/19 07:33 BP 137/76 09/09/19 07:33 Pulse Ox 94 L 09/09/19 07:33 Intake & Output 09/08/19 09/09/19 09/09/19 18:59 06:59 18:59 Intake Total 450 118 Balance 450 118 Weight 127.006 kg 127.006 kg Intake: Oral 450 118 Other: Voiding Method Bedside Commode # Voids 1 - Exam General: [non toxic], [no distress], [appears at stated age] Derm: [warm], [dry] Head: [atraumatic], [normocephalic], [symmetric] Eyes: [EOMI], [no lid lag], [anicteric sclera] Mouth: [no lip lesion], [mucus membranes moist] Cardiovascular: [S1S2 reg], [no murmur], [positive posterior tibial pulse bilateral], Lungs: [bilateral expiratory wheezing], [no rhonchi, no rales] , [no accessory muscle use] Abdominal: [soft], [ nontender to palpation], [no guarding], [no appreciable organomegaly] Ext: [no gross muscle atrophy], [no edema], [no contractures] Neuro: [ CN II-XI grossly intact], [no focal neuro deficits] Psych: [Alert], [oriented], [appropriate affect] - Labs CBC & Chem 7: 09/09/19 08:07 09/09/19 08:07 Labs: Abnormal Lab Results - Last 24 Hours (Table) 09/08/19 09/08/19 09/08/19 Range/Units 17:43 17:43 17:43 RBC 3.53 L (3.80-5.40) m/uL Hgb 10.1 L (11.4-16.0) gm/dL Hct 32.8 L (34.0-46.0) % MCHC 30.6 L (31.0-37.0) g/dL RDW 15.8 H (11.5-15.5) % Neutrophils # 8.8 H (1.3-7.7) k/uL Lymphocytes # (1.0-4.8) k/uL APTT 20.7 L (22.0-30.0) sec ABG pCO2 (35-45) mmHg ABG pO2 (83-108) mmHg ABG HCO3 (21-25) mmol/L ABG Total CO2 (19-24) mmol/L ABG O2 Saturation (94-97) % Carbon Dioxide 35 H (22-30) mmol/L BUN 62 H (7-17) mg/dL Creatinine 1.60 H (0.52-1.04) mg/dL Glucose 116 H (74-99) mg/dL Magnesium 2.6 H (1.6-2.3) mg/dL Total Protein 6.1 L (6.3-8.2) g/dL 09/08/19 09/09/19 09/09/19 Range/Units 22:23 08:07 08:07 RBC 3.55 L (3.80-5.40) m/uL Hgb 10.0 L (11.4-16.0) gm/dL Hct 33.4 L (34.0-46.0) % MCHC 29.9 L (31.0-37.0) g/dL RDW 16.1 H (11.5-15.5) % Neutrophils # 9.5 H (1.3-7.7) k/uL Lymphocytes # 0.4 L (1.0-4.8) k/uL APTT (22.0-30.0) sec ABG pCO2 55 H (35-45) mmHg ABG pO2 69 L (83-108) mmHg ABG HCO3 30 H (21-25) mmol/L ABG Total CO2 32 H (19-24) mmol/L ABG O2 Saturation 92.3 L (94-97) % Carbon Dioxide (22-30) mmol/L BUN 43 H (7-17) mg/dL Creatinine (0.52-1.04) mg/dL Glucose 220 H (74-99) mg/dL Magnesium (1.6-2.3) mg/dL Total Protein (6.3-8.2) g/dL Assessment and Plan Assessment: Acute asthma exacerbation with chronic hypoxic respiratory failure -DuoNeb's -Continue Solu-Medrol -Pulmonary recommendations appreciated -Supplemental oxygen Chronic kidney disease stage III -BUN worsened from baseline -Possibly secondary to chronic diuresis Metabolic alkalosis, likely multifactorial from diuresis and compensatory from chronic hypercapnia -Patient likely has underlying obstructive sleep apnea along with obesity hypoventilation syndrome -Will benefit from outpatient sleep study and pulmonary follow-up upon discharge Normocytic anemia, likely secondary to chronic kidney disease -Order anemia workup, as patient never had it done previously Chronic back pain -Blair when necessary Chronic conditions: Diastolic CHF, seizure disorder, hypertension, hyperlipidem ia -Continue with home meds DVT prophylaxis -Heparin subq The patient is admitted with an anticipated greater than 2 midnight stay for evaluation of acute asthma exacerbation CODE STATUS: Full Code Discussed with: Patient Anticipated discharge date: 09/[address]: Home A total of 35 minutes was spent on the care of this complex patient more than 50% of the time was spent in counseling and care coordination.
[2019-09-09 11:08] LABS: Ferritin 59.3 ng/mL (10.0-291.0)
[2019-09-09 11:16] LABS: % Iron Saturation 7.33 (12.00-45.00); Folate, Serum >24.0 ng/mL; Iron 22 ug/dL (50-170); Total Iron Binding Capacity 300 ug/dL (228-460)
[2019-09-09] MEDS: AZITHROMYCIN 500 MG TAB PO SCH (12:54)
--- NOTE | 2019-09-09 13:23 | P.PN ---
Progress Note - Text Progress Note Date: 09/09/19 Called to patient's bedside regarding bleeding from nonhealing sores. Daughter who is also a nurse was concerned about the sores before admission. Patient does have a known history of MRSA infections patient denies picking at the sores. Patient states that it was oozing purulent discharge. I examined the patient and she does have one circular actively bleeding nonhealing sore. There is another store that appears to be healing above her umbilical region. Cultures will be ordered patient will be placed on Bactrim due to history of MRSA and abdominal ultrasound will be obtained. Coag studies ordered. Wound care consulted. Phone number of daughter [phone]
[2019-09-09] MEDS ORDERED: DIPHENOX-ATROP 2.5-0.025 MG 1 EACH TAB PO PRN (13:45)
--- NOTE | 2019-09-09 14:02 | CONS ---
CONSULTATION PULMONARY/CRITICAL CARE CONSULTATION: DATE OF SERVICE: 09/09/2019 This is a 73-year-old female who presents to the emergency room via EMS with shortness of breath. She does have a history of asthma. She also suffers from hyperlipidemia, hypertension, arthritis, chronic kidney disease, seizures, hypothyroidism, chronic elevation of the right hemidiaphragm with right hemidiaphragm paralysis, partial right lower lobe lung resection, and chronic hypoxemic respiratory failure. The patient states for the last 3 or 4 days, maybe even a bit longer, she has been having worsening and progressive shortness of breath. The patient does not leave the house typically to see a doctor, although she does have [facility]. I believe it is Dr. Roger. Anyway, the patient also has complaints of chest tightness, coughing and occasional phlegm production. She denies any fever or chills. There is no chest pain or chest discomfort. The patient denies any nausea, vomiting, diarrhea. There is no abdominal pain. She denies any genitourinary complaints. I do see her in the office periodically for her asthma. I have not seen her for some time and according to her. Currently, she is feeling a bit better now that she has been in the hospital for short period of time. Not a lot better, but certainly moving in a positive direction. HOME MEDICATIONS: Reviewed. She is on [place], aspirin, vitamin B12, Drisdol, Neurontin, Synthroid, Crestor, vitamin B complex, amlodipine, Lomotil, iron, Singulair, Trelegy, Myrbetriq, Zoloft, BuSpar, albuterol updrafts, Protonix, albuterol inhaler, hydralazine, Lasix metoprolol, Levaquin, and prednisone. ALLERGIES: Include DOXYCYCLINE, AND MORPHINE. PAST MEDICAL HISTORY: Reviewed. 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 SURGICAL HISTORY: Includes appendectomy, back surgery, , hysterectomy, tonsillectomy, lung resection, right lower lobe; multiple back surgeries, cervical fusion, sinus surgery, colonoscopy and abdominoplasty. SOCIAL HISTORY: Negative for tobacco, alcohol or illicit drug use. FAMILY HISTORY: Positive for a father who from COPD and mother who at a relatively younger age from car accident. REVIEW OF SYSTEMS: CONSTITUTIONAL: Negative. NEUROLOGIC: Negative. HEENT: Negative. CARDIOVASCULAR: Negative. PULMONARY: Shortness of breath, chest tightness, wheezing, cough, chest congestion and occasional phlegm production. GI: Negative. : Negative. RHEUMATOLOGIC: Negative. IMMUNOLOGIC: Negative. ENDOCRINOLOGIC: Negative. DERMATOLOGIC: Negative. PHYSICAL EXAMINATION: Current vital signs are reviewed. Temperature is 98, heart rate 92, respiratory rate 16, blood pressure 137/76, mean 96 and 3 L saturation 94%. She appears in no acute distress. She has very mild conversational dyspnea. No audible wheezing or use of accessory muscles. HEENT: Examination is grossly unremarkable. Nasal O2 noted. NECK: Supple. Full range of motion. No adenopathy, thyromegaly or neck vein distention. CARDIOVASCULAR: Examination reveals regular rhythm rate. S1, S2 normal. No S3, S4, or murmur. LUNGS: Reveal mild expiratory wheezes. There is slight prolongation on forced maneuver. Occasional rhonchi noted. No crackles. Breath sounds equal bilaterally. ABDOMEN: Obese. Bowel sounds are heard. EXTREMITIES: Reveal some mild edema. SKIN: Without rash. NEUROLOGIC: Examination is brief but nonfocal. LABS: Reviewed. White count 10.2, hemoglobin 10, hematocrit 33.4, platelet count 167,000. Blood gases show pO2 of 69, pCO2 of 55 and a pH is 7.35. This is on 32%, oxygen. Sodium 141, potassium 4.6, chloride 105, CO2 28, anion gap is 8. BUN and creatinine were 43 and 0.99. Her COVID-19 testing was negative by nasopharyngeal swab. The rest of her labs look okay. Microbiology is currently pending. Chest x-ray from September 07 shows a chronically elevated right diaphragm. There is some basilar scarring or atelectasis. Nothing acute noted. Medications are reviewed. We have added Pulmicort and formoterol to her regimen. We have also given her Zithromax 500 mg a day. She is already on Solu-Medrol and DuoNeb. ASSESSMENT: 1. Asthma exacerbation complicated by mild purulent tracheobronchitis. 2. Chronic elevation and paralysis of the right diaphragm from previous back surgery. 3. History of congestive heart failure. 4. History of hyperlipidemia. 5. Hypertension by history. 6. Hypothyroidism. 7. History of seizure disorder. 8. Prior history of pneumonia. 9. Chronic hypoxemic respiratory failure. 10.Previous partial right lower lobe lung resection. 11.Vertebral compression fracture. 12.Degenerative disk disease. 13.Migraine cephalgia. 14.History of colitis. 15.Frequent urinary tract infections. 16.Multiple other medical problems and comorbidities. PLAN: The patient's medications have been adjusted. She is on appropriate medications including short-acting beta agonist, short-acting muscarinic antagonist, long-acting beta agonist, inhaled corticosteroids, and systemic corticosteroids. We have also added some oral azithromycin. Additional recommendations and suggestions are forthcoming. Prognosis is guarded. We will continue to follow. CAL / HOLLYN: [id number] /
[2019-09-09 14:16] LABS: Prothrombin Time 10.2 sec (9.0-12.0)
[2019-09-09] MEDS: amLODIPine 10 MG TAB PO SCH (14:34)
[2019-09-09] MEDS: SULFAMETHOX-TMP 800-160MG 1 EACH TAB PO SCH ×2 (14:34→21:44)
--- NOTE | 2019-09-09 15:23 | US ---
EXAMINATION TYPE: US abdomen limited DATE OF EXAM: 09/09/2019 COMPARISON: NONE CLINICAL HISTORY: abscess. Patient has a bleeding wound mid abdomen of unknown origin No sonographic abnormality visualized on this exam. IMPRESSION: Negative study
[2019-09-09] MEDS: methylPREDNISolone SOD SUCCI 40 MG/ML 1 ML VIAL IV SCH (16:08)
[2019-09-09] MEDS: GABAPENTIN 400 MG CAP PO SCH ×2 (16:09→21:48)
[2019-09-09] MEDS: hydrALAZINE HCL 50 MG TAB PO SCH ×2 (16:09→21:48)
[2019-09-09] MEDS: FORMOTEROL FUMARATE 20 MCG/2 ML NEBU INHALATION SCH (18:50)
[2019-09-09] MEDS: BUDESONIDE 0.5 MG/2 ML NEBU INHALATION SCH (18:50)
[2019-09-09 21:00] LABS: Glucose,Whole Blood 254 mg/dL (75-99)
[2019-09-09] MEDS ORDERED: AZITHROMYCIN 500 MG in SODIUM CHLORIDE 0.9% 250 ML IVPB SCH (21:00)
[2019-09-09] MEDS: MONTELUKAST 10 MG TAB PO SCH (21:47)
[2019-09-09] MEDS: METOPROLOL TARTRATE 50 MG TAB PO SCH (21:47)
[2019-09-09] MEDS: busPIRone HCl 10 MG TAB PO SCH (21:47)
[2019-09-09] MEDS: ATORVASTATIN 40 MG TAB PO SCH (21:48)
[2019-09-09] MEDS: INSULIN ASPART (NovoLOG) 100 UNIT/ML VIAL SQ SCH (21:54)
[2019-09-09] MEDS: Mirabegron [Myrbetriq] PO SCH (22:03)
[2019-09-10] MEDS: methylPREDNISolone SOD SUCCI 40 MG/ML 1 ML VIAL IV SCH ×3 (00:14→17:09)
[2019-09-10] MEDS: HYDROcodone/APAP 10-325MG 1 EACH TAB PO PRN ×3 (04:47→20:26)
[2019-09-10] MEDS: LEVOTHYROXINE 75 MCG TAB PO SCH (05:46)
[2019-09-10 07:29] LABS: Glucose,Whole Blood 181 mg/dL (75-99)
[2019-09-10] MEDS ORDERED: PANTOPRAZOLE 40 MG TABLET PO SCH (07:30)
[2019-09-10 08:04] LABS: Prothrombin Time 10.1 sec (9.0-12.0)
[2019-09-10] MEDS: hydrALAZINE HCL 50 MG TAB PO SCH ×3 (08:11→21:34)
[2019-09-10] MEDS: SERTRALINE 100 MG TAB PO SCH (08:11)
[2019-09-10] MEDS: FUROSEMIDE 40 MG TAB PO SCH (08:11)
[2019-09-10] MEDS: METOPROLOL TARTRATE 50 MG TAB PO SCH ×2 (08:11→21:34)
[2019-09-10] MEDS: SULFAMETHOX-TMP 800-160MG 1 EACH TAB PO SCH ×2 (08:11→21:35)
[2019-09-10] MEDS: FERROUS SULFATE 325 MG TAB PO SCH (08:11)
[2019-09-10] MEDS: AZITHROMYCIN 500 MG TAB PO SCH (08:11)
[2019-09-10] MEDS: GABAPENTIN 400 MG CAP PO SCH ×3 (08:11→21:34)
[2019-09-10] MEDS: amLODIPine 10 MG TAB PO SCH (08:12)
[2019-09-10] MEDS: CYANOCOBALAMIN 500 MCG TAB PO SCH (08:12)
[2019-09-10] MEDS: busPIRone HCl 10 MG TAB PO SCH ×2 (08:12→21:34)
[2019-09-10] MEDS: INSULIN ASPART (NovoLOG) 100 UNIT/ML VIAL SQ SCH ×4 (08:12→21:39)
[2019-09-10] MEDS: BUDESONIDE 0.5 MG/2 ML NEBU INHALATION SCH ×2 (08:34→20:50)
[2019-09-10] MEDS: IPRATROPIUM-ALBUTEROL 3 ML NEB INHALATION SCH ×4 (08:35→20:51)
[2019-09-10] MEDS: FORMOTEROL FUMARATE 20 MCG/2 ML NEBU INHALATION SCH ×2 (08:35→20:51)
[2019-09-10] MEDS ORDERED: NON FORMULARY DRUG (Vitamin B Complex [Vitamin B Complex] 1 CAP) PO SCH (09:00)
--- NOTE | 2019-09-10 11:44 | P.PN ---
Subjective Progress Note Date: 09/10/19 Principal diagnosis: Acute exacerbation of moderate persistent chronic bronchial asthma, complicated by purulent tracheobronchitis The patient is seen today 09/10/2019 in follow-up on the regular medical floor. She is currently resting comfortably in bed. Awake and alert in no acute distress. Her breathing is easier today compared to yesterday. Not quite back to her baseline. She is maintaining good O2 saturations in the 90s on 3 L/m per nasal cannula. She's been afebrile. Blood culture reveals no growth. Abdominal wound culture pending. Ultrasound of the abdomen revealed no abnormalities. Blood glucose 181. She remains on DuoNeb inhalations, Pulmicort and Perforomist inhalations, IV Solu-Medrol and Singulair. Antibiotics in the form of Bactrim. Objective - Vital Signs Vital signs: Vital Signs Temp 97.7 F 09/10/19 07:00 Pulse 88 09/10/19 08:41 Resp 18 09/10/19 07:00 BP 167/89 09/10/19 07:00 Pulse Ox 97 09/10/19 07:00 Intake & Output 09/09/19 09/10/19 09/10/19 18:59 06:59 18:59 Intake Total 710 296 Balance 710 296 Intake: Oral 710 296 Other: Voiding Method Bedside Commode # Voids 1 0 # Bowel Movements 1 0 - Exam GENERAL EXAM: Alert, pleasant, morbidly obese 73-year-old female patient, on 3 L nasal cannula comfortable in no apparent distress. HEAD: Normocephalic. EYES: Normal reaction of pupils, equal size. NOSE: Clear with pink turbinates. THROAT: No erythema or exudates. NECK: No masses, no JVD. CHEST: No chest wall deformity. LUNGS: Equal air entry with bilateral end expiratory wheeze. CVS: S1 and S2 normal with no audible murmur, regular rhythm. ABDOMEN: Small nonhealing wound. No hepatosplenomegaly, normal bowel sounds, no guarding or rigidity. SPINE: No scoliosis or deformity SKIN: No rashes CENTRAL NERVOUS SYSTEM: No focal deficits, tone is normal in all 4 extremities. EXTREMITIES: There is no peripheral edema. No clubbing, no cyanosis. Peripheral pulses are intact. - Labs CBC & Chem 7: 09/09/19 08:07 09/09/19 08:07 Labs: Abnormal Lab Results - Last 24 Hours (Table) 09/09/19 09/10/19 Range/Units 20:58 07:28 POC Glucose (mg/dL) 254 H 181 H (75-99) mg/dL Microbiology - Last 24 Hours (Table) 09/09/19 13:30 Gram Stain - Preliminary Abdomen Wound Culture - Preliminary 09/08/19 17:43 Blood Culture - Preliminary Blood No Growth after 24 hours 09/09/19 13:30 Anaerobic Culture - Preliminary Abdomen Assessment and Plan Assessment: Acute exacerbation of moderate persistent chronic bronchial asthma, complicated by purulent tracheobronchitis Acute on chronic hypoxic respiratory failure secondary to above History of partial right lower lobe 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 Peña We'll continue the current treatment plan Increase her activity as tolerated We'll continue to follow I, the cosigning physician, performed a history & physical examination of the patient. Lungs sounds with bilateral end expiratory wheeze. Maintaining good O2 saturations in the 90s on 3 L/m per nasal cannula. I discussed the assessment and plan of care with my nurse practitioner, Renetta Sauceda. I attest to the above note as dictated by her.
[2019-09-10 11:49] LABS: Glucose,Whole Blood 129 mg/dL (75-99)
--- NOTE | 2019-09-10 13:32 | P.PN ---
Subjective Progress Note Date: 09/10/19 Principal diagnosis: COPD exacerbation Patient seen and examined at bedside. Patient continues to have expiratory wheezing and exertional dyspnea. Patient denies chest pain. Steroids will be continued along with breathing treatments. Patient's abdominal sore has stopped bleeding today. I spoke with the patient's daughter and she did admit that patient is picking at sores. Bactrim orally will be continued. Cultures pending. Ultrasound was negative for any abscess. The patient is a 73-year-old female with a PMH of asthma, diastolic CHF, hypertension, chronic kidney disease, seizure disorder, right sided diaphragmatic paralysis, hypertension, hyperlipidemia, and chronic hypoxic respiratory failure on 2 L of nasal cannula oxygen at home presented to the ED with complaints of gradually worsening shortness of breath and wheezing. The patient notes that her breathing has been worsening over the past few days along with a cough productive of yellow/green phlegm. The patient denied fever, chills, chest pain, nausea, vomiting, palpitations, or diaphoresis. She reports that this is very similar to her previous episodes of asthma exacerbation. She underwent an extensive evaluation in the emergency room with an EKG showing normal sinus rhythm at [address]/T-wave changes noted. Chest x-ray was unremarkable. Laboratory evaluation showing WC count 10.5, hemoglobin 10.1, platelets 217, sodium 142, potassium 4.6, CO2 35, BUN 62, creatinine 1.6, lactic acid 0.9, troponin 0.014, with coronavirus testing negative. Objective - Vital Signs Vital signs: Vital Signs Temp 97.7 F 09/10/19 07:00 Pulse 92 09/10/19 12:10 Resp 18 09/10/19 07:00 BP 167/89 09/10/19 07:00 Pulse Ox 97 09/10/19 07:00 Intake & Output 09/09/19 09/10/19 09/10/19 18:59 06:59 18:59 Intake Total 710 296 Balance 710 296 Intake: Oral 710 296 Other: Voiding Method Bedside Commode # Voids 1 0 # Bowel Movements 1 0 - Exam General: [non toxic], [no distress], [appears at stated age] Derm: [warm], [dry] Head: [atraumatic], [normocephalic], [symmetric] Eyes: [EOMI], [no lid lag], [anicteric sclera] Mouth: [no lip lesion], [mucus membranes moist] Cardiovascular: [S1S2 reg], [no murmur], [positive posterior tibial pulse bilateral], Lungs: [bilateral expiratory wheezing], [no rhonchi, no rales] , [no accessory muscle use] Abdominal: [soft], [ nontender to palpation], [no guarding], [no appreciable or ganomegaly] Abdominal sores clean no bleeding identified Ext: [no gross muscle atrophy], [no edema], [no contractures] Neuro: [ CN II-XI grossly intact], [no focal neuro deficits] Psych: [Alert], [oriented], [appropriate affect] - Labs CBC & Chem 7: 09/09/19 08:07 09/09/19 08:07 Labs: Abnormal Lab Results - Last 24 Hours (Table) 09/09/19 09/10/19 09/10/19 Range/Units 20:58 07:28 11:48 POC Glucose (mg/dL) 254 H 181 H 129 H (75-99) mg/dL Microbiology - Last 24 Hours (Table) 09/09/19 13:30 Gram Stain - Preliminary Abdomen Wound Culture - Preliminary 09/08/19 17:43 Blood Culture - Preliminary Blood No Growth after 24 hours 09/09/19 13:30 Anaerobic Culture - Preliminary Abdomen Assessment and Plan Assessment: Acute asthma exacerbation with chronic hypoxic respiratory failure -DuoNeb's -Continue Solu-Medrol -Pulmonary recommendations appreciated -Supplemental oxygen Chronic kidney disease stage III -BUN improved -Possibly secondary to chronic diuresis Metabolic alkalosis, likely multifactorial from diuresis and compensatory from chronic hypercapnia -Patient likely has underlying obstructive sleep apnea along with obesity hypoventilation syndrome -Will benefit from outpatient sleep study and pulmonary follow-up upon discharge Normocytic anemia, likely secondary to chronic kidney disease Chronic back pain -[place] when necessary Chronic conditions: Diastolic CHF, seizure disorder, hypertension, hyperlipidemia -Continue with home meds DVT prophylaxis -SCDs A.m. labs The patient is admitted with an anticipated greater than 2 midnight stay for evaluation of acute asthma exacerbation CODE STATUS: Full Code Discussed with: Patient Anticipated discharge date: 09/[address]: Home A total of 35 minutes was spent on the care of this complex patient more than 50% of the time was spent in counseling and care coordination.
[2019-09-10 17:09] LABS: Glucose,Whole Blood 183 mg/dL (75-99)
[2019-09-10] MEDS: PANTOPRAZOLE 40 MG TABLET PO SCH (17:32)
[2019-09-10 20:27] LABS: Glucose,Whole Blood 242 mg/dL (75-99)
[2019-09-10] MEDS: MONTELUKAST 10 MG TAB PO SCH (21:35)
[2019-09-10] MEDS: ATORVASTATIN 40 MG TAB PO SCH (21:35)
[2019-09-10] MEDS: Mirabegron [Myrbetriq] PO SCH (21:42)
[2019-09-11] MEDS: methylPREDNISolone SOD SUCCI 40 MG/ML 1 ML VIAL IV SCH ×2 (00:28→07:13)
[2019-09-11] MEDS: HYDROcodone/APAP 10-325MG 1 EACH TAB PO PRN ×3 (02:17→13:51)
[2019-09-11] MEDS: LEVOTHYROXINE 75 MCG TAB PO SCH (05:29)
[2019-09-11 06:46] LABS: Glucose,Whole Blood 249 mg/dL (75-99)
[2019-09-11] MEDS: BUDESONIDE 0.5 MG/2 ML NEBU INHALATION SCH (07:11)
[2019-09-11] MEDS: FORMOTEROL FUMARATE 20 MCG/2 ML NEBU INHALATION SCH (07:11)
[2019-09-11] MEDS: IPRATROPIUM-ALBUTEROL 3 ML NEB INHALATION SCH ×2 (07:12→11:17)
[2019-09-11] MEDS: PANTOPRAZOLE 40 MG TABLET PO SCH (07:13)
[2019-09-11] MEDS: INSULIN ASPART (NovoLOG) 100 UNIT/ML VIAL SQ SCH ×2 (07:14→11:49)
[2019-09-11 07:27] LABS: Anisocytosis Slight; Basophils % (A) 0 %; Eosinophils % (A) 0 %; HCT 33.3 % (34.0-46.0); HGB 10.2 gm/dL (11.4-16.0); Hypochromasia Marked; Lymphocytes # (A) 0.6 k/uL (1.0-4.8); Lymphocytes % (A) 4 %; MCH 28.3 pg (25.0-35.0); MCHC 30.5 g/dL (31.0-37.0); MCV 92.8 fL (80.0-100.0); Monocytes # (A) 0.5 k/uL (0-1.0); Monocytes % (A) 3 %; Neutrophils # (A) 13.1 k/uL (1.3-7.7); Neutrophils % (A) 92 %; Platelet Count 292 k/uL (150-450); RBC 3.59 m/uL (3.80-5.40); RDW 16.4 % (11.5-15.5); WBC 14.3 k/uL (3.8-10.6)
[2019-09-11 07:40] VITALS: BP 125/72; RESP 17; TEMP 97.9
[2019-09-11 07:47] LABS: Albumin 3.7 g/dL (3.5-5.0); Potassium 4.6 mmol/L (3.5-5.1); Total Bilirubin 0.3 mg/dL (0.2-1.3); Total Protein 6.2 g/dL (6.3-8.2)
[2019-09-11] MEDS ORDERED: BUDESONIDE 1 MG/2 ML NEBU INHALATION SCH (08:00)
[2019-09-11] MEDS: amLODIPine 10 MG TAB PO SCH (08:31)
[2019-09-11] MEDS: FUROSEMIDE 40 MG TAB PO SCH (08:31)
[2019-09-11] MEDS: busPIRone HCl 10 MG TAB PO SCH (08:31)
[2019-09-11] MEDS: FERROUS SULFATE 325 MG TAB PO SCH (08:31)
[2019-09-11] MEDS: CYANOCOBALAMIN 500 MCG TAB PO SCH (08:31)
[2019-09-11] MEDS: AZITHROMYCIN 500 MG TAB PO SCH (08:31)
[2019-09-11] MEDS: SERTRALINE 100 MG TAB PO SCH (08:32)
[2019-09-11] MEDS: METOPROLOL TARTRATE 50 MG TAB PO SCH (08:32)
[2019-09-11] MEDS: GABAPENTIN 400 MG CAP PO SCH (08:32)
[2019-09-11] MEDS: hydrALAZINE HCL 50 MG TAB PO SCH (08:32)
[2019-09-11] MEDS: SULFAMETHOX-TMP 800-160MG 1 EACH TAB PO SCH (08:34)
[2019-09-11 11:31] VITALS: PULSE 84
--- NOTE | 2019-09-11 11:34 | P.DS ---
Providers Date of admission: 09/08/19 19:23 Expected date of discharge: 09/11/19 Attending physician: Caron Puentes MD Consults: 09/08/19 19:52 Consult Physician Routine Consulting Provider: Kalia Peña Consult Reason/Comments: copd exacerbation Do you want consulting provider notified?: Yes Primary care physician: Baudilio Roger Hospital Course: Discharge Diagnosis: acute exacerbation of moderate persistent chronic bronchial asthma Acute tracheal bronchitis Acute on chronic hypoxic respiratory failure on 3 L nasal cannula at baseline Chronic right hemidiaphragmatic elevation secondary to right lower lobe partial lung resection iron deficiency anemia Nonhealing abdominal ulcer chronic diastolic congestive heart failure, ejection fraction 50-55% dyslipidemia Hypertension Hypothyroidism Seizure disorder Migraine headaches Hospital Course: patient is a 73-year-old female with a history of asthma, chronic hypoxic respiratory failure, right-sided diaphragmatic paralysis, hypertension, dyslipidemia, diastolic congestive heart failure who presented to the emergency department due to shortness of breath and wheezing. In the emergency department she was diagnosed withacute exacerbation of asthma and tracheobronchitis. She was started on duo nebs, Solu-Medrol and antibiotics initially were held.pulmonary was consulted and recommended adding antibiotics. She continued on bronchodilators, steroids, and antibiotics. She had a rapid improvement in her breathing and was near her baseline. She was noted to have a chronic nonhealing ulcer on the right lower part of her abdomen. This was cultured and came back without any bacterial growth. She did have an elevated white blood cell count on the day discharge but this was felt to be secondary to IV steroid use that she had been afebrile.she was cleared by pulmonary and determined stable for discharge home. She'll follow-up with Dr. Roger her outpatient PCP. She will complete a prolonged steroid taper. She'll also completed antibiotics for tracheobronchitis. Patient seen and examined at bedside.breathing is much better, she feels back to baseline. Feels as though she could do well at home but is unsure if she can get a ride. No nausea, vomiting, or diarrhea. Vital signs reviewed and stable. General: non toxic, no distress, appears at stated age Derm: warm, dry Head: atraumatic, normocephalic, symmetric Eyes: EOMI, no lid lag, anicteric sclera Mouth: no lip lesion, mucus membranes moist Cardiovascular: S1S2 reg, no murmur, positive posterior tibial pulse bilateral, Lungs: faint expiratory wheeze bilateral , no accessory muscle use Abdominal: soft, nontender to palpation, no guarding, no appreciable organomegaly Ext: no gross muscle atrophy, no edema, no contractures Neuro: CN II-XI grossly intact, no focal neuro deficits Psych: Alert, oriented, appropriate affect A total of 35except default minutes of time were spent preparing this complex discharge summary . Patient Condition at Discharge: Stable Plan - Discharge Summary Discharge Rx Participant: No New Discharge Prescriptions: New Sulfamethox-Tmp 800-160Mg [Bactrim DS 800-160 mg] 1 each PO BID #10 tab predniSONE [Deltasone] 0 mg PO DIRECTED #26 tab Azithromycin [Zithromax] 500 mg PO DAILY #5 tab Continue HYDROcodone/APAP 10-325MG [[place] 10-325] 1 tab PO Q6H PRN PRN Reason: Pain Aspirin EC [Ecotrin Low Dose] 81 mg PO DAILY amLODIPine [Norvasc] 10 mg PO DAILY Cyanocobalamin (Vitamin B-12) [Vitamin B-12] 1,000 mcg PO DAILY Levothyroxine Sodium [Synthroid] 150 mcg PO DAILY Gabapentin [Neurontin] 400 mg PO TID Vitamin B Complex 1 cap PO DAILY Ergocalciferol [Vitamin D2 (DRISDOL)] 50,000 unit PO WE Rosuvastatin [Crestor] 20 mg PO HS Pantoprazole [Protonix] 40 mg PO AC-BRKFST #30 tablet. Montelukast [Singulair] 10 mg PO HS Ferrous Sulfate [Iron (65 MG Elemental)] 325 mg PO BID Diphenox-Atrop 2.5-0.025 mg [Lomotil] 2 tab PO QID PRN PRN Reason: Diarrhea busPIRone HCL 10 mg PO BID Sertraline HCl [Zoloft] 100 mg PO DAILY Mirabegron [Myrbetriq] 50 mg PO HS Metoprolol Tartrate [Lopressor] 50 mg PO BID #60 tab Furosemide [Lasix] 40 mg PO DAILY Ondansetron HCl [Zofran] 4 mg PO Q6H PRN PRN Reason: Nausea And Vomiting Topiramate [Topamax] 100 mg PO TID Ipratropium-Albuterol Nebulize [Duoneb 0.5 mg-3 mg/3 ml Soln] 3 ml INHALATION RT-Q6H Budesonide [Pulmicort] 0.5 mg INHALATION RT-BID Fluticasone Nasal Braham [Flonase Nasal Braham] 1 spr EA NOSTRIL BID PRN PRN Reason: Cold Symptoms Potassium Chloride ER [K-Dur 20] 20 meq PO DAILY Oxymetazoline 0.05% Nasl Braham [Afrin 0.05% Nasal Braham] 2 spray EA NOSTRIL BID Discontinued predniSONE 10 mg PO DAILY Discharge Medication List HYDROcodone/APAP 10-325MG [[place] 10-325] 1 tab PO Q6H PRN 06/25/16 [History] Aspirin EC [Ecotrin Low Dose] 81 mg PO DAILY 09/02/17 [History] Cyanocobalamin (Vitamin B-12) [Vitamin B-12] 1,000 mcg PO DAILY 07/22/18 [History] Ergocalciferol [Vitamin D2 (DRISDOL)] 50,000 unit PO WE 07/22/18 [History] Gabapentin [Neurontin] 400 mg PO TID 07/22/18 [History] Levothyroxine Sodium [Synthroid] 150 mcg PO DAILY 07/22/18 [History] Rosuvastatin [Crestor] 20 mg PO HS 07/22/18 [History] Vitamin B Complex 1 cap PO DAILY 07/22/18 [History] amLODIPine [Norvasc] 10 mg PO DAILY 07/22/18 [History] Pantoprazole [Protonix] 40 mg PO AC-BRKFST #30 tablet.dr 09/14/18 [Rx] Diphenox-Atrop 2.5-0.025 mg [Lomotil] 2 tab PO QID PRN 01/21/19 [History] Ferrous Sulfate [Iron (65 MG Elemental)] 325 mg PO BID 01/21/19 [History] Montelukast [Singulair] 10 mg PO HS 01/21/19 [History] Mirabegron [Myrbetriq] 50 mg PO HS 04/02/19 [History] Sertraline HCl [Zoloft] 100 mg PO DAILY 04/02/19 [History] busPIRone HCL 10 mg PO BID 04/02/19 [History] Metoprolol Tartrate [Lopressor] 50 mg PO BID #60 tab 04/04/19 [Rx] Furosemide [Lasix] 40 mg PO DAILY 09/09/19 [History] Azithromycin [Zithromax] 500 mg PO DAILY #5 tab 09/11/19 [Rx] Budesonide [Pulmicort] 0.5 mg INHALATION RT-BID 09/11/19 [History] Fluticasone Nasal Braham [Flonase Nasal Braham] 1 spr EA NOSTRIL BID PRN 09/11/19 [History] Ipratropium-Albuterol Nebulize [Duoneb 0.5 mg-3 mg/3 ml Soln] 3 ml INHALATION RT-Q6H 09/11/19 [History] Ondansetron HCl [Zofran] 4 mg PO Q6H PRN 09/11/19 [History] Oxymetazoline 0.05% Nasl Braham [Afrin 0.05% Nasal Braham] 2 spray EA NOSTRIL BID 09/11/19 [History] Potassium Chloride ER [K-Dur 20] 20 meq PO DAILY 09/11/19 [History] Sulfamethox-Tmp 800-160Mg [Bactrim DS 800-160 mg] 1 each PO BID #10 tab 09/11/19 [Rx] Topiramate [Topamax] 100 mg PO TID 09/11/19 [History] predniSONE [Deltasone] 0 mg PO DIRECTED #26 tab 09/11/19 [Rx] Follow up Appointment(s)/Referral(s): Baudilio Roger MD [Primary Care Provider] - 1-2 days Activity/Diet/Wound Care/Special Instructions: [facility] - [phone]
--- NOTE | 2019-09-11 11:36 | P.PN ---
Subjective Progress Note Date: 09/11/19 Principal diagnosis: Acute exacerbation of moderate persistent chronic bronchial asthma, complicated by purulent tracheobronchitis The patient is seen today 09/10/2019 in follow-up on the regular medical floor. She is currently resting comfortably in bed. Awake and alert in no acute distress. Her breathing is easier today compared to yesterday. Not quite back to her baseline. She is maintaining good O2 saturations in the 90s on 3 L/m per nasal cannula. She's been afebrile. Blood culture reveals no growth. Abdominal wound culture pending. Ultrasound of the abdomen revealed no abnormalities. Blood glucose 181. She remains on DuoNeb inhalations, Pulmicort and Perforomist inhalations, IV Solu-Medrol and Singulair. Antibiotics in the form of Bactrim. The patient is seen today 09/11/2019 in follow-up on the regular medical floor. She is awake and alert in no acute distress. Resting comfortably in bed. Denies any worsening shortness of breath, cough or congestion. Breathing is back to her baseline. She is maintaining good O2 saturations in the mid 90s on 3 L/m per nasal cannula. She's been afebrile. Hemodynamically stable. Blood culture revealed no growth. Wound Gram stain reveals no growth. Culture pending. White count 14.3. Hemoglobin 10.2. Sodium 140. Potassium 4.6. Creatinine 1.42. Blood glucose 232. Objective - Vital Signs Vital signs: Vital Signs Temp 97.9 F 09/11/19 07:00 Pulse 84 09/11/19 11:30 Resp 17 09/11/19 07:00 BP 125/72 09/11/19 07:00 Pulse Ox 97 09/11/19 07:00 Intake & Output 09/10/19 09/11/19 09/11/19 18:59 06:59 18:59 Intake Total 942 596 Balance 942 596 Intake: Oral 942 596 Other: Voiding Method Bedside Commode Bedside Commode # Voids 1 1 # Bowel Movements 0 - Exam GENERAL EXAM: Alert, pleasant, morbidly obese 73-year-old female patient, on 3 L nasal cannula comfortable in no apparent distress. HEAD: Normocephalic. EYES: Normal reaction of pupils, equal size. NOSE: Clear with pink turbinates. THROAT: No erythema or exudates. NECK: No masses, no JVD. CHEST: No chest wall deformity. LUNGS: Equal air entry with bilateral end expiratory wheeze. CVS: S1 and S2 normal with no audible murmur, regular rhythm. ABDOMEN: Small nonhealing wound. No hepatosplenomegaly, normal bowel sounds, no guarding or rigidity. SPINE: No scoliosis or deformity SKIN: No rashes CENTRAL NERVOUS SYSTEM: No focal deficits, tone is normal in all 4 extremities. EXTREMITIES: There is no peripheral edema. No clubbing, no cyanosis. Peripheral pulses are intact. - Labs CBC & Chem 7: 09/11/19 06:50 09/11/19 06:50 Labs: Abnormal Lab Results - Last 24 Hours (Table) 09/10/19 09/10/19 09/10/19 Range/Units 11:48 17:08 20:25 WBC (3.8-10.6) k/uL RBC (3.80-5.40) m/uL Hgb (11.4-16.0) gm/dL Hct (34.0-46.0) % MCHC (31.0-37.0) g/dL RDW (11.5-15.5) % Neutrophils # (1.3-7.7) k/uL Lymphocytes # (1.0-4.8) k/uL Carbon Dioxide (22-30) mmol/L BUN (7-17) mg/dL Creatinine (0.52-1.04) mg/dL Glucose (74-99) mg/dL POC Glucose (mg/dL) 129 H 183 H 242 H (75-99) mg/dL Total Protein (6.3-8.2) g/dL 09/11/19 09/11/19 09/11/19 Range/Units 06:45 06:50 06:50 WBC 14.3 H (3.8-10.6) k/uL RBC 3.59 L (3.80-5.40) m/uL Hgb 10.2 L (11.4-16.0) gm/dL Hct 33.3 L (34.0-46.0) % MCHC 30.5 L (31.0-37.0) g/dL RDW 16.4 H (11.5-15.5) % Neutrophils # 13.1 H (1.3-7.7) k/uL Lymphocytes # 0.6 L (1.0-4.8) k/uL Carbon Dioxide 34 H (22-30) mmol/L BUN 41 H (7-17) mg/dL Creatinine 1.42 H (0.52-1.04) mg/dL Glucose 232 H (74-99) mg/dL POC Glucose (mg/dL) 249 H (75-99) mg/dL Total Protein 6.2 L (6.3-8.2) g/dL Microbiology - Last 24 Hours (Table) 09/09/19 13:30 Gram Stain - Final Abdomen Wound Culture - Final 09/08/19 17:43 Blood Culture - Preliminary Blood No Growth after 48 hours Assessment and Plan Assessment: Acute exacerbation of moderate persistent chronic bronchial asthma, complicated by purulent tracheobronchitis Acute on chronic hypoxic respiratory failure secondary to above History of partial right lower lobe 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 Vanegas She is cleared for discharge from the pulmonary standpoint Complete a prednisone taper Complete a course of antibiotics Continue home pulmonary medications, nebulizer, oxygen Follow-up in our office as scheduled I, the cosigning physician, performed a history & physical examination of the patient. Lungs sounds with bilateral end expiratory wheeze. Maintaining good O2 saturations in the 90s on 3 L/m per nasal cannula. I discussed the assessment and plan of care with my nurse practitioner, Renetta Sauceda. I attest to the above note as dictated by her.
[2019-09-11 11:46] LABS: Glucose,Whole Blood 128 mg/dL (75-99)
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
== END 2019-09-11 14:27 | disposition home health service (06) | DRG 202 ==
LOC: EC 16:27 → 4SSUR 19:23
PROVIDERS: ADMIT Internal Medicine; ATTEND Internal Medicine
DX: J45.41 Moderate persistent asthma with (acute) exacerbation (principal); J96.21 Acute and chronic respiratory failure with hypoxia; E66.2 Morbid (severe) obesity with alveolar hypoventilation; E87.3 Alkalosis; I13.0 Hypertensive heart and chronic kidney disease with heart failure and stage 1 through stage 4 chronic kidney disease, or unspecified chronic kidney disease; I50.32 Chronic diastolic (congestive) heart failure; Z68.43 Body mass index [BMI] 50.0-59.9, adult; D63.1 Anemia in chronic kidney disease; J98.6 Disorders of diaphragm; J44.9 Chronic obstructive pulmonary disease, unspecified; Z20.828 Contact with and (suspected) exposure to other viral communicable diseases; D50.9 Iron deficiency anemia, unspecified; E03.9 Hypothyroidism, unspecified; E78.5 Hyperlipidemia, unspecified; F32.9 Major depressive disorder, single episode, unspecified; F41.9 Anxiety disorder, unspecified; G40.909 Epilepsy, unspecified, not intractable, without status epilepticus; G43.909 Migraine, unspecified, not intractable, without status migrainosus; G89.29 Other chronic pain; J20.9 Acute bronchitis, unspecified; L98.491 Non-pressure chronic ulcer of skin of other sites limited to breakdown of skin; M19.90 Unspecified osteoarthritis, unspecified site; M41.9 Scoliosis, unspecified; N18.3 Chronic kidney disease, stage 3 (moderate); T38.0X5A Adverse effect of glucocorticoids and synthetic analogues, initial encounter; D72.829 Elevated white blood cell count, unspecified; Z79.52 Long term (current) use of systemic steroids; Z79.82 Long term (current) use of aspirin; Z79.890 Hormone replacement therapy; Z79.899 Other long term (current) drug therapy; Z90.710 Acquired absence of both cervix and uterus; Z87.440 Personal history of urinary (tract) infections; Z87.01 Personal history of pneumonia (recurrent); Z86.14 Personal history of Methicillin resistant Staphylococcus aureus infection; Z90.2 Acquired absence of lung [part of]; Z90.49 Acquired absence of other specified parts of digestive tract; Z99.81 Dependence on supplemental oxygen; Z82.5 Family history of asthma and other chronic lower respiratory diseases
CPT/HCPCS: 36415; 36600; 71046; 76705; 80053; 82607; 82728; 82746; 82805; 83540; 83550; 83605; 83735; 84484; 84597; 85025; 85610; 85730; 87040; 87070; 87075; 87205; 87635; 93005; 94640; 96374; 99285

== ENCOUNTER 2019-10-02 13:42 | Inpatient (IN) | payer MEDICARE ==
[2019-10-02] MEDS ORDERED: SODIUM CHLORIDE 0.9% 1,000 ML IV STA (13:45)
[2019-10-02] MEDS ORDERED: IPRATROPIUM-ALBUTEROL 3 ML NEB INHALATION STA (13:45)
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
[2019-10-02] MEDS ORDERED: ALBUTEROL HFA INHALER INHALATION STA (14:03)
[2019-10-02 15:00] LABS: Anisocytosis Slight; Basophils % (A) 0 %; Eosinophils # (A) 0.1 k/uL (0-0.7); Eosinophils % (A) 1 %; HCT 30.5 % (34.0-46.0); HGB 9.5 gm/dL (11.4-16.0); Hypochromasia Moderate; Lymphocytes # (A) 0.7 k/uL (1.0-4.8); Lymphocytes % (A) 7 %; MCH 29.4 pg (25.0-35.0); MCHC 31.3 g/dL (31.0-37.0); MCV 93.9 fL (80.0-100.0); Mean Platelet Volume 7.2; Monocytes # (A) 0.3 k/uL (0-1.0); Monocytes % (A) 3 %; Neutrophils # (A) 8.8 k/uL (1.3-7.7); Neutrophils % (A) 88 %; Platelet Count 199 k/uL (150-450); RBC 3.25 m/uL (3.80-5.40); RDW 17.2 % (11.5-15.5); WBC 9.9 k/uL (3.8-10.6)
[2019-10-02 15:05] LABS: Albumin 3.9 g/dL (3.5-5.0); Calcium 8.7 mg/dL (8.4-10.2); Magnesium 1.9 mg/dL (1.6-2.3); Potassium 4.7 mmol/L (3.5-5.1); Total Bilirubin 0.3 mg/dL (0.2-1.3); Total Protein 6.3 g/dL (6.3-8.2)
--- NOTE | 2019-10-02 15:12 | XR ---
EXAMINATION TYPE: XR chest 2V DATE OF EXAM: 10/02/2019 COMPARISON: Chest x-ray September 08, 2019 and older studies. HISTORY: Cough and shortness of breath. TECHNIQUE: Frontal and lateral views of the chest are obtained. FINDINGS: Anterior fusion plate in the cervical spine is partially imaged. Extensive surgical hardwar e in the thoracic spine with fusion hardware and large metallic cage are all redemonstrated. Persiste nt elevated right hemidiaphragm. Persistent right basilar scarring. No new focal airspace opacity, pl eural effusion, or pneumothorax seen bilaterally. Cardiac silhouette size is stable within normal [place] its. IMPRESSION: Chronic changes without new acute pulmonary process.
[2019-10-02 15:18] LABS: INR 0.9 (<1.2); Prothrombin Time 9.6 sec (9.0-12.0)
[2019-10-02 15:37] LABS: Partial Thromboplastin Time 19.8 sec (22.0-30.0)
[2019-10-02] MEDS ORDERED: HYDROcodone/APAP 10-325MG 1 EACH TAB PO ONE (16:07)
[2019-10-02] MEDS ORDERED: FLUTICASONE 50MCG/SPRAY NASAL 16GM EA NOSTRIL PRN (17:21)
[2019-10-02] MEDS: methylPREDNISolone SOD SUCCI 125 MG/2 ML VIAL IV SCH ×2 (18:42→23:58)
[2019-10-02] MEDS: HYDROcodone/APAP 10-325MG 1 EACH TAB PO PRN (19:38)
[2019-10-02] MEDS: FLUTICASONE 110 MCG INHALER INHALATION SCH (19:43)
[2019-10-02] MEDS ORDERED: ALBUTEROL HFA INHALER INHALATION SCH (20:00)
[2019-10-02] MEDS ORDERED: ALBUTEROL HFA INHALER INHALATION PRN (20:34)
[2019-10-02] MEDS ORDERED: SULFAMETHOX-TMP 800-160MG 1 EACH TAB PO SCH (21:00)
[2019-10-02] MEDS: ATORVASTATIN 40 MG TAB PO SCH (21:12)
[2019-10-02] MEDS: METOPROLOL TARTRATE 50 MG TAB PO SCH (21:12)
[2019-10-02] MEDS: NON FORMULARY DRUG (Mirabegron [Myrbetriq] 50 MG) PO SCH (21:12)
[2019-10-02] MEDS: TOPIRAMATE 100 MG TAB PO SCH (21:13)
[2019-10-02] MEDS: busPIRone HCl 10 MG TAB PO SCH (21:13)
[2019-10-02] MEDS: GABAPENTIN 400 MG CAP PO SCH (21:13)
[2019-10-02] MEDS: MONTELUKAST 10 MG TAB PO SCH (21:13)
[2019-10-03] MEDS: HYDROcodone/APAP 10-325MG 1 EACH TAB PO PRN ×4 (02:11→20:51)
[2019-10-03] MEDS: LEVOTHYROXINE 75 MCG TAB PO SCH (06:12)
[2019-10-03] MEDS: methylPREDNISolone SOD SUCCI 125 MG/2 ML VIAL IV SCH ×3 (06:12→17:28)
[2019-10-03] MEDS: PANTOPRAZOLE 40 MG TABLET PO SCH (07:34)
[2019-10-03] MEDS: GABAPENTIN 400 MG CAP PO SCH ×2 (07:34→15:07)
[2019-10-03] MEDS: SERTRALINE 100 MG TAB PO SCH (07:34)
[2019-10-03] MEDS: busPIRone HCl 10 MG TAB PO SCH ×2 (07:34→20:37)
[2019-10-03] MEDS: METOPROLOL TARTRATE 50 MG TAB PO SCH ×2 (07:34→20:37)
[2019-10-03] MEDS: POTASSIUM CHLORIDE ER 20 MEQ TAB.ER PO SCH (07:34)
[2019-10-03] MEDS: TOPIRAMATE 100 MG TAB PO SCH ×3 (07:34→20:37)
[2019-10-03] MEDS: ASPIRIN 81 MG PO SCH (07:35)
[2019-10-03] MEDS: ALBUTEROL HFA INHALER INHALATION SCH ×2 (08:23→11:48)
[2019-10-03] MEDS: TIOTROPIUM 18 MCG/PUFF INHALER INHALATION SCH (08:23)
[2019-10-03] MEDS: FLUTICASONE 110 MCG INHALER INHALATION SCH (08:23)
[2019-10-03] MEDS ORDERED: amLODIPine 10 MG TAB PO SCH (09:00)
[2019-10-03] MEDS ORDERED: AZITHROMYCIN 500 MG TAB PO SCH (09:00)
[2019-10-03] MEDS ORDERED: FUROSEMIDE 40 MG TAB PO SCH (09:00)
[2019-10-03] MEDS ORDERED: ONDANSETRON 4 MG TAB PO PRN (10:34)
[2019-10-03] MEDS ORDERED: DIPHENOX-ATROP 2.5-0.025 MG 1 EACH TAB PO PRN (10:34)
[2019-10-03] MEDS ORDERED: NON FORMULARY DRUG (Vitamin B Complex [Vitamin B Complex] 1 CAP) PO SCH (10:45)
[2019-10-03] MEDS: OXYMETAZOLINE 0.05% NASL SPRAY 1 SPRAY BOTTLE EA NOSTRIL SCH ×2 (11:26→20:37)
[2019-10-03] MEDS: CYANOCOBALAMIN 500 MCG TAB PO SCH (11:28)
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
[2019-10-03] MEDS ORDERED: FUROSEMIDE 10 MG/ML 4 ML VIAL IV SCH (16:00)
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
[2019-10-03] MEDS: NON FORMULARY DRUG (Mirabegron [Myrbetriq] 50 MG) PO SCH (20:10)
[2019-10-03] MEDS: ALBUTEROL NEBULIZED 2.5 MG/3 ML INHALATION SCH (20:20)
[2019-10-03] MEDS: ATORVASTATIN 40 MG TAB PO SCH (20:37)
[2019-10-03] MEDS: GABAPENTIN 100 MG CAP PO SCH (20:37)
[2019-10-03] MEDS: FERROUS SULFATE 325 MG TAB PO SCH (20:37)
[2019-10-03] MEDS: MONTELUKAST 10 MG TAB PO SCH (20:37)
[2019-10-04] MEDS: methylPREDNISolone SOD SUCCI 40 MG/ML 1 ML VIAL IV SCH ×3 (00:28→15:02)
[2019-10-04] MEDS: HYDROcodone/APAP 10-325MG 1 EACH TAB PO PRN ×4 (04:19→21:42)
[2019-10-04] MEDS: LEVOTHYROXINE 75 MCG TAB PO SCH (05:59)
[2019-10-04] MEDS: CYANOCOBALAMIN 500 MCG TAB PO SCH (07:54)
[2019-10-04] MEDS: PANTOPRAZOLE 40 MG TABLET PO SCH (07:54)
[2019-10-04] MEDS: SERTRALINE 100 MG TAB PO SCH (07:54)
[2019-10-04] MEDS: METOPROLOL TARTRATE 50 MG TAB PO SCH ×2 (07:54→21:42)
[2019-10-04] MEDS: FERROUS SULFATE 325 MG TAB PO SCH ×2 (07:54→21:41)
[2019-10-04] MEDS: ALBUTEROL NEBULIZED 2.5 MG/3 ML INHALATION SCH ×3 (07:54→19:29)
[2019-10-04] MEDS: POTASSIUM CHLORIDE ER 20 MEQ TAB.ER PO SCH (07:55)
[2019-10-04] MEDS: TIOTROPIUM 18 MCG/PUFF INHALER INHALATION SCH (07:55)
[2019-10-04] MEDS: TOPIRAMATE 100 MG TAB PO SCH ×3 (07:55→21:41)
[2019-10-04] MEDS: busPIRone HCl 10 MG TAB PO SCH ×2 (07:55→21:42)
[2019-10-04] MEDS: GABAPENTIN 100 MG CAP PO SCH ×3 (07:55→21:41)
[2019-10-04] MEDS: ASPIRIN 81 MG PO SCH (07:55)
[2019-10-04] MEDS: OXYMETAZOLINE 0.05% NASL SPRAY 1 SPRAY BOTTLE EA NOSTRIL SCH ×2 (07:58→22:43)
[2019-10-04 07:59] LABS: Calcium 8.4 mg/dL (8.4-10.2)
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
[2019-10-04 08:03] LABS: Potassium 4.7 mmol/L (3.5-5.1)
--- NOTE | 2019-10-04 11:59 | P.PN ---
Subjective Progress Note Date: 10/04/19 Principal diagnosis: Shortness of breath, related to acute exacerbation of chronic obstructive lung disease secondary to chronic bronchial asthma in addition to chronic right hemid iaphragmatic paralysis This 71-year-old female patient with chronic respiratory insufficiency related to a chronic right hemidiaphragmatic paralysis. The patient has chronic hypoxic and hypercapnic respiratory failure. The patient also has history of chronic bronchial asthma. Addition to various other medical problems and comorbidities including seizure disorder, hypothyroidism, chronic kidney disease, hypertension and hyperlipidemia. The patient has chronic hypoxic respiratory failure and the patient has been maintained on oxygen 2 L per minute nasal cannula. 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 Nevertheless she has had previous hospitalizations including one in April 2019. The patient got discharged home following her most recent hospitalization on a course of Bactrim and Zithromax and prednisone. She presented yesterday to the hospital because of today worth of increased shortness of breath and low-grade fever and minimal amount of sputum production without any chest pain. Her review of system otherwise was negative thinks mentioned above. She was afebrile hemodynamically stable. Her white cell count was at 9.9. She has chronic stage III kidney disease with a creatinine of 2.24 and a BUN of 50. She had a normal sinus rhythm. The chest x-ray showed chronic right hemidiaphragmatic elevation which is known to us and there is no acute process. She is currently on a combination of Ventolin HFA, Flovent HFA, IV Solu Medrol 60 mg every 6 hours and Spiriva one inhalation a day. Covid 19 evaluation was negative. The patient was also noted to have increased swelling lower extremity is bilaterally. She has chronic edema and there is interval worsening in the swelling and the patient has some weeping of the fluid from the lateral aspect of the right lower extremity and areas of breath macerated and excoriated. There may be some surrounding erythema involving the right lower extremity also. The patient is known to have chronic pulmonary hypert ension. Based on previous echocardiograms, she has severe pulmonary hypertension with a PA pressures above 60 and a preserved LV function with an ejection fraction of 55-60%. No valvular abnormalities noted. On 10/04/2019 patient seen in follow-up on medical surgical floor. He is resting comfortably in bed, she has been started on diuretics, and she is in - 2.3 L over the last 24 hours, still has significant amount of lower extremity edema. Lung sounds are diminished, no significant rhonchi or wheezes, patient is on breathing treatments, Singulair, and Spiriva. Coronavirus PCR negative. No fever or chills, labs have been reviewed today, renal profile is improved, would BUN at 50 and creatinine is down to 1.28. Electrolytes are within normal limits. Objective - Vital Signs Vital signs: Vital Signs Temp 98.1 F 10/04/19 07:00 Pulse 80 10/04/19 11:44 Resp 18 10/04/19 07:00 BP 135/56 10/04/19 07:00 Pulse Ox 97 10/04/19 07:00 Intake & Output 10/03/19 10/04/19 10/04/19 18:59 06:59 18:59 Intake Total 360 Output Total 1020 1300 Balance -1020 -1300 360 Weight 130.5 kg Intake: Oral 360 Output: Urine 1020 1300 Other: Voiding Method Bedside Commode Bedside Commode # Voids 2 # Bowel Movements 0 0 - Exam GENERAL EXAM: Alert, very pleasant, extremely hard of hearing, 3 L of oxygen with a pulse ox of 97%, obese white female, resting comfortably in bed in no apparent distress. HEAD: Normocephalic/atraumatic. EYES: Normal reaction of pupils, equal size. Conjunctiva pink, sclera white. NOSE: Clear with pink turbinates. THROAT: No erythema or exudates. NECK: No masses, no JVD, no thyroid enlargement, no adenopathy. CHEST: No chest wall deformity. Symmetrical expansion. LUNGS: Equal air entry with no crackles, wheeze, rhonchi or dullness. CVS: Regular rate and rhythm, normal S1 and S2, no gallops, no murmurs, no rubs ABDOMEN: Soft, nontender. No hepatosplenomegaly, normal bowel sounds, no guarding or rigidity. EXTREMITIES: No clubbing, 1+ lower extremity edema, with cellulitis, weeping and open rash on bilateral lower extremities no cyanosis, 2+ pulses and upper and lower extremities. MUSCULOSKELETAL: Muscle strength and tone normal. SPINE: No scoliosis or deformity SKIN: No rashes CENTRAL NERVOUS SYSTEM: Alert and oriented -3. No focal deficits, tone is normal in all 4 extremities. PSYCHIATRIC: Alert and oriented -3. Appropriate affect. Intact judgment and insight. - Labs CBC & Chem 7: 10/02/19 14:40 10/04/19 06:57 Labs: Abnormal Lab Results - Last 24 Hours (Table) 10/04/19 Range/Units 06:57 BUN 50 H (7-17) mg/dL Creatinine 1.28 H (0.52-1.04) mg/dL Glucose 181 H (74-99) mg/dL Microbiology - Last 24 Hours (Table) 10/02/19 15:39 Blood Culture - Preliminary Blood No Growth after 24 hours Assessment and Plan Plan: Assessment: #1 shortness of breath, most likely secondary to exacerbation of her chronic obstructive lung disease which is probably in the form of chronic bronchial asthma in addition to chronic respiratory insufficiency related to a right hemidiaphragmatic paralysis in addition to morbid obesity and chronic hypoxic and hypercapnic respiratory failure. She may have a component of obesity hypoventilation syndrome as the patient has a BMI of 51.2.. She is a chronic CO2 retainer. Her baseline pCO2 is in the mid 50s millimeters of mercury. No evidence of any pneumonia #2 recurrent hospitalizations for the same #3 Chronic elevation of right hemidiaphragm with chronic hypoxemic respiratory failure secondary to previous spinal surgery.patient has a CPAP unit that she utilizes on outpatient basis. The exact pressure setting is not known at this point in time. #4 acute on top of chronic kidney disease, stage III. And the patient's creatinine is on the rise at 2.24 #5 Chronic diastolic congestive heart failure with chronic lower extremity edema. #6 Morbid obesity. #7 Hypothyroidism. #8 Hypertension. #9 Hyperlipidemia. #10 History of seizure disorder. #11 Previous history of overdose with pain medication requiring mechanical ventilatory support. #12 Osteoarthritis. #13 History of anxiety/depression. #14 chronic hypoxic and hypercapnic respiratory failure admitted on oxygen at 2 L and maintain on CPAP overnight #15 history of lung surgery, possibly a limited right lower lobe resection #16 concentric LVH along with severe pulmonary hypertension with an estimated right ventricular systolic pressure being about 60 mmHg. #17 increased lower extremity edema, with weeping of fluid from the lateral surface of the legs suspected infection. Plan: Continue with IV diuretics, renal profile is improving, patient is still quite edematous and weeping from bilateral lower extremities, local wound care and wrapping of the lower extremities advised, although patient insists on having the Haile wraps removed from her lower legs. No worsening dyspnea, we asked the patient to have a family member bring in her CPAP machine from home, she is not sure of her settings, and she states that she only wears the CPAP during the day and not at night. We'll continue with breathing treatments, her Coumadin 19 testing was negative, she's been afebrile, continue with diuretic therapy, will need daily electrolytes and renal profile, accurate intake and output and daily weights I performed a history & physical examination of the patient and discussed their management with my nurse practitioner, Bridget Heard. I reviewed the nurse practitioner's note and agree with the documented findings and plan of care. Lung sounds are positive for diminished breath sounds. The findings and the impression was discussed with the patient. I attest to the documentation by the nurse practitioner. Time with Patient: Less than 30
--- NOTE | 2019-10-04 12:13 | CONS ---
CONSULTATION REASON FOR CONSULT: Renal failure. HISTORY OF PRESENT ILLNESS: Patient is a 73-year-old female who was admitted to the hospital with complaints of increased pain and swelling and redness in the right lower extremity associated with increased lower extremity edema and shortness of breath. The patient does have a history of obstructive sleep apnea. She has chronic hypoxic hypercapnic respiratory failure with chronic right hemidiaphragmatic paralysis. She was noted to have a serum creatinine of 2.24 mg/dL on admission along with evidence of CHF and volume overload. The patient was started on Lasix yesterday and her edema has improved. Serum creatinine is also improved to 1.28 today. Patient has lost weight. She feels better. She is also maintained on antibiotics for the cellulitis. Patient states that she has been told she has weak kidney function which has been at borderline and has not seen a fiber drier operator previously. REVIEW OF LABS: Shows a serum creatinine of about 1.4-1.3 mg/dL in 2019 and early part of May 2019. PAST MEDICAL HISTORY: Chronic right hemidiaphragm paralysis of chronic hypoxic and hypercapnic respiratory failure, hypertension, COPD, CHF, hyperlipidemia, osteoarthritis, seizure disorder, chronic kidney disease, hypothyroidism, history of osteomyelitis, UTIs, previous history of colitis, migraines, compression fracture in the spine. PAST SURGICAL HISTORY: I and D, appendectomy, back surgery, , hysterectomy, tonsillectomy, partial right lower lobe resection, colonoscopy, abdominoplasty, cervical fusion, back surgeries. SOCIAL HISTORY: Negative for smoking, drug abuse or alcohol abuse. MEDICATIONS: Prior to admission included [place], aspirin, vitamin D, Neurontin, Synthroid, Crestor, Norvasc, Protonix, Singulair, Myrbetriq, Zoloft, Lopressor, Lasix, Pulmicort, Zofran, Topamax, potassium. ALLERGIES: Include MORPHINE, DOXYCYCLINE, which causes nausea. REVIEW OF SYSTEMS: As per HPI. Other systems negative. EXAMINATION: Patient is comfortable, awake, alert, oriented x3, not in any acute distress. Mildly short of breath. Blood pressure is 135/56, heart rate 72 per minute, she is afebrile. Examination of the heart S1, S2. Examination of lungs, bilateral breath sounds are heard. Abdomen is soft. Morbidly obese. Examination of the lower extremities shows chronic edema bilateral lower extremities about 3+ bilaterally with erythema noted in the right leg. Left leg is currently wrapped. Some drainage is also noted from the right lower extremity. 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 LABS: Show sodium 141, potassium 4.7, chloride 103, BUN 50, creatinine 1.28, hemoglobin 9.5 g/dL. Coronavirus PCR not detected. ASSESSMENT: 1. Acute kidney injury cardiorenal, currently improved continue to diurese patient. 2. Congestive heart failure, acute on top of chronic mainly diastolic, ejection fraction 55% to 60% in January of 2019 with evidence of elevated right-sided heart pressures and severe pulmonary hypertension. 3. Chronic hypoxic hypercapnic respiratory failure. 4. Chronic right hemidiaphragmatic paralysis. 5. Cellulitis lower extremity maintained on antibiotics. 6. Chronic kidney disease NKF stage 3. Baseline creatinine 1.2-1.[address] back to 2014, etiology is likely nephrosclerosis. No urine available this visit. However, previously in January, there was trace proteinuria. 7. Morbid obesity. PLAN: Check urinalysis, continue current dose of Lasix. Once patient is discharged, she will need to follow up for volume management and CKD. Thank you for this consultation. Will continue to follow the patient with you during her hospitalization. MMODL / IJN: [id number] /
[2019-10-04] MEDS ORDERED: NYSTAT-TRIAMCIN 100,000-0.1 UNIT/GM-% CREAM 30 GM TUBE TOPICAL SCH (15:00)
[2019-10-04] MEDS: TRIAMCINOLONE ACET 0.1% OINTMENT 15 GM TUBE TOPICAL SCH (15:50)
[2019-10-04] MEDS: NYSTATIN 100,000 UNIT/GM OINT 30 GM TUBE TOPICAL SCH (15:50)
--- NOTE | 2019-10-04 16:16 | PN ---
PROGRESS NOTE DATE OF SERVICE: 10/04/2019 REASON FOR FOLLOWUP: Bilateral lower extremity cellulitis. INTERVAL HISTORY: The patient is currently afebrile. The patient is breathing comfortably. The patient denies having any chest pain. Her breathing has improved. No nausea, vomiting or abdominal pain. Discomfort to the leg has slightly decreased. PHYSICAL EXAMINATION: Blood pressure 135/56, pulse of 72, temperature 98.1. She is 97% on 2 L nasal cannula. General description is an elderly female lying in bed in no distress. RESPIRATORY SYSTEM: Unlabored breathing. Clear to auscultation anteriorly. HEART: S1, S2. Regular rate and rhythm. ABDOMEN: Soft. No tenderness. Leg swelling persists. Redness slightly decreased. LABS: BUN of 50, creatinine 1.28. DIAGNOSTIC IMPRESSION AND PLAN: Patient with bilateral lower extremity cellulitis and diffuse swelling and redness, likely streptococcal . Advised to continue with cefazolin. She did not like the Silvadene cream and was switched over to Mycolog cream. We will monitor clinical course closely. MMODL / IJN: [id number] /
--- NOTE | 2019-10-04 17:23 | P.PN ---
Progress Note - Text Progress Note Date: 10/04/19 Chief Complaint: Short of breath, redness of right leg History of presenting complaint: This is a pleasant 73-year-old patient of Dr. Roger from visiting physicians. Chronic stable medical conditions include hyperlipidemia, hypertension, primary osteoarthritis, chronic kidney disease, seizure disorder, hypothyroidism, phrenic nerve damage with back surgery, causing right-sided hemidiaphragm paralysis, partial right lower lobe resection. Patient on home oxygen 3 L, chronic back pain from T8-T9 compression fracture, MRSA osteomyelitis in 2006, nonhealing abdominal ulcer, CHF EF 55 and 55%. Patient now presents with redness right leg weeping for about 5 days and some breakdown of skin. Had some low-grade fever. It is painful. Patient also being increasingly short of breath and wheezing for last couple of days. No sputum production. No fever or chills. Appetite is fair. Present combination of above symptoms. And at baseline uses a cane. Admitted with-acute asthma exacerbation, cellulitis right lower extremity, acute hypoxic respiratory failure. Also acute kidney injury. Amlodipine was discontinued to prevent the lower extremity swelling. Also dose of Neurontin cut back. Today-feeling somewhat better. Did tolerate some diet. He was on IV Ancef. Bronchodilators Solu-Medrol. Eating fairly okay. Review of systems: Was done for constitutional, cardiovascular, GI, pulmonary. relevant finding as above Active Medications Hydrocodone Bitart/Acetaminophen ([place] 10) 1 each PO Q6H PRN PRN Reason: Pain Last Admin: 10/04/19 15:06 Dose: 1 each Documented by: Albuterol Sulfate (Ventolin Hfa Inhaler) 2 puff INHALATION RT-QID PRN PRN Reason: Shortness Of Breath Or Wheezing Albuterol Sulfate (Ventolin Nebulized) 2.5 mg INHALATION RT-TID [facility] Last Admin: 10/04/19 11:36 Dose: 2.5 mg Documented by: Aspirin (Aspirin) 81 mg PO DAILY [facility] Last Admin: 10/04/19 07:55 Dose: 81 mg Documented by: Atorvastatin Calcium (Lipitor) 40 mg PO HS [facility] Last Admin: 10/03/19 20:37 Dose: 40 mg Documented by: Buspirone HCl (Buspar) 10 mg PO BID [facility] Last Admin: 10/04/19 07:55 Dose: 10 mg Documented by: Cyanocobalamin (Vitamin B-12) 1,000 mcg PO DAILY [facility] Last Admin: 10/04/19 07:54 Dose: 1,000 mcg Documented by: Diphenoxylate HCl/Atropine (Lomotil) 2 each PO QID PRN PRN Reason: Diarrhea Ferrous Sulfate (Feosol) 325 mg PO BID [facility] Last Admin: 10/04/19 07:54 Dose: 325 mg Documented by: Fluticasone Propionate (Flonase Nasal [place]) 1 spray EA NOSTRIL BID PRN PRN Reason: Cold Symptoms Furosemide (Lasix) 40 mg IV Q12HR [facility] Gabapentin (Neurontin) 200 mg PO TID [facility] Last Admin: 10/04/19 15:02 Dose: 200 mg Documented by: Cefazolin Sodium 2 gm/ Sodium (Chloride) 50 mls @ 100 mls/hr IVPB Q8HR [facility] Last Admin: 10/04/19 15:02 Dose: 100 mls/hr Documented by: Levothyroxine Sodium (Synthroid) 150 mcg PO DAILY@0630 [facility] Last Admin: 10/04/19 05:59 Dose: 150 mcg Documented by: Methylprednisolone Sodium Succinate (Solu-Medrol) 40 mg IV Q8HR [facility] Last Admin: 10/04/19 15:02 Dose: 40 mg Documented by: Metoprolol Tartrate (Lopressor) 50 mg PO BID [facility] Last Admin: 10/04/19 07:54 Dose: 50 mg Documented by: Montelukast Sodium (Singulair) 10 mg PO [facility] Last Admin: 10/03/19 20:37 Dose: 10 mg Documented by: Non-Formulary Medication (Mirabegron [Myrbetriq]) 50 mg PO [facility] Last Admin: 10/03/19 20:10 Dose: Not Given Documented by: Nystatin (Mycostatin Oint) 1 applic TOPICAL DAILY [facility] Last Admin: 10/04/19 15:50 Dose: 1 applic Documented by: Ondansetron HCl (Zofran) 4 mg PO Q6H PRN PRN Reason: Nausea And Vomiting Oxymetazoline HCl (Afrin 0.05% Nasal [place]) 2 spray EA NOSTRIL BID [facility] Last Admin: 10/04/19 07:58 Dose: Not Given Documented by: Pantoprazole Sodium (Protonix) 40 mg PO AC-BRKFST [facility] Last Admin: 10/04/19 07:54 Dose: 40 mg Documented by: Potassium Chloride (K-Dur 20) 20 meq PO DAILY [facility] Last Admin: 10/04/19 07:55 Dose: 20 meq Documented by: Sertraline HCl (Zoloft) 100 mg PO DAILY [facility] Last Admin: 10/04/19 07:54 Dose: 100 mg Documented by: Tiotropium [place] (Spiriva) 1 puff INHALATION RT-DAILY [facility] Last Admin: 10/04/19 07:55 Dose: 1 puff Documented by: Topiramate (Topamax) 100 mg PO TID [facility] Last Admin: 10/04/19 15:02 Dose: 100 mg Documented by: Triamcinolone Acetonide (Kenalog) 1 applic TOPICAL DAILY [facility] Last Admin: 10/04/19 15:50 Dose: 1 applic Documented by: Physical examination: VITAL SIGNS: 98.3, 77, 17, 129/68, 96% on 3 L GENERAL: Propped up in bed, less short of breath today EYES: Pupils equal. Conjunctiva normal. HEENT: External appearance of nose and ears normal, oral cavity grossly normal. NECK: JVD unable to assess; masses not palpable. HEART: First and second heart sounds are normal; nonpitting edema. LUNGS: respiratory effort increased, decreased breath sounds prolonged expiration ABDOMEN: Soft, nontender, liver spleen not palpable, no masses palpable. PSYCH: Alert and oriented x3; mood and affect anxious EXTREMITY: superficial skin of the right lower extremity with redness tenderness and some oozing-sinus Investigations, reviewed in the clinical context. Pressure 4.7 bun 50 creatinine 1.28 Previous testing White count 9.9 hemoglobin 9.5 platelets 199 potassium 4.7 bun 50 creatinine 2.24 Patient's lab work on September 10 showed a bun of 41 and creatinine of 1.4 to Palpable lactic acid 1.14 BNP 197 troponin I 0.0-6 COVID 19 PCR-not detected EKG tracing personally reviewed by me-normal sinus rhythm Chest x-ray film personally reviewed by me-elevation of right diaphragm, hardware in the spine, possible chronic changes Assessment: -Acute exacerbation of moderate persistent asthma, secondary to above, POA, -Acute cellulitis with pedal superficial skin with some edema on the right lower extremity, POA -Acute hypoxic respiratory failure from above, POA -Chronic hypoxic respiratory failure from asthma on 3 L of oxygen at home -Moderate obesity BMI 51.2 -Hyperlipidemia -Essential hypertension -Primary osteoarthritis -Hypothyroidism -Chronic right diaphragm paralysis, from prior surgery -History of right lower lobe lung resection -Chronic congestive heart failure from diastolic dysfunction EF 50-55 %-doubt acute flareup. Patient's proBNP is only 197. Lower extremity edema likely from amlodipine, and Neurontin. And venous insufficiency. -Cor pulmonale with acute flareup -Chronic kidney disease stage III from nephrosclerosis -Acute kidney injury with creatinine going from 1.4-2.24 in 3 weeks.-Improving Plan: Patient will IV Ancef. Patient now like Silvadene cream has it was changed to Mycolog. Getting IV Lasix. Kidney function is improving. Tolerating a diet. Blood pressure controlled.
[2019-10-04 20:44] LABS: Glucose,Whole Blood 303 mg/dL (75-99)
[2019-10-04] MEDS: ATORVASTATIN 40 MG TAB PO SCH (21:41)
[2019-10-04] MEDS: MONTELUKAST 10 MG TAB PO SCH (21:41)
[2019-10-04] MEDS: FUROSEMIDE 10 MG/ML 4 ML VIAL IV SCH (21:43)
[2019-10-04] MEDS: INSULIN ASPART (NovoLOG) 100 UNIT/ML VIAL SQ SCH (21:44)
[2019-10-04] MEDS: NON FORMULARY DRUG (Mirabegron [Myrbetriq] 50 MG) PO SCH (21:47)
[2019-10-05] MEDS: methylPREDNISolone SOD SUCCI 40 MG/ML 1 ML VIAL IV SCH ×3 (02:00→17:08)
[2019-10-05] MEDS: HYDROcodone/APAP 10-325MG 1 EACH TAB PO PRN ×3 (04:03→20:03)
[2019-10-05] MEDS: LEVOTHYROXINE 75 MCG TAB PO SCH (05:43)
[2019-10-05 07:23] LABS: Glucose,Whole Blood 148 mg/dL (75-99)
[2019-10-05] MEDS: FUROSEMIDE 10 MG/ML 4 ML VIAL IV SCH ×2 (08:28→21:11)
[2019-10-05] MEDS: FERROUS SULFATE 325 MG TAB PO SCH ×2 (08:32→21:12)
[2019-10-05] MEDS: busPIRone HCl 10 MG TAB PO SCH ×2 (08:32→21:11)
[2019-10-05] MEDS: CYANOCOBALAMIN 500 MCG TAB PO SCH (08:32)
[2019-10-05] MEDS: GABAPENTIN 100 MG CAP PO SCH ×3 (08:32→21:13)
[2019-10-05] MEDS: METOPROLOL TARTRATE 50 MG TAB PO SCH ×2 (08:32→21:12)
[2019-10-05] MEDS: SERTRALINE 100 MG TAB PO SCH (08:32)
[2019-10-05] MEDS: PANTOPRAZOLE 40 MG TABLET PO SCH (08:32)
[2019-10-05] MEDS: ASPIRIN 81 MG PO SCH (08:32)
[2019-10-05] MEDS: POTASSIUM CHLORIDE ER 20 MEQ TAB.ER PO SCH (08:33)
[2019-10-05] MEDS: TOPIRAMATE 100 MG TAB PO SCH ×3 (08:33→21:13)
[2019-10-05] MEDS: INSULIN ASPART (NovoLOG) 100 UNIT/ML VIAL SQ SCH ×4 (08:36→21:12)
[2019-10-05] MEDS: TRIAMCINOLONE ACET 0.1% OINTMENT 15 GM TUBE TOPICAL SCH (08:39)
[2019-10-05] MEDS: NYSTATIN 100,000 UNIT/GM OINT 30 GM TUBE TOPICAL SCH (08:39)
[2019-10-05] MEDS: OXYMETAZOLINE 0.05% NASL SPRAY 1 SPRAY BOTTLE EA NOSTRIL SCH ×2 (08:46→21:13)
[2019-10-05] MEDS: ALBUTEROL NEBULIZED 2.5 MG/3 ML INHALATION SCH ×3 (09:10→19:44)
[2019-10-05] MEDS: TIOTROPIUM 18 MCG/PUFF INHALER INHALATION SCH (09:11)
[2019-10-05 10:09] LABS: Calcium 8.7 mg/dL (8.4-10.2); Potassium 3.8 mmol/L (3.5-5.1)
[2019-10-05 11:30] LABS: Glucose,Whole Blood 155 mg/dL (75-99)
--- NOTE | 2019-10-05 11:47 | P.PN ---
Subjective Progress Note Date: 10/05/19 Principal diagnosis: Shortness of breath, related to acute exacerbation of chronic obstructive lung disease secondary to chronic bronchial asthma in addition to chronic right hemid iaphragmatic paralysis This 71-year-old female patient with chronic respiratory insufficiency related to a chronic right hemidiaphragmatic paralysis. The patient has chronic hypoxic and hypercapnic respiratory failure. The patient also has history of chronic bronchial asthma. Addition to various other medical problems and comorbidities including seizure disorder, hypothyroidism, chronic kidney disease, hypertension and hyperlipidemia. The patient has chronic hypoxic respiratory failure and the patient has been maintained on oxygen 2 L per minute nasal cannula. 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 Nevertheless she has had previous hospitalizations including one in April 2019. The patient got discharged home following her most recent hospitalization on a course of Bactrim and Zithromax and prednisone. She presented yesterday to the hospital because of today worth of increased shortness of breath and low-grade fever and minimal amount of sputum production without any chest pain. Her review of system otherwise was negative thinks mentioned above. She was afebrile hemodynamically stable. Her white cell count was at 9.9. She has chronic stage III kidney disease with a creatinine of 2.24 and a BUN of 50. She had a normal sinus rhythm. The chest x-ray showed chronic right hemidiaphragmatic elevation which is known to us and there is no acute process. She is currently on a combination of Ventolin HFA, Flovent HFA, IV Solu Medrol 60 mg every 6 hours and Spiriva one inhalation a day. Covid 19 evaluation was negative. The patient was also noted to have increased swelling lower extremity is bilaterally. She has chronic edema and there is interval worsening in the swelling and the patient has some weeping of the fluid from the lateral aspect of the right lower extremity and areas of breath macerated and excoriated. There may be some surrounding erythema involving the right lower extremity also. The patient is known to have chronic pulmonary hypert ension. Based on previous echocardiograms, she has severe pulmonary hypertension with a PA pressures above 60 and a preserved LV function with an ejection fraction of 55-60%. No valvular abnormalities noted. On 10/04/2019 patient seen in follow-up on medical surgical floor. He is resting comfortably in bed, she has been started on diuretics, and she is in - 2.3 L over the last 24 hours, still has significant amount of lower extremity edema. Lung sounds are diminished, no significant rhonchi or wheezes, patient is on breathing treatments, Singulair, and Spiriva. Coronavirus PCR negative. No fever or chills, labs have been reviewed today, renal profile is improved, would BUN at 50 and creatinine is down to 1.28. Electrolytes are within normal limits. On 10/05/2019 patient seen in follow-up on medical surgical floor. She is on IV diuretics with Lasix 40 mg every 12 hours, and she is in -1.9 L over the last 24 hours, lower extremity edema is improving, and her lower legs appear to be less weepy, no erythema or warmth noted. Patient remains on IV Kefzol. Breathing appears to be comfortable, patient is on 3 L of oxygen the pulse ox of 97%, no fever or chills. Resting comfortably in bed. Objective - Vital Signs Vital signs: Vital Signs Temp 97.9 F 10/05/19 07:00 Pulse 80 10/05/19 09:25 Resp 18 10/05/19 08:30 BP 134/77 10/05/19 07:00 Pulse Ox 97 10/05/19 07:00 Intake & Output 10/04/19 10/05/19 10/05/19 18:59 06:59 18:59 Intake Total 360 Output Total 2300 Balance 360 -2300 Weight 129.5 kg Intake: Oral 360 Output: Urine 2300 Other: Voiding Method Bedside Commode Bedside Commode # Bowel Movements 0 1 - Exam GENERAL EXAM: Alert, very pleasant, extremely hard of hearing, 3 L of oxygen with a pulse ox of 97%, obese white female, resting comfortably in bed in no apparent distress. HEAD: Normocephalic/atraumatic. EYES: Normal reaction of pupils, equal size. Conjunctiva pink, sclera white. NOSE: Clear with pink turbinates. THROAT: No erythema or exudates. NECK: No masses, no JVD, no thyroid enlargement, no adenopathy. CHEST: No chest wall deformity. Symmetrical expansion. LUNGS: Equal air entry with no crackles, wheeze, rhonchi or dullness. CVS: Regular rate and rhythm, normal S1 and S2, no gallops, no murmurs, no rubs ABDOMEN: Soft, nontender. No hepatosplenomegaly, normal bowel sounds, no guarding or rigidity. EXTREMITIES: No clubbing, 1+ lower extremity edema, with cellulitis, no weeping from the open rash on bilateral lower extremities no cyanosis, 2+ pulses and upp er and lower extremities. MUSCULOSKELETAL: Muscle strength and tone normal. SPINE: No scoliosis or deformity SKIN: No rashes CENTRAL NERVOUS SYSTEM: Alert and oriented -3. No focal deficits, tone is normal in all 4 extremities. PSYCHIATRIC: Alert and oriented -3. Appropriate affect. Intact judgment and insight. - Labs CBC & Chem 7: 10/02/19 14:40 10/05/19 09:23 Labs: Abnormal Lab Results - Last 24 Hours (Table) 10/04/19 10/05/19 10/05/19 Range/Units 20:43 07:13 09:23 Carbon Dioxide 38 H (22-30) mmol/L BUN 49 H (7-17) mg/dL Creatinine 1.38 H (0.52-1.04) mg/dL Glucose 173 H (74-99) mg/dL POC Glucose (mg/dL) 303 H 148 H (75-99) mg/dL 10/05/19 Range/Units 11:24 Carbon Dioxide (22-30) mmol/L BUN (7-17) mg/dL Creatinine (0.52-1.04) mg/dL Glucose (74-99) mg/dL POC Glucose (mg/dL) 155 H (75-99) mg/dL Microbiology - Last 24 Hours (Table) 10/02/19 15:39 Blood Culture - Preliminary Blood No Growth after 48 hours Assessment and Plan Plan: Assessment: #1 shortness of breath, most likely secondary to exacerbation of her chronic obstructive lung disease which is probably in the form of chronic bronchial asthma in addition to chronic respiratory insufficiency related to a right hemidiaphragmatic paralysis in addition to morbid obesity and chronic hypoxic an d hypercapnic respiratory failure. She may have a component of obesity hypoventilation syndrome as the patient has a BMI of 51.2.. She is a chronic CO2 retainer. Her baseline pCO2 is in the mid 50s millimeters of mercury. No evidence of any pneumonia #2 recurrent hospitalizations for the same #3 Chronic elevation of right hemidiaphragm with chronic hypoxemic respiratory failure secondary to previous spinal surgery.patient has a CPAP unit that she utilizes on outpatient basis. The exact pressure setting is not known at this point in time. #4 acute on top of chronic kidney disease, stage III. And the patient's creatinine is on the rise at 2.24 #5 Chronic diastolic congestive heart failure with chronic lower extremity edema. #6 Morbid obesity. #7 Hypothyroidism. #8 Hypertension. #9 Hyperlipidemia. #10 History of seizure disorder. #11 Previous history of overdose with pain medication requiring mechanical ventilatory support. #12 Osteoarthritis. #13 History of anxiety/depression. #14 chronic hypoxic and hypercapnic respiratory failure admitted on oxygen at 2 L and maintain on CPAP overnight #15 history of lung surgery, possibly a limited right lower lobe resection #16 concentric LVH along with severe pulmonary hypertension with an estimated right ventricular systolic pressure being about 60 mmHg. #17 increased lower extremity edema, with weeping of fluid from the lateral surface of the legs suspected infection. Plan: Continue current medical treatment, continue with diuretics, patient is in negative fluid balance, breathing is improving, lower extremity edema is improving, less swelling and weeping from lower extremity's, no erythema or redness, patient remains on IV Rocephin, she's had no fever or chills. We will continue to follow I performed a history & physical examination of the patient and discussed their management with my nurse practitioner, Bridget Heard. I reviewed the nurse practitioner's note and agree with the documented findings and plan of care. Lung sounds are positive for diminished breath sounds. The findings and the im pression was discussed with the patient. I attest to the documentation by the nurse practitioner. Time with Patient: Less than 30
--- NOTE | 2019-10-05 14:37 | PN ---
PROGRESS NOTE No dictation came through for this report. Only static. MMODL / IJN: [id number] /
--- NOTE | 2019-10-05 14:37 | PN ---
PROGRESS NOTE Patient is seen for followup for acute kidney injury. The patient was admitted to the hospital with complaints of increased lower extremity edema and cellulitis. She is noncompliant as outpatient. Currently patient is being diuresed. Her serum creatinine has improved from 2.2 on initial admission to 1.2-1.3 now. Previous creatinine at baseline has been about 1.2-1.3 mg/dL all the way back to August of 2018. PHYSICAL EXAMINATION: Today patient is comfortable. Blood pressure is 134/77, heart rate 78 per minute, she is afebrile. Examination of the heart S1, S2. Examination of the lungs, decreased breath sounds at bases. Abdomen is soft, nontender. Examination of the lower extremities shows bilateral extremities to be wrapped. [employer] exam grossly intact. LABS: Show sodium 143, potassium 3.8, chloride 100, CO2 is 38, BUN 49, serum creatinine 1.38. ASSESSMENT: 1. Acute kidney injury, mainly cardiorenal currently improved. 2. Congestisve heart failure, diastolic acute on top of chronic, mainly associated with elevated right heart pressures and severe pulmonary hypertension. 3. Chronic hypoxic hypercapnic respiratory failure. 4. Chronic right hemidiaphragmatic paralysis. 5. Cellulitis, bilateral lower extremities, maintained on antibiotics. 6. Chronic kidney disease stage 3 secondary to nephrosclerosis. Previous creatinine 1.2-1.[address] back to August of 2018. 7. Morbid obesity. PLAN: Continue with the Lasix. Repeat labs in a.m. Reorder urinalysis. MMODL / IJN: [id number] /
[2019-10-05 16:30] LABS: Glucose,Whole Blood 277 mg/dL (75-99)
[2019-10-05 17:58] LABS: Appearance,Urine Cloudy (Clear); Bacteria,Urine Moderate /hpf; Bilirubin,Urine Negative (Negative); Blood,Urine Small (Negative); Color,Urine Yellow; Glucose,Urine (UA) Negative (Negative); Ketones,Urine Negative (Negative); Leukocyte Esterase,Urine Small (Negative); Nitrite,Urine Negative (Negative); PH, Urine 6.5 (5.0-8.0); Protein,Urine Negative (Negative); RBC,Urine 1 /hpf (0-5); Specific Gravity,Urine 1.015 (1.001-1.035); Squamous Epithelial Cell,Urine 1 /hpf (0-4); Urobilinogen,Urine <2.0 mg/dL (<2.0); WBC,Urine 1 /hpf (0-5)
--- NOTE | 2019-10-05 20:21 | P.PN ---
Progress Note - Text Progress Note Date: 10/05/19 Chief Complaint: Short of breath, redness of right leg History of presenting complaint: This is a pleasant 73-year-old patient of Dr. Roger from visiting physicians. Chronic stable medical conditions include hyperlipidemia, hypertension, primary osteoarthritis, chronic kidney disease, seizure disorder, hypothyroidism, phrenic nerve damage with back surgery, causing right-sided hemidiaphragm paralysis, partial right lower lobe resection. Patient on home oxygen 3 L, chronic back pain from T8-T9 compression fracture, MRSA osteomyelitis in 2006, nonhealing abdominal ulcer, CHF EF 55 and 55%. Patient now presents with redness right leg weeping for about 5 days and some breakdown of skin. Had some low-grade fever. It is painful. Patient also being increasingly short of breath and wheezing for last couple of days. No sputum production. No fever or chills. Appetite is fair. Present combination of above symptoms. And at baseline uses a cane. Admitted with-acute asthma exacerbation, cellulitis right lower extremity, acute hypoxic respiratory failure. Also acute kidney injury. Amlodipine was discontinued to prevent the lower extremity swelling. Also dose of Neurontin cut back. Today-breathing better. Tolerating a diet. Swelling of the lower extremity is gone down. Redness gone down significantly. . Review of systems: Was done for constitutional, cardiovascular, GI, pulmonary. relevant finding as above Active Medications Hydrocodone Bitart/Acetaminophen ([place] 10) 1 each PO Q6H PRN PRN Reason: Pain Last Admin: 10/05/19 20:03 Dose: 1 each Documented by: Albuterol Sulfate (Ventolin Hfa Inhaler) 2 puff INHALATION RT-QID PRN PRN Reason: Shortness Of Breath Or Wheezing Albuterol Sulfate (Ventolin Nebulized) 2.5 mg INHALATION RT-TID [facility] Last Admin: 10/05/19 19:44 Dose: 2.5 mg Documented by: Aspirin (Aspirin) 81 mg PO DAILY [facility] Last Admin: 10/05/19 08:32 Dose: 81 mg Documented by: Atorvastatin Calcium (Lipitor) 40 mg PO HS [facility] Last Admin: 10/04/19 21:41 Dose: 40 mg Documented by: Buspirone HCl (Buspar) 10 mg PO BID [facility] Last Admin: 10/05/19 08:32 Dose: 10 mg Documented by: Cyanocobalamin (Vitamin B-12) 1,000 mcg PO DAILY [facility] Last Admin: 10/05/19 08:32 Dose: 1,000 mcg Documented by: Diphenoxylate HCl/Atropine (Lomotil) 2 each PO QID PRN PRN Reason: Diarrhea Ferrous Sulfate (Feosol) 325 mg PO BID [facility] Last Admin: 10/05/19 08:32 Dose: 325 mg Documented by: Fluticasone Propionate (Flonase Nasal [place]) 1 spray EA NOSTRIL BID PRN PRN Reason: Cold Symptoms Furosemide (Lasix) 40 mg IV Q12HR [facility] Last Admin: 10/05/19 08:28 Dose: 40 mg Documented by: Gabapentin (Neurontin) 200 mg PO TID [facility] Last Admin: 10/05/19 17:08 Dose: 200 mg Documented by: Cefazolin Sodium 2 gm/ Sodium (Chloride) 50 mls @ 100 mls/hr IVPB Q8HR [facility] Last Admin: 10/05/19 17:08 Dose: 100 mls/hr Documented by: Insulin Aspart (Novolog) 0 unit SQ [facility]; Protocol Last Admin: 10/05/19 17:19 Dose: 7 unit Documented by: Levothyroxine Sodium (Synthroid) 150 mcg PO DAILY@0630 [facility] Last Admin: 10/05/19 05:43 Dose: 150 mcg Documented by: Methylprednisolone Sodium Succinate (Solu-Medrol) 40 mg IV Q8HR [facility] Last Admin: 10/05/19 17:08 Dose: 40 mg Documented by: Metoprolol Tartrate (Lopressor) 50 mg PO BID [facility] Last Admin: 10/05/19 08:32 Dose: 50 mg Documented by: Montelukast Sodium (Singulair) [address] [facility] Last Admin: 10/04/19 21:41 Dose: 10 mg Documented by: Non-Formulary Medication (Mirabegron [Myrbetriq]) [address] [facility] Last Admin: 10/04/19 21:47 Dose: Not Given Documented by: Nystatin (Mycostatin Oint) 1 applic TOPICAL DAILY [facility] Last Admin: 10/05/19 08:39 Dose: Not Given Documented by: Ondansetron HCl (Zofran) 4 mg PO Q6H PRN PRN Reason: Nausea And Vomiting Oxymetazoline HCl (Afrin 0.05% Nasal [place]) 2 spray EA NOSTRIL BID [facility] Last Admin: 10/05/19 08:46 Dose: 2 spray Documented by: Pantoprazole Sodium (Protonix) 40 mg PO AC-BRKFST [facility] Last Admin: 10/05/19 08:32 Dose: 40 mg Documented by: Potassium Chloride (K-Dur 20) 20 meq PO DAILY [facility] Last Admin: 10/05/19 08:33 Dose: 20 meq Documented by: Sertraline HCl (Zoloft) 100 mg PO DAILY [facility] Last Admin: 10/05/19 08:32 Dose: 100 mg Documented by: Tiotropium Celoron (Spiriva) 1 puff INHALATION RT-DAILY [facility] Last Admin: 10/05/19 09:11 Dose: 1 puff Documented by: Topiramate (Topamax) 100 mg PO TID [facility] Last Admin: 10/05/19 17:08 Dose: 100 mg Documented by: Triamcinolone Acetonide (Kenalog) 1 applic TOPICAL DAILY [facility] Last Admin: 10/05/19 08:39 Dose: Not Given Documented by: Physical examination: VITAL SIGNS: 98.2, 79, 18, 100/64, 96% on 3 L GENERAL: Propped up in bed, breathing much easier EYES: Pupils equal. Conjunctiva normal. HEENT: External appearance of nose and ears normal, oral cavity grossly normal. NECK: JVD unable to assess; masses not palpable. HEART: First and second heart sounds are normal; nonpitting edema. LUNGS: respiratory effort increased, decreased breath sounds ABDOMEN: Soft, nontender, liver spleen not palpable, no masses palpable. PSYCH: Alert and oriented x3; mood and affect anxious EXTREMITY: Redness and significantly gone down. Edema gone down. Investigations, reviewed in the clinical context. Bun 49 creatinine 1.38 Previous testing White count 9.9 hemoglobin 9.5 platelets 199 potassium 4.7 bun 50 creatinine 2.24 Patient's lab work on September 10 showed a bun of 41 and creatinine of 1.4 to Palpable lactic acid 1.14 BNP 197 troponin I 0.0-6 COVID 19 PCR-not detected EKG tracing personally reviewed by me-normal sinus rhythm Chest x-ray film personally reviewed by me-elevation of right diaphragm, hardware in the spine, possible chronic changes Assessment: -Acute exacerbation of moderate persistent asthma, secondary to above, POA, significantly improved -Acute cellulitis with pedal superficial skin with some edema on the right lower extremity, POA, much improved -Acute hypoxic respiratory failure from above, POA -Chronic hypoxic respiratory failure from asthma on 3 L of oxygen at home -Moderate obesity BMI 51.2 -Hyperlipidemia -Essential hypertension -Primary osteoarthritis -Hypothyroidism -Chronic right diaphragm paralysis, from prior surgery -History of right lower lobe lung resection -Chronic congestive heart failure from diastolic dysfunction EF 50-55 %-doubt acute flareup. Patient's proBNP is only 197. Lower extremity edema likely from amlodipine, and Neurontin. And venous insufficiency. -Cor pulmonale with acute flareup -Chronic kidney disease stage III from nephrosclerosis -Acute kidney injury with creatinine going from 1.4-2.24 in 3 weeks.- Significantly improved Plan: Continue IV Ancef. Overall much better. Changed to oral prednisone. Much improved. Hopefully discharge in next 24 hours. Discussed with patient..
[2019-10-05 20:47] LABS: Glucose,Whole Blood 260 mg/dL (75-99)
[2019-10-05] MEDS: ATORVASTATIN 40 MG TAB PO SCH (21:11)
[2019-10-05] MEDS: MONTELUKAST 10 MG TAB PO SCH (21:13)
[2019-10-05] MEDS: NON FORMULARY DRUG (Mirabegron [Myrbetriq] 50 MG) PO SCH (21:17)
--- NOTE | 2019-10-05 23:24 | PN ---
PROGRESS NOTE DATE OF SERVICE: 10/05/2019 REASON FOR FOLLOWUP: Bilateral lower extremity cellulitis. INTERVAL HISTORY: The patient is currently afebrile. She is breathing more comfortably. Denies having any chest pain, cough. No abdominal pain. Pain and discomfort to the legs have improved. However, the patient has been refusing her Haile wraps. PHYSICAL EXAMINATION: On examination, patient's blood pressure 131/78 with a pulse of 74, temperature 98.4. She is 97% on 4 L nasal cannula. General description is an elderly female lying in bed in no distress. RESPIRATORY SYSTEM: Unlabored breathing, clear to auscultation anteriorly. HEART: S1, S2. Regular rate and rhythm. ABDOMEN: Soft, no tenderness. LEGS: Swelling persists. Redness slightly decreased. LABS: BUN of 49, creatinine 1.38. DIAGNOSTIC IMPRESSION AND PLAN: Patient with bilateral lower extremity cellulitis in this patient who did have diffuse swelling redness likely streptococcal disease. Plan is to continue cefazolin 2 grams q.8, otherwise to apply Haile wrap to keep the swelling down and to finish therapy with oral antibiotics. Continue with supportive care. MMODL / IJN: [id number] /
[2019-10-06] MEDS: HYDROcodone/APAP 10-325MG 1 EACH TAB PO PRN ×4 (01:03→20:48)
[2019-10-06] MEDS: LEVOTHYROXINE 75 MCG TAB PO SCH (04:57)
[2019-10-06 07:18] LABS: Glucose,Whole Blood 122 mg/dL (75-99)
[2019-10-06] MEDS: FERROUS SULFATE 325 MG TAB PO SCH ×2 (07:30→20:48)
[2019-10-06] MEDS: INSULIN ASPART (NovoLOG) 100 UNIT/ML VIAL SQ SCH ×4 (07:30→20:49)
[2019-10-06] MEDS: predniSONE 20 MG TAB PO SCH (07:30)
[2019-10-06] MEDS: PANTOPRAZOLE 40 MG TABLET PO SCH (07:31)
[2019-10-06] MEDS: busPIRone HCl 10 MG TAB PO SCH ×2 (07:31→20:48)
[2019-10-06] MEDS: POTASSIUM CHLORIDE ER 20 MEQ TAB.ER PO SCH (07:31)
[2019-10-06] MEDS: METOPROLOL TARTRATE 50 MG TAB PO SCH ×2 (07:31→20:48)
[2019-10-06] MEDS: ASPIRIN 81 MG PO SCH (07:32)
[2019-10-06] MEDS: CYANOCOBALAMIN 500 MCG TAB PO SCH (07:32)
[2019-10-06] MEDS: GABAPENTIN 100 MG CAP PO SCH ×3 (07:32→20:48)
[2019-10-06] MEDS: SERTRALINE 100 MG TAB PO SCH (07:32)
[2019-10-06] MEDS: TOPIRAMATE 100 MG TAB PO SCH ×3 (07:32→20:48)
[2019-10-06] MEDS: FUROSEMIDE 10 MG/ML 4 ML VIAL IV SCH ×2 (07:32→20:49)
[2019-10-06] MEDS: TRIAMCINOLONE ACET 0.1% OINTMENT 15 GM TUBE TOPICAL SCH (07:33)
[2019-10-06] MEDS: NYSTATIN 100,000 UNIT/GM OINT 30 GM TUBE TOPICAL SCH (07:33)
[2019-10-06] MEDS: OXYMETAZOLINE 0.05% NASL SPRAY 1 SPRAY BOTTLE EA NOSTRIL SCH ×2 (07:34→20:51)
[2019-10-06] MEDS: TIOTROPIUM 18 MCG/PUFF INHALER INHALATION SCH (08:12)
[2019-10-06] MEDS: ALBUTEROL NEBULIZED 2.5 MG/3 ML INHALATION SCH ×3 (08:12→19:59)
--- NOTE | 2019-10-06 11:16 | P.PN ---
Subjective Progress Note Date: 10/06/19 Principal diagnosis: Shortness of breath, related to acute exacerbation of chronic obstructive lung disease secondary to chronic bronchial asthma in addition to chronic right hemid iaphragmatic paralysis This 71-year-old female patient with chronic respiratory insufficiency related to a chronic right hemidiaphragmatic paralysis. The patient has chronic hypoxic and hypercapnic respiratory failure. The patient also has history of chronic bronchial asthma. Addition to various other medical problems and comorbidities including seizure disorder, hypothyroidism, chronic kidney disease, hypertension and hyperlipidemia. The patient has chronic hypoxic respiratory failure and the patient has been maintained on oxygen 2 L per minute nasal cannula. 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 Nevertheless she has had previous hospitalizations including one in April 2019. The patient got discharged home following her most recent hospitalization on a course of Bactrim and Zithromax and prednisone. She presented yesterday to the hospital because of today worth of increased shortness of breath and low-grade fever and minimal amount of sputum production without any chest pain. Her review of system otherwise was negative thinks mentioned above. She was afebrile hemodynamically stable. Her white cell count was at 9.9. She has chronic stage III kidney disease with a creatinine of 2.24 and a BUN of 50. She had a normal sinus rhythm. The chest x-ray showed chronic right hemidiaphragmatic elevation which is known to us and there is no acute process. She is currently on a combination of Ventolin HFA, Flovent HFA, IV Solu Medrol 60 mg every 6 hours and Spiriva one inhalation a day. Covid 19 evaluation was negative. The patient was also noted to have increased swelling lower extremity is bilaterally. She has chronic edema and there is interval worsening in the swelling and the patient has some weeping of the fluid from the lateral aspect of the right lower extremity and areas of breath macerated and excoriated. There may be some surrounding erythema involving the right lower extremity also. The patient is known to have chronic pulmonary hypert ension. Based on previous echocardiograms, she has severe pulmonary hypertension with a PA pressures above 60 and a preserved LV function with an ejection fraction of 55-60%. No valvular abnormalities noted. On 10/04/2019 patient seen in follow-up on medical surgical floor. He is resting comfortably in bed, she has been started on diuretics, and she is in - 2.3 L over the last 24 hours, still has significant amount of lower extremity edema. Lung sounds are diminished, no significant rhonchi or wheezes, patient is on breathing treatments, Singulair, and Spiriva. Coronavirus PCR negative. No fever or chills, labs have been reviewed today, renal profile is improved, would BUN at 50 and creatinine is down to 1.28. Electrolytes are within normal limits. On 10/05/2019 patient seen in follow-up on medical surgical floor. She is on IV diuretics with Lasix 40 mg every 12 hours, and she is in -1.9 L over the last 24 hours, lower extremity edema is improving, and her lower legs appear to be less weepy, no erythema or warmth noted. Patient remains on IV Kefzol. Breathing appears to be comfortable, patient is on 3 L of oxygen the pulse ox of 97%, no fever or chills. Resting comfortably in bed. On 10/06/2019 patient seen in follow-up on medical surgical floor, she is diuresing, remains on same dose of Lasix of 40 mg every 12 hours, and she is in -1.5 L over the last 24 hours, lower extremity edema is improving, still has some residual edema however areas of cellulitis are not weeping anymore, not erythematous or warm. Patient is also receiving local wound treatment including Silvadene to lower extremities. She has been afebrile, hemodynamically stable, seems quite comfortable resting in bed, lung sounds are essentially clear on today's exam. Blood cultures have shown no growth, remains on Kefzol, ID service is following, remains on oral prednisone, and she is on Spiriva, and albuterol treatments. Objective - Vital Signs Vital signs: Vital Signs Temp 98.2 F 10/06/19 07:04 Pulse 80 10/06/19 08:25 Resp 18 10/06/19 07:04 BP 167/85 10/06/19 07:04 Pulse Ox 95 10/06/19 07:04 Intake & Output 10/05/19 10/06/19 10/06/19 18:59 06:59 18:59 Intake Total 500 300 Output Total 1600 700 Balance -1100 -400 Weight 128 kg Intake: Intake, IV Titration 50 Amount ceFAZolin 2 gm In Sodium 50 Chloride 0.9% 50 ml @ 100 mls/hr IVPB Q8HR [facility] Rx# :[id number] Oral 450 300 Output: Urine 1600 700 Other: Voiding Method Bedside Commode Bedside Commode Incontinent # Bowel Movements 1 1 - Exam GENERAL EXAM: Alert, very pleasant, extremely hard of hearing, 3 L of oxygen with a pulse ox of 95%, obese white female, resting comfortably in bed in no apparent distress. HEAD: Normocephalic/atraumatic. EYES: Normal reaction of pupils, equal size. Conjunctiva pink, sclera white. NOSE: Clear with pink turbinates. THROAT: No erythema or exudates. NECK: No masses, no JVD, no thyroid enlargement, no adenopathy. CHEST: No chest wall deformity. Symmetrical expansion. LUNGS: Equal air entry with no crackles, wheeze, rhonchi or dullness. CVS: Regular rate and rhythm, normal S1 and S2, no gallops, no murmurs, no rubs ABDOMEN: Soft, nontender. No hepatosplenomegaly, normal bowel sounds, no guarding or rigidity. EXTREMITIES: No clubbing, 1+ lower extremity edema, with cellulitis, no weeping from the open rash on bilateral lower extremities no cyanosis, 2+ pulses and upper and lower extremities. MUSCULOSKELETAL: Muscle strength and tone normal. SPINE: No scoliosis or deformity SKIN: No rashes CENTRAL NERVOUS SYSTEM: Alert and oriented -3. No focal deficits, tone is normal in all 4 extremities. PSYCHIATRIC: Alert and oriented -3. Appropriate affect. Intact judgment and insight. - Labs CBC & Chem 7: 10/02/19 14:40 10/05/19 09:23 Labs: Abnormal Lab Results - Last 24 Hours (Table) 10/05/19 10/05/19 10/05/19 Range/Units 11:24 16:29 17:25 POC Glucose (mg/dL) 155 H 277 H (75-99) mg/dL Urine Appearance Cloudy H (Clear) Urine Blood Small H (Negative) Ur Leukocyte Esterase Small H (Negative) Urine Bacteria Moderate H (None) /hpf 10/05/19 10/06/19 Range/Units 20:46 07:02 POC Glucose (mg/dL) 260 H 122 H (75-99) mg/dL Urine Appearance (Clear) Urine Blood (Negative) Ur Leukocyte Esterase (Negative) Urine Bacteria (None) /hpf Microbiology - Last 24 Hours (Table) 10/02/19 15:39 Blood Culture - Preliminary Blood No Growth after 72 hours Assessment and Plan Plan: Assessment: #1 shortness of breath, most likely secondary to exacerbation of her chronic obstructive lung disease which is probably in the form of chronic bronchial asthma in addition to chronic respiratory insufficiency related to a right hemidiaphragmatic paralysis in addition to morbid obesity and chronic hypoxic and hypercapnic respiratory failure. She may have a component of obesity hypoventilation syndrome as the patient has a BMI of 51.2.. She is a chronic CO2 retainer. Her baseline pCO2 is in the mid 50s millimeters of mercury. No evidence of any pneumonia #2 recurrent hospitalizations for the same #3 Chronic elevation of right hemidiaphragm with chronic hypoxemic respiratory failure secondary to previous spinal surgery.patient has a CPAP unit that she utilizes on outpatient basis. The exact pressure setting is not known at this point in time. #4 acute on top of chronic kidney disease, stage III. And the patient's c reatinine is on the rise at 2.24 #5 Chronic diastolic congestive heart failure with chronic lower extremity edema. #6 Morbid obesity. #7 Hypothyroidism. #8 Hypertension. #9 Hyperlipidemia. #10 History of seizure disorder. #11 Previous history of overdose with pain medication requiring mechanical ventilatory support. #12 Osteoarthritis. #13 History of anxiety/depression. #14 chronic hypoxic and hypercapnic respiratory failure admitted on oxygen at 2 L and maintain on CPAP overnight #15 history of lung surgery, possibly a limited right lower lobe resection #16 concentric LVH along with severe pulmonary hypertension with an estimated right ventricular systolic pressure being about 60 mmHg. #17 increased lower extremity edema, with weeping of fluid from the lateral surface of the legs suspected infection. Plan: Continue with IV diuretics for another 24 hours, patient is maintaining negative fluid balance, lower edema is improving, repeat electrolytes and renal profile in the morning, she's been afebrile, lower extremity edema is improving, cellulitis has improved, remains on Kefzol, ID service is following, increase activity as tolerated, encourage patient to sit up in the chair. I performed a history & physical examination of the patient and discussed their management with my nurse practitioner, Bridget Heard. I reviewed the nurse practitioner's note and agree with the documented findings and plan of care. Lung sounds are positive for diminished breath sounds. The findings and the impression was discussed with the patient. I attest to the documentation by the nurse practitioner. Time with Patient: Less than 30
[2019-10-06 12:08] LABS: Glucose,Whole Blood 154 mg/dL (75-99)
--- NOTE | 2019-10-06 15:59 | PN ---
PROGRESS NOTE DATE OF SERVICE: 10/06/2019 REASON FOR FOLLOWUP: Lower extremity cellulitis. INTERVAL HISTORY: The patient is currently afebrile. The patient has been breathing comfortably. Denies having any chest pain or shortness of breath. Occasional cough. Overall discomfort to the leg has improved. PHYSICAL EXAMINATION: Blood pressure 167/85 with a pulse of 73, temperature 98.2. She is 95% on 3 L nasal cannula. General description is an elderly female lying in bed in no distress. RESPIRATORY SYSTEM: Unlabored breathing. Clear to auscultation anteriorly. HEART: S1, S2. Regular rate and rhythm. ABDOMEN: Soft. No tenderness. Leg swelling persists. Redness has slightly decreased. No open wound or any drainage. DIAGNOSTIC IMPRESSION AND PLAN: Patient with bilateral lower extremity swelling with a component of possible cellulitis. The patient is covered with cefazolin. She has been advised to use Mycolog cream and Haile wrap, which the patient has been avoiding, to help cut down the swelling and help her heal better. Continue with supportive care. MMODL / IJN: [id number] /
--- NOTE | 2019-10-06 16:11 | PN ---
PROGRESS NOTE Patient is seen for followup for acute kidney injury. Patient's renal function has improved. Creatinine was down to 1.38 yesterday from 2.24 on initial admission. No labs available from today. Patient is being treated for lower extremity cellulitis. She is currently being diuresed. Lasix is at 40 mg q.12 hours. PHYSICAL EXAMINATION: On examination, patient is comfortable, awake, not in any acute distress. Blood pressure 121/78, heart rate 85 per minute. She is afebrile. EXAMINATION OF THE HEART: S1 and S2. EXAMINATION OF LUNGS: Decreased breath sounds at bases. ABDOMEN: Soft, morbidly obese. Examination of lower extremities shows chronic skin changes. Bilateral lower extremities are wrapped. FULFILLMENT SPECIALIST exam is grossly intact. LABS: Labs show sodium 143 from yesterday. Serum creatinine 1.38 yesterday. No labs available from today. ASSESSMENT: 1. Acute kidney injury, cardiorenal, currently improved. Continue with current dose of Lasix. Repeat labs today. 2. Congestive heart failure, acute on top of chronic, mainly diastolic and associated with severe pulmonary hypertension. 3. Elevated right heart pressures and pulmonary hypertension and lower extremity edema. 4. Chronic hypoxic hypercapnic respiratory failure. 5. Chronic right hemidiaphragmatic paralysis. 6. Cellulitis of lower extremities, maintained on antibiotics. 7. Chronic kidney disease stage 3 secondary to nephrosclerosis. Previous creatinine 1.[address] to August of 2018. 8. Morbid obesity. PLAN: Check labs today. Continue with IV Lasix. MMRUPERTOL / IJN: [id number] /
[2019-10-06 16:42] LABS: Calcium 8.8 mg/dL (8.4-10.2); Potassium 4.1 mmol/L (3.5-5.1)
--- NOTE | 2019-10-06 16:56 | P.PN ---
Progress Note - Text Progress Note Date: 10/06/19 Chief Complaint: Short of breath, redness of right leg History of presenting complaint: This is a pleasant 73-year-old patient of Dr. Roger from visiting physicians. Chronic stable medical conditions include hyperlipidemia, hypertension, primary osteoarthritis, chronic kidney disease, seizure disorder, hypothyroidism, phrenic nerve damage with back surgery, causing right-sided hemidiaphragm paralysis, partial right lower lobe resection. Patient on home oxygen 3 L, chronic back pain from T8-T9 compression fracture, MRSA osteomyelitis in 2006, nonhealing abdominal ulcer, CHF EF 55 and 55%. Patient now presents with redness right leg weeping for about 5 days and some breakdown of skin. Had some low-grade fever. It is painful. Patient also being increasingly short of breath and wheezing for last couple of days. No sputum production. No fever or chills. Appetite is fair. Present combination of above symptoms. And at baseline uses a cane. Admitted with-acute asthma exacerbation, cellulitis right lower extremity, acute hypoxic respiratory failure. Also acute kidney injury. Amlodipine was discontinued to prevent the lower extremity swelling. Also dose of Neurontin cut back. Today-bleeding continues to be much better. Edema is gone down. Right leg cellulitis much improved. Eating well. Review of systems: Was done for constitutional, cardiovascular, GI, pulmonary. relevant finding as above Active Medications Hydrocodone Bitart/Acetaminophen ([place] 10) 1 each PO Q6H PRN PRN Reason: Pain Last Admin: 10/06/19 13:04 Dose: 1 each Documented by: Albuterol Sulfate (Ventolin Hfa Inhaler) 2 puff INHALATION RT-QID PRN PRN Reason: Shortness Of Breath Or Wheezing Albuterol Sulfate (Ventolin Nebulized) 2.5 mg INHALATION RT-TID [facility] Last Admin: 10/06/19 11:21 Dose: 2.5 mg Documented by: Aspirin (Aspirin) 81 mg PO DAILY [facility] Last Admin: 10/06/19 07:32 Dose: 81 mg Documented by: Atorvastatin Calcium (Lipitor) 40 mg PO HS [facility] Last Admin: 10/05/19 21:11 Dose: 40 mg Documented by: Buspirone HCl (Buspar) 10 mg PO BID [facility] Last Admin: 10/06/19 07:31 Dose: 10 mg Documented by: Cyanocobalamin (Vitamin B-12) 1,000 mcg PO DAILY [facility] Last Admin: 10/06/19 07:32 Dose: 1,000 mcg Documented by: Diphenoxylate HCl/Atropine (Lomotil) 2 each PO QID PRN PRN Reason: Diarrhea Ferrous Sulfate (Feosol) 325 mg PO BID [facility] Last Admin: 10/06/19 07:30 Dose: 325 mg Documented by: Fluticasone Propionate (Flonase Nasal [place]) 1 spray EA NOSTRIL BID PRN PRN Reason: Cold Symptoms Furosemide (Lasix) 40 mg IV Q12HR [facility] Last Admin: 10/06/19 07:32 Dose: 40 mg Documented by: Gabapentin (Neurontin) 200 mg PO TID [facility] Last Admin: 10/06/19 15:26 Dose: 200 mg Documented by: Cefazolin Sodium 2 gm/ Sodium (Chloride) 50 mls @ 100 mls/hr IVPB Q8HR [facility] Last Admin: 10/06/19 15:26 Dose: 100 mls/hr Documented by: Insulin Aspart (Novolog) 0 unit SQ [facility]; Protocol Last Admin: 10/06/19 12:25 Dose: 2 unit Documented by: Levothyroxine Sodium (Synthroid) 150 mcg PO DAILY@0630 [facility] Last Admin: 10/06/19 04:57 Dose: 150 mcg Documented by: Metoprolol Tartrate (Lopressor) 50 mg PO BID [facility] Last Admin: 10/06/19 07:31 Dose: 50 mg Documented by: Montelukast Sodium (Singulair) 10 mg PO [facility] Last Admin: 10/05/19 21:13 Dose: 10 mg Documented by: Non-Formulary Medication (Mirabegron [Myrbetriq]) 50 mg PO [facility] Last Admin: 10/05/19 21:17 Dose: Not Given Documented by: Nystatin (Mycostatin Oint) 1 applic TOPICAL DAILY [facility] Last Admin: 10/06/19 07:33 Dose: 1 applic Documented by: Ondansetron HCl (Zofran) 4 mg PO Q6H PRN PRN Reason: Nausea And Vomiting Oxymetazoline HCl (Afrin 0.05% Nasal [place]) 2 spray EA NOSTRIL BID [facility] Last Admin: 10/06/19 07:34 Dose: 2 spray Documented by: Pantoprazole Sodium (Protonix) 40 mg PO AC-BRKFST [facility] Last Admin: 10/06/19 07:31 Dose: 40 mg Documented by: Potassium Chloride (K-Dur 20) 20 meq PO DAILY [facility] Last Admin: 10/06/19 07:31 Dose: 20 meq Documented by: Prednisone () 60 mg PO DAILY [facility] Last Admin: 10/06/19 07:30 Dose: 60 mg Documented by: Sertraline HCl (Zoloft) 100 mg PO DAILY [facility] Last Admin: 10/06/19 07:32 Dose: 100 mg Documented by: Tiotropium Center (Spiriva) 1 puff INHALATION RT-DAILY [facility] Last Admin: 10/06/19 08:12 Dose: 1 puff Documented by: Topiramate (Topamax) 100 mg PO TID [facility] Last Admin: 10/06/19 15:26 Dose: 100 mg Documented by: Triamcinolone Acetonide (Kenalog) 1 applic TOPICAL DAILY [facility] Last Admin: 10/06/19 07:33 Dose: 1 applic Documented by: Physical examination: VITAL SIGNS: 98, 85, 16, 121/78, 96% room air GENERAL: Propped up in bed, breathing comfortably EYES: Pupils equal. Conjunctiva normal. HEENT: External appearance of nose and ears normal, oral cavity grossly normal. NECK: JVD unable to assess; masses not palpable. HEART: First and second heart sounds are normal; nonpitting edema. LUNGS: respiratory effort increased, decreased breath sounds ABDOMEN: Soft, nontender, liver spleen not palpable, no masses palpable. PSYCH: Alert and oriented x3; mood and affect anxious EXTREMITY: Redness-Edema much improved. Investigations, reviewed in the clinical context. Bun 45 creatinine 1.35 Previous testing White count 9.9 hemoglobin 9.5 platelets 199 potassium 4.7 bun 50 creatinine 2.24 Patient's lab work on September 10 showed a bun of 41 and creatinine of 1.4 to Palpable lactic acid 1.14 BNP 197 troponin I 0.0-6 COVID 19 PCR-not detected EKG tracing personally reviewed by me-normal sinus rhythm Chest x-ray film personally reviewed by me-elevation of right diaphragm, hardware in the spine, possible chronic changes Assessment: -Acute exacerbation of moderate persistent asthma, secondary to above, POA, significantly improved -Acute cellulitis with pedal superficial skin with some edema on the right lower extremity, POA, much improved -Acute hypoxic respiratory failure from above, POA -Chronic hypoxic respiratory failure from asthma on 3 L of oxygen at home -Moderate obesity BMI 51.2 -Hyperlipidemia -Essential hypertension -Primary osteoarthritis -Hypothyroidism -Chronic right diaphragm paralysis, from prior surgery -History of right lower lobe lung resection -Chronic congestive heart failure from diastolic dysfunction EF 50-55 %-doubt acute flareup. Patient's proBNP is only 197. Lower extremity edema likely from amlodipine, and Neurontin. And venous insufficiency. -Cor pulmonale with acute flareup -Chronic kidney disease stage III from nephrosclerosis -Acute kidney injury with creatinine going from 1.4-2.24 in 3 weeks.- Significantly improved Plan: Continue IV Ancef. IV Lasix. Much improved. Decrease prednisone. Hopefully discharge in 24 hours. Discussed with the patient.
[2019-10-06 16:59] LABS: Glucose,Whole Blood 238 mg/dL (75-99)
[2019-10-06 20:29] LABS: Glucose,Whole Blood 192 mg/dL (75-99)
[2019-10-06] MEDS: MONTELUKAST 10 MG TAB PO SCH (20:48)
[2019-10-06] MEDS: ATORVASTATIN 40 MG TAB PO SCH (20:48)
[2019-10-06] MEDS: NON FORMULARY DRUG (Mirabegron [Myrbetriq] 50 MG) PO SCH (21:09)
[2019-10-07] MEDS: LEVOTHYROXINE 75 MCG TAB PO SCH (05:55)
[2019-10-07 07:51] LABS: Glucose,Whole Blood 102 mg/dL (75-99)
[2019-10-07] MEDS: INSULIN ASPART (NovoLOG) 100 UNIT/ML VIAL SQ SCH ×2 (07:53→11:52)
[2019-10-07 07:56] VITALS: BP 160/84; RESP 16; TEMP 98
[2019-10-07] MEDS: METOPROLOL TARTRATE 50 MG TAB PO SCH (07:57)
[2019-10-07] MEDS: TOPIRAMATE 100 MG TAB PO SCH (07:58)
[2019-10-07] MEDS: busPIRone HCl 10 MG TAB PO SCH (07:58)
[2019-10-07] MEDS: FERROUS SULFATE 325 MG TAB PO SCH (07:58)
[2019-10-07] MEDS: GABAPENTIN 100 MG CAP PO SCH (07:58)
[2019-10-07] MEDS: CYANOCOBALAMIN 500 MCG TAB PO SCH (07:58)
[2019-10-07] MEDS: ASPIRIN 81 MG PO SCH (07:58)
[2019-10-07] MEDS: SERTRALINE 100 MG TAB PO SCH (07:59)
[2019-10-07] MEDS: predniSONE 20 MG TAB PO SCH (07:59)
[2019-10-07] MEDS: TRIAMCINOLONE ACET 0.1% OINTMENT 15 GM TUBE TOPICAL SCH (07:59)
[2019-10-07] MEDS: FUROSEMIDE 10 MG/ML 4 ML VIAL IV SCH (07:59)
[2019-10-07] MEDS: PANTOPRAZOLE 40 MG TABLET PO SCH (07:59)
[2019-10-07] MEDS: POTASSIUM CHLORIDE ER 20 MEQ TAB.ER PO SCH (07:59)
[2019-10-07] MEDS: NYSTATIN 100,000 UNIT/GM OINT 30 GM TUBE TOPICAL SCH (08:00)
[2019-10-07] MEDS: OXYMETAZOLINE 0.05% NASL SPRAY 1 SPRAY BOTTLE EA NOSTRIL SCH (08:00)
[2019-10-07] MEDS: HYDROcodone/APAP 10-325MG 1 EACH TAB PO PRN (08:03)
[2019-10-07 08:24] LABS: Calcium 8.8 mg/dL (8.4-10.2); Potassium 3.7 mmol/L (3.5-5.1)
[2019-10-07] MEDS: ALBUTEROL NEBULIZED 2.5 MG/3 ML INHALATION SCH ×2 (08:50→11:57)
[2019-10-07] MEDS: TIOTROPIUM 18 MCG/PUFF INHALER INHALATION SCH (08:50)
[2019-10-07] MEDS ORDERED: predniSONE 50 MG TAB PO SCH (09:00)
--- NOTE | 2019-10-07 11:37 | P.PN ---
Subjective Progress Note Date: 10/07/19 Principal diagnosis: Shortness of breath, related to acute exacerbation of chronic obstructive lung disease secondary to chronic bronchial asthma in addition to chronic right angelita diaphragmatic paralysis This 71-year-old female patient with chronic respiratory insufficiency related to a chronic right hemidiaphragmatic paralysis. The patient has chronic hypoxic and hypercapnic respiratory failure. The patient also has history of chronic bronchial asthma. Addition to various other medical problems and comorbidities including seizure disorder, hypothyroidism, chronic kidney disease, hypertension and hyperlipidemia. The patient has chronic hypoxic respiratory failure and the patient has been maintained on oxygen 2 L per minute nasal cannula. 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 Nevertheless she has had previous hospitalizations including one in April 2019. The patient got discharged home following her most recent hospitalization on a course of Bactrim and Zithromax and prednisone. She presented yesterday to the hospital because of today worth of increased shortness of breath and low-grade fever and minimal amount of sputum production without any chest pain. Her review of system otherwise was negative thinks mentioned above. She was afebrile hemodynamically stable. Her white cell count was at 9.9. She has chronic stage III kidney disease with a creatinine of 2.24 and a BUN of 50. She had a normal sinus rhythm. The chest x-ray showed chronic right hemidiaphragmatic elevation which is known to us and there is no acute process. She is currently on a combination of Ventolin HFA, Flovent HFA, IV Solu Medrol 60 mg every 6 hours and Spiriva one inhalation a day. Covid 19 evaluation was negative. The patient was also noted to have increased swelling lower extremity is bilaterally. She has chronic edema and there is interval worsening in the swelling and the patient has some weeping of the fluid from the lateral aspect of the right lower extremity and areas of breath macerated and excoriated. There may be some surrounding erythema involving the right lower extremity also. The patient is known to have chronic pulmonary hyper tension. Based on previous echocardiograms, she has severe pulmonary hypertension with a PA pressures above 60 and a preserved LV function with an ejection fraction of 55-60%. No valvular abnormalities noted. On 10/04/2019 patient seen in follow-up on medical surgical floor. He is resting comfortably in bed, she has been started on diuretics, and she is in - 2.3 L over the last 24 hours, still has significant amount of lower extremity edema. Lung sounds are diminished, no significant rhonchi or wheezes, patient is on breathing treatments, Singulair, and Spiriva. Coronavirus PCR negative. No fever or chills, labs have been reviewed today, renal profile is improved, would BUN at 50 and creatinine is down to 1.28. Electrolytes are within normal limits. On 10/05/2019 patient seen in follow-up on medical surgical floor. She is on IV diuretics with Lasix 40 mg every 12 hours, and she is in -1.9 L over the last 24 hours, lower extremity edema is improving, and her lower legs appear to be less weepy, no erythema or warmth noted. Patient remains on IV Kefzol. Breathing appears to be comfortable, patient is on 3 L of oxygen the pulse ox of 97%, no fever or chills. Resting comfortably in bed. On 10/06/2019 patient seen in follow-up on medical surgical floor, she is diuresing, remains on same dose of Lasix of 40 mg every 12 hours, and she is in -1.5 L over the last 24 hours, lower extremity edema is improving, still has some residual edema however areas of cellulitis are not weeping anymore, not erythematous or warm. Patient is also receiving local wound treatment including Silvadene to lower extremities. She has been afebrile, hemodynamically stable, seems quite comfortable resting in bed, lung sounds are essentially clear on today's exam. Blood cultures have shown no growth, remains on Kefzol, ID service is following, remains on oral prednisone, and she is on Spiriva, and albuterol treatments. The patient was seen on 10/07/2019 in follow-up on the regular medical floor. She is currently resting comfortably in bed. Awake and alert in no acute distress. Denies any worsening shortness of breath, cough or congestion. Maintaining O2 saturations in the 90s on 4 L/m per nasal cannula. She's afebrile. Blood cultures reveal no growth. Sodium 143. Potassium 3.7. CO2 38. Creatinine 1.22. She has been maintained on bronchodilators, cefazolin. ID is on the case. Objective - Vital Signs Vital signs: Vital Signs Temp 98 F 10/07/19 07:00 Pulse 79 10/07/19 09:04 Resp 16 10/07/19 07:00 BP 160/84 10/07/19 07:00 Pulse Ox 97 10/07/19 07:00 Intake & Output 10/06/19 10/07/19 10/07/19 18:59 06:59 18:59 Intake Total 590 Output Total 2200 Balance -1610 Weight 126 kg Intake: Intake, IV Titration 50 Amount ceFAZolin 2 gm In Sodium 50 Chloride 0.9% 50 ml @ 100 mls/hr IVPB Q8HR [facility] Rx# :[id number] Oral 540 Output: Urine 2200 Other: Voiding Method Incontinent Incontinent Bedside Commode Incontinent # Voids 3 1 # Bowel Movements 1 2 - Exam GENERAL EXAM: Alert, very pleasant, 73-year-old female patient, morbidly obese, resting comfortably in bed in no apparent distress. HEAD: Normocephalic/atraumatic. EYES: Normal reaction of pupils, equal size. Conjunctiva pink, sclera white. NOSE: Clear with pink turbinates. THROAT: Crowding the posterior pharynx No erythema or exudates. NECK: No masses, no JVD, no thyroid enlargement, no adenopathy. CHEST: No chest wall deformity. Symmetrical expansion. LUNGS: Equal air entry with no crackles, wheeze, rhonchi or dullness. CVS: Regular rate and rhythm, normal S1 and S2, no gallops, no murmurs, no rubs ABDOMEN: Soft, nontender. No hepatosplenomegaly, normal bowel sounds, no guarding or rigidity. EXTREMITIES: No clubbing, 1+ lower extremity edema, with cellulitis, no weeping from the open rash on bilateral lower extremities no cyanosis, 2+ pulses and upper and lower extremities. MUSCULOSKELETAL: Muscle strength and tone normal. SPINE: No scoliosis or deformity SKIN: No rashes CENTRAL NERVOUS SYSTEM: No focal deficits, tone is normal in all 4 extremities. PSYCHIATRIC: Alert and oriented -3. Appropriate affect. Intact judgment and insight. - Labs CBC & Chem 7: 10/02/19 14:40 10/07/19 07:19 Labs: Abnormal Lab Results - Last 24 Hours (Table) 10/06/19 10/06/19 10/06/19 Range/Units 11:51 16:08 16:57 Carbon Dioxide 34 H (22-30) mmol/L BUN 45 H (7-17) mg/dL Creatinine 1.35 H (0.52-1.04) mg/dL Glucose 270 H (74-99) mg/dL POC Glucose (mg/dL) 154 H 238 H (75-99) mg/dL 10/06/19 10/07/19 10/07/19 Range/Units 20:19 07:19 07:49 Carbon Dioxide 38 H (22-30) mmol/L BUN 41 H (7-17) mg/dL Creatinine 1.22 H (0.52-1.04) mg/dL Glucose 103 H (74-99) mg/dL POC Glucose (mg/dL) 192 H 102 H (75-99) mg/dL Microbiology - Last 24 Hours (Table) 10/02/19 15:39 Blood Culture - Preliminary Blood No Growth after 96 hours Assessment and Plan Assessment: #1 shortness of breath, most likely secondary to exacerbation of her chronic obstructive lung disease which is probably in the form of chronic bronchial asthma in addition to chronic respiratory insufficiency related to a right hemidiaphragmatic paralysis in addition to morbid obesity and chronic hypoxic and hypercapnic respiratory failure. She may have a component of obesity hypoventilation syndrome as the patient has a BMI of 51.2.. She is a chronic CO2 retainer. Her baseline pCO2 is in the mid 50s millimeters of mercury. No evidence of any pneumonia. #2 recurrent hospitalizations for the same #3 Chronic elevation of right hemidiaphragm with chronic hypoxemic respiratory failure secondary to previous spinal surgery.patient has a CPAP unit that she utilizes on outpatient basis. The exact pressure setting is not known at this point in time. #4 acute on top of chronic kidney disease, stage III. And the patient's creatinine is on the rise at 2.24 #5 Chronic diastolic congestive heart failure with chronic lower extremity edema. #6 Morbid obesity. #7 Hypothyroidism. #8 Hypertension. #9 Hyperlipidemia. #10 History of seizure disorder. #11 Previous history of overdose with pain medication requiring mechanical ventilatory support. #12 Osteoarthritis. #13 History of anxiety/depression. #14 chronic hypoxic and hypercapnic respiratory failure admitted on oxygen at 2 L and maintain on CPAP overnight #15 history of lung surgery, possibly a limited right lower lobe resection #16 concentric LVH along with severe pulmonary hypertension with an estimated right ventricular systolic pressure being about 60 mmHg. #17 increased lower extremity edema, with weeping of fluid from the lateral surface of the legs suspected infection. Plan: The patient was seen and evaluated by Dr. Vanegas Cleared for discharge from the pulmonary standpoint Assure home oxygen and CPAP are used Antibiotics per ID I, the cosigning physician, performed a history & physical examination of the patient. Lungs sounds are clear. Maintaining good O2 saturations in the 90s on 3 L/m per nasal cannula I discussed the assessment and plan of care with my nurs e practitioner, Renetta Sauceda. I attest to the above note as dictated by her.
[2019-10-07 11:44] LABS: Glucose,Whole Blood 202 mg/dL (75-99)
[2019-10-07 11:58] VITALS: PULSE 84
--- NOTE | 2019-10-07 11:59 | P.PN ---
Subjective Progress Note Date: 10/07/19 Principal diagnosis: This is a 73-year-old female seen in consultation because of cardiorenal syndrome. She was initially admitted with pain and swelling and redness in the right lower extremity with edema and shortness of breath She has obstructive sleep apnea and uses oxygen at home. She is much better was to be discharged. She is known with acute kidney injury as well as chronic kidney disease. Currently she is on nasal cannula oxygen and feels comfortable. Good appetite no chest pain. No dizziness Objective - Vital Signs Vital signs: Vital Signs Temp 98 F 10/07/19 07:00 Pulse 79 10/07/19 09:04 Resp 16 10/07/19 07:00 BP 160/84 10/07/19 07:00 Pulse Ox 97 10/07/19 07:00 Intake & Output 10/06/19 10/07/19 10/07/19 18:59 06:59 18:59 Intake Total 590 Output Total 2200 Balance -1610 Weight 126 kg Intake: Intake, IV Titration 50 Amount ceFAZolin 2 gm In Sodium 50 Chloride 0.9% 50 ml @ 100 mls/hr IVPB Q8HR [facility] Rx# :[id number] Oral 540 Output: Urine 2200 Other: Voiding Method Incontinent Incontinent Bedside Commode Incontinent # Voids 3 1 # Bowel Movements 1 2 On examination awake alert oriented HEENT exam no JVP neck is supple no facial asymmetry Lungs are clear to auscultation with somewhat diminished air entry on the right. She has had some surgery at this site Heart sounds are unremarkable for any murmur rub gallop Abdomen soft nontender obese Extremities exam reveals minimal edema Neurologically awake alert oriented - Labs CBC & Chem 7: 10/02/19 14:40 10/07/19 07:19 Labs: Abnormal Lab Results - Last 24 Hours (Table) 10/06/19 10/06/19 10/06/19 Range/Units 11:51 16:08 16:57 Carbon Dioxide 34 H (22-30) mmol/L BUN 45 H (7-17) mg/dL Creatinine 1.35 H (0.52-1.04) mg/dL Glucose 270 H (74-99) mg/dL POC Glucose (mg/dL) 154 H 238 H (75-99) mg/dL 06/05/20 06/06/20 06/06/20 Range/Units 20:19 07:19 07:49 Carbon Dioxide 38 H (22-30) mmol/L BUN 41 H (7-17) mg/dL Creatinine 1.22 H (0.52-1.04) mg/dL Glucose 103 H (74-99) mg/dL POC Glucose (mg/dL) 192 H 102 H (75-99) mg/dL 10/07/19 Range/Units 11:43 Carbon Dioxide (22-30) mmol/L BUN (7-17) mg/dL Creatinine (0.52-1.04) mg/dL Glucose (74-99) mg/dL POC Glucose (mg/dL) 202 H (75-99) mg/dL Microbiology - Last 24 Hours (Table) 10/02/19 15:39 Blood Culture - Preliminary Blood No Growth after 96 hours Assessment and Plan Assessment: Pressure 1. Acute kidney injury from cardiorenal syndrome responding with creatinine down fair amount of urine output on Lasix IV 40 mg daily. Creatinine down to 1.2 2. Chronic kidney disease, creatinine baseline 1.4 2019 3. COPD 4. Chronic right history heavy diaphragmatic paralyzed paralysis 5. Mild metabolic alkalosis bicarb is 38 secondary to diuresis 6. Anemia of chronic kidney disease hemoglobin is 9.5 Recommendation Patient can be discharged to be followed closely in the office within the next 1 week. Suggest continuing Lasix 40 in the morning and 20 thereafter as her home Lasix was 40 only Follow-up metabolic alkalosis
--- NOTE | 2019-10-07 20:36 | P.DS ---
Providers Date of admission: 10/02/19 17:20 Expected date of discharge: 10/07/19 Attending physician: Diogo Salas Consults: 10/03/19 12:00 Consult Physician Routine Consulting Provider: Christoph Vanegas Consult Reason/Comments: copd Do you want consulting provider notified?: Yes 10/03/19 12:01 Consult Physician Routine Consulting Provider: Mayelin Lockwood Consult Reason/Comments: R LE cellulitis Do you want consulting provider notified?: Yes 10/03/19 19:45 Consult Physician Routine Consulting Provider: Christa Portillo Consult Reason/Comments: Renal failure Do you want consulting provider notified?: Yes Primary care physician: [facility] Course: Chief Complaint: Short of breath, redness of right leg History of presenting complaint: This is a pleasant 73-year-old patient of Dr. Roger from visiting physicians. Chronic stable medical conditions include hyperlipidemia, hypertension, primary osteoarthritis, chronic kidney disease, seizure disorder, hypothyroidism, phrenic nerve damage with back surgery, causing right-sided hemidiaphragm paralysis, partial right lower lobe resection. Patient on home oxygen 3 L, chronic back pain from T8-T9 compression fracture, MRSA osteomyelitis in 2006, nonhealing abdominal ulcer, CHF EF 55 and 55%. Patient now presents with redness right leg weeping for about 5 days and some breakdown of skin. Had some low-grade fever. It is painful. Patient also being increasingly short of breath and wheezing for last couple of days. No sputum production. No fever or chills. Appetite is fair. Present combination of above symptoms. And at baseline uses a cane. Admitted with-acute asthma exacerbation, cellulitis right lower extremity, acute hypoxic respiratory failure. Also acute kidney injury. Amlodipine was discontinued to prevent the lower extremity swelling. Also dose of Neurontin cut back-because of renal failure. Today-pain well. Breathing is stable. Lower extremity is looking good. Tolerating a diet. Care was discussed with the patient. Questions were answered. Discussed with nephrology-. Consultation: Dr. Vanegas-pulmonary Dr. lockwood from ID Dr. Portillo from nephrology Physical examination: VITAL SIGNS: 98, 79, 16, 160/84, 97% on 4 L GENERAL: Sitting on bed, comfortable EYES: Pupils equal. Conjunctiva normal. HEENT: External appearance of nose and ears normal, oral cavity grossly normal. NECK: JVD unable to assess; masses not palpable. HEART: First and second heart sounds are normal; nonpitting edema. LUNGS: respiratory effort increased, decreased breath sounds ABDOMEN: Soft, nontender, liver spleen not palpable, no masses palpable. PSYCH: Alert and oriented x3; mood and affect anxious EXTREMITY: Redness-Edema much improved. Investigations, reviewed in the clinical context. Bun 41 creatinine 1.22 Previous testing White count 9.9 hemoglobin 9.5 platelets 199 potassium 4.7 bun 50 creatinine 2.24 Patient's lab work on September 10 showed a bun of 41 and creatinine of 1.4 to Palpable lactic acid 1.14 BNP 197 troponin I 0.0-6 COVID 19 PCR-not detected EKG tracing personally reviewed by me-normal sinus rhythm Chest x-ray film personally reviewed by me-elevation of right diaphragm, hardware in the spine, possible chronic changes Assessment: -Acute exacerbation of moderate persistent asthma, secondary to above, POA, significantly improved -Acute cellulitis with breakdown superficial skin with some edema on the right lower extremity, POA, much improved -Acute hypoxic respiratory failure from above, POA -Chronic hypoxic respiratory failure from asthma on 3 L of oxygen at home -Moderate obesity BMI 51.2 -Hyperlipidemia -Essential hypertension -Primary osteoarthritis -Hypothyroidism -Chronic right diaphragm paralysis, from prior surgery -History of right lower lobe lung resection -Chronic congestive heart failure from diastolic dysfunction EF 50-55 %-doubt acute flareup. Patient's proBNP is only 197. Lower extremity edema likely from amlodipine, and Neurontin. And venous insufficiency. -Cor pulmonale with acute flareup -Chronic kidney disease stage III from nephrosclerosis -Acute kidney injury with creatinine going from 1.4-2.24 in 3 weeks.- Significantly improved Disposition: Home Patient Condition at Discharge: Stable Plan - Discharge Summary Discharge Rx Participant: Yes New Discharge Prescriptions: New Cephalexin [Keflex] 500 mg PO Q8HR #21 cap Triamcinolone 0.1% Ointment [Kenalog 0.1% Ointment] 1 applic TOPICAL DAILY applic Nystatin 100,000 Unit/gm Oint [Mycostatin Oint] 1 applic TOPICAL DAILY applic Gabapentin [Neurontin] 200 mg PO TID #90 cap predniSONE 0 mg PO DIRECTED #10 tab Continue HYDROcodone/APAP 10-325MG [[place] 10-325] 1 tab PO Q6H PRN PRN Reason: Pain Aspirin EC [Ecotrin Low Dose] 81 mg PO DAILY Cyanocobalamin (Vitamin B-12) [Vitamin B-12] 1,000 mcg PO DAILY Levothyroxine Sodium [Synthroid] 150 mcg PO DAILY Vitamin B Complex 1 cap PO DAILY Ergocalciferol [Vitamin D2 (DRISDOL)] 50,000 unit PO WE Rosuvastatin [Crestor] 20 mg PO HS Pantoprazole [Protonix] 40 mg PO AC-BRKFST #30 tablet. Montelukast [Singulair] 10 mg PO HS Ferrous Sulfate [Iron (65 MG Elemental)] 325 mg PO BID Diphenox-Atrop 2.5-0.025 mg [Lomotil] 2 tab PO QID PRN PRN Reason: Diarrhea busPIRone HCL 10 mg PO BID Sertraline HCl [Zoloft] 100 mg PO DAILY Mirabegron [Myrbetriq] 50 mg PO HS Metoprolol Tartrate [Lopressor] 50 mg PO BID #60 tab Furosemide [Lasix] 40 mg PO DAILY Ondansetron HCl [Zofran] 4 mg PO Q6H PRN PRN Reason: Nausea And Vomiting Topiramate [Topamax] 100 mg PO TID Ipratropium-Albuterol Nebulize [Duoneb 0.5 mg-3 mg/3 ml Soln] 3 ml INHALATION RT-Q6H Budesonide [Pulmicort] 0.5 mg INHALATION RT-BID Fluticasone Nasal [place] [Flonase Nasal [place]] 1 spr EA NOSTRIL BID PRN PRN Reason: Cold Symptoms Potassium Chloride ER [K-Dur 20] 20 meq PO DAILY Oxymetazoline 0.05% Nasl [place] [Afrin 0.05% Nasal [place]] 2 spray EA NOSTRIL BID Discontinued amLODIPine [Norvasc] 10 mg PO DAILY Gabapentin [Neurontin] 400 mg PO TID Discharge Medication List HYDROcodone/APAP 10-325MG [[place] 10-325] 1 tab PO Q6H PRN 06/25/16 [History] Aspirin EC [Ecotrin Low Dose] 81 mg PO DAILY 09/02/17 [History] Cyanocobalamin (Vitamin B-12) [Vitamin B-12] 1,000 mcg PO DAILY 07/22/18 [History] Ergocalciferol [Vitamin D2 (DRISDOL)] 50,000 unit PO WE 07/22/18 [History] Levothyroxine Sodium [Synthroid] 150 mcg PO DAILY 07/22/18 [History] Rosuvastatin [Crestor] 20 mg PO HS 07/22/18 [History] Vitamin B Complex 1 cap PO DAILY 07/22/18 [History] Pantoprazole [Protonix] 40 mg PO AC-BRKFST #30 tablet.dr 09/14/18 [Rx] Diphenox-Atrop 2.5-0.025 mg [Lomotil] 2 tab PO QID PRN 01/21/19 [History] Ferrous Sulfate [Iron (65 MG Elemental)] 325 mg PO BID 01/21/19 [History] Montelukast [Singulair] 10 mg PO HS 01/21/19 [History] Mirabegron [Myrbetriq] 50 mg PO HS 04/02/19 [History] Sertraline HCl [Zoloft] 100 mg PO DAILY 04/02/19 [History] busPIRone HCL 10 mg PO BID 04/02/19 [History] Metoprolol Tartrate [Lopressor] 50 mg PO BID #60 tab 04/04/19 [Rx] Furosemide [Lasix] 40 mg PO DAILY 09/09/19 [History] Budesonide [Pulmicort] 0.5 mg INHALATION RT-BID 09/11/19 [History] Fluticasone Nasal [place] [Flonase Nasal [place]] 1 spr EA NOSTRIL BID PRN 09/11/19 [History] Ipratropium-Albuterol Nebulize [Duoneb 0.5 mg-3 mg/3 ml Soln] 3 ml INHALATION RT-Q6H 09/11/19 [History] Ondansetron HCl [Zofran] 4 mg PO Q6H PRN 09/11/19 [History] Oxymetazoline 0.05% Nasl [place] [Afrin 0.05% Nasal [place]] 2 spray EA NOSTRIL BID 09/11/19 [History] Potassium Chloride ER [K-Dur 20] 20 meq PO DAILY 09/11/19 [History] Topiramate [Topamax] 100 mg PO TID 09/11/19 [History] Cephalexin [Keflex] 500 mg PO Q8HR #21 cap 10/07/19 [Rx] Gabapentin [Neurontin] 200 mg PO TID #90 cap 10/07/19 [Rx] Nystatin 100,000 Unit/gm Oint [Mycostatin Oint] 1 applic TOPICAL DAILY applic 10/07/19 [Rx] Triamcinolone 0.1% Ointment [Kenalog 0.1% Ointment] 1 applic TOPICAL DAILY applic 10/07/19 [Rx] predniSONE 0 mg PO DIRECTED #10 tab 10/07/19 [Rx] Follow up Appointment(s)/Referral(s): Baudilio Roger MD [Primary Care Provider] - 1-2 days Patient Instructions/Handouts: COPD (Chronic Obstructive Pulmonary Disease) (DC) Activity/Diet/Wound Care/Special Instructions: [facility] [phone] . Discharge Disposition: HOME SELF-CARE
== END 2019-10-07 14:38 | disposition home or self-care (01) | DRG 202 ==
LOC: EC 13:42 → 4SSUR 17:20
PROVIDERS: ADMIT Hospitalist; ATTEND Hospitalist
DX: J45.41 Moderate persistent asthma with (acute) exacerbation (principal); J96.22 Acute and chronic respiratory failure with hypercapnia; J96.21 Acute and chronic respiratory failure with hypoxia; I26.09 Other pulmonary embolism with acute cor pulmonale; J44.1 Chronic obstructive pulmonary disease with (acute) exacerbation; I13.0 Hypertensive heart and chronic kidney disease with heart failure and stage 1 through stage 4 chronic kidney disease, or unspecified chronic kidney disease; I50.32 Chronic diastolic (congestive) heart failure; L03.115 Cellulitis of right lower limb; L03.116 Cellulitis of left lower limb; M48.54XA Collapsed vertebra, not elsewhere classified, thoracic region, initial encounter for fracture; N17.9 Acute kidney failure, unspecified; Z68.43 Body mass index [BMI] 50.0-59.9, adult; E87.3 Alkalosis; Z20.828 Contact with and (suspected) exposure to other viral communicable diseases; Z87.01 Personal history of pneumonia (recurrent); Z99.81 Dependence on supplemental oxygen; Z87.440 Personal history of urinary (tract) infections; Z88.1 Allergy status to other antibiotic agents; Z88.5 Allergy status to narcotic agent; N18.3 Chronic kidney disease, stage 3 (moderate); D63.1 Anemia in chronic kidney disease; Z87.891 Personal history of nicotine dependence; J98.6 Disorders of diaphragm; M19.91 Primary osteoarthritis, unspecified site; T50.2X5A Adverse effect of carbonic-anhydrase inhibitors, benzothiadiazides and other diuretics, initial encounter; Z86.14 Personal history of Methicillin resistant Staphylococcus aureus infection; E03.9 Hypothyroidism, unspecified; E66.01 Morbid (severe) obesity due to excess calories; E78.5 Hyperlipidemia, unspecified; E86.0 Dehydration; F32.9 Major depressive disorder, single episode, unspecified; F41.9 Anxiety disorder, unspecified; G40.909 Epilepsy, unspecified, not intractable, without status epilepticus; G47.33 Obstructive sleep apnea (adult) (pediatric); Z99.89 Dependence on other enabling machines and devices; G89.29 Other chronic pain; I87.2 Venous insufficiency (chronic) (peripheral); Z79.82 Long term (current) use of aspirin; Z79.890 Hormone replacement therapy; Z79.899 Other long term (current) drug therapy; Z82.5 Family history of asthma and other chronic lower respiratory diseases; Z90.710 Acquired absence of both cervix and uterus; Z91.19 Patient's noncompliance with other medical treatment and regimen; Z60.2 Problems related to living alone; Z98.1 Arthrodesis status; R60.0 Localized edema; T46.1X5A Adverse effect of calcium-channel blockers, initial encounter; T42.6X5A Adverse effect of other antiepileptic and sedative-hypnotic drugs, initial encounter; M41.9 Scoliosis, unspecified; Z90.49 Acquired absence of other specified parts of digestive tract
CPT/HCPCS: 36415; 71046; 80048; 80053; 81001; 82550; 83605; 83735; 83880; 84484; 85025; 85610; 85730; 87040; 93005; 94640; 99285

== ENCOUNTER 2020-01-12 18:34 | Inpatient (IN) | payer MEDICARE ==
[2020-01-12] MEDS ORDERED: IPRATROPIUM 0.5 MG/2.5 ML NEBU INHALATION STA (18:39)
[2020-01-12] MEDS ORDERED: ALBUTEROL NEBULIZED 2.5 MG/3 ML INHALATION STA (18:39)
[2020-01-12] MEDS ORDERED: methylPREDNISolone SOD SUCCI 125 MG/2 ML VIAL IV STA (18:39)
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
[2020-01-12 19:16] LABS: Anisocytosis Slight; Basophils % (A) 0 %; Eosinophils # (A) 0.2 k/uL (0-0.7); Eosinophils % (A) 2 %; HCT 32.9 % (34.0-46.0); HGB 9.9 gm/dL (11.4-16.0); Hypochromasia Marked; Lymphocytes # (A) 0.7 k/uL (1.0-4.8); Lymphocytes % (A) 7 %; MCH 27.3 pg (25.0-35.0); MCV 90.9 fL (80.0-100.0); Mean Platelet Volume 7.1; Monocytes # (A) 0.5 k/uL (0-1.0); Monocytes % (A) 4 %; Neutrophils % (A) 86 %; Platelet Count 230 k/uL (150-450); RBC 3.63 m/uL (3.80-5.40); RDW 16.8 % (11.5-15.5); WBC 10.6 k/uL (3.8-10.6)
[2020-01-12 19:18] LABS: Albumin 3.9 g/dL (3.5-5.0); Calcium 8.8 mg/dL (8.4-10.2); Magnesium 1.9 mg/dL (1.6-2.3); Potassium 4.9 mmol/L (3.5-5.1); Total Bilirubin 0.3 mg/dL (0.2-1.3); Total Protein 6.3 g/dL (6.3-8.2)
--- NOTE | 2020-01-12 19:26 | XR ---
EXAMINATION TYPE: XR chest 1V portable DATE OF EXAM: 01/12/2020 COMPARISON: 10/02/2019 HISTORY: Difficulty breathing TECHNIQUE: FINDINGS: There is elevated right diaphragm. There is multilevel posterior fusion surgery in the thor acic spine. There is no gross heart failure. There is coarsening of interstitial markings. IMPRESSION: There is chronic elevation of the right diaphragm and right basilar atelectasis unchanged compared to old exam. No heart failure seen. This could relate to some diaphragm paralysis.
[2020-01-12 19:28] LABS: INR 0.9 (<1.2); Partial Thromboplastin Time 21.9 sec (22.0-30.0); Prothrombin Time 9.8 sec (9.0-12.0)
[2020-01-12] MEDS ORDERED: IPRATROPIUM-ALBUTEROL 3 ML NEB INHALATION PRN (20:08)
[2020-01-12] MEDS ORDERED: HYDROcodone/APAP 10-325MG 1 EACH TAB PO ONE (21:08)
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
[2020-01-12] MEDS: INSULIN DETEMIR (LEVEMIR) 100 UNIT/ML SYR SQ SCH (23:03)
[2020-01-12] MEDS: methylPREDNISolone SOD SUCCI 125 MG/2 ML VIAL IV SCH (23:04)
[2020-01-12] MEDS: HEPARIN SODIUM,PORCINE 5,000 UNIT/ML 1 ML VIAL SQ SCH (23:05)
[2020-01-13] MEDS: HYDROcodone/APAP 10-325MG 1 EACH TAB PO PRN ×4 (02:37→22:07)
[2020-01-13] MEDS ORDERED: MORPHINE SULFATE 2 MG/ML SYRINGE IVP STA ×2 (06:02→16:00)
[2020-01-13] MEDS: PANTOPRAZOLE 40 MG TABLET PO SCH (06:08)
[2020-01-13] MEDS: methylPREDNISolone SOD SUCCI 125 MG/2 ML VIAL IV SCH ×2 (06:08→19:11)
[2020-01-13] MEDS: LEVOTHYROXINE 100 MCG TAB PO SCH (06:08)
[2020-01-13] MEDS: INSULIN ASPART (NovoLOG) 100 UNIT/ML VIAL SQ SCH ×4 (06:15→20:27)
[2020-01-13 06:19] LABS: Glucose,Whole Blood 245 mg/dL (75-99)
[2020-01-13 06:50] LABS: Anisocytosis Slight; HCT 35.2 % (34.0-46.0); HGB 10.4 gm/dL (11.4-16.0); Hypochromasia Marked; MCH 27.4 pg (25.0-35.0); MCHC 29.6 g/dL (31.0-37.0); MCV 92.4 fL (80.0-100.0); Mean Platelet Volume 7.2; Platelet Count 212 k/uL (150-450); RBC 3.81 m/uL (3.80-5.40); RDW 16.5 % (11.5-15.5); WBC 11.6 k/uL (3.8-10.6)
[2020-01-13 07:04] LABS: Calcium 8.9 mg/dL (8.4-10.2); Magnesium 1.9 mg/dL (1.6-2.3)
[2020-01-13] MEDS: IPRATROPIUM-ALBUTEROL 3 ML NEB INHALATION SCH ×5 (08:23→19:16)
[2020-01-13] MEDS: BUDESONIDE 0.5 MG/2 ML NEBU INHALATION SCH ×2 (08:23→19:16)
[2020-01-13] MEDS: FUROSEMIDE 10 MG/ML 4 ML VIAL IV SCH ×2 (09:14→20:26)
[2020-01-13] MEDS: GABAPENTIN 400 MG CAP PO SCH ×3 (09:15→20:26)
[2020-01-13] MEDS: SERTRALINE 100 MG TAB PO SCH (09:15)
[2020-01-13] MEDS: HEPARIN SODIUM,PORCINE 5,000 UNIT/ML 1 ML VIAL SQ SCH ×3 (09:15→23:16)
[2020-01-13] MEDS: ASPIRIN 81 MG PO SCH (09:15)
[2020-01-13 12:33] LABS: Glucose,Whole Blood 307 mg/dL (75-99)
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
--- NOTE | 2020-01-13 14:42 | P.PN ---
Subjective Progress Note Date: 01/13/20 Patient is still complaining of shortness of breath but reported that is better compared to yesterday. She is urinating well. She denies any chest pain. Objective - Vital Signs Vital signs: Vital Signs Temp 97.7 F 01/13/20 08:00 Pulse 77 01/13/20 11:56 Resp 21 01/13/20 08:00 BP 137/74 01/13/20 08:00 Pulse Ox 95 01/13/20 08:00 Intake & Output 01/12/20 01/13/20 01/13/20 18:59 06:59 18:59 Intake Total 240 Output Total 500 500 Balance -500 -260 Weight 135.034 kg 134.3 kg Intake: Oral 240 Output: Urine 500 500 Other: # Voids 1 - Exam General: The patient is awake and alert, in no distress Eye: there is normal conjunctiva bilaterally. Neck: The neck is supple, there is no JVD. Cardiovascular: Normal S1-S2, no S3-S4, no murmurs. Respiratory: Lungs clear to auscultation bilaterally Gastrointestinal: Abdomen is soft, nontender Musculoskeletal: There is +3 pedal edema up to the knee Neurological:. Speech is normal. Skin: Skin is warm and dry and there is redness and warmth in both legs below the knee down to the ankle - Labs CBC & Chem 7: 01/13/20 05:44 01/13/20 05:44 Labs: Abnormal Lab Results - Last 24 Hours (Table) 01/12/20 01/12/20 01/12/20 Range/Units 18:58 18:58 18:58 WBC (3.8-10.6) k/uL RBC 3.63 L (3.80-5.40) m/uL Hgb 9.9 L (11.4-16.0) gm/dL Hct 32.9 L (34.0-46.0) % MCHC 30.0 L (31.0-37.0) g/dL RDW 16.8 H (11.5-15.5) % Neutrophils # 9.0 H (1.3-7.7) k/uL Lymphocytes # 0.7 L (1.0-4.8) k/uL APTT 21.9 L (22.0-30.0) sec BUN 47 H (7-17) mg/dL Creatinine 1.91 H (0.52-1.04) mg/dL Glucose 195 H (74-99) mg/dL POC Glucose (mg/dL) (75-99) mg/dL 01/13/20 01/13/20 01/13/20 Range/Units 05:44 05:44 06:09 WBC 11.6 H (3.8-10.6) k/uL RBC (3.80-5.40) m/uL Hgb 10.4 L (11.4-16.0) gm/dL Hct (34.0-46.0) % MCHC 29.6 L (31.0-37.0) g/dL RDW 16.5 H (11.5-15.5) % Neutrophils # (1.3-7.7) k/uL Lymphocytes # (1.0-4.8) k/uL APTT (22.0-30.0) sec BUN 45 H (7-17) mg/dL Creatinine 1.72 H (0.52-1.04) mg/dL Glucose 256 H (74-99) mg/dL POC Glucose (mg/dL) 245 H (75-99) mg/dL 01/13/20 Range/Units 12:25 WBC (3.8-10.6) k/uL RBC (3.80-5.40) m/uL Hgb (11.4-16.0) gm/dL Hct (34.0-46.0) % MCHC (31.0-37.0) g/dL RDW (11.5-15.5) % Neutrophils # (1.3-7.7) k/uL Lymphocytes # (1.0-4.8) k/uL APTT (22.0-30.0) sec BUN (7-17) mg/dL Creatinine (0.52-1.04) mg/dL Glucose (74-99) mg/dL POC Glucose (mg/dL) 307 H (75-99) mg/dL Assessment and Plan Assessment: The patient is a 74-year-old female with complex past medical history noted below who presented to the ED with complaints of shortness of breath. Patient was evaluated in the ER and currently admitted to the hospital for further management of her medical problems noted below 1. Acute diastolic heart failure exacerbation, echocardiogram in January 2019 showed preserved ejection fraction. Repeat echocardiogram ordered. Continue diuresis with IV Lasix 40 mg twice daily. Accurate I's and O's. Daily weights. 2. Acute asthma exacerbation, started on IV Solu-Medrol 60 mg every 6 hours. I would decrease the dose to 40 mg every 12 hours. Transition to oral prednisone within the next day or 2. Continue duo nebs as ordered. Pulmonology consulted for further evaluation. 3. Bilateral lower extremity cellulitis, started on IV cefazolin. We'll cont inue to monitor. 4. Acute kidney injury on stage IIIB chronic kidney disease. We will continue to monitor creatinine closely. Baseline around 1.6 5. Type 2 diabetes. A1c pending. Continue sliding scale insulin. 6. Chronic paralysis of the right diaphragm with chronic dyspnea 7. Chronic hypoxic respiratory failure on home O2 3 L 8. Other medical problems, essential hypertension, mixed hyperlipidemia, and underlying seizure disorder. Stable continue home medications 9. DVT prophylaxis with subcu heparin
[2020-01-13 17:22] LABS: Glucose,Whole Blood 242 mg/dL (75-99)
[2020-01-13 20:23] LABS: Glucose,Whole Blood 185 mg/dL (75-99)
[2020-01-13] MEDS: ATORVASTATIN 40 MG TAB PO SCH (20:26)
[2020-01-13] MEDS: MONTELUKAST 10 MG TAB PO SCH (20:26)
[2020-01-13] MEDS: methylPREDNISolone SOD SUCCI 40 MG/ML 1 ML VIAL IV SCH (20:27)
[2020-01-13] MEDS: INSULIN DETEMIR (LEVEMIR) 100 UNIT/ML SYR SQ SCH (20:27)
[2020-01-13 23:49] LABS: Hemoglobin A1C 7.1 % (4.0-6.0)
[2020-01-14] MEDS ORDERED: MORPHINE SULFATE 2 MG/ML SYRINGE IVP STA (00:20)
[2020-01-14] MEDS: HYDROcodone/APAP 10-325MG 1 EACH TAB PO PRN ×4 (03:05→23:04)
[2020-01-14 06:13] LABS: Glucose,Whole Blood 195 mg/dL (75-99)
[2020-01-14] MEDS: INSULIN ASPART (NovoLOG) 100 UNIT/ML VIAL SQ SCH ×4 (06:26→21:00)
[2020-01-14] MEDS: PANTOPRAZOLE 40 MG TABLET PO SCH (06:26)
[2020-01-14] MEDS: LEVOTHYROXINE 100 MCG TAB PO SCH (06:26)
[2020-01-14 07:02] LABS: Calcium 9.1 mg/dL (8.4-10.2); Magnesium 1.8 mg/dL (1.6-2.3); Potassium 4.2 mmol/L (3.5-5.1)
[2020-01-14] MEDS: BUDESONIDE 0.5 MG/2 ML NEBU INHALATION SCH ×2 (07:24→19:59)
[2020-01-14] MEDS: IPRATROPIUM-ALBUTEROL 3 ML NEB INHALATION SCH ×4 (07:24→19:59)
[2020-01-14] MEDS: ASPIRIN 81 MG PO SCH (10:28)
[2020-01-14] MEDS: methylPREDNISolone SOD SUCCI 40 MG/ML 1 ML VIAL IV SCH (10:28)
[2020-01-14] MEDS: HEPARIN SODIUM,PORCINE 5,000 UNIT/ML 1 ML VIAL SQ SCH ×3 (10:28→23:04)
[2020-01-14] MEDS: GABAPENTIN 400 MG CAP PO SCH ×3 (10:29→20:59)
[2020-01-14] MEDS: FUROSEMIDE 10 MG/ML 4 ML VIAL IV SCH ×2 (10:29→20:59)
[2020-01-14] MEDS: SERTRALINE 100 MG TAB PO SCH (10:34)
--- NOTE | 2020-01-14 10:47 | P.PN ---
Subjective Progress Note Date: 01/14/20 Patient is doing a lot better today. Shortness of breath improved significantly. Lungs are as recently as yesterday. Objective - Vital Signs Vital signs: Vital Signs Temp 98.2 F 01/14/20 03:10 Pulse 96 01/14/20 07:36 Resp 22 01/14/20 03:10 BP 152/69 01/14/20 03:10 Pulse Ox 92 L 01/14/20 03:10 Intake & Output 01/13/20 01/14/20 01/14/20 18:59 06:59 18:59 Intake Total 600 240 Output Total 1999 2249 Balance -1400 -225 240 Intake: Oral 600 240 Output: Urine 1999 2249 Other: Voiding Method Indwelling Catheter Indwelling Catheter # Voids 1 - Exam General: The patient is awake and alert, in no distress Eye: there is normal conjunctiva bilaterally. Neck: The neck is supple, there is no JVD. Cardiovascular: Normal S1-S2, no S3-S4, no murmurs. Respiratory: Lungs clear to auscultation bilaterally Gastrointestinal: Abdomen is soft, nontender Musculoskeletal: There is +2 pedal edema up to the knee Neurological:. Speech is normal. Skin: Skin is warm and dry - Labs CBC & Chem 7: 01/13/20 05:44 01/14/20 06:09 Labs: Abnormal Lab Results - Last 24 Hours (Table) 01/13/20 01/13/20 01/13/20 Range/Units 05:44 12:25 17:10 BUN (7-17) mg/dL Creatinine (0.52-1.04) mg/dL Glucose (74-99) mg/dL POC Glucose (mg/dL) 307 H 242 H (75-99) mg/dL Hemoglobin A1c 7.1 H (4.0-6.0) % 01/13/20 01/14/20 01/14/20 Range/Units 20:22 06:09 06:11 BUN 47 H (7-17) mg/dL Creatinine 1.34 H (0.52-1.04) mg/dL Glucose 187 H (74-99) mg/dL POC Glucose (mg/dL) 185 H 195 H (75-99) mg/dL Hemoglobin A1c (4.0-6.0) % Microbiology - Last 24 Hours (Table) 01/12/20 18:58 Blood Culture - Preliminary Blood No Growth after 24 hours Assessment and Plan Assessment: The patient is a 74-year-old female with complex past medical history noted below who presented to the ED with complaints of shortness of breath. Patient was evaluated in the ER and currently admitted to the hospital for further management of her medical problems noted below 1. Acute diastolic heart failure exacerbation, echocardiogram in January 2019 showed preserved ejection fraction. Repeat echocardiogram ordered. Continue diuresis with IV Lasix 40 mg twice daily. Accurate I's and O's. Daily weights. 2. Acute asthma exacerbation, started on IV Solu-Medrol 60 mg every 6 hours. I would decrease the dose to 40 mg every 12 hours. Transition to oral prednisone 40 mg daily starting tomorrow. Continue duo nebs as ordered. Pulmonology consulted for further evaluation. 3. Bilateral lower extremity cellulitis, started on IV cefazolin. We'll continue to monitor. 4. Acute kidney injury on stage IIIB chronic kidney disease. We will continue to monitor creatinine closely. Baseline around 1.6 5. Type 2 diabetes. A1c 7.1 . Continue sliding scale insulin. 6. Chronic paralysis of the right diaphragm with chronic dyspnea 7. Chronic hypoxic respiratory failure on home O2 3 L 8. Other medical problems, essential hypertension, mixed hyperlipidemia, and underlying seizure disorder. Stable continue home medications 9. DVT prophylaxis with subcu heparin
--- NOTE | 2020-01-14 11:02 | P.PN ---
Subjective Progress Note Date: 01/14/20 Principal diagnosis: Acute exacerbation of chronic diastolic congestive heart failure A 74-year-old female patient was known to me. She is morbidly obese and she has chronic hypoxic and hypercapnic respiratory failure in addition to varus other medical present comorbidities. She has chronic paralyzed right hemidiaphragm and addition to asthma and chronic kidney disease. The patient got hospitalized yesterday because of worsening shortness of breath, worsening lower extremity edema, weeping of fluid from the skin surface in lower extremities and development some of some open wounds and a rash/erythema over the lateral aspect of the right leg consistent with cellulitis. She was admitted for further management. She is currently subjected to diuretics and she is currently on IV Lasix. No altered mentation. No chest pain. No fever or chills.. Creatinine at time of admission was at 1.9 and the patient is producing adequate amount of urine output. The white cell count is 11.6. The chest x-ray showing essentially stable chronic right hemidiaphragmatic paralysis/elevation along with some atelectatic changes in the right lung base without any major interval change compared to the previous x-ray findings. There is also multilevel posterior fusion of the thoracic spine. No cardiomegaly. The patient is seen today 01/14/2020 in follow-up on the selective care unit. She is currently sitting up in the chair at the bedside. Awake and alert in no acute distress. She is breathing easier today compared to yesterday. She has diuresed over 3 L in the past 24 hours. Blood culture reveals no growth. Sodium 139. Potassium 4.2. Creatinine 1.34. She remains on Lasix 40 mg IV every 12 hours. Antibiotics in the form of. Less Redness and Edema of the Lower Extremities. Objective - Vital Signs Vital signs: Vital Signs Temp 98.2 F 01/14/20 03:10 Pulse 96 01/14/20 07:36 Resp 22 01/14/20 03:10 BP 152/69 01/14/20 03:10 Pulse Ox 92 L 01/14/20 03:10 Intake & Output 01/13/20 01/14/20 01/14/20 18:59 06:59 18:59 Intake Total 600 240 Output Total 1999 2249 Balance -1400 -2249 240 Intake: Oral 600 240 Output: Urine 1999 2249 Other: Voiding Method Indwelling Catheter Indwelling Catheter # Voids 1 - Exam GENERAL EXAM: Obese. Alert, pleasant 74-year-old female patient, comfortable in no apparent distress. On 3 L nasal cannula. HEAD: Normocephalic. EYES: Normal reaction of pupils, equal size. NOSE: Clear with pink turbinates. THROAT: No erythema or exudates. NECK: No masses, no JVD. CHEST: No chest wall deformity. LUNGS: Expiratory wheezes, few scattered rhonchi, diminished breath sounds in the right lung base. CVS: S1 and S2 normal with no audible murmur, regular rhythm. ABDOMEN: No hepatosplenomegaly, normal bowel sounds, no guarding or rigidity. SPINE: No scoliosis or deformity SKIN: No rashes CENTRAL NERVOUS SYSTEM: No focal deficits, tone is normal in all 4 extremities. EXTREMITIES: There is 1-2+ peripheral edema. The patient has evidence of cellulitis on the lateral aspect of the right lower extremity. At same time there are stage I/stage II wounds of various sizes in lower extremities bilaterally. These are superficial wounds . No clubbing, no cyanosis. Peripheral pulses are intact. - Labs CBC & Chem 7: 01/13/20 05:44 01/14/20 06:09 Labs: Abnormal Lab Results - Last 24 Hours (Table) 01/13/20 01/13/20 01/13/20 Range/Units 05:44 12:25 17:10 BUN (7-17) mg/dL Creatinine (0.52-1.04) mg/dL Glucose (74-99) mg/dL POC Glucose (mg/dL) 307 H 242 H (75-99) mg/dL Hemoglobin A1c 7.1 H (4.0-6.0) % 01/13/20 01/14/20 01/14/20 Range/Units 20:22 06:09 06:11 BUN 47 H (7-17) mg/dL Creatinine 1.34 H (0.52-1.04) mg/dL Glucose 187 H (74-99) mg/dL POC Glucose (mg/dL) 185 H 195 H (75-99) mg/dL Hemoglobin A1c (4.0-6.0) % Microbiology - Last 24 Hours (Table) 01/12/20 18:58 Blood Culture - Preliminary Blood No Growth after 24 hours Assessment and Plan Assessment: #1 chronic shortness of breath, with interval worsening of dyspnea probably later to fluid overload which is massively this point in time. The patient has chronic dyspnea related to chronic bronchial asthma in addition to chronic respiratory insufficiency related to a right hemidiaphragmatic paralysis in addition to morbid obesity and chronic hypoxic and hypercapnic respiratory failure. She may have a component of obesity hypoventilation syndrome as the patient has a BMI of 51.2.. Her current BMI is up to 54.2. She is a chronic CO2 retainer. Her baseline pCO2 is in the mid 50s. No evidence of any pneumonia. The chest x-ray findings are essentially stable. #2 recurrent hospitalizations for the same, and currently she has developed extensive lower extremity edema and possibly some cellulitis. #3 Chronic elevation of right hemidiaphragm with chronic hypoxemic respiratory failure secondary to previous spinal surgery.patient has a CPAP unit that she utilizes on outpatient basis. The exact pressure setting is not known at this point in time. #4 Acute on top of chronic kidney disease, stage III. And the patient's creatinine is 1.34 #5 Chronic diastolic congestive heart failure with chronic lower extremity edema. #6 Morbid obesity. #7 Hypothyroidism. #8 Hypertension. #9 Hyperlipidemia. #10 History of seizure disorder. #11 Previous history of overdose with pain medication requiring mechanical ventilatory support. #12 Osteoarthritis. #13 History of anxiety/depression. #14 Chronic hypoxic and hypercapnic respiratory failure admitted on oxygen at 2 L and maintain on CPAP overnight #15 History of lung surgery, possibly a limited right lower lobe resection #16 Concentric LVH along with severe pulmonary hypertension with an estimated right ventricular systolic pressure being about 60 mmHg. #17 Increased lower extremity edema, with weeping of fluid from the lateral surface of the legs suspected infection. there also several superficial wounds in lower extremities. Plan The patient was seen and evaluated by Dr. Vanegas She is improved from the pulmonary standpoint Remains in a negative balance Continued on IV diuretics Continued on IV antibiotics Increase her activity as tolerated We'll continue to follow I, the cosigning physician, performed a history & physical examination of the patient. Lungs sounds have faint end expiratory wheeze, few scattered rhonchi, crackles in the right base. Maintaining good O2 saturations in the 90s on 3 L/m per nasal cannula. I discussed the assessment and plan of care with my nurse practitioner, Renetta Sauceda. I attest to the above note as dictated by her.
[2020-01-14 12:33] LABS: Glucose,Whole Blood 175 mg/dL (75-99)
[2020-01-14 17:03] LABS: Glucose,Whole Blood 221 mg/dL (75-99)
[2020-01-14] MEDS ORDERED: LOPERAMIDE 2 MG CAP PO PRN (17:53)
[2020-01-14 20:41] LABS: Glucose,Whole Blood 216 mg/dL (75-99)
[2020-01-14] MEDS: ATORVASTATIN 40 MG TAB PO SCH (20:59)
[2020-01-14] MEDS: MONTELUKAST 10 MG TAB PO SCH (20:59)
[2020-01-14] MEDS: INSULIN DETEMIR (LEVEMIR) 100 UNIT/ML SYR SQ SCH (21:00)
[2020-01-15] MEDS: HYDROcodone/APAP 10-325MG 1 EACH TAB PO PRN ×3 (05:54→18:27)
[2020-01-15 06:30] LABS: Glucose,Whole Blood 159 mg/dL (75-99)
[2020-01-15] MEDS: PANTOPRAZOLE 40 MG TABLET PO SCH (06:44)
[2020-01-15] MEDS: LEVOTHYROXINE 100 MCG TAB PO SCH (06:44)
[2020-01-15] MEDS: INSULIN ASPART (NovoLOG) 100 UNIT/ML VIAL SQ SCH ×4 (06:45→21:03)
[2020-01-15 07:04] LABS: Calcium 9.4 mg/dL (8.4-10.2); Potassium 4.3 mmol/L (3.5-5.1)
[2020-01-15] MEDS: IPRATROPIUM-ALBUTEROL 3 ML NEB INHALATION SCH ×4 (07:36→20:11)
[2020-01-15] MEDS: BUDESONIDE 0.5 MG/2 ML NEBU INHALATION SCH ×2 (07:36→20:11)
[2020-01-15] MEDS: FUROSEMIDE 10 MG/ML 4 ML VIAL IV SCH ×2 (08:44→21:03)
[2020-01-15] MEDS: GABAPENTIN 400 MG CAP PO SCH ×3 (08:44→21:02)
[2020-01-15] MEDS: predniSONE 20 MG TAB PO SCH (08:44)
[2020-01-15] MEDS: ASPIRIN 81 MG PO SCH (08:44)
[2020-01-15] MEDS: HEPARIN SODIUM,PORCINE 5,000 UNIT/ML 1 ML VIAL SQ SCH ×2 (08:44→18:19)
[2020-01-15] MEDS: SERTRALINE 100 MG TAB PO SCH (08:44)
[2020-01-15 11:45] LABS: Glucose,Whole Blood 142 mg/dL (75-99)
--- NOTE | 2020-01-15 12:59 | P.PN ---
Subjective Progress Note Date: 01/15/20 A 74-year-old female patient was known to me. She is morbidly obese and she has chronic hypoxic and hypercapnic respiratory failure in addition to varus other medical present comorbidities. She has chronic paralyzed right hemidiaphragm and addition to asthma and chronic kidney disease. The patient got hospitalized yesterday because of worsening shortness of breath, worsening lower extremity edema, weeping of fluid from the skin surface in lower extremities and development some of some open wounds and a rash/erythema over the lateral aspect of the right leg consistent with cellulitis. She was admitted for further management. She is currently subjected to diuretics and she is currently on IV Lasix. No altered mentation. No chest pain. No fever or chills.. Creatinine at time of admission was at 1.9 and the patient is producing adequate amount of urine output. The white cell count is 11.6. The chest x-ray showing essentially stable chronic right hemidiaphragmatic paralysis/elevation along with some atelectatic changes in the right lung base without any major interval change compared to the previous x-ray findings. There is also multilevel posterior fusion of the thoracic spine. No cardiomegaly. The patient is seen today 01/14/2020 in follow-up on the selective care unit. She is currently sitting up in the chair at the bedside. Awake and alert in no acute distress. She is breathing easier today compared to yesterday. She has diuresed over 3 L in the past 24 hours. Blood culture reveals no growth. Sodium 139. Potassium 4.2. Creatinine 1.34. She remains on Lasix 40 mg IV every 12 hours. Antibiotics in the form of. Less Redness and Edema of the Lower Extremities. 01/15/2020 and seeing this patient for a follow-up. The patient doing better. There is a marked improvement in lower extremity edema. The patient has diuresed another 4 L over the past 24 hours and is obvious improvement in the cellulitis and the lower extremity wound and the lower extremity edema compared to yesterday. No chest pain. No nausea. No vomiting. No diarrhea. No abdominal pain. No altered mentation. No fever or chills. She has an indwelling Varela catheter for ongoing diuresis and urine output. Renal function remains stable at creatinine of 1.3. In fact her kidney function is improved with diuresis. Serum bicarb is up to 34. Will monitor the electrolytes. Potas sium level is at 4.3. Objective - Vital Signs Vital signs: Vital Signs Temp 98.1 F 01/15/20 08:00 Pulse 98 01/15/20 11:40 Resp 19 01/15/20 11:40 BP 145/65 01/15/20 11:40 Pulse Ox 98 01/15/20 11:40 Intake & Output 01/14/20 01/15/20 01/15/20 18:59 06:59 18:59 Intake Total 840 450 240 Output Total 1825 7050 Balance -985 450 -6810 Intake: Oral 840 450 240 Output: Urine 1825 7050 Other: Voiding Method Indwelling Catheter Indwelling Catheter Indwelling Catheter # Voids 1 1 - Exam GENERAL EXAM: Obese. Alert, pleasant 74-year-old female patient, comfortable in no apparent distress. On 3 L nasal cannula. HEAD: Normocephalic. EYES: Normal reaction of pupils, equal size. NOSE: Clear with pink turbinates. THROAT: No erythema or exudates. NECK: No masses, no JVD. CHEST: No chest wall deformity. LUNGS: Expiratory wheezes, few scattered rhonchi, diminished breath sounds in the right lung base. CVS: S1 and S2 normal with no audible murmur, regular rhythm. ABDOMEN: No hepatosplenomegaly, normal bowel sounds, no guarding or rigidity. SPINE: No scoliosis or deformity SKIN: No rashes CENTRAL NERVOUS SYSTEM: No focal deficits, tone is normal in all 4 extremities. EXTREMITIES: There is 1-2+ peripheral edema. The patient has evidence of cellulitis on the lateral aspect of the right lower extremity. At same time there are stage I/stage II wounds of various sizes in lower extremities bilaterally. These are superficial wounds . No clubbing, no cyanosis. Peripheral pulses are intact. - Labs CBC & Chem 7: 01/13/20 05:44 01/15/20 06:20 Labs: Abnormal Lab Results - Last 24 Hours (Table) 01/14/20 01/14/20 01/15/20 Range/Units 16:41 20:27 06:20 Carbon Dioxide 34 H (22-30) mmol/L BUN 59 H (7-17) mg/dL Creatinine 1.30 H (0.52-1.04) mg/dL Glucose 168 H (74-99) mg/dL POC Glucose (mg/dL) 221 H 216 H (75-99) mg/dL 01/15/20 01/15/20 Range/Units 06:28 11:38 Carbon Dioxide (22-30) mmol/L BUN (7-17) mg/dL Creatinine (0.52-1.04) mg/dL Glucose (74-99) mg/dL POC Glucose (mg/dL) 159 H 142 H (75-99) mg/dL Microbiology - Last 24 Hours (Table) 01/12/20 18:58 Blood Culture - Preliminary Blood No Growth after 48 hours Assessment and Plan Plan: #1 chronic shortness of breath, with interval worsening of dyspnea probably later to fluid overload which is massively this point in time. The patient continues to improve gradually as the patient is being diuresed with IV Lasix. Marked improvement in the volume status and shortness of breath. #2 recurrent hospitalizations for the same, and currently she has developed extensive lower extremity edema and possibly some cellulitis. There is imp roving with diuresis. The cellulitis in lower extremity edema is also improving. #3 Chronic elevation of right hemidiaphragm with chronic hypoxemic respiratory failure secondary to previous spinal surgery.patient has a CPAP unit that she utilizes on outpatient basis. The exact pressure setting is not known at this point in time. #4 acute on top of chronic kidney disease, stage III. The acute kidney failure is improving and the patient's creatinine is down to 1.3 #5 Chronic diastolic congestive heart failure with chronic lower extremity edema. #6 Morbid obesity. #7 Hypothyroidism. #8 Hypertension. #9 Hyperlipidemia. #10 History of seizure disorder. #11 Previous history of overdose with pain medication requiring mechanical ventilatory support. #12 Osteoarthritis. #13 History of anxiety/depression. #14 chronic hypoxic and hypercapnic respiratory failure admitted on oxygen at 2 L and maintain on CPAP overnight #15 history of lung surgery, possibly a limited right lower lobe resection #16 concentric LVH along with severe pulmonary hypertension with an estimated right ventricular systolic pressure being about 60 mmHg. #17 increased lower extremity edema, with weeping of fluid from the lateral surface of the legs suspected infection. there also several superficial wounds in lower extremities. This condition is also improving. Plan Keep the Varela catheter in place Continue utilizing Lasix 40 mg every 12 hours IV cefazolin can be discontinued and the patient can be placed on Keflex 500 mg by mouth twice a day along with local wound care Utilize our own CPAP or the patient CPAP from home for respiratory support. The patient is on CPAP therapy on outpatient basis Monitor renal function and electrolytes We'll continue to follow
--- NOTE | 2020-01-15 13:00 | ECHOF ---
Referral Reason:chf MEASUREMENTS -------- HEIGHT: 157.5 cm WEIGHT: 134.3 kg BP: 160/85 RVIDd: 3.6 cm (< 3.3) IVSd: 1.5 cm (0.6 - 1.1) LVIDd: 3.2 cm (3.9 - 5.3) LVPWd: 1.3 cm (0.6 - 1.1) IVSs: 1.9 cm LVIDs: 2.5 cm LVPWs: 1.7 cm LA Diam: 3.3 cm (2.7 - 3.8) Ao Diam: 3.3 cm (2.0 - 3.7) AV Cusp: 2.0 cm (1.5 - 2.6) MV EXCURSION: 16.594 mm (> 18.000) MV EF SLOPE: 49 mm/s (70 - 150) EPSS: 0.6 cm MV E Bharath: 0.79 m/s MV DecT: 370 ms MV A Bharath: 1.37 m/s MV E/A Ratio: 0.58 RAP: 5.00 mmHg RVSP: 32.02 mmHg FINDINGS -------- Sinus rhythm. This was a technically difficult study with suboptimal views. The left ventricular size is normal. There is moderate concentric left ventricular hypertrophy. O verall left ventricular systolic function is normal with, an EF between 55 - 60 %. The right ventricle is mildly enlarged. The left atrial size is normal. The right atrial size is normal. Lumason attampted Interatrial and interventricular septum intact. The aortic valve is trileaflet, and appears structurally normal. No aortic stenosis or regurgitation. The mitral valve is normal. Mild mitral regurgitation is present. Mild tricuspid regurgitation present. Right ventricular systolic pressure is normal at < 35 mmHg. Trace/mild (physiologic) pulmonic regurgitation. The aortic root size is normal. Normal inferior vena cava with normal inspiratory collapse consistent with estimated right atrial pre ssure of 5 mmHg. There is no pericardial effusion. CONCLUSIONS -------- 1. There is moderate concentric left ventricular hypertrophy. 2. Overall left ventricular systolic function is normal with, an EF between 55 - 60 %. 3. The right ventricle is mildly enlarged. 4. Lumason attampted 5. The aortic valve is trileaflet, and appears structurally normal. No aortic stenosis or regurgitati on. 6. Mild mitral regurgitation is present. 7. Mild tricuspid regurgitation present. 8. Trace/mild (physiologic) pulmonic regurgitation. 9. There is no pericardial effusion. [employer] SENIOR SPECIALIST: Maria Guadalupe Cortés RDCS
[2020-01-15] MEDS: CEPHALEXIN 500 MG CAP PO SCH ×2 (14:28→21:02)
[2020-01-15 16:59] LABS: Glucose,Whole Blood 264 mg/dL (75-99)
--- NOTE | 2020-01-15 17:15 | P.PN ---
Progress Note - Text Progress Note Date: 01/15/20 Chief Complaint: Short of breath, History of presenting complaint: This is a pleasant 73-year-old patient of Dr. Roger from visiting physicians. Chronic stable medical conditions include hyperlipidemia, hypertension, primary osteoarthritis, chronic kidney disease, seizure disorder, hypothyroidism, phrenic nerve damage with back surgery, causing right-sided hemidiaphragm paralysis, partial right lower lobe resection. Patient on home oxygen 3 L, chronic back pain from T8-T9 compression fracture, MRSA osteomyelitis in 2006, nonhealing abdominal ulcer, CHF EF 55 and 55%. Admitted with acute hypoxic respiratory failure with a pulse ox being in the 80s. Was placed on IV Lasix. Making good urine. Today-breathing improving. Has chronic pain in the lower extremity. Eating well. Review of systems: Was done for constitutional, cardiovascular, GI, pulmonary. relevant finding as above Active Medications Hydrocodone Bitart/Acetaminophen (Hydrocodone/Apap 10-325mg 1 Each Tab) 1 each PO Q6H PRN PRN Reason: Pain Last Admin: 01/15/20 12:17 Dose: 1 each Documented by: Albuterol/Ipratropium (Ipratropium-Albuterol 3 Ml Neb) 3 ml INHALATION RT-Q4H PRN PRN Reason: Shortness Of Breath Or Wheezing Albuterol/Ipratropium (Ipratropium-Albuterol 3 Ml Neb) 3 ml INHALATION RT-QID [facility] Last Admin: 01/15/20 16:04 Dose: 3 ml Documented by: Aspirin (Aspirin 81 Mg) 81 mg PO DAILY [facility] Last Admin: 01/15/20 08:44 Dose: 81 mg Documented by: Atorvastatin Calcium (Atorvastatin 40 Mg Tab) 40 mg PO HS [facility] Last Admin: 01/14/20 20:59 Dose: 40 mg Documented by: Budesonide (Budesonide 0.5 Mg/2 Ml Nebu) 0.5 mg INHALATION RT-BID [facility] Last Admin: 01/15/20 07:36 Dose: 0.5 mg Documented by: Cephalexin (Cephalexin 500 Mg Cap) 500 mg PO BID [facility] Last Admin: 01/15/20 14:28 Dose: 500 mg Documented by: Furosemide (Furosemide 10 Mg/Ml 4 Ml Vial) 40 mg IV Q12HR [facility] Last Admin: 01/15/20 08:44 Dose: 40 mg Documented by: Gabapentin (Gabapentin 400 Mg Cap) 400 mg PO TID [facility] Last Admin: 01/15/20 08:44 Dose: 400 mg Documented by: Heparin Sodium (Porcine) (Heparin Sodium,Porcine 5,000 Unit/Ml 1 Ml Vial) 5,000 unit SQ Q8HR [facility] Last Admin: 01/15/20 08:44 Dose: 5,000 unit Documented by: Insulin Aspart (Insulin Aspart (Novolog) 100 Unit/Ml Vial) 0 unit SQ ACHS [facility]; Protocol Last Admin: 01/15/20 06:45 Dose: 2 unit Documented by: Insulin Detemir (Insulin Detemir (Levemir) 100 Unit/Ml Syr) 10 unit SQ [facility] Last Admin: 01/14/20 21:00 Dose: 10 unit Documented by: Levothyroxine Sodium (Levothyroxine 100 Mcg Tab) 150 mcg PO DAILY@0630 [facility] Last Admin: 01/15/20 06:44 Dose: 150 mcg Documented by: Loperamide HCl (Loperamide 2 Mg Cap) 2 mg PO QID PRN PRN Reason: Diarrhea Last Admin: 01/14/20 18:03 Dose: 2 mg Documented by: Montelukast Sodium (Montelukast 10 Mg Tab) 10 mg PO [facility] Last Admin: 01/14/20 20:59 Dose: 10 mg Documented by: Pantoprazole Sodium (Pantoprazole 40 Mg Tablet) 40 mg PO -BRKT [facility] Last Admin: 01/15/20 06:44 Dose: 40 mg Documented by: Prednisone (Prednisone 20 Mg Tab) 40 mg PO DAILY [facility] Last Admin: 01/15/20 08:44 Dose: 40 mg Documented by: Sertraline HCl (Sertraline 100 Mg Tab) 100 mg PO DAILY [facility] Last Admin: 01/15/20 08:44 Dose: 100 mg Documented by: Silver Sulfadiazine (Silver Sulfadiazine 1% Cream 25 Gm Tube) 1 applic TOPICAL BID [facility] Last Admin: 01/15/20 08:45 Dose: 1 applic Documented by: Physical examination: VITAL SIGNS: 98.1, 98, 19, 141/64, 99% on 3 L GENERAL: Sitting up in a chair, some shortness of breath. EYES: Pupils equal. Conjunctiva normal. HEENT: External appearance of nose and ears normal, oral cavity grossly normal. NECK: JVD unable to assess; masses not palpable. HEART: First and second heart sounds are normal; nonpitting edema. LUNGS: respiratory effort increased, decreased breath sounds ABDOMEN: Soft, nontender, liver spleen not palpable, no masses palpable. PSYCH: Alert and oriented x3; mood and affect anxious EXTREMITY: Some edema of the lower extremity. Superficial skin breakdown. Investigations, reviewed in the clinical context. Bun 59 creatinine 1.30 Accu-Cheks 159, 142, 264 Previous testing Chest [id number] elevation of the right diaphragm. 2-D echocardiogram-D 55-60%, moderate concentric LVH. Assessment: - moderate persistent asthma, -Chronic lower extremity cellulitis with chronic pain -Acute hypoxic respiratory failure from CHF, POA -Chronic hypoxic respiratory failure from asthma on 3 L of oxygen at home -Morbid obesity BMI 54.2 -Hyperlipidemia -Essential hypertension -Primary osteoarthritis -Hypothyroidism -Chronic right diaphragm paralysis, from prior surgery -History of right lower lobe lung resection -Acute on Chronic congestive heart failure from diastolic dysfunction EF 50-55 %-POA -Cor pulmonale with acute flareup -Chronic kidney disease stage III from nephrosclerosis -Acute kidney injury with creatinine-hepatorenal syndrome, POA. Creatinine decreased from 1.9-1.3 Plan: -We'll continue with IV Lasix without 24 hours. Continue with Silvadene dressin g to lower extremity. Patient oriented [place] for pain. Also on Neurontin. Discussed with the patient at length. Hopefully discharge in next 1 or 2 days.
[2020-01-15 20:13] LABS: Glucose,Whole Blood 203 mg/dL (75-99)
[2020-01-15] MEDS: ATORVASTATIN 40 MG TAB PO SCH (21:02)
[2020-01-15] MEDS: MONTELUKAST 10 MG TAB PO SCH (21:02)
[2020-01-15] MEDS: INSULIN DETEMIR (LEVEMIR) 100 UNIT/ML SYR SQ SCH (21:03)
[2020-01-16] MEDS: HEPARIN SODIUM,PORCINE 5,000 UNIT/ML 1 ML VIAL SQ SCH ×2 (00:03→08:48)
[2020-01-16] MEDS: HYDROcodone/APAP 10-325MG 1 EACH TAB PO PRN ×2 (03:34→09:40)
[2020-01-16 06:25] LABS: Glucose,Whole Blood 139 mg/dL (75-99)
[2020-01-16] MEDS: INSULIN ASPART (NovoLOG) 100 UNIT/ML VIAL SQ SCH ×2 (06:42→12:27)
[2020-01-16] MEDS: PANTOPRAZOLE 40 MG TABLET PO SCH (06:42)
[2020-01-16] MEDS: LEVOTHYROXINE 100 MCG TAB PO SCH (06:42)
[2020-01-16 07:36] LABS: Calcium 9.2 mg/dL (8.4-10.2); Potassium 3.7 mmol/L (3.5-5.1)
[2020-01-16] MEDS: BUDESONIDE 0.5 MG/2 ML NEBU INHALATION SCH (08:16)
[2020-01-16] MEDS: IPRATROPIUM-ALBUTEROL 3 ML NEB INHALATION SCH ×2 (08:16→11:29)
[2020-01-16] MEDS: FUROSEMIDE 10 MG/ML 4 ML VIAL IV SCH (08:48)
[2020-01-16] MEDS: CEPHALEXIN 500 MG CAP PO SCH (08:48)
[2020-01-16] MEDS: predniSONE 20 MG TAB PO SCH (08:48)
[2020-01-16] MEDS: GABAPENTIN 400 MG CAP PO SCH (08:49)
[2020-01-16] MEDS: SERTRALINE 100 MG TAB PO SCH (08:49)
[2020-01-16] MEDS: ASPIRIN 81 MG PO SCH (08:49)
[2020-01-16 09:04] VITALS: BP 130/83; RESP 20; TEMP 98.5
[2020-01-16 11:31] VITALS: PULSE 88
[2020-01-16 11:47] LABS: Glucose,Whole Blood 126 mg/dL (75-99)
--- NOTE | 2020-01-16 12:22 | P.PN ---
Subjective Progress Note Date: 01/16/20 Principal diagnosis: Chronic shortness of breath, chronic elevation of the right hemidiaphragm, peripheral edema A 74-year-old female patient was known to me. She is morbidly obese and she has chronic hypoxic and hypercapnic respiratory failure in addition to varus other medical present comorbidities. She has chronic paralyzed right hemidiaphragm and addition to asthma and chronic kidney disease. The patient got hospitalized yesterday because of worsening shortness of breath, worsening lower extremity edema, weeping of fluid from the skin surface in lower extremities and development some of some open wounds and a rash/erythema over the lateral aspect of the right leg consistent with cellulitis. She was admitted for further management. She is currently subjected to diuretics and she is currently on IV Lasix. No altered mentation. No chest pain. No fever or chills.. Creatinine at time of admission was at 1.9 and the patient is producing adequate amount of urine output. The white cell count is 11.6. The chest x-ray showing essentially stable chronic right hemidiaphragmatic paralysis/elevation along with some atelectatic changes in the right lung base without any major interval change compared to the previous x-ray findings. There is also multilevel p osterior fusion of the thoracic spine. No cardiomegaly. The patient is seen today 01/14/2020 in follow-up on the selective care unit. She is currently sitting up in the chair at the bedside. Awake and alert in no acute distress. She is breathing easier today compared to yesterday. She has diuresed over 3 L in the past 24 hours. Blood culture reveals no growth. Sodium 139. Potassium 4.2. Creatinine 1.34. She remains on Lasix 40 mg IV every 12 hours. Antibiotics in the form of. Less Redness and Edema of the Lower Extremities. 01/15/2020 and seeing this patient for a follow-up. The patient doing better. There is a marked improvement in lower extremity edema. The patient has diur esed another 4 L over the past 24 hours and is obvious improvement in the cellulitis and the lower extremity wound and the lower extremity edema compared to yesterday. No chest pain. No nausea. No vomiting. No diarrhea. No abdominal pain. No altered mentation. No fever or chills. She has an indwelling Varela catheter for ongoing diuresis and urine output. Renal function remains stable at creatinine of 1.3. In fact her kidney function is improved with diuresis. Serum bicarb is up to 34. Will monitor the electrolytes. Potassium level is at 4.3. On 01/16/2020 patient seen in follow-up. She is awake and alert, in no acute distress, is diuresing, remains on Lasix 40 mg every 12 hours, she has produced 8.4 L in urine output over the past 24 hours, patient is in -7.9 L over the last 24 hours, lower extremities edema is improving, however patient still has significant peripheral edema. Patient remains on oral antibiotics of Keflex for lower extremity cellulitis. No altered mentation, she is on 3 L of oxygen with pulse ox of 97%, she has been afebrile, blood cultures have shown no growth. Objective - Vital Signs Vital signs: Vital Signs Temp 98.5 F 01/16/20 08:00 Pulse 88 01/16/20 11:41 Resp 20 01/16/20 08:00 BP 130/83 01/16/20 08:00 Pulse Ox 98 01/16/20 08:16 Intake & Output 01/15/20 01/16/20 01/16/20 18:59 06:59 18:59 Intake Total 480 60 240 Output Total 7950 500 0 Balance -7470 -440 240 Weight 158.6 kg 130.9 kg Intake: IV 60 .9 60 Oral 480 240 Output: Urine 7950 500 Uretheral (Varela) 500 Stool 0 0 Other: Voiding Method Indwelling Catheter Indwelling Catheter Indwelling Catheter # Voids 1 1 1 # Bowel Movements 1 - Exam GENERAL EXAM: Alert, very pleasant, 74-year-old obese white female, on 3 L of oxygen pulse ox 97% sitting up in the recliner, comfortable in no apparent distress. HEAD: Normocephalic/atraumatic. EYES: Normal reaction of pupils, equal size. Conjunctiva pink, sclera white. NOSE: Clear with pink turbinates. THROAT: No erythema or exudates. NECK: No masses, no JVD, no thyroid enlargement, no adenopathy. CHEST: No chest wall deformity. Symmetrical expansion. LUNGS: Diminished air entry with no crackles, wheeze, rhonchi or dullness. CVS: Regular rate and rhythm, normal S1 and S2, no gallops, no murmurs, no rubs ABDOMEN: Soft, nontender. No hepatosplenomegaly, normal bowel sounds, no guarding or rigidity. EXTREMITIES: No clubbing, plus lower extremity edema, and cellulitis no cyanosis, 2+ pulses and upper and lower extremities. Lower extremities are darci wrapped MUSCULOSKELETAL: Muscle strength and tone normal. SPINE: No scoliosis or deformity SKIN: No rashes CENTRAL NERVOUS SYSTEM: Alert and oriented -3. No focal deficits, tone is normal in all 4 extremities. PSYCHIATRIC: Alert and oriented -3. Appropriate affect. Intact judgment and insight. - Labs CBC & Chem 7: 01/13/20 05:44 01/16/20 06:53 Labs: Abnormal Lab Results - Last 24 Hours (Table) 01/15/20 01/15/20 01/16/20 Range/Units 16:55 20:12 06:24 Chloride (98-107) mmol/L Carbon Dioxide (22-30) mmol/L BUN (7-17) mg/dL Creatinine (0.52-1.04) mg/dL Glucose (74-99) mg/dL POC Glucose (mg/dL) 264 H 203 H 139 H (75-99) mg/dL 01/16/20 01/16/20 Range/Units 06:53 11:33 Chloride 97 L (98-107) mmol/L Carbon Dioxide 40 H (22-30) mmol/L BUN 59 H (7-17) mg/dL Creatinine 1.36 H (0.52-1.04) mg/dL Glucose 126 H (74-99) mg/dL POC Glucose (mg/dL) 126 H (75-99) mg/dL Microbiology - Last 24 Hours (Table) 01/12/20 18:58 Blood Culture - Preliminary Blood No Growth after 72 hours Assessment and Plan Plan: Assessment: #1 chronic shortness of breath, with interval worsening of dyspnea probably later to fluid overload which is massively this point in time. The patient continues to improve gradually as the patient is being diuresed with IV Lasix. Marked improvement in the volume status and shortness of breath. Patient remains on diuretics #2 recurrent hospitalizations for the same, and currently she has developed extensive lower extremity edema and possibly some cellulitis. There is improving with diuresis. The cellulitis in lower extremity edema is also improving. #3 Chronic elevation of right hemidiaphragm with chronic hypoxemic respiratory failure secondary to previous spinal surgery.patient has a CPAP unit that she utilizes on outpatient basis. The exact pressure setting is not known at this point in time. #4 acute on top of chronic kidney disease, stage III. The acute kidney failure is improving and the patient's creatinine is down to 1.3 #5 Chronic diastolic congestive heart failure with chronic lower extremity edema. #6 Morbid obesity. #7 Hypothyroidism. #8 Hypertension. #9 Hyperlipidemia. #10 History of seizure disorder. #11 Previous history of overdose with pain medication requiring mechanical ventilatory support. #12 Osteoarthritis. #13 History of anxiety/depression. #14 chronic hypoxic and hypercapnic respiratory failure admitted on oxygen at 2 L and maintain on CPAP overnight #15 history of lung surgery, possibly a limited right lower lobe resection #16 concentric LVH along with severe pulmonary hypertension with an estimated right ventricular systolic pressure being about 60 mmHg. #17 increased lower extremity edema, with weeping of fluid from the lateral surface of the legs suspected infection. there also several superficial wounds in lower extremities. This condition is also improving Plan: Continue IV Lasix, patient is in negative fluid balance, peripheral edema is improving, breathing is improving, continue oral Keflex for lower extremity cellulitis, continue local wound care to lower extremity cellulitis. We'll continue on IV Lasix, daily weights, I's and renal profile, continue to follow I performed a history & physical examination of the patient and discussed their management with my nurse practitioner, Bridget Heard. I reviewed the nurse practitioner's note and agree with the documented findings and plan of care. Lung sounds are positive for diminished breath sounds. The findings and the impression was discussed with the patient. I attest to the documentation by the nurse practitioner. Time with Patient: Less than 30
--- NOTE | 2020-01-16 18:42 | P.DS ---
Providers Date of admission: 01/12/20 20:09 Expected date of discharge: 01/16/20 Attending physician: Diogo Salas Consults: 01/12/20 20:08 Consult Physician Routine Consulting Provider: Christoph Vanegas Consult Reason/Comments: COPD Do you want consulting provider notified?: Yes [facility] Course: Chief Complaint: Short of breath, History of presenting complaint: This is a pleasant 73-year-old patient of Dr. Roger from visiting physicians. Chronic stable medical conditions include hyperlipidemia, hypertension, primary osteoarthritis, chronic kidney disease, seizure disorder, hypothyroidism, phrenic nerve damage with back surgery, causing right-sided hemidiaphragm paralysis, partial right lower lobe resection. Patient on home oxygen 3 L, chronic back pain from T8-T9 compression fracture, MRSA osteomyelitis in 2006, nonhealing abdominal ulcer, CHF EF 55 and 55%. Admitted with acute hypoxic respiratory failure with a pulse ox being in the 80s. From CHF exacerbation. Was placed on IV Lasix. Making good urine. Also treated for lower extremity cellulitis. Today-feeling much better. Does not extremity swelling is gone on. Patient had used well with IV Lasix. Care was discussed with the patient. Discussed about Ha[place] wrap to The bit tight. Also discussed with Dr. Vanegas. Steroid to be cutback on maintenance dose. And changed to oral Lasix. Discussion and discharge planning more than 35 minutes Consultation: Dr. Vanegas from pulmonary Physical examination: VITAL SIGNS: 98.5, 86, 20, 130/83, 97% on 3 L GENERAL: Sitting up in a chair, breathing much improved EYES: Pupils equal. Conjunctiva normal. HEENT: External appearance of nose and ears normal, oral cavity grossly normal. NECK: JVD unable to assess; masses not palpable. HEART: First and second heart sounds are normal; nonpitting edema. LUNGS: respiratory effort increased, decreased breath sounds ABDOMEN: Soft, nontender, liver spleen not palpable, no masses palpable. PSYCH: Alert and oriented x3; mood and affect anxious EXTREMITY: Decreased edema of the lower extremity. Superficial skin breakdown.-Improved cellulitis Investigations, reviewed in the clinical context. Potassium 3.7 creatinine 1.36 Accu-Cheks 159, 142, 264 Previous testing Chest [id number] elevation of the right diaphragm. 2-D echocardiogram-D 55-60%, moderate concentric LVH. Admission creatinine 1.91 Assessment: - moderate persistent asthma, -Acute on Chronic lower extremity cellulitis with chronic pain, POA -Acute hypoxic respiratory failure from CHF, POA -Chronic hypoxic respiratory failure from asthma on 3 L of oxygen at home -Morbid obesity BMI 54.2 -Hyperlipidemia -Essential hypertension -Primary osteoarthritis -Hypothyroidism -Chronic right diaphragm paralysis, from prior surgery -History of right lower lobe lung resection -Acute on Chronic congestive heart failure from diastolic dysfunction EF 50-55 %-POA -Cor pulmonale with acute flareup-improved -Chronic kidney disease stage III from nephrosclerosis -Acute kidney injury with creatinine-hepatorenal syndrome, POA. Creatinine decreased from 1.9-1.3 Disposition: Home Patient Condition at Discharge: Stable Plan - Discharge Summary Discharge Rx Participant: No New Discharge Prescriptions: New Cephalexin [Keflex] 500 mg PO BID #10 cap Metoprolol Tartrate [Lopressor] 12.5 mg PO BID #60 dose Continue HYDROcodone/APAP 10-325MG [[place] 10-325] 1 tab PO Q6H PRN PRN Reason: Pain Aspirin EC [Ecotrin Low Dose] 81 mg PO DAILY Levothyroxine Sodium [Synthroid] 150 mcg PO DAILY Ergocalciferol [Vitamin D2 (DRISDOL)] 50,000 unit PO WE Rosuvastatin [Crestor] 20 mg PO HS Pantoprazole [Protonix] 40 mg PO AC-BRKFST #30 tablet. Montelukast [Singulair] 10 mg PO HS Ferrous Sulfate [Iron (65 MG Elemental)] 325 mg PO DAILY Sertraline HCl [Zoloft] 100 mg PO DAILY Mirabegron [Myrbetriq] 50 mg PO HS Furosemide [Lasix] 40 mg PO BID Ipratropium-Albuterol Nebulize [Duoneb 0.5 mg-3 mg/3 ml Soln] 3 ml INHALATION RT-Q6H Budesonide [Pulmicort] 0.5 mg INHALATION RT-BID Potassium Chloride ER [K-Dur 20] 20 meq PO DAILY SILVER sulfADIAZINE CREAM [Silvadene Cream] 1 applic TOPICAL BID predniSONE 10 mg PO DAILY Gabapentin [Neurontin] 400 mg PO TID Discontinued Metoprolol Tartrate [Lopressor] 50 mg PO BID #60 tab Discharge Medication List HYDROcodone/APAP 10-325MG [[place] 10-325] 1 tab PO Q6H PRN 06/25/16 [History] Aspirin EC [Ecotrin Low Dose] 81 mg PO DAILY 09/02/17 [History] Ergocalciferol [Vitamin D2 (DRISDOL)] 50,000 unit PO WE 07/22/18 [History] Levothyroxine Sodium [Synthroid] 150 mcg PO DAILY 07/22/18 [History] Rosuvastatin [Crestor] 20 mg PO HS 07/22/18 [History] Pantoprazole [Protonix] 40 mg PO AC-BRKFST #30 tablet.dr 09/14/18 [Rx] Ferrous Sulfate [Iron (65 MG Elemental)] 325 mg PO DAILY 01/21/19 [History] Montelukast [Singulair] 10 mg PO HS 01/21/19 [History] Mirabegron [Myrbetriq] 50 mg PO HS 04/02/19 [History] Sertraline HCl [Zoloft] 100 mg PO DAILY 04/02/19 [History] Furosemide [Lasix] 40 mg PO BID 09/09/19 [History] Budesonide [Pulmicort] 0.5 mg INHALATION RT-BID 09/11/19 [History] Ipratropium-Albuterol Nebulize [Duoneb 0.5 mg-3 mg/3 ml Soln] 3 ml INHALATION RT-Q6H 09/11/19 [History] Potassium Chloride ER [K-Dur 20] 20 meq PO DAILY 09/11/19 [History] Gabapentin [Neurontin] 400 mg PO TID 01/12/20 [History] SILVER sulfADIAZINE CREAM [Silvadene Cream] 1 applic TOPICAL BID 01/12/20 [History] predniSONE 10 mg PO DAILY 01/12/20 [History] Cephalexin [Keflex] 500 mg PO BID #10 cap 01/16/20 [Rx] Metoprolol Tartrate [Lopressor] 12.5 mg PO BID #60 dose 01/16/20 [Rx] Follow up Appointment(s)/Referral(s): Bárbara Christine [NON-STAFF] - () Baudilio Roger MD [Primary Care Provider] - 1-2 days (office will call with follow appointment date and time) Patient Instructions/Handouts: COPD (Chronic Obstructive Pulmonary Disease) (DC) Activity/Diet/Wound Care/Special Instructions: bmp -3 days Discharge Disposition: HOME SELF-CARE
--- NOTE | 2020-01-17 12:59 | CDI ---
Documentation Clarification Form Date: 01/17/20 From: Leela Antonio Phone: If you have a question about this query, please contact Tamia Warner, Antenna Rigger at [phone] between 8am and 5pm. Admit Date: 01/12/20 Discharge Date: 01/16/20 Patient Name: BATLA HANNA Visit Number: [id number] ATTENTION: The Clinical Documentation Specialists (CDI) and [facility] Coding Staff appreciate your assistance in clarifying documentation. Please respond to the clarification below the line at the bottom and electronically sign. The CDI & [facility] Coding staff will review the response and follow-up if needed. Please note: Queries are made part of the Legal Health Record. If you have any questions, please contact the author of this message via ITS. Dear Dr. Diogo Salas, Atrial Flutter is documented in the ED note and HP. History/Risk factors: HTN w ac/chr diastolic CHF & CKD Stage 3, ac/chr hypoxic & hypercapnia respiratory failure, ELIZ, mod persistent asthma w ac exacerbation, COPD in ac exacerbation, morbid obesity w alveolar hypoventilation Clinical Indicators: A flutter on EKG, likely sole episode due to current exacerbation -Continue cardiac monitoring for now EKG/telemetry: Atrial flutter with AV block, very poor baseline with artifact, no ST segment elevation, ventricular rate of 88, QRS duration 76, QTC 464 Treatment: obtain repeat EKG, hold anticoagulation, review previous EKGs In your professional opinion, in order to capture the severity of condition; can you please clarify the type of Atrial Flutter if known? Typical/Type I Atypical/Type II Other, please specify Unable to determine unable to determine MTDD
== END 2020-01-16 16:06 | disposition home health service (06) | DRG 291 ==
LOC: EC 18:34 → 3SCARD 20:09
PROVIDERS: ADMIT Hospitalist; ATTEND Hospitalist
PROC: 5A09457 Assistance with Respiratory Ventilation, 24-96 Consecutive Hours, Continuous Positive Airway Pressure (ICD-10-PCS; 2020-01-12)
PROC: 05HF33Z Insertion of Infusion Device into Left Cephalic Vein, Percutaneous Approach (ICD-10-PCS; principal; 2020-01-15 16:00)
DX: I13.0 Hypertensive heart and chronic kidney disease with heart failure and stage 1 through stage 4 chronic kidney disease, or unspecified chronic kidney disease (principal); I50.33 Acute on chronic diastolic (congestive) heart failure; J96.21 Acute and chronic respiratory failure with hypoxia; K76.7 Hepatorenal syndrome; J96.22 Acute and chronic respiratory failure with hypercapnia; J45.41 Moderate persistent asthma with (acute) exacerbation; N17.9 Acute kidney failure, unspecified; J44.1 Chronic obstructive pulmonary disease with (acute) exacerbation; Z68.43 Body mass index [BMI] 50.0-59.9, adult; E66.2 Morbid (severe) obesity with alveolar hypoventilation; L03.115 Cellulitis of right lower limb; L03.116 Cellulitis of left lower limb; J98.11 Atelectasis; I48.92 Unspecified atrial flutter; I27.29 Other secondary pulmonary hypertension; I27.81 Cor pulmonale (chronic); D63.1 Anemia in chronic kidney disease; E11.22 Type 2 diabetes mellitus with diabetic chronic kidney disease; N18.3 Chronic kidney disease, stage 3 (moderate); G40.909 Epilepsy, unspecified, not intractable, without status epilepticus; J98.6 Disorders of diaphragm; S81.802A Unspecified open wound, left lower leg, initial encounter; S81.801A Unspecified open wound, right lower leg, initial encounter; Z99.81 Dependence on supplemental oxygen; Z20.828 Contact with and (suspected) exposure to other viral communicable diseases; E78.2 Mixed hyperlipidemia; E03.9 Hypothyroidism, unspecified; F32.9 Major depressive disorder, single episode, unspecified; F41.9 Anxiety disorder, unspecified; G89.29 Other chronic pain; M41.9 Scoliosis, unspecified; M54.9 Dorsalgia, unspecified; M19.91 Primary osteoarthritis, unspecified site; Z79.82 Long term (current) use of aspirin; Z79.51 Long term (current) use of inhaled steroids; Z79.890 Hormone replacement therapy; Z79.899 Other long term (current) drug therapy; Z90.2 Acquired absence of lung [part of]; Z87.01 Personal history of pneumonia (recurrent); Z87.09 Personal history of other diseases of the respiratory system; Z86.14 Personal history of Methicillin resistant Staphylococcus aureus infection; Z87.311 Personal history of (healed) other pathological fracture; Z86.69 Personal history of other diseases of the nervous system and sense organs; Z87.440 Personal history of urinary (tract) infections; Z87.19 Personal history of other diseases of the digestive system; Z90.49 Acquired absence of other specified parts of digestive tract; Z98.891 History of uterine scar from previous surgery; Z90.710 Acquired absence of both cervix and uterus; Z87.42 Personal history of other diseases of the female genital tract; Z90.89 Acquired absence of other organs; Z98.1 Arthrodesis status; Z98.890 Other specified postprocedural states; Z88.1 Allergy status to other antibiotic agents; Z88.5 Allergy status to narcotic agent; Z82.5 Family history of asthma and other chronic lower respiratory diseases; Z81.2 Family history of tobacco abuse and dependence
CPT/HCPCS: 36410; 36415; 71045; 76937; 80048; 80053; 83036; 83605; 83735; 83880; 84484; 85025; 85027; 85610; 85730; 87040; 93005; 93306; 94640; 94660; 94760; 96374; 99291